=== PATIENT | female | born 1995 | race American Indian/Alaskan Native ===

== ENCOUNTER 2016-03-08 16:31 | Emergency (ER) | payer OTHER, MEDICAID ==
[2016-03-08 16:55] VITALS: BP 150/103
--- NOTE | 2016-03-08 18:18 | Emergency Department Report ---
Chief Complaint: Abdominal Pain Stated Complaint: POSS /CRAMPS Time Seen by Provider: 03/08/16 18:04 - HPI History of Present Illness: 20-year-old female presents today with lower abdominal cramping 2 months but has worsened. Positive test at a clinic which states that she is approximately 12 weeks according to her last menstrual period. Denies burning upon urination, blood in urine, vaginal discharge, vaginal bleeding, shortness of breath, chest pain. - ROS Review of Systems: Per HPI - Exam Vital Signs: Vital Signs 03/08/16 16:53 Temperature 98.1 F Pulse Rate 108 H Respiratory 18 Rate Blood Pressure 150/103 O2 Sat by Pulse 100 Oximetry Physical Exam: General: 20-year-old female in no acute distress. Well-developed, well- nourished. CV: Tachycardic. Regular rhythm. Lungs: Clear to auscultation bilaterally. Abdomen: Tenderness to palpation of lower abdomen. No guarding or rebound tenderness. MSE screening note: Focused history and physical exam performed. Due to findings the following was ordered: ED Disposition for MSE Condition: Stable Instructions: Abdominal Pain (ED)
[2016-03-08 18:36] LABS: Basophils % (Auto) 0.7 % (0.0-1.8); Eosinophils % (Auto) 1.1 % (0.0-4.3); Hematocrit 33.3 % (30.3-42.9); Hemoglobin 10.4 gm/dl (10.1-14.3); Mean Corpuscular HGB Conc 31 % (30-34); Mean Corpuscular Volume 74 fl (79-97); Platelet Count 428 K/mm3 (140-440)
[2016-03-08 18:37] LABS: Mean Corpuscular Hemoglobin 23 pg (28-32)
[2016-03-08 19:01] LABS: Anion Gap 16 mmol/L; Blood Urea Nitrogen 9 mg/dL (7-17); Calcium 9.3 mg/dL (8.4-10.2); Carbon Dioxide 23 mmol/L (22-30); Chloride 97.8 mmol/L (98-107); Glucose 98 mg/dL (65-100); Lipase 30 units/L (13-60); Potassium 3.8 mmol/L (3.6-5.0); Sodium 133 mmol/L (137-145)
--- NOTE | 2016-03-08 21:26 | Ultrasound Report ---
FINAL REPORT PROCEDURE: US OB < = 14 WEEKS FETUS TECHNIQUE: Real-time transabdominal and transvaginal sonography of the uterus, placenta, amniotic fluid, adnexa, and fetus was performed with image documentation. Measurements were obtained to determine age/size. M-mode Doppler was used to document heartbeat. CPT 53319 and 92365 HISTORY: Abdominal cramping COMPARISON: No prior studies are available for comparison. FINDINGS: ADDITIONAL GESTATION: None. Single live intrauterine is seen with crown-rump length of 2 cm corresponding to 8 weeks 5 days gestational age. Estimated date of delivery based on this measurement is October 13, 2016. heart rate is 170 beats per minute. Yolk sac is seen. Cervix appears closed. Right ovary measures 3.1 x 1.9 x 2.1 cm and contains a 1.6 cm complex lesion that is probably a collapsed cyst. Left ovary measures 2.9 x 1.8 x 2.1 cm. No free pelvic fluid is seen. IMPRESSION: 1. Single live intrauterine gestation at approximately 8 weeks 5 days. 2. EDC by US October 13, 2016 3. Probably partially collapsed cyst is seen in the right ovary measuring 1.6 cm.
--- NOTE | 2016-03-08 21:28 | Ultrasound Report ---
FINAL REPORT PROCEDURE: US OB TRANSVAGINAL TECHNIQUE: Real-time transabdominal and transvaginal sonography of the uterus, placenta, amniotic fluid, adnexa, and fetus was performed with image documentation. Measurements were obtained to determine age/size. M-mode Doppler was used to document heartbeat. CPT 22575 and 87206 HISTORY: Abdominal cramping COMPARISON: No prior studies are available for comparison. FINDINGS: ADDITIONAL GESTATION: None. Single live intrauterine is seen with crown-rump length of 2 cm corresponding to 8 weeks 5 days gestational age. Estimated date of delivery based on this measurement is October 13, 2016. heart rate is 170 beats per minute. Yolk sac is seen. Cervix appears closed. Right ovary measures 3.1 x 1.9 x 2.1 cm and contains a 1.6 cm complex lesion that is probably a collapsed cyst. Left ovary measures 2.9 x 1.8 x 2.1 cm. No free pelvic fluid is seen. IMPRESSION: 1. Single live intrauterine gestation at approximately 8 weeks 5 days. 2. EDC by US October 13, 2016 3. Probably partially collapsed cyst is seen in the right ovary measuring 1.6 cm.
[2016-03-08 22:04] LABS: Bacteria,Urine 2+ /HPF (Negative); Bilirubin,Urine NEG (Negative); Blood,Urine NEG (Negative); Ketones,Urine NEG (Negative); Leukocyte Esterase,Urine TR (Negative); Mucus,Urine 1+ /HPF; Nitrite,Urine NEG (Negative); Protein,Urine <15 mg/dL mg/dL (Negative); Urobilinogen,Urine < 2.0 mg/dL (<2.0)
--- NOTE | 2016-03-13 15:40 | ED Elopement Review ---
ED Pt Elopement review - Results review Lab results: Laboratory Tests 03/08/16 03/08/16 03/08/16 18:22 18:22 18:22 WBC 12.0 H RBC 4.50 Hgb 10.4 Hct 33.3 MCV 74 L MCH 23 L MCHC 31 RDW 19.0 H Plt Count 428 Lymph % (Auto) 28.2 [place] % (Auto) 9.4 H Eos % (Auto) 1.1 Baso % (Auto) 0.7 Lymph # 3.4 [place]osey # 1.1 H Eos # 0.1 Baso # 0.1 Seg Neutrophils % 60.6 Seg Neutrophils # 7.3 Sodium 133 L Potassium 3.8 Chloride 97.8 L Carbon Dioxide 23 Anion Gap 16 BUN 9 Creatinine 0.5 L Estimated GFR > 60 BUN/Creatinine Ratio 18.00 Glucose 98 Calcium 9.3 Amylase 114 Lipase 30 HCG, Quant Urine Color Urine Turbidity Urine pH Ur Specific [place] Urine Protein Urine Glucose (UA) Urine Ketones Urine Blood Urine Nitrite Urine Bilirubin Urine Urobilinogen Ur Leukocyte Esterase Urine WBC (Auto) Urine RBC (Auto) U Epithel Cells (Auto) Urine Bacteria (Auto) Calcium Oxalate Crystal Urine Mucus 03/08/16 03/08/16 18:22 21:15 WBC RBC Hgb Hct MCV MCH MCHC RDW Plt Count Lymph % (Auto) [place]y % (Auto) Eos % (Auto) Baso % (Auto) Lymph # [place] # Eos # Baso # Seg Neutrophils % Seg Neutrophils # Sodium Potassium Chloride Carbon Dioxide Anion Gap BUN Creatinine Estimated GFR BUN/Creatinine Ratio Glucose Calcium Amylase Lipase HCG, Quant 94571 H Urine Color Yellow Urine Turbidity Slightly-cloudy Urine pH 6.0 Ur Specific [place] 1.030 Urine Protein <15 mg/dl Urine Glucose (UA) Neg Urine Ketones Neg Urine Blood Neg Urine Nitrite Neg Urine Bilirubin Neg Urine Urobilinogen < 2.0 Ur Leukocyte Esterase Tr Urine WBC (Auto) 1.0 Urine RBC (Auto) 4.0 U Epithel Cells (Auto) 5.0 Urine Bacteria (Auto) 2+ Calcium Oxalate Crystal 2+ Urine Mucus 1+ - Call Back decision Pt Call Back Decision: Pt to F/U with PMD (needs OB JUNAID)
== END 2016-03-08 18:25 | disposition left against medical advice (07) ==
LOC: ED 16:31
DX: O26.891 Other specified pregnancy related conditions, first trimester (principal); R10.30 Lower abdominal pain, unspecified; Z3A.12 12 weeks gestation of pregnancy; Z53.21 Procedure and treatment not carried out due to patient leaving prior to being seen by health care provider
CPT/HCPCS: 36415; 76801; 76817; 80048; 81001; 82150; 83690; 84702; 85025

== ENCOUNTER 2016-04-01 22:06 | Emergency (ER) | payer OTHER, MEDICAID ==
[2016-04-01 23:07] VITALS: BP 142/101
== END 2016-04-01 23:15 | disposition left against medical advice (07) ==
LOC: ED 22:06
DX: O21.9 Vomiting of pregnancy, unspecified (principal); R11.0 Nausea; K92.0 Hematemesis; R10.10 Upper abdominal pain, unspecified; Z3A.13 13 weeks gestation of pregnancy; Z53.21 Procedure and treatment not carried out due to patient leaving prior to being seen by health care provider

== ENCOUNTER 2016-04-02 12:00 | Emergency (ER) | payer OTHER, MEDICAID ==
[2016-04-02 12:58] VITALS: BP 144/101
[2016-04-02 13:28] LABS: Basophils % (Auto) 0.6 % (0.0-1.8); Eosinophils % (Auto) 0.1 % (0.0-4.3); Hematocrit 36.6 % (30.3-42.9); Hemoglobin 11.7 gm/dl (10.1-14.3); Mean Corpuscular HGB Conc 32 % (30-34); Mean Corpuscular Volume 73 fl (79-97); Platelet Count 414 K/mm3 (140-440); Red Blood Count 5.02 M/mm3 (3.65-5.03); Red Cell Distribution Width 17.8 % (13.2-15.2); White Blood Count 10.2 K/mm3 (4.5-11.0)
[2016-04-02 13:29] LABS: Mean Corpuscular Hemoglobin 23 pg (28-32)
[2016-04-02 14:01] LABS: Anion Gap 21 mmol/L; Blood Urea Nitrogen 9 mg/dL (7-17); Calcium 10.1 mg/dL (8.4-10.2); Carbon Dioxide 24 mmol/L (22-30); Chloride 98.4 mmol/L (98-107); Glucose 115 mg/dL (65-100); Potassium 3.9 mmol/L (3.6-5.0); Sodium 139 mmol/L (137-145)
--- NOTE | 2016-04-03 09:37 | ED Elopement Review ---
ED Pt Elopement review - Results review Lab results: Laboratory Tests 04/02/16 04/02/16 13:14 13:14 WBC 10.2 RBC 5.02 Hgb 11.7 Hct 36.6 MCV 73 L MCH 23 L MCHC 32 RDW 17.8 H Plt Count 414 Lymph % (Auto) 16.5 [place] % (Auto) 8.1 H Eos % (Auto) 0.1 Baso % (Auto) 0.6 Lymph # 1.7 [place] # 0.8 Eos # 0.0 Baso # 0.1 Seg Neutrophils % 74.7 H Seg Neutrophils # 7.6 Sodium 139 Potassium 3.9 Chloride 98.4 Carbon Dioxide 24 Anion Gap 21 BUN 9 Creatinine 0.5 L Estimated GFR > 60 BUN/Creatinine Ratio 18.00 Glucose 115 H Calcium 10.1 - Call Back decision Pt Call Back Decision: Pt to F/U with PMD (follow-up with your [employer] TECHNICIAN for reevaluation of your blood pressure.)
== END 2016-04-02 23:30 | disposition left against medical advice (07) ==
LOC: ED 12:00
DX: O21.9 Vomiting of pregnancy, unspecified (principal); O26.891 Other specified pregnancy related conditions, first trimester; R19.7 Diarrhea, unspecified; Z3A.11 11 weeks gestation of pregnancy; Z53.21 Procedure and treatment not carried out due to patient leaving prior to being seen by health care provider
CPT/HCPCS: 36415; 80048; 85025

== ENCOUNTER 2016-04-03 09:49 | Emergency (ER) | payer OTHER, MEDICAID ==
[2016-04-03] MEDS ORDERED: ZOFRAN IV ONE (11:32)
[2016-04-03] MEDS ORDERED: NACL 0.9% 1000 ML 1,000 ML IV ONE (11:32)
--- NOTE | 2016-04-03 12:00 | Emergency Department Report ---
ED N/V/D HPI - General Chief complaint: Nausea/Vomiting/Diarrhea Stated complaint: ABD PAIN Time Seen by Provider: 04/03/16 11:27 Source: patient Mode of arrival: Ambulatory Limitations: No Limitations - History of Present Illness Initial comments: 20-year-old female presents to the emergency department complaining of nausea and vomiting. Patient states she is approximately 12 weeks , . She states for the past 2 weeks she has been vomiting and unable to keep food or liquids down. She reports some mild upper abdominal soreness secondary to vomiting. She denies diarrhea or vaginal bleeding. Patient has not taken any medication for the nausea this . She has seen her NURSE CONSULTANT this procedure. There are no other complaints. MD complaint: nausea, vomiting -: Gradual, week(s) (2) Description of Vomiting: food contents, watery Associated Abdominal Pain: Yes Location: epigastric Radiation: none Severity: mild Quality: aching Consistency: constant Improves with: none Worsens with: none Associated Symptoms: denies other symptoms - Related Data Previous Rx's Medication Instructions Recorded Last Taken Type Butalb/Acetamin/Caff 50-325-40 1 each PO Q4H PRN #10 tablet 11/09/13 Unknown Rx [Fioricet] Naproxen [Naprosyn TAB] 500 mg PO BID PRN #10 tablet 11/09/13 Unknown Rx Dicyclomine [Bentyl] 20 mg PO QID PRN #30 tablet 04/03/16 Unknown Rx Ondansetron [Zofran Odt] 4 mg PO Q8HR PRN #20 tab.rapdis 04/03/16 Unknown Rx Allergies Allergy/AdvReac Type Severity Reaction Status Date / Time No Known Allergies Allergy Verified 04/03/16 10:13 ED Review of Systems ROS: Stated complaint: ABD PAIN Other details as noted in HPI Comment: All other systems reviewed and negative Gastrointestinal: abdominal pain, nausea, vomiting ED Past Medical Hx - Past Medical History Previous Medical History?: Yes Hx Hypertension: Yes Hx Congestive Heart Failure: No Hx Diabetes: No Hx Deep Vein Thrombosis: No Hx Renal Disease: No Hx Sickle Cell Disease: No Hx Seizures: No Hx Asthma: No Hx COPD: No Hx HIV: No Additional medical history: HIGH CHOLESTEROL - Surgical History Past Surgical History?: No - Family History Family history: no significant - Social History Smoking Status: Never Smoker Substance Use Type: None - Medications Home Medications: Home Medications Medication Instructions Recorded Confirmed Last Taken Type Butalb/Acetamin/Caff 50-325-40 1 each PO Q4H PRN #10 tablet 11/09/13 Unknown Rx [Fioricet] Naproxen [Naprosyn TAB] 500 mg PO BID PRN #10 tablet 11/09/13 Unknown Rx Dicyclomine [Bentyl] 20 mg PO QID PRN #30 tablet 04/03/16 Unknown Rx Ondansetron [Zofran Odt] 4 mg PO Q8HR PRN #20 tab.rapdis 04/03/16 Unknown Rx ED Physical Exam - General Limitations: No Limitations General appearance: alert, in no apparent distress - Head Head exam: Present: atraumatic, normocephalic - Eye Eye exam: Present: normal appearance, PERRL, EOMI - ENT ENT exam: Present: normal exam, normal orophraynx, mucous membranes moist - Neck Neck exam: Present: normal inspection, full ROM. Absent: tenderness - Respiratory Respiratory exam: Present: normal lung sounds bilaterally. Absent: respiratory distress - Cardiovascular Cardiovascular Exam: Present: regular rate, normal rhythm, normal heart sounds - GI/Abdominal GI/Abdominal exam: Present: soft, normal bowel sounds. Absent: distended, tenderness - Extremities Exam Extremities exam: Present: normal inspection, full ROM. Absent: tenderness - Back Exam Back exam: Present: normal inspection, full ROM. Absent: tenderness - Neurological Exam Neurological exam: Present: alert, oriented X3. Absent: motor sensory deficit - Skin Skin exam: Present: warm, dry, intact ED Course Vital Signs 04/03/16 04/03/16 04/03/16 10:07 12:00 12:01 Temperature 98.5 F Pulse Rate 94 H Respiratory 16 22 Rate Blood Pressure 141/99 143/85 O2 Sat by Pulse 99 Oximetry 04/03/16 04/03/16 04/03/16 12:11 12:21 12:31 Temperature Pulse Rate Respiratory Rate Blood Pressure 109/54 143/85 143/85 O2 Sat by Pulse 100 100 100 Oximetry 04/03/16 04/03/16 04/03/16 12:41 12:51 13:00 Temperature Pulse Rate Respiratory Rate Blood Pressure 143/85 143/85 150/91 O2 Sat by Pulse 100 100 100 Oximetry 04/03/16 04/03/1604/03/17 13:11 13:21 13:31 Temperature Pulse Rate Respiratory Rate Blood Pressure 150/91 150/91 150/91 O2 Sat by Pulse 100 100 100 Oximetry 04/03/16 04/03/16 04/03/16 13:41 13:51 14:00 Temperature Pulse Rate Respiratory Rate Blood Pressure 150/91 150/91 152/93 O2 Sat by Pulse 100 99 100 Oximetry 04/03/16 14:10 Temperature Pulse Rate Respiratory Rate Blood Pressure 152/93 O2 Sat by Pulse 99 Oximetry ED Medical Decision Making - Lab Data Result diagrams: 04/03/16 11:43 04/03/16 11:43 - Medical Decision Making Laboratory results reviewed and discussed with the patient. Patient has been able to tolerate oral liquids in the emergency department. Patient will be discharged on this time to follow up with her NURSE CONSULTANT. - Differential Diagnosis hyperemesis gravidarum, dehydration, electrolyte abnormality Critical care attestation.: If time is entered above; I have spent that time in minutes in the direct care of this critically ill patient, excluding procedure time. ED Disposition Clinical Impression: Nausea and vomiting during Disposition: DISCHARGED TO HOME OR SELFCARE Is pt being admited?: No Condition: Stable Instructions: Hyperemesis Gravidarum (ED) Prescriptions: Dicyclomine [Bentyl] 20 mg PO QID PRN #30 tablet PRN Reason: Pain Ondansetron [Zofran Odt] 4 mg PO Q8HR PRN #20 tab.rapdis PRN Reason: Nausea Referrals: PRIMARY CARE, [Primary Care Provider] - 3-5 Days Time of Disposition: 15:30
[2016-04-03 12:03] LABS: Basophils % (Auto) 0.8 % (0.0-1.8); Eosinophils % (Auto) 0.1 % (0.0-4.3); Hematocrit 38.4 % (30.3-42.9); Mean Corpuscular HGB Conc 31 % (30-34); Mean Corpuscular Hemoglobin 23 pg (28-32); Mean Corpuscular Volume 74 fl (79-97); Platelet Count 454 K/mm3 (140-440); Red Blood Count 5.22 M/mm3 (3.65-5.03); Red Cell Distribution Width 18.2 % (13.2-15.2); White Blood Count 9.1 K/mm3 (4.5-11.0)
[2016-04-03 12:11] LABS: Blood Urea Nitrogen 12 mg/dL (7-17); Calcium 10.2 mg/dL (8.4-10.2); Carbon Dioxide 25 mmol/L (22-30); Glucose 114 mg/dL (65-100)
[2016-04-03 12:12] LABS: Anion Gap 22 mmol/L; Chloride 98.7 mmol/L (98-107); Potassium 3.8 mmol/L (3.6-5.0); Sodium 142 mmol/L (137-145)
[2016-04-03] MEDS ORDERED: BENTYL IM ONE (13:09)
[2016-04-03 14:45] LABS: Bacteria,Urine 1+ /HPF (Negative); Bilirubin,Urine NEG (Negative); Blood,Urine NEG (Negative); Ketones,Urine TR mg/dL (Negative); Leukocyte Esterase,Urine SM (Negative); Mucus,Urine 3+ /HPF; Nitrite,Urine NEG (Negative)
[2016-04-03 15:23] VITALS: BP 152/93
== END 2016-04-03 15:40 | disposition home or self-care (01) ==
LOC: ED 09:49
DX: O21.0 Mild hyperemesis gravidarum (principal); I10 Essential (primary) hypertension; Z3A.12 12 weeks gestation of pregnancy
CPT/HCPCS: 36415; 80048; 81001; 85025; 96361; 96372; 96374; 99284; J0500; J2405; J7030

== ENCOUNTER 2016-04-07 12:29 | Emergency (ER) | payer OTHER, MEDICAID ==
[2016-04-07 14:10] LABS: Basophils % (Auto) 0.8 % (0.0-1.8); Eosinophils % (Auto) 0.4 % (0.0-4.3); Hemoglobin 12.5 gm/dl (10.1-14.3); Mean Corpuscular HGB Conc 32 % (30-34); Mean Corpuscular Volume 73 fl (79-97); Platelet Count 384 K/mm3 (140-440); Red Blood Count 5.34 M/mm3 (3.65-5.03); White Blood Count 8.6 K/mm3 (4.5-11.0)
[2016-04-07 14:12] LABS: Mean Corpuscular Hemoglobin 23 pg (28-32)
[2016-04-07 14:24] LABS: Blood Urea Nitrogen 7 mg/dL (7-17); Calcium 9.9 mg/dL (8.4-10.2); Carbon Dioxide 25 mmol/L (22-30); Glucose 96 mg/dL (65-100)
[2016-04-07 14:25] LABS: Anion Gap 21 mmol/L; Chloride 94.7 mmol/L (98-107); Potassium 3.5 mmol/L (3.6-5.0); Sodium 137 mmol/L (137-145)
[2016-04-07] MEDS ORDERED: NACL 0.9% 1000 ML 1,000 ML IV ONE (22:59)
[2016-04-07] MEDS ORDERED: DILAUDID IV ONE (22:59)
[2016-04-07] MEDS ORDERED: D5/0.45NS 1,000 ML IV SCH (23:00)
--- NOTE | 2016-04-07 23:01 | Emergency Department Report ---
ED Abdominal Pain HPI - General Chief Complaint: Abdominal Pain Stated Complaint: ABD PAIN /BLEEDING Time Seen by Provider: 04/07/16 22:46 Source: patient Mode of arrival: Wheelchair Limitations: No Limitations - History of Present Illness Initial Comments: This is a 20-year-old female at 13 weeks by dates and ultrasound who complains of distant diffuse abdominal pain. She states she's been doing this for the past 2 weeks. He is followed up with her OB as well as here in the ED last week for the same complaint. When she was seen last week she was given dicyclomine as well as Zofran for home. She reports still having very significant difficulty with by mouth intake. She reports significant nausea. She reports anytime she she gets very crampy. She reports minimal vaginal discharge. She has had occasional spotting but nothing of significance according to her. Does report some dysuria as well. She states she is feeling weak in general due to poor oral intake. MD Complaint: abdominal pain -: Gradual, week(s) (2) Location: diffuse Migration to: periumbilical Severity: moderate Severity scale (0 -10): 10 Quality: cramping Consistency: intermittent Improves With: nothing Worsens With: eating Associated Symptoms: nausea, vomiting, dysuria - Related Data Previous Rx's Medication Instructions Recorded Last Taken Type Butalb/Acetamin/Caff 50-325-40 1 each PO Q4H PRN #10 tablet 11/09/13 Unknown Rx [Fioricet] Naproxen [Naprosyn TAB] 500 mg PO BID PRN #10 tablet 11/09/13 Unknown Rx Dicyclomine [Bentyl] 20 mg PO QID PRN #30 tablet 04/03/16 Unknown Rx Ondansetron [Zofran Odt] 4 mg PO Q8HR PRN #20 tab.rapdis 04/03/16 Unknown Rx Doxylamine Succinate [Unisom] 25 mg PO BID #60 tablet 04/08/16 Unknown Rx HYDROcodone/APAP 5-325 [[place] 1 each PO Q6HR PRN #15 tablet 04/08/16 Unknown Rx 5-325 mg TAB] Pyridoxine [Vitamin B-6] 50 mg PO DAILY #30 tablet 04/08/16 Unknown Rx Allergies Allergy/AdvReac Type Severity Reaction Status Date / Time No Known Allergies Allergy Verified 04/03/16 10:13 ED Review of Systems ROS: Stated complaint: ABD PAIN /BLEEDING Other details as noted in HPI Constitutional: weakness. denies: chills, fever Eyes: denies: eye pain, eye discharge, vision change ENT: denies: ear pain, throat pain Respiratory: denies: cough, shortness of breath, wheezing Cardiovascular: denies: chest pain, palpitations Endocrine: no symptoms reported Gastrointestinal: abdominal pain, nausea, vomiting. denies: diarrhea Genitourinary: denies: urgency, dysuria, discharge Musculoskeletal: denies: back pain, joint swelling, arthralgia Skin: denies: rash, lesions Neurological: denies: headache, weakness, paresthesias Psychiatric: denies: anxiety, depression Hematological/Lymphatic: denies: easy bleeding, easy bruising ED Past Medical Hx - Past Medical History Previous Medical History?: Yes Hx Hypertension: Yes Hx Congestive Heart Failure: No Hx Diabetes: No Hx Deep Vein Thrombosis: No Hx Renal Disease: No Hx Sickle Cell Disease: No Hx Seizures: No Hx Asthma: No Hx COPD: No Hx HIV: No Additional medical history: HIGH CHOLESTEROL. irregular heart beat - Surgical History Past Surgical History?: No - Social History Smoking Status: Never Smoker Substance Use Type: None - Medications Home Medications: Home Medications Medication Instructions Recorded Confirmed Last Taken Type Butalb/Acetamin/Caff 50-325-40 1 each PO Q4H PRN #10 tablet 11/09/13 Unknown Rx [Fioricet] Naproxen [Naprosyn TAB] 500 mg PO BID PRN #10 tablet 11/09/13 Unknown Rx Dicyclomine [Bentyl] 20 mg PO QID PRN #30 tablet 04/03/16 Unknown Rx Ondansetron [Zofran Odt] 4 mg PO Q8HR PRN #20 tab.rapdis 04/03/16 Unknown Rx Doxylamine Succinate [Unisom] 25 mg PO BID #60 tablet 04/08/16 Unknown Rx HYDROcodone/APAP 5-325 [[place] 1 each PO Q6HR PRN #15 tablet 04/08/16 Unknown Rx 5-325 mg TAB] Pyridoxine [Vitamin B-6] 50 mg PO DAILY #30 tablet 04/08/16 Unknown Rx ED Physical Exam - General Limitations: No Limitations General appearance: alert, in distress (mild due to pains), obese - Head Head exam: Present: atraumatic, normocephalic - Eye Eye exam: Present: normal appearance, PERRL, EOMI - ENT ENT exam: Present: normal exam, normal orophraynx, mucous membranes moist - Neck Neck exam: Present: normal inspection. Absent: tenderness, lymphadenopathy - Respiratory Respiratory exam: Present: normal lung sounds bilaterally. Absent: respiratory distress - Cardiovascular Cardiovascular Exam: Present: regular rate, normal rhythm. Absent: systolic murmur, diastolic murmur, rubs, gallop - GI/Abdominal GI/Abdominal exam: Present: soft, tenderness (diffusely. ), normal bowel sounds. Absent: guarding, rebound, organomegaly, mass - Extremities Exam Extremities exam: Present: normal inspection - Back Exam Back exam: Present: normal inspection. Absent: CVA tenderness (R), CVA tenderness (L), paraspinal tenderness, vertebral tenderness - Neurological Exam Neurological exam: Present: alert, oriented X3, normal gait. Absent: abnormal gait, motor sensory deficit - Psychiatric Psychiatric exam: Present: normal affect, normal mood - Skin Skin exam: Present: warm, dry, intact, normal color. Absent: rash ED Course Vital Signs 04/07/16 04/07/16 04/07/16 13:41 21:51 22:55 Temperature 98.2 F 98.7 F 98.2 F Pulse Rate 91 H 96 H 71 Respiratory 18 16 14 Rate Blood Pressure 144/121 153/109 Blood Pressure 134/73 [Left] O2 Sat by Pulse 100 100 100 Oximetry 04/07/16 04/07/16 04/08/16 22:56 23:00 00:00 Temperature Pulse Rate Respiratory Rate Blood Pressure 136/109 141/68 Blood Pressure [Left] O2 Sat by Pulse 99 100 100 Oximetry 04/08/16 01:00 Temperature Pulse Rate Respiratory Rate Blood Pressure 129/69 Blood Pressure [Left] O2 Sat by Pulse 100 Oximetry - Reevaluation(s) Reevaluation #1: 04/07/16 23:03 Clinically appears euvolemic here heart rate is appropriate blood pressures appropriate. I do suspect there is an element of dehydration. This may be contributing to her abdominal cramping as well. She does describe a history that sounds consistent with hyperemesis gravidarum clear. She has been trying Zofran with minimal success. I am inclined to try her on doxylamine as well as pyridoxine. Her abdominal examination for me is nonspecific. She does have moderate amount of tenderness somewhat diffusely. It does not seem surgical. Bedside ultrasound demonstrates heart tones in the 160s and reactive. Good movement is noted. Anterior placenta is noted no other specific concerning features are noted with this. No pelvic free fluid is appreciated. Normal kidneys are noted as well. Reevaluation #2: 04/08/16 02:23 Patient given 2 L of fluids here. She did not have any emesis while here in the ED. Her abdominal examination did continue to have some mild diffuse tenderness. It is not a surgical abdomen. Baby on ultrasound again appeared excellent. I have a low suspicion for bad notes. I think the patient has poor coping skills in regards to with in general. He did try to give some reassurance as well as indication that this period of difficulty will last likely for another 3 or 4 or 5 weeks. Again we'll trial and doxylamine and pyridoxine. ED Medical Decision Making - Lab Data Result diagrams: 04/07/16 13:53 04/07/16 13:53 Critical care attestation.: If time is entered above; I have spent that time in minutes in the direct care of this critically ill patient, excluding procedure time. ED Disposition Clinical Impression: Hyperemesis gravidarum Abdominal pain Qualifiers: Abdominal location: generalized Qualified Code(s): R10.84 - Generalized abdominal pain Disposition: DISCHARGED TO HOME OR SELFCARE Is pt being admited?: No Does the pt Need Aspirin: No Condition: Stable Instructions: Hyperemesis Gravidarum (ED) Prescriptions: Doxylamine Succinate [Unisom] 25 mg PO BID #60 tablet HYDROcodone/APAP 5-325 [[place] 5-325 mg TAB] 1 each PO Q6HR PRN #15 tablet PRN Reason: Pain Pyridoxine [Vitamin B-6] 50 mg PO DAILY #30 tablet Referrals: PRIMARY CARE, [Primary Care Provider] - 3-5 Days Time of Disposition: 01:05
[2016-04-07] MEDS ORDERED: ZOFRAN IV ONE (23:08)
[2016-04-08 01:44] VITALS: BP 129/69
== END 2016-04-08 01:34 | disposition home or self-care (01) ==
LOC: ED 12:29
DX: O21.0 Mild hyperemesis gravidarum (principal); I10 Essential (primary) hypertension; E78.00 Pure hypercholesterolemia, unspecified; O02.81 Inappropriate change in quantitative human chorionic gonadotropin (hCG) in early pregnancy; Z3A.00 Weeks of gestation of pregnancy not specified
CPT/HCPCS: 36415; 80048; 84702; 85025; 86850; 86900; 86901; 96361; 96374; 96375; 99283; J1170; J2405; J7030

== ENCOUNTER 2016-07-10 18:37 | Outpatient (CLI) | payer OTHER, MEDICAID ==
[2016-07-10 19:39] LABS: Bacteria,Urine 2+ /HPF (Negative); Bilirubin,Urine NEG (Negative); Blood,Urine NEG (Negative); Ketones,Urine NEG (Negative); Leukocyte Esterase,Urine LG (Negative); Mucus,Urine 2+ /HPF; Nitrite,Urine NEG (Negative); Protein,Urine <15 mg/dL mg/dL (Negative)
[2016-07-10] MEDS ORDERED: LACTATED RINGERS 500 ML IV ONE (20:00)
[2016-07-10 21:31] VITALS: BP 135/74
[2016-07-10] MEDS ORDERED: ANCEF/NS 1 GM/50 ML 1 GM/50 ML BAG IV ONE (21:35)
[2016-07-10] MEDS ORDERED: LACTATED RINGERS 1,000 ML IV SCH (22:00)
[2016-07-10 22:57] LABS: Hemoglobin 9.5 gm/dl (10.1-14.3); Mean Corpuscular HGB Conc 32 % (30-34); Mean Corpuscular Hemoglobin 23 pg (28-32); Mean Corpuscular Volume 74 fl (79-97); Platelet Count 393 K/mm3 (140-440); Red Blood Count 4.06 M/mm3 (3.65-5.03); Red Cell Distribution Width 17.3 % (13.2-15.2); White Blood Count 10.3 K/mm3 (4.5-11.0)
--- NOTE | 2016-07-11 07:37 | Ultrasound Report ---
OB ULTRASOUND HISTORY: labor, spontaneous rupture of membranes TECHNIQUE: Transabdominal ultrasound with Doppler interrogation. Gestation: Single Position: Cephalic Amniotic Fluid: Normal CAROLYN = 7.3 cm Placenta: Anterior Placental Grade: 0 Heart Rate: 154 BPM Cervical length: 3.6 cm (Normal > 3 cm) x It is too early for a anatomical survey BPD: 6.3 cm = 25 w 3 d HC: 23.8 cm = 25 w 6 d AC: 22.0 cm = 26 w 2 d FL: 4.8 cm = 26 w 1 d HC/AC Ratio: 1.08 Estimated Weight: 923 grams LMP: Uncertain Clinical age = w d EDC: US Gest. Age = 25 w 6 d EDC: 10/17/16
== END 2016-07-10 22:50 | disposition home or self-care (01) ==
LOC: TRG 18:37
PROVIDERS: ATTEND Obstetrics & Gynecology
DX: O42.92 Full-term premature rupture of membranes, unspecified as to length of time between rupture and onset of labor (principal); O47.02 False labor before 37 completed weeks of gestation, second trimester; Z3A.25 25 weeks gestation of pregnancy
CPT/HCPCS: 36415; 59025; 76816; 81001; 85027; 87086; 96360; 96365; J0690; J7120; 87076; 87186

== ENCOUNTER 2016-07-27 14:09 | Outpatient (CLI) | payer OTHER, MEDICAID ==
[2016-07-27] MEDS ORDERED: LACTATED RINGERS 500 ML IV ONE (14:27)
[2016-07-27 14:57] LABS: Bacteria,Urine 3+ /HPF (Negative); Bilirubin,Urine NEG (Negative); Blood,Urine NEG (Negative); Ketones,Urine NEG (Negative); Leukocyte Esterase,Urine MOD (Negative); Mucus,Urine 3+ /HPF; Nitrite,Urine POS (Negative)
[2016-07-29 01:46] VITALS: BP 120/62
== END 2016-07-27 16:35 | disposition home or self-care (01) ==
LOC: TRG 14:09
PROVIDERS: ATTEND Obstetrics & Gynecology
DX: O47.02 False labor before 37 completed weeks of gestation, second trimester (principal); Z3A.28 28 weeks gestation of pregnancy
CPT/HCPCS: 59025; 81001

== ENCOUNTER 2016-07-27 22:15 | Inpatient (IN) | payer OTHER, MEDICAID ==
[2016-07-27] MEDS ORDERED: LACTATED RINGERS 1,000 ML IV ONE (23:09)
[2016-07-27] MEDS ORDERED: ZOFRAN IV ONE (23:10)
[2016-07-28 02:12] LABS: Bilirubin,Urine SM (Negative); Blood,Urine NEG (Negative); Ketones,Urine 80 mg/dL (Negative); Leukocyte Esterase,Urine TR (Negative); Mucus,Urine 3+ /HPF; Nitrite,Urine NEG (Negative)
[2016-07-28] MEDS ORDERED: TYLENOL PO ONE (03:25)
[2016-07-28] MEDS ORDERED: TYLENOL PO PRN (03:59)
[2016-07-28] MEDS ORDERED: COLACE PO PRN (03:59)
[2016-07-28] MEDS ORDERED: LACTATED RINGERS 1,000 ML IV SCH (04:00)
[2016-07-28] MEDS ORDERED: ZOFRAN IV PRN (04:04)
--- NOTE | 2016-07-28 04:19 | History and Physical Report ---
History of Present Illness Date of examination: 07/28/16 Chief complaint: Nausea & vomiting, unable to tolerate PO antibiotics for UTI, cramping & dehydration History of present illness: EDC Calculations by LMP: 10/13/2016 Past History : 5 Term Births: 0 Premature Births: 3 Living Children: 2 Para: 2 Mult. Births: 0 Prev : 0 Aborta: 0 Elect. Ab: 0 Spont. Ab: 1 Ectopics: 0 # 1 Delivery date: 02/25/2012 Weeks Gestation: 36+4 Delivery type: Vaginal Anesthesia type: epidural Delivery location: [facility] Sex: male weight: 6.19 Comments: pre-eclampsia/eclampsia, bradycardia # 2 Delivery date: 01/2013 labor: yes Delivery type: Anesthesia type: none Delivery location: [facility] Sex: Female weight: 5-0 Comments: PreE # 3 Delivery date: 2013 Weeks Gestation: 28 Delivery type: Delivery location: [place] Comments: IUFD severe PreE # 4 Delivery date: 2014 Weeks Gestation: 12 Delivery type: SAB Comments: high BP; heavy bleeding SAB Risk Factors: Smoked Tobacco Use: Never smoker Smokeless Tobacco Use: Never Passive smoke exposure: no Drug use: no Caffeine use: 0 drinks per day Alcohol use: no 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 Infection History Hx of STD: none Varicella/Chicken Pox Status: Previous Disease Genetic History Congenital Heart Defect: Mom: no Dad: no Suni Disease: Mom: no Dad: no Thalassemia Mom: no Dad: no Neural Tube Defect Mom: no Dad: no Down's Syndrome Mom: no Dad: no Jevon-Sachs Mom: no Dad: no Sickle Cell Disease/Trait Mom: no Dad: no Hemophilia Mom: no Dad: no Muscular Dystrophy Mom: no Dad: no Cystic Fibrosis Mom: no Dad: no [place] Chorea Mom: no Dad: no Mental Retardation Mom: no Dad: no Fragile X Mom: no Dad: no Other Genetic/Chromosomal Disorder Mom: no Dad: no Child w/other defect Mom: no Dad: no Enviromental Exposures Xray Exposure: no Medication, drug, or alcohol use since LMP: no Chemical/Other Exposure: no Exposure to Cat Liter: no Hx of Parvovirus (Fifth Disease): no Occupational Exposure to Children: none Current Allergies: No known allergies Past History Social history: lives with family - Obstetrical History Expected Date of Delivery: 10/13/16 Actual Gestation: 29 Week(s) 0 Day(s) : 3 Para: 2 Hx # Term Pregnancies: 0 Number of Pregnancies: 3 Spontaneous Abortions: 1 Induced : 0 Number of Living Children: 2 Medications and Allergies Allergies Allergy/AdvReac Type Severity Reaction Status Date / Time No Known Allergies Allergy Verified 04/03/16 10:13 Home Medications Medication Instructions Recorded Confirmed Last Taken Type Butalb/Acetamin/Caff 50-325-40 1 each PO Q4H PRN #10 tablet 11/09/13 Unknown Rx [Fioricet] Naproxen [Naprosyn TAB] 500 mg PO BID PRN #10 tablet 11/09/13 Unknown Rx Dicyclomine [Bentyl] 20 mg PO QID PRN #30 tablet 04/03/16 Unknown Rx Ondansetron [Zofran Odt] 4 mg PO Q8HR PRN #20 tab.rapdis 04/03/16 Unknown Rx Doxylamine Succinate [Unisom] 25 mg PO BID #60 tablet 04/08/16 Unknown Rx HYDROcodone/APAP 5-325 [[place] 1 each PO Q6HR PRN #15 tablet 04/08/16 Unknown Rx 5-325 mg TAB] Pyridoxine [Vitamin B-6] 50 mg PO DAILY #30 tablet 04/08/16 Unknown Rx Nitrofurantoin [place]/M-Cryst 100 mg PO Q12HR #20 capsule 07/10/16 Unknown Rx [Macrobid CAP] Active Meds: Active Medications Acetaminophen (Tylenol) 650 mg PO Q4H PRN PRN Reason: Pain MILD(1-3)/Fever >100.5/GRANT Docusate Sodium (Colace) 100 mg PO Q12H PRN PRN Reason: Constipation Dextrose/Lactated Ringer's (D5lr) 1,000 mls @ 150 mls/hr IV DIRECT JOYCE Lactated Ringer's (Lactated Ringers) 1,000 mls @ 125 mls/hr IV DIRECT JOYCE Ceftriaxone Sodium (Rocephin/Ns 2 Gm/100 Ml) 2 gm in 100 mls @ 200 mls/hr IV Q24HR JOYCE PRN Reason: Protocol Metoclopramide HCl (Reglan) 10 mg IV Q6H JOYCE Multivitamins/Iron/Calcium ( Vitamin) 1 each PO QDAY JOYCE Multivitamins/Iron/Calcium ( Vitamin) 1 each PO QDAY JOYCE Ondansetron HCl (Zofran) 4 mg IV Q6H PRN PRN Reason: Nausea And Vomiting Ondansetron HCl (Zofran) 4 mg IV Q6H PRN PRN Reason: N/V unrelieved by Reglan Promethazine HCl (Phenergan) 25 mg GA Q6H JOYCE Review of Systems All systems: negative Constitutional: weight loss, fatigue, poor appetite Breasts: normal Genitourinary: contractions - Vital Signs Vital signs: Vital Signs Temp Pulse Resp BP 98.4 F 97 H 20 112/74 07/27/16 23:35 07/27/16 23:35 07/27/16 23:35 07/27/16 23:35 Temp Pulse Resp BP Pulse Ox 98.4 F 102 H 20 128/78 99 07/27/16 23:35 07/28/16 04:10 07/28/16 03:43 07/28/16 01:20 07/28/16 04:10 - Physical Exam Breasts: Positive: normal Cardiovascular: Regular rate Lungs: Positive: Clear to auscultation, Normal air movement Abdomen: Positive: normal appearance, soft - Obstetrical FHR: auscultation normal Uterine Contraction Monitor Mode: External Uterine Contraction Pattern: Irregular Uterine Tone Measurement Phase: Resting Results Abnormal lab results 07/28/16 Range/Units 01:57 Ur Specific [place] 1.032 H (1.003-1.030) Urine WBC (Auto) 20.0 H (0.0-6.0) /HPF All other labs normal. Assessment and Plan 20y/o L2 presented with c/o worsening nausea and vomiting that is now prohibiting her from keeping down any food or liquids, including PO antibiotics for UTI dx 07/10/16 @ [facility]. UA showed ketones 80, toco with irritability. Patient was hydrated and given IV zofran in triage but failed a po challenge. Plan for observation with continued antiemetic and fluids, will also give IV rocephin as urine culture from 07/10/16 was susceptible and it is doubtful patient took and kept down previous abx, UA continues to show signs of UTI. repeat culture ordered. Dr. Mooney updated and aware. - Patient Problems (1) UTI (urinary tract infection) in in third trimester Current Visit: Yes Status: Acute Plan to address problem: repeat culture IV Rocephin (2) Nausea and vomiting of , antepartum Current Visit: Yes Status: Acute Plan to address problem: antiemetic and IVF serial urine ketone checks (3) 29 weeks gestation of Current Visit: Yes Status: Acute
[2016-07-28] MEDS: PHENERGAN PR SCH ×3 (04:58→19:59)
[2016-07-28] MEDS ORDERED: D5LR 1,000 ML IV SCH (05:00)
[2016-07-28] MEDS ORDERED: ROCEPHIN/NS 2 GM/100 ML 2 GM/100 ML BAG IV SCH ×2 (06:00→10:00)
[2016-07-28] MEDS ORDERED: LACTATED RINGERS 1,000 ML ONE (06:37)
--- NOTE | 2016-07-28 06:52 | Admit Criteria Form ---
Admission Criteria Documentation: URINARY COMPLICATIONS Clinical Indications for Inpatient Care (Place 'X' for any and all applicable criteria): Ongoing inpatient care may be indicated for urinary complications with ANY ONE of the following: [X]I. Urinary tract infection requiring inpatient care as indicated by ANY ONE of the following(8)(19)(20): [ ]a) Severe symptoms (eg, high fever, severe pain) [X]b) Vomiting or dehydration requiring ongoing inpatient care [ ]c) IV antibiotic needs that cannot be managed at lower level of care [ ]d) Hemodynamic instability [ ]e) Obstruction of collecting system by stone or tumor [ ]II. Urinary retention requiring drainage or surgery (3)(4)(5)(17)(18) [ ]III. Renal failure (Use Renal Failure Criteria for further information.) [ ]IV. Oliguria(30) [ ]V. Post obstructive diuresis requiring close monitoring of urine output and intravenous compensation for excessive fluid losses(33) Extended stay beyond goal length of stay for primary condition may be needed until ALL of the following are present(3)(4)(5)(8): [ ]a) Renal function (creatinine) at baseline, or daily decreases in creatinine consistent with renal function return [ ]b) Voiding adequately or with urinary catheter or percutaneous suprapubic tube and management regimen in place that is performable at lower level of care. [ ]c) Urine output adequate [ ]d) Fever absent or resolving [ ]e) Infection absent or treatable at next level of care The original [employer] content created by [employer] has been revised. The portions of the content which have been revised are identified through the use of italic text or in bold, and [facility] has neither reviewed nor approved the modified material. All other unmodified content is copyright [employer] Please see references footnoted in the original [employer] edition 2016 Admission Criteria Met: Yes
[2016-07-28 07:27] LABS: Eosinophils % (Auto) 0.2 % (0.0-4.3); Hematocrit 29.3 % (30.3-42.9); Hemoglobin 9.4 gm/dl (10.1-14.3); Mean Corpuscular HGB Conc 32 % (30-34); Mean Corpuscular Volume 71 fl (79-97); Platelet Count 395 K/mm3 (140-440); Red Blood Count 4.12 M/mm3 (3.65-5.03); Red Cell Distribution Width 17.6 % (13.2-15.2); White Blood Count 8.4 K/mm3 (4.5-11.0)
[2016-07-28 07:37] LABS: Mean Corpuscular Hemoglobin 23 pg (28-32)
[2016-07-28 07:40] LABS: Anion Gap 21 mmol/L; Blood Urea Nitrogen 6 mg/dL (7-17); Calcium 9.1 mg/dL (8.4-10.2); Carbon Dioxide 19 mmol/L (22-30); Chloride 100.9 mmol/L (98-107); Glucose 98 mg/dL (65-100); Potassium 3.2 mmol/L (3.6-5.0); Sodium 138 mmol/L (137-145)
[2016-07-28] MEDS: ZOFRAN IV PRN ×2 (08:09→18:14)
--- NOTE | 2016-07-28 08:45 | Progress Note ---
Assessment and Plan - Patient Problems (1) Nausea and vomiting of , antepartum Current Visit: Yes Status: Acute Plan to address problem: pt resting quietly Vomited for the 3rd time this AM Will continue antiemetic Will give Pepcid IV and hang Banana bag. P: continue POC Consult with Subjective - Subjective Date of service: 07/28/16 (vomited again) Principal diagnosis: N&V 3rd trimester IUP @ 29 weeks Patient reports: movement normal Objective - Vital Signs Vital Signs: Vital Signs - 12hr 07/27/16 07/27/16 07/28/16 23:35 23:43 01:15 Temperature 98.4 F Pulse Rate 97 H 97 H 101 H Respiratory 20 Rate Blood Pressure 112/74 Blood Pressure 112/74 [Right] O2 Sat by Pulse 99 Oximetry 07/28/16 07/28/16 07/28/16 01:20 01:21 01:26 Temperature Pulse Rate 108 H 105 H 98 H Respiratory Rate Blood Pressure 128/78 Blood Pressure [Right] O2 Sat by Pulse 98 96 98 Oximetry 07/28/16 07/28/16 07/28/16 01:31 01:36 01:37 Temperature Pulse Rate 100 H 108 H 94 H Respiratory Rate Blood Pressure Blood Pressure [Right] O2 Sat by Pulse 97 97 99 Oximetry 07/28/16 07/28/16 07/28/16 01:41 01:46 01:51 Temperature Pulse Rate 100 H 97 H 104 H Respiratory Rate Blood Pressure Blood Pressure [Right] O2 Sat by Pulse 99 98 98 Oximetry 07/28/16 07/28/16 07/28/16 01:53 01:58 01:59 Temperature Pulse Rate 125 H 102 H 100 H Respiratory Rate Blood Pressure Blood Pressure [Right] O2 Sat by Pulse 96 99 96 Oximetry 07/28/16 07/28/16 07/28/16 02:00 02:05 02:11 Temperature Pulse Rate 108 H 93 H 96 H Respiratory Rate Blood Pressure Blood Pressure [Right] O2 Sat by Pulse 99 96 96 Oximetry 07/28/16 07/28/16 07/28/16 02:16 02:21 02:26 Temperature Pulse Rate 96 H 96 H 97 H Respiratory Rate Blood Pressure Blood Pressure [Right] O2 Sat by Pulse 96 95 95 Oximetry 07/28/16 07/28/16 07/28/16 02:31 02:36 02:41 Temperature Pulse Rate 88 85 91 H Respiratory Rate Blood Pressure Blood Pressure [Right] O2 Sat by Pulse 99 98 98 Oximetry 07/28/16 07/28/16 07/28/16 02:46 02:52 02:57 Temperature Pulse Rate 91 H 92 H 96 H Respiratory Rate Blood Pressure Blood Pressure [Right] O2 Sat by Pulse 98 98 96 Oximetry 07/28/16 07/28/16 07/28/16 03:02 03:07 03:12 Temperature Pulse Rate 91 H 97 H 92 H Respiratory Rate Blood Pressure Blood Pressure [Right] O2 Sat by Pulse 96 96 97 Oximetry 07/28/16 07/28/16 07/28/16 03:17 03:22 03:28 Temperature Pulse Rate 86 92 H 90 Respiratory Rate Blood Pressure Blood Pressure [Right] O2 Sat by Pulse 98 96 98 Oximetry 07/28/16 07/28/16 07/28/16 03:33 03:35 03:40 Temperature Pulse Rate 92 H 84 96 H Respiratory Rate Blood Pressure Blood Pressure [Right] O2 Sat by Pulse 97 98 99 Oximetry 07/28/16 07/28/16 07/28/16 03:43 03:45 03:47 Temperature Pulse Rate 89 88 Respiratory 20 Rate Blood Pressure Blood Pressure [Right] O2 Sat by Pulse 99 99 Oximetry 07/28/16 07/28/16 07/28/16 03:52 03:55 04:00 Temperature Pulse Rate 104 H 104 H 121 H Respiratory Rate Blood Pressure Blood Pressure [Right] O2 Sat by Pulse 99 98 98 Oximetry 07/28/16 07/28/16 07/28/16 04:05 04:10 04:15 Temperature Pulse Rate 96 H 102 H 101 H Respiratory Rate Blood Pressure Blood Pressure [Right] O2 Sat by Pulse 99 99 99 Oximetry 07/28/16 07/28/16 07/28/16 05:17 05:22 05:27 Temperature Pulse Rate 89 90 89 Respiratory Rate Blood Pressure Blood Pressure [Right] O2 Sat by Pulse 98 98 99 Oximetry 07/28/16 07/28/16 07/28/16 05:32 05:37 05:42 Temperature Pulse Rate 88 88 86 Respiratory Rate Blood Pressure 118/74 Blood Pressure [Right] O2 Sat by Pulse 98 98 99 Oximetry 07/28/16 07/28/16 07/28/16 05:47 05:52 05:53 Temperature 98.4 F Pulse Rate 97 H 96 H 85 Respiratory 12 Rate Blood Pressure Blood Pressure 118/74 [Right] O2 Sat by Pulse 98 99 Oximetry 07/28/16 07/28/16 07/28/16 05:57 06:02 06:07 Temperature Pulse Rate 86 87 121 H Respiratory Rate Blood Pressure Blood Pressure [Right] O2 Sat by Pulse 99 99 97 Oximetry 07/28/16 07/28/16 07/28/16 06:12 06:17 06:22 Temperature Pulse Rate 108 H 97 H 90 Respiratory Rate Blood Pressure Blood Pressure [Right] O2 Sat by Pulse 100 99 98 Oximetry 07/28/16 07/28/16 07/28/16 06:26 06:27 06:32 Temperature Pulse Rate 84 87 86 Respiratory Rate Blood Pressure 130/71 Blood Pressure [Right] O2 Sat by Pulse 100 99 Oximetry 07/28/16 07/28/16 07/28/16 06:37 06:42 06:47 Temperature Pulse Rate 81 89 104 H Respiratory Rate Blood Pressure Blood Pressure [Right] O2 Sat by Pulse 98 98 99 Oximetry 07/28/16 07/28/16 07/28/16 06:52 06:57 07:02 Temperature Pulse Rate 96 H 83 95 H Respiratory Rate Blood Pressure Blood Pressure [Right] O2 Sat by Pulse 96 100 97 Oximetry 07/28/16 07/28/16 07/28/16 07:07 07:12 07:17 Temperature Pulse Rate 91 H 86 89 Respiratory Rate Blood Pressure 97/52 Blood Pressure [Right] O2 Sat by Pulse 97 96 97 Oximetry 07/28/16 07/28/16 07/28/16 07:22 07:27 07:32 Temperature Pulse Rate 92 H 94 H 97 H Respiratory Rate Blood Pressure Blood Pressure [Right] O2 Sat by Pulse 96 96 96 Oximetry 07/28/16 07/28/16 07/28/16 07:37 07:39 07:40 Temperature Pulse Rate 95 H 94 H 94 H Respiratory Rate Blood Pressure 112/54 Blood Pressure [Right] O2 Sat by Pulse 96 90 Oximetry 07/28/16 07/28/16 07/28/16 07:42 07:47 07:52 Temperature 98.1 F Pulse Rate 95 H 87 94 H Respiratory 18 Rate Blood Pressure Blood Pressure 112/54 [Right] O2 Sat by Pulse 95 96 97 Oximetry 07/28/16 07/28/16 07/28/16 07:56 07:57 08:02 Temperature Pulse Rate 93 H 87 95 H Respiratory Rate Blood Pressure 117/56 Blood Pressure [Right] O2 Sat by Pulse 99 99 Oximetry 07/28/16 07/28/16 07/28/16 08:07 08:12 08:17 Temperature Pulse Rate 100 H 100 H 96 H Respiratory Rate Blood Pressure Blood Pressure [Right] O2 Sat by Pulse 98 99 98 Oximetry 07/28/16 07/28/16 07/28/16 08:22 08:27 08:32 Temperature Pulse Rate 100 H 102 H 100 H Respiratory Rate Blood Pressure Blood Pressure [Right] O2 Sat by Pulse 99 97 100 Oximetry - Exam Breasts: deferred Cardiovascular: Regular rate Lungs: Normal air movement Abdomen: Present: normal appearance, soft. Absent: distention, tenderness Vulva: both: normal Uterus: Present: normal FHR: auscultation normal, category 1 Uterine Contraction Pattern: Absent Uterine Tone Measurement Phase: Resting Extremities: normal Deep Tendon Reflex Grade: Normal +2 - Labs Labs: Abnormal Labs 07/28/16 07/28/16 07/28/16 01:57 06:51 06:51 Hgb 9.4 L Hct 29.3 L MCV 71 L MCH 23 L RDW 17.6 H [place] % (Auto) 10.2 H [place] # 0.9 H Carbon Dioxide 19 L BUN 6 L Creatinine 0.4 L Ur Specific [place] 1.032 H Urine WBC (Auto) 20.0 H Laboratory Results - last 24 hr 07/28/16 07/28/16 07/28/16 01:57 06:51 06:51 WBC 8.4 RBC 4.12 Hgb 9.4 L Hct 29.3 L MCV 71 L MCH 23 L MCHC 32 RDW 17.6 H Plt Count 395 Lymph % (Auto) 22.3 [place] % (Auto) 10.2 H Eos % (Auto) 0.2 Baso % (Auto) 1.0 Lymph # 1.9 [place] # 0.9 H Eos # 0.0 Baso # 0.1 Seg Neutrophils % 66.3 Seg Neutrophils # 5.6 Sodium 138 Carbon Dioxide 19 L Anion Gap 21 BUN 6 L Creatinine 0.4 L Estimated GFR > 60 BUN/Creatinine Ratio 15.00 Glucose 98 Calcium 9.1 Urine Color [place] Urine Turbidity Clear Urine pH 6.0 Ur Specific [place] 1.032 H Urine Protein 100 mg/dl Urine Glucose (UA) Neg Urine Ketones 80 Urine Blood Neg Urine Nitrite Neg Urine Bilirubin Sm Urine Ictotest Negative Urine Urobilinogen 4.0 Ur Leukocyte Esterase Tr Urine WBC (Auto) 20.0 H Urine RBC (Auto) 20.0 U Epithel Cells (Auto) 9.0 Urine Mucus 3+
[2016-07-28] MEDS ORDERED: 1: FOLVITE 1 MG, INFUVITE 10 ML, VITAMIN B-1 100 MG in NACL 0.9% 1000 ML 988.8 ML 2: NA IV SCH (09:00)
[2016-07-28] MEDS: PEPCID IV SCH ×2 (09:39→22:15)
[2016-07-28] MEDS ORDERED: PRENATAL VITAMIN PO SCH ×2 (10:00)
[2016-07-28] MEDS ORDERED: SUBLIMAZE IV ONE (11:00)
[2016-07-28 11:01] LABS: Urine Drugs of Abuse Note Disclamer
[2016-07-28] MEDS: REGLAN IV SCH ×3 (11:21→18:24)
[2016-07-29] MEDS: PHENERGAN PR SCH (01:36)
[2016-07-29] MEDS: REGLAN IV SCH (01:36)
[2016-07-29] MEDS: ZOFRAN IV PRN (01:36)
[2016-07-29 03:43] VITALS: BP 125/68
== END 2016-07-29 03:10 | disposition left against medical advice (07) | DRG 781 ==
LOC: TRG 22:15 → LD 07-28 04:29 → OBSVTOIN 07-28 07:49
PROVIDERS: ADMIT Obstetrics & Gynecology; ATTEND Obstetrics & Gynecology
DX: O21.9 Vomiting of pregnancy, unspecified (principal); O23.43 Unspecified infection of urinary tract in pregnancy, third trimester; Z3A.29 29 weeks gestation of pregnancy
CPT/HCPCS: 36415; 59025; 76705; 80048; 80307; 81001; 82010; 82150; 83690; 85025; 87086; 96360; 96361; 96374; J0696; J2405; J2765; J3010; J3411; J7030; J7120; J7121

== ENCOUNTER 2016-07-29 16:52 | Outpatient (CLI) | payer OTHER, MEDICAID ==
[2016-07-29] MEDS ORDERED: TYLENOL PO PRN (18:00)
[2016-07-29] MEDS ORDERED: COLACE PO PRN (18:00)
[2016-07-29] MEDS ORDERED: ZOFRAN IV PRN (18:00)
[2016-07-29 19:01] LABS: Blood Urea Nitrogen 4 mg/dL (7-17); Calcium 9.3 mg/dL (8.4-10.2); Carbon Dioxide 17 mmol/L (22-30); Chloride 104.7 mmol/L (98-107); Glucose 89 mg/dL (65-100); Sodium 140 mmol/L (137-145)
[2016-07-29] MEDS: MORPHINE IV PRN (19:20)
[2016-07-29 19:21] LABS: Anion Gap 22 mmol/L; Potassium 3.9 mmol/L (3.6-5.0)
--- NOTE | 2016-07-29 20:39 | History and Physical Report ---
History of Present Illness Date of examination: 07/29/16 Chief complaint: Persistent nausea and vomiting [id number] midepigastric/ RUQ pain. She has had a 15 # weight loss in the . Her prenatall course has also been remarkable for UTI with incomplete treatment. She had a UC performed yesterday, the preliminary report is negative. History of present illness: Past History : 5 Term Births: 0 Premature Births: 3 Living Children: 2 Para: 2 Mult. Births: 0 Prev : 0 Aborta: 0 Elect. Ab: 0 Spont. Ab: 1 Ectopics: 0 # 1 Delivery date: 02/25/2012 Weeks Gestation: 36+4 Delivery type: Vaginal Anesthesia type: epidural Delivery location: [facility] Sex: male weight: 6.19 Comments: pre-eclampsia/eclampsia, bradycardia # 2 Delivery date: 01/2013 labor: yes Delivery type: Anesthesia type: none Delivery location: [facility] Sex: Female weight: 5-0 Comments: PreE # 3 Delivery date: 2013 Weeks Gestation: 28 Delivery type: Delivery location: [place] Comments: IUFD severe PreE # 4 Delivery date: 2014 Weeks Gestation: 12 Delivery type: SAB Comments: high BP; heavy bleeding SAB Risk Factors: Smoked Tobacco Use: Never smoker Smokeless Tobacco Use: Never Passive smoke exposure: no Drug use: no Caffeine use: 0 drinks per day Alcohol use: no 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 % Dietary Counseling: pn yes Past Medical History: chronic htn Past Surgical History:Reviewed history from 10/17/2011 and no changes required: Negative Past Surgical History Past Medical History Abnormal PAP: negative JENNA Exposure: negative Infertility: negative Uterine Anomaly: negative Uterine Surgery (not C/S): negative Other Gynecologic Problems: negative Social Hx: 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 Infection History Hx of STD: none Varicella/Chicken Pox Status: Previous Disease Genetic History Congenital Heart Defect: Mom: no Dad: no Suni Disease: Mom: no Dad: no Thalassemia Mom: no Dad: no Neural Tube Defect Mom: no Dad: no Down's Syndrome Mom: no Dad: no Jevon-Sachs Mom: no Dad: no Sickle Cell Disease/Trait Mom: no Dad: no Hemophilia Mom: no Dad: no Muscular Dystrophy Mom: no Dad: no Cystic Fibrosis Mom: no Dad: no [place] Chorea Mom: no Dad: no Mental Retardation Mom: no Dad: no Fragile X Mom: no Dad: no Other Genetic/Chromosomal Disorder Mom: no Dad: no Child w/other defect Mom: no Dad: no Enviromental Exposures Xray Exposure: no Medication, drug, or alcohol use since LMP: no Chemical/Other Exposure: no Exposure to Cat Liter: no Hx of Parvovirus (Fifth Disease): no Occupational Exposure to Children: none Current Allergies: No known allergies Past History - Obstetrical History Expected Date of Delivery: 10/13/16 Actual Gestation: 29 Week(s) 1 Day(s) : 5 Number of Living Children: 2 Medications and Allergies Allergies Allergy/AdvReac Type Severity Reaction Status Date / Time No Known Allergies Allergy Verified 04/03/16 10:13 Home Medications Medication Instructions Recorded Confirmed Last Taken Type Butalb/Acetamin/Caff 50-325-40 1 each PO Q4H PRN #10 tablet 11/09/13 07/29/16 Unknown Rx [Fioricet] Naproxen [Naprosyn TAB] 500 mg PO BID PRN #10 tablet 11/09/13 07/29/16 Unknown Rx Dicyclomine [Bentyl] 20 mg PO QID PRN #30 tablet 04/03/16 07/29/16 07/27/16 17: 00 Rx Ondansetron [Zofran Odt] 4 mg PO Q8HR PRN #20 tab.rapdis 04/03/16 07/29/16 Unknown Rx Doxylamine Succinate [Unisom] 25 mg PO BID #60 tablet 04/08/16 07/29/16 Unknown Rx HYDROcodone/APAP 5-325 [[place] 1 each PO Q6HR PRN #15 tablet 04/08/16 07/29/16 Unknown Rx 5-325 mg TAB] Pyridoxine [Vitamin B-6] 50 mg PO DAILY #30 tablet 04/08/16 07/29/16 Unknown Rx Nitrofurantoin [place]/M-Cryst 100 mg PO Q12HR #20 capsule 07/10/16 07/29/16 Unknown Rx [Macrobid CAP] Active Meds: Active Medications Acetaminophen (Tylenol) 650 mg PO Q4H PRN PRN Reason: Pain MILD(1-3)/Fever >100.5/GRANT Docusate Sodium (Colace) 100 mg PO Q12H PRN PRN Reason: Constipation Dextrose/Lactated Ringer's (D5lr) 1,000 mls @ 500 mls/hr IV DIRECT JOYCE Stop: 07/30/16 19:59 Dextrose/Lactated Ringer's (D5lr) 1,000 mls @ 150 mls/hr IV DIRECT JOYCE Metoclopramide HCl (Reglan) 10 mg IV Q6H JOYCE Morphine Sulfate (Morphine) 4 mg IV Q4H PRN PRN Reason: Pain , Severe (7-10) Multivitamins/Iron/Calcium ( Vitamin) 1 each PO QDAY JOYCE Ondansetron HCl (Zofran) 4 mg IV Q6H PRN PRN Reason: N/V unrelieved by Reglan Promethazine HCl (Phenergan) 25 mg GA Q6HR JOYCE Zolpidem Tartrate (Ambien) 10 mg PO ONCE PRN PRN Reason: Sleep Review of Systems All systems: negative Gastrointestinal: abdominal pain, nausea, vomiting - Vital Signs Vital signs: Vital Signs Pulse BP Pulse Ox 87 142/89 99 07/29/16 17:40 07/29/16 17:40 07/29/16 17:40 Temp Pulse Resp BP Pulse Ox 98.4 F 93 H 18 120/62 99 07/29/16 17:43 07/29/16 20:28 07/29/16 17:43 07/29/16 20:22 07/29/16 20:28 - Physical Exam Breasts: Positive: deferred Cardiovascular: Regular rate Lungs: Positive: Clear to auscultation, Normal air movement Abdomen: Positive: normal appearance, soft Extremities: Positive: normal - Obstetrical FHR: category 1 (appropriate for GA) Results Result Diagrams: 07/29/16 17:30 Abnormal lab results 07/29/16 Range/Units 17:30 Carbon Dioxide 17 L (22-30) mmol/L BUN 4 L (7-17) mg/dL Creatinine 0.4 L (0.7-1.2) mg/dL All other labs normal. Assessment and Plan - Patient Problems (1) 29 weeks gestation of Current Visit: Yes Status: Acute (2) Midepigastric pain Current Visit: Yes Status: Acute Plan to address problem: RUQ US in am (3) Nausea and vomiting of , antepartum Current Visit: Yes Status: Acute Plan to address problem: Hyperemesis pathway (4) Hypertension Current Visit: Yes Status: Acute Qualifiers: Hypertension type: H
[2016-07-29] MEDS: D5LR 1,000 ML IV SCH (23:14)
[2016-07-30] MEDS ORDERED: PHENERGAN PR SCH
[2016-07-30] MEDS: REGLAN IV SCH ×3 (00:23→17:22)
[2016-07-30] MEDS: MORPHINE IV PRN ×5 (00:24→22:30)
[2016-07-30] MEDS: D5LR 1,000 ML IV SCH ×4 (00:27→21:16)
--- NOTE | 2016-07-30 08:39 | Progress Note ---
Assessment and Plan - Patient Problems (1) Nausea and vomiting of , antepartum Onset Date: Unknown Current Visit: Yes Status: Acute Plan to address problem: Pt A&O X 3 this AM States she has not vomited in several hours. "I want to eat. " Explained to pt that she has to be NPO for GB US, voiced understanding. VSS FHR Cat 1 No ctx recorded. Abd soft some mild rebound tenderness in RUQ. IUP@ 29w1d with persistent N&V of Will consult with Subjective - Subjective Date of service: 07/30/16 (pt states she has not vomited in a few hours) Patient reports: movement normal Objective - Vital Signs Vital Signs: Vital Signs - 12hr 07/29/16 07/29/16 07/29/16 20:28 20:33 20:38 Temperature Pulse Rate 93 H 91 H 96 H Pulse Rate [ From Monitor] Respiratory Rate Blood Pressure Blood Pressure [Left Arm] Blood Pressure [Right Arm] O2 Sat by Pulse 99 99 99 Oximetry 07/29/16 07/29/16 07/29/16 20:43 20:48 20:53 Temperature Pulse Rate 94 H 95 H 88 Pulse Rate [ From Monitor] Respiratory Rate Blood Pressure Blood Pressure [Left Arm] Blood Pressure [Right Arm] O2 Sat by Pulse 98 99 99 Oximetry 07/29/16 07/29/16 07/29/16 20:58 21:03 21:08 Temperature Pulse Rate 92 H 100 H 92 H Pulse Rate [ From Monitor] Respiratory Rate Blood Pressure Blood Pressure [Left Arm] Blood Pressure [Right Arm] O2 Sat by Pulse 99 98 98 Oximetry 07/29/16 07/29/16 07/29/16 21:09 21:20 21:25 Temperature Pulse Rate 107 H 100 H 114 H Pulse Rate [ From Monitor] Respiratory Rate Blood Pressure Blood Pressure [Left Arm] Blood Pressure [Right Arm] O2 Sat by Pulse 95 99 92 Oximetry 07/29/16 07/29/16 07/29/16 21:30 21:35 21:40 Temperature Pulse Rate 92 H 95 H 93 H Pulse Rate [ From Monitor] Respiratory Rate Blood Pressure Blood Pressure [Left Arm] Blood Pressure [Right Arm] O2 Sat by Pulse 99 99 99 Oximetry 07/29/16 07/29/16 07/29/16 21:45 21:50 21:55 Temperature Pulse Rate 95 H 97 H 95 H Pulse Rate [ From Monitor] Respiratory Rate Blood Pressure Blood Pressure [Left Arm] Blood Pressure [Right Arm] O2 Sat by Pulse 97 97 98 Oximetry 07/29/16 07/29/16 07/29/16 22:00 22:05 22:10 Temperature Pulse Rate 99 H 94 H 109 H Pulse Rate [ From Monitor] Respiratory Rate Blood Pressure Blood Pressure [Left Arm] Blood Pressure [Right Arm] O2 Sat by Pulse 98 99 98 Oximetry 07/29/16 07/29/16 07/29/16 22:15 22:20 22:25 Temperature Pulse Rate 112 H 116 H 118 H Pulse Rate [ From Monitor] Respiratory Rate Blood Pressure Blood Pressure [Left Arm] Blood Pressure [Right Arm] O2 Sat by Pulse 97 96 96 Oximetry 07/29/16 07/29/16 07/29/16 22:30 22:35 22:40 Temperature Pulse Rate 115 H 115 H 118 H Pulse Rate [ From Monitor] Respiratory Rate Blood Pressure Blood Pressure [Left Arm] Blood Pressure [Right Arm] O2 Sat by Pulse 96 96 96 Oximetry 07/29/16 07/29/16 07/29/16 23:26 23:31 23:36 Temperature Pulse Rate 105 H 98 H 99 H Pulse Rate [ From Monitor] Respiratory Rate Blood Pressure Blood Pressure [Left Arm] Blood Pressure [Right Arm] O2 Sat by Pulse 99 98 98 Oximetry 07/30/16 07/30/16 07/30/16 00:24 05:21 05:23 Temperature 98.5 F Pulse Rate 95 H Pulse Rate [ 95 H From Monitor] Respiratory 20 16 Rate Blood Pressure 104/53 Blood Pressure 104/53 [Left Arm] Blood Pressure 0/0 [Right Arm] O2 Sat by Pulse Oximetry 07/30/16 07/30/16 07/30/16 06:30 07:34 07:36 Temperature Pulse Rate 75 83 Pulse Rate [ From Monitor] Respiratory 20 Rate Blood Pressure 124/61 Blood Pressure [Left Arm] Blood Pressure [Right Arm] O2 Sat by Pulse 98 Oximetry 07/30/16 07:39 Temperature 97.9 F Pulse Rate Pulse Rate [ 80 From Monitor] Respiratory 18 Rate Blood Pressure Blood Pressure [Left Arm] Blood Pressure 124/61 [Right Arm] O2 Sat by Pulse 98 Oximetry - Exam Breasts: deferred Cardiovascular: Regular rate Lungs: Normal air movement Abdomen: Present: normal appearance, soft. Absent: distention, tenderness Uterus: Present: normal FHR: auscultation normal Uterine Contraction Monitor Mode: External Uterine Contraction Pattern: Absent Uterine Tone Measurement Phase: Resting Extremities: normal Deep Tendon Reflex Grade: Normal +2 - Labs Labs: Abnormal Labs 07/29/16 17:30 Carbon Dioxide 17 L BUN 4 L Creatinine 0.4 L Laboratory Results - last 24 hr 07/29/16 17:30 Sodium 140 Potassium 3.9 D Chloride 104.7 Carbon Dioxide 17 L Anion Gap 22 BUN 4 L Creatinine 0.4 L Estimated GFR > 60 BUN/Creatinine Ratio 10.00 Glucose 89 Calcium 9.3
--- NOTE | 2016-07-30 09:09 | Event Note ---
Date: 07/30/16 (GB US done) GB US complete. Sludge and shadowing noted in gallbladder per US tech. Final report to come after Radiologist reads pictures. made aware. Will try to advance diet with bland GI diet.
--- NOTE | 2016-07-30 09:23 | Event Note ---
Date: 07/30/16 Discussed preliminary findings of US with Pt and her SO. She is aware that the N &V and pain will persist for the remainder of . Exp what GB disease is and that the sx can be lessened with appropriate diet and hydration. AM care, encouraged hydration for now and will start adv diet with noon meal. All questions addressed.
--- NOTE | 2016-07-30 09:29 | Ultrasound Report ---
RIGHT UPPER QUADRANT ULTRASOUND: HISTORY: Right upper quadrant abdominal pain, nausea and vomiting. Technique: Transabdominal ultrasound imaging with Doppler interrogation. FINDINGS: The gallbladder is filled with non-shadowing debris consistent with sludge. There also appear to be a few small shadowing gallstones. No abnormal gallbladder dilatation, wall thickening or surrounding fluid. The CBD measures 5 mm. Images of the liver parenchyma, pancreas, right kidney and aorta are within normal limits. No perihepatic ascites. IMPRESSION: Moderate sludge and a few small gallstones within the gallbladder. No secondary findings of acute cholecystitis.
[2016-07-30] MEDS ORDERED: PRENATAL VITAMIN PO SCH (10:00)
[2016-07-30] MEDS: PEPCID IV SCH ×2 (10:15→19:18)
[2016-07-30] MEDS: PRENATAL VITAMIN PO SCH (10:25)
[2016-07-30] MEDS: AMBIEN PO PRN (22:29)
[2016-07-31] MEDS: REGLAN IV SCH ×3 (00:03→06:57)
[2016-07-31] MEDS: AMBIEN PO PRN (00:04)
[2016-07-31] MEDS: D5LR 1,000 ML IV SCH (06:55)
--- NOTE | 2016-07-31 08:06 | Progress Note ---
Assessment and Plan - Patient Problems (1) Gallstones Current Visit: Yes Status: Acute Plan to address problem: -pt advised of need to follow strict low fat diet. All questions were addressed and answered. -tolerating GI bland diet, will d/c home today. Pt has f/u with myobgyn as well as with MFM on Tuesday 08/01 and 08/02. (2) 29 weeks gestation of Current Visit: Yes Status: Acute (3) Midepigastric pain Current Visit: Yes Status: Acute Plan to address problem: -gallstones on sonogram -will tx conservatively at this time with diet modifications Subjective - Subjective Date of service: 07/31/16 Principal diagnosis: 29 3/7 wks with gallstones, nausea and vomiting Interval history: Pt states she only had two episodes of emesis yesterday after drinking the power aid, and the boosts. She states the pain she had has improved. She state that she is feeling better this am. Patient reports: movement normal, no vaginal bleeding, no contractions Objective - Vital Signs Vital Signs: Vital Signs - 12hr 07/30/16 07/31/16 07/31/16 22:30 00:10 00:11 Temperature 98.6 F Pulse Rate 109 H Pulse Rate [ 111 H From Monitor] Respiratory 20 20 Rate Blood Pressure 131/79 Blood Pressure 131/79 [Right Arm] O2 Sat by Pulse 99 99 Oximetry - Exam Lungs: Normal air movement Abdomen: Present: normal appearance, soft, tenderness, other (+epigastric tenderness, no rebound, +voluntary guarding, no RUQ tenderness on exam). Absent : distention FHR: category 1 Extremities: normal - Labs Labs: Abnormal Labs 07/29/16 17:30 Carbon Dioxide 17 L BUN 4 L Creatinine 0.4 L
[2016-07-31 08:16] VITALS: BP 122/59
--- NOTE | 2016-07-31 10:13 | Discharge Summary ---
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 RX provided. Long discussion @ meals and foods to eat and avoid. Hydration encouraged. Keep appt with AMF and with MYOBGYN. Condition at discharge: Good Disposition: DC-01 TO HOME OR SELFCARE - Discharge Diagnoses (1) Nausea and vomiting of , antepartum Status: Acute Comment: GB disease Take meds as prescribed Keep appt as scheduled Plan - Discharge Medications Prescriptions: Famotidine [Pepcid] 20 mg PO BID #30 tablet Ondansetron [Zofran ODT TAB] 8 mg PO Q12HR PRN #30 tab.rapdis PRN Reason: Nausea - Provider Discharge Summary Diet: other (bland diet) Additional instructions: [] Smoking cessation referral if applicable(refer to patient education folder for contact #) [] Refer to [facility] Booklet Call your doctor immediately for: * Fever > 100.5 * Heavy vaginal bleeding ( >1 pad per hour) * Severe persistent headache * Shortness of breath * Reddened, hot, painful area to leg or breast * Drainage or odor from incision. * Keep incision clean and dry at all times and follow doctor's instructions regarding bathing/showering - Follow up plan Follow up: ELLIOTT WELCH MD [Primary Care Provider] - 08/02/16 (Call with concerns. Keep appointment with AMFM for Monday and OB appointment on Monday. BLAND diet and hydration. Take medication as prescribed. Call with concerns.) Forms: [facility] Discharge Summary
[2016-07-31] MEDS: PRENATAL VITAMIN PO SCH (10:26)
[2016-07-31] MEDS: PEPCID IV SCH (10:27)
[2016-07-31] MEDS: MORPHINE IV PRN (10:30)
== END 2016-07-31 13:25 | disposition home or self-care (01) ==
LOC: TRG 16:52 → LD 16:52 → TRG 16:53 → LD 16:59 → TRG 07-31 13:25
PROVIDERS: ATTEND Obstetrics & Gynecology
DX: O99.613 Diseases of the digestive system complicating pregnancy, third trimester (principal); O21.2 Late vomiting of pregnancy; O26.893 Other specified pregnancy related conditions, third trimester; R10.11 Right upper quadrant pain; Z3A.29 29 weeks gestation of pregnancy
CPT/HCPCS: 36415; 80048; J2270; J2405; J2765; J7121

== ENCOUNTER 2016-08-01 17:47 | Inpatient (IN) | payer OTHER, MEDICAID ==
[2016-08-01] MEDS ORDERED: LACTATED RINGERS 500 ML IV ONE (17:51)
[2016-08-01] MEDS ORDERED: MILK OF MAGNESIA PO PRN (18:40)
[2016-08-01] MEDS ORDERED: MYLICON PO PRN (18:40)
[2016-08-01] MEDS ORDERED: TYLENOL PO PRN (18:40)
[2016-08-01] MEDS ORDERED: COLACE PO PRN (18:40)
--- NOTE | 2016-08-01 18:52 | History and Physical Report ---
History of Present Illness Date of examination: 08/01/16 Date of admission: 08/01/2016 Chief complaint: 20 yo (premature)L2 now at 29wk and 4 days with EDC of 10/13/2016. She has hx of chronic HTN but has been on no meds this . she has been here multiple times for epigastric/RUQ pain and N&V. Today she was seen by Dr Vinicio REDD was sent over for having high BP in office: to get steroids, 24 hr urine, Labetolol [address] Hardy will see in AM. Patient says her BP is high because she is miserable with her "gallbladder problem". She has had persistent N&V, responsive to little and has GB "sludge" and a few small stones with no evidence acute cholecystitis on u/s--will repeat that. She wants GB removed but I explained that would not be done in unless an emergency. Then she asked for "morphine like last time". After [facility] consult tomorrow, we should consider either surgery or GI consult for this unusual presentation. Will hold off Labetolol for now, until pt is more relaxed. History of present illness: Persistent nausea and vomiting in , midepigastric/ RUQ pain. She has had a 15# weight loss in the . Remainder of H&P from [facility] and confirmed today. OB Intake Father of baby: Evaristo Btaes FOTamela contact #: [phone] Vital Signs Height: 63 in. Weight (lb): 233 BMI: 41.4 BP: 130/ 80 mm Hg Ur. Protein: Negative Ur. Glucose: Negative Chief Complaint/Current Status: pt presents for missed period; c/o cramping..tward [facility][email or web address][facility]...tward Menstrual History Regularity: regular Menses every: 28 days Duration: 5 LMP: 01/07/2016 LMP reliability: month known LMP character: normal test type: urine test Date: 03/15/2016 BC at conception: none Planned ? yes EDC Calculations LMP: 10/13/2016 EDC Confirmation: 10/13/2016 Gestational Age: 9 5/7 weeks Past History : 5 Term Births: 0 Premature Births: 3 Living Children: 2 Para: 2 Mult. Births: 0 Prev : 0 Aborta: 0 Elect. Ab: 0 Spont. Ab: 1 Ectopics: 0 # 1 Delivery date: 02/25/2012 Weeks Gestation: 36+4 Delivery type: Vaginal Anesthesia type: epidural Delivery location: [facility] Infant Sex: male weight: 6.19 Comments: pre-eclampsia/eclampsia, bradycardia # 2 Delivery date: 01/2013 labor: yes Delivery type: Anesthesia type: none Delivery location: [facility] Sex: Female weight: 5-0 Comments: PreE # 3 Delivery date: 2013 Weeks Gestation: 28 Delivery type: Delivery location: [place] Comments: IUFD severe PreE # 4 Delivery date: 2014 Weeks Gestation: 12 Delivery type: SAB Comments: high BP; heavy bleeding SAB Risk Factors: Smoked Tobacco Use: Never smoker Smokeless Tobacco Use: Never Passive smoke exposure: no Drug use: no Caffeine use: 0 drinks per day Alcohol use: no 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 Infection History Hx of STD: none Varicella/Chicken Pox Status: Previous Disease Genetic History Congenital Heart Defect: Mom: no Dad: no Suni Disease: Mom: no Dad: no Thalassemia Mom: no Dad: no Neural Tube Defect Mom: no Dad: no Down's Syndrome Mom: no Dad: no Jevon-Sachs Mom: no Dad: no Sickle Cell Disease/Trait Mom: no Dad: no Hemophilia Mom: no Dad: no Muscular Dystrophy Mom: no Dad: no Cystic Fibrosis Mom: no Dad: no Boyle Chorea Mom: no Dad: no Mental Retardation Mom: no Dad: no Fragile X Mom: no Dad: no Other Genetic/Chromosomal Disorder Mom: no Dad: no Child w/other defect Mom: no Dad: no Enviromental Exposures Xray Exposure: no Medication, drug, or alcohol use since LMP: no Chemical/Other Exposure: no Exposure to Cat Liter: no Hx of Parvovirus (Fifth Disease): no Occupational Exposure to Children: none Current Allergies: No known allergies Laboratory Results Date/Time Collected: 03/15/2016 Routine Urinalysis Leukocytes: negative Nitrite: negative Urobilinogen: negative Protein: Negative Blood: negative Ketone: negative Bilirubin: negative Glucose: Negative Urine HCG: positive Review of Systems General Denies fever, chills, sweats, anorexia, fatigue, weakness, malaise, weight loss and sleep disorder. Denies nausea, vomiting, headache, swelling of legs, abdominal pain, vaginal discharge, vaginal bleeding and contractions. Denies vaginal discharge, incontinence, dysuria, hematuria, urinary frequency, amenorrhea, menorrhagia, abnormal vaginal bleeding, pelvic pain, genital sores, decreased libido, painful periods, painful sex, urinary urgency, hot flashes, vaginal dryness, vaginal itching and vaginal odor. CV Denies chest pains, palpitations, syncope, dyspnea on exertion, orthopnea, PND and peripheral edema. Resp Denies cough, dyspnea at rest, excessive sputum, hemoptysis, wheezing and pleurisy. GI Denies nausea, vomiting, diarrhea, constipation, change in bowel habits, abdominal pain, melena, hematochezia, jaundice, gas/bloating, indigestion/ heartburn, dysphagia and odynophagia. Endo Denies cold intolerance, heat intolerance, polydipsia, polyphagia, polyuria and unusual weight change. Breast Denies left breast lump, right breast lump, nipple discharge, bloody discharge from nipple, breast pain, abnormal mammogram and breast enlargement. MS Denies back pain, joint pain, joint swelling, muscle cramps, muscle weakness, stiffness, arthritis, sciatica, restless legs, leg pain at night and leg pain with exertion. Derm Denies rash, itching, dryness and suspicious lesions. Neuro Denies paralysis, paresthesias, headache, seizures, tremors, vertigo, transient blindness, frequent falls, frequent headaches and difficulty walking. Psych Denies depression, anxiety, irritability and mood swings. Eyes Denies blurring, diplopia, irritation, discharge, vision loss, eye pain and photophobia. ENT Denies earache, ear discharge, tinnitus, decreased hearing, nasal congestion, nosebleeds, sore throat and hoarseness. Allergy Denies urticaria, allergic rash, hay fever and recurrent infections. Heme Denies abnormal bruising, bleeding and enlarged lymph nodes. 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 Vulva/Vagina: No lesions, normal BUS, normal rugae Cervix: No lesions; no cervical motion tenderness Uterus: normal size and position, midline, mobile Adnexae: no masses or tenderness Rectovaginal: no masses or tenderness Flowsheet View for Follow-up Visit Estimated weeks of gestation: 9 5/7 Weight: 233 Blood pressure: 130 / 80 Urine protein: Negative Urine glucose: Negative Urine nitrite: negative Past History - Obstetrical History : 5 Medications and Allergies Allergies Allergy/AdvReac Type Severity Reaction Status Date / Time No Known Allergies Allergy Verified 04/03/16 10:13 Home Medications Medication Instructions Recorded Confirmed Last Taken Type Butalb/Acetamin/Caff 50-325-40 1 each PO Q4H PRN #10 tablet 11/09/13 07/29/16 Unknown Rx [Fioricet] Naproxen [Naprosyn TAB] 500 mg PO BID PRN #10 tablet 11/09/13 07/29/16 Unknown Rx Dicyclomine [Bentyl] 20 mg PO QID PRN #30 tablet 04/03/16 07/29/16 07/27/16 17: 00 Rx Ondansetron [Zofran Odt] 4 mg PO Q8HR PRN #20 tab.rapdis 04/03/16 07/29/16 Unknown Rx Doxylamine Succinate [Unisom] 25 mg PO BID #60 tablet 04/08/16 07/29/16 Unknown Rx HYDROcodone/APAP 5-325 [[place] 1 each PO Q6HR PRN #15 tablet 04/08/16 07/29/16 Unknown Rx 5-325 mg TAB] Pyridoxine [Vitamin B-6] 50 mg PO DAILY #30 tablet 04/08/16 07/29/16 Unknown Rx Nitrofurantoin [place]/M-Cryst 100 mg PO Q12HR #20 capsule 07/10/16 07/29/16 Unknown Rx [Macrobid CAP] Famotidine [Pepcid] 20 mg PO BID #30 tablet 07/31/16 Unknown Rx Ondansetron [Zofran ODT TAB] 8 mg PO Q12HR PRN #30 tab.rapdis 07/31/16 Unknown Rx Active Meds: Active Medications Acetaminophen (Tylenol) 650 mg PO Q4H PRN PRN Reason: Pain MILD(1-3)/Fever >100.5/GRANT Al Hydrox/Mg Hydrox/Simethicone (Alum-Mag Hydrox-Simeth [phone]/5ml) 30 ml PO Q6H PRN PRN Reason: Indigestion Betamethasone Acet/Betameth SodPhos ([place] Soluspan) 12 mg IM Q24HR JOYCE Stop: 08/03/16 10:01 Docusate Sodium (Colace) 100 mg PO Q12H PRN PRN Reason: Constipation Lactated Ringer's (Lactated Ringers) 1,000 mls @ 125 mls/hr IV DIRECT JOYCE Magnesium Hydroxide (Milk Of Magnesia) 30 ml PO QHS PRN PRN Reason: Laxative Effect Multivitamins/Iron/Calcium ( Vitamin) 1 each PO QDAY JOYCE Simethicone (Mylicon) 80 mg PO Q6H PRN PRN Reason: Gas pain - Vital Signs Vital signs: Vital Signs Pulse Pulse Ox 74 99 08/01/16 18:04 08/01/16 18:04 Temp Pulse Resp BP Pulse Ox 98.2 F 60 20 123/78 99 08/01/16 18:40 08/01/16 18:44 08/01/16 18:40 08/01/16 18:40 08/01/16 18:44 - Physical Exam Lungs: Positive: Normal air movement Abdomen: Positive: normal appearance, soft, tenderness (upper tenderness is diffuse and mild, no rebound and not a surgical abdomen) Results All other labs normal. Assessment and Plan - Patient Problems (1) Midepigastric pain Current Visit: No Status: Acute (2) Hypertension Current Visit: No Status: Acute Qualifiers: Hypertension type: H (3) 29 weeks gestation of Current Visit: No Status: Acute (4) Gallstones Current Visit: No Status: Acute (5) Nausea and vomiting of , antepartum Onset Date: Unknown Current Visit: No Status: Acute
[2016-08-01] MEDS ORDERED: LACTATED RINGERS 1,000 ML IV SCH (19:00)
[2016-08-01 19:12] LABS: Hematocrit 28.7 % (30.3-42.9); Hemoglobin 9.1 gm/dl (10.1-14.3); Mean Corpuscular HGB Conc 32 % (30-34); Mean Corpuscular Volume 73 fl (79-97); Platelet Count 370 K/mm3 (140-440); Red Blood Count 3.96 M/mm3 (3.65-5.03); White Blood Count 8.3 K/mm3 (4.5-11.0)
[2016-08-01 19:17] LABS: Mean Corpuscular Hemoglobin 23 pg (28-32)
[2016-08-01 19:30] LABS: Bacteria,Urine 2+ /HPF (Negative); Bilirubin,Urine SM (Negative); Blood,Urine NEG (Negative); Ketones,Urine 80 mg/dL (Negative); Leukocyte Esterase,Urine MOD (Negative); Mucus,Urine 3+ /HPF; Nitrite,Urine NEG (Negative)
[2016-08-01 19:31] LABS: Alanine Aminotransferase 18 units/L (7-56); Albumin/Globulin Ratio 0.9 %; Alkaline Phosphatase 67 units/L (35-129); Anion Gap 20 mmol/L; Blood Urea Nitrogen 5 mg/dL (7-17); Calcium 8.9 mg/dL (8.4-10.2); Carbon Dioxide 20 mmol/L (22-30); Chloride 105.8 mmol/L (98-107); Glucose 80 mg/dL (65-100); Lactate Dehydrogenase 241 units/L (91-180); Potassium 3.2 mmol/L (3.6-5.0); Sodium 143 mmol/L (137-145); Total Protein 6.4 g/dL (6.3-8.2)
[2016-08-01 19:33] LABS: Alanine Aminotransferase 17 units/L (7-56); Lactate Dehydrogenase 185 units/L (91-180)
[2016-08-01 19:55] LABS: Blastocytes % (Manual) 0 %
[2016-08-01 19:56] LABS: Basophils % (Manual) 0 % (0.0-1.8)
[2016-08-01 19:58] LABS: Anisocytosis 1+; Diff Status Complete; Elliptocytes 1+; Platelet Estimate Consistent w Auto; Polychromasia 1+; Tear Drop Cells 1+
[2016-08-01] MEDS: AMBIEN PO PRN (22:51)
[2016-08-01] MEDS ORDERED: ZOFRAN IV PRN (23:10)
[2016-08-01] MEDS: KCL 10 MEQ in NACL 0.9% 1000 ML 1,000 ML IV SCH (23:24)
[2016-08-01] MEDS: ZOFRAN IV PRN (23:36)
[2016-08-02] MEDS ORDERED: NORCO 5/325 PO PRN
--- NOTE | 2016-08-02 07:36 | Admit Criteria Form ---
Admission Criteria Documentation: OBSTETRIC AND GYNECOLOGIC DISEASE GRG Clinical Indications for Admission to Inpatient Care (Place 'X' for any and all applicable criteria): Hospital admission is needed for appropriate care of the patient because of 1 or more of the following (1)(2)(3): [ ]I. Hemodynamic instability, as indicated by 1 or more of the following (1)( 2)(3)(4)(5): [ ]a) Vital signs or other findings not as expected for chronic patient condition or baseline [ ]b) Instability indicated by 1 or more of the following: [ ]i) Hypotension [ ]ii) Symptomatic tachycardia unresponsive to treatment (eg, analgesia, fluids, sedation as indicated) [ ]iii) Inadequate perfusion indicated by 1 or more of the following: [ ]A. Lactic acidosis (greater than 2 mmol/ L) [ ]B. New abnormal capillary refill ( greater than 3 seconds) [ ]C. Reduced urine output [ ]D. New altered mental status [ ]iv) Orthostatic vital sign changes unresponsive to treatment (eg, fluids) [ ]v) Multiple IV fluid boluses required to maintain adequate blood pressure or perfusion [ ]vi) IV inotropic or vasopressor medication required to maintain adequate blood pressure or perfusion [ ]II. Obstetric infection requiring hospitalization indicated by 1 or more of the following(13)(14): [ ]a) Chorioamnionitis [ ]b) Endometritis (except mild endometritis) [ ]c) Pelvic abscess [ ]d) Peritonitis [ ]e) Septic pelvic thrombophlebitis [ ]III. Amniotic fluid or pulmonary embolism(4)(5)(6) [ ]IV. Suspected peritonitis or ectopic requiring monitoring beyond scope of 24 hours or observation care(7)(8) [ ]V. compromise requiring hospitalization indicated by ALL of the following(9)(10): [ ]a) compromise indicated by 1 or more of the following(11): [ ]i) Abnormal heart rate monitoring [ ]ii) Abnormal contraction stress test [ ]iii) Abnormal biophysical profile [ ]iv) Abnormal Doppler flow in vessels (ie, Doppler velocimetry) (12) [ ]b) Persistence of compromise indicators during evaluation and observation monitoring [ ]. Ovarian hyperstimulation syndrome requiring hospitalization[A] indicated by ALL of the following(15): [ ]a) Recent ovarian stimulation with gonadotropins, or evidence on ultrasound of spontaneous emergence of large number of ovarian follicles [ ]b) Evidence of severe ovarian hyperstimulation syndrome indicated by 1 or more of the following: [ ]i) Abdominal pain unresponsive to oral therapy [ ]ii) Acute respiratory distress syndrome [ ]iii) Electrolyte imbalance ( eg, hyponatremia, hyperkalemia) [ ]iv) Elevated liver enzymes [ ]v) Evidence of thromboembolism [ ]vi) Hemoconcentration (hematocrit greater than 45 % (0.45)) [ ]vii) Inability to maintain oral intake adequate to prevent hemoconcentration [ ]viii) Marked hypotension from baseline (eg, SBP 20 mmHg below patients usual pressure) [ ]ix) Oliguria or anuria [ ]x) Ovarian torsion [ ]xi) Pleural or pericardial effusion on x-ray or echocardiogram [ ]xii) Rapid increase in serum creatinine to greater than 1.2 mg/dL (106 micromoles/L) or creatinine clearance less than 50 mL/min/1.73m2 (0.84 mL/ sec/1.73m2) [ ]xiii) Ruptured ovarian cyst with hemorrhage [ ]xiv) Severe abdominal pain or peritoneal signs [ ]xv) Tense ascites that cannot be managed with paracentesis in outpatient setting [ ]VII.Pelvic infection requiring hospitalization indicated by 1 or more of the following (16): [ ]a) Outpatient treatment has failed or is not appropriate (eg, inpatient monitoring required) [ ]b) Pelvic abscess [ ]c) Surgical emergency cannot be excluded (eg, rigid abdomen) [ ]d) Vomiting precluding outpatient and observation care management VIII. loss complications requiring inpatient medical treatment indicated by 1 or more of the following (4)(7)(9): [ ]a) Fever [ ]b) Peritonitis [ ]c) Sepsis [ ]d) Severe abdominal pain [ ]IX. or patient requiring monitoring for severe heart failure, pulmonary disease, or other comorbid condition (eg, peripartum cardiomyopathy) (4)(17) [ ]X. patient with rupture of membranes requiring hospitalization indicated by ANY ONE of the following: [ ]a) Chorioamnionitis, cloudy amniotic fluid, or other evidence of infection [ ]b) compromise or other need for monitoring (11) [ ]c) Gestation longer than 23 weeks and ANY ONE of the following: [ ]i) Abnormal (noncephalic) presentation [ ]ii) Inadequate home environment (eg, home too far from hospital, unable to rapidly return to hospital) [ ]d) Temperature greater than 100.4 degrees F (38 degrees C)( oral) [ ]e) Threatened labor requiring monitoring beyond scope (eg, over 24 hours) of observation Care [ ] XI. complications, including severe lacerations, infections, or retained placenta (19) [ ] XII.Uterine bleeding with high-risk features indicated by ANY ONE of the following (4): [ ]a) Active major hemorrhage (eg, hemorrhage) [ ]b) Coagulopathy with active bleeding [ ]c) Gestational trophoblastic disease (eg, molar ) (20 ) [ ]d) (longer than 23 weeks) and ANY ONE of the following: [ ]i) Pain [ ]ii) Placental abruption, known or suspected [ ]iii) Placenta accrete, known or suspected(21) [ ]iv) Placenta previa, known or suspected [ ]v) Vasa previa [ ]e) Severe anemia [X]XIII. Obstetric or Gynecologic Disease, condition or symptom for which ANY ONE of the following: [X]a) Emergency and observation care have failed or are not considered appropriate ( Also use General Criteria: Observation Care Criteria as appropriate) [ ]b) Presence of a General Admission Criteria or Pediatric General Admission Criteria The original [facility] embraase content created by [facility] has been revised. The portions of the content which have been revised are identified through the use of italic text or in bold, and [facility] has neither reviewed nor approved the modified material.All other unmodified content is copyright [facility]. Please see references footnoted in the original [facility] edition 2016 Admission Criteria Met: Yes
--- NOTE | 2016-08-02 07:48 | Consultation ---
History of Present Illness - Reason for Consult Consult date: 08/02/16 HTN Requesting physician: EAMON BARTELTT Medications and Allergies Allergies Allergy/AdvReac Type Severity Reaction Status Date / Time No Known Allergies Allergy Verified 04/03/16 10:13 Home Medications Medication Instructions Recorded Confirmed Last Taken Type Butalb/Acetamin/Caff 50-325-40 1 each PO Q4H PRN #10 tablet 11/09/13 07/29/16 Unknown Rx [Fioricet] Naproxen [Naprosyn TAB] 500 mg PO BID PRN #10 tablet 11/09/13 07/29/16 Unknown Rx Dicyclomine [Bentyl] 20 mg PO QID PRN #30 tablet 04/03/16 07/29/16 07/27/16 17: 00 Rx Ondansetron [Zofran Odt] 4 mg PO Q8HR PRN #20 tab.rapdis 04/03/16 07/29/16 Unknown Rx Doxylamine Succinate [Unisom] 25 mg PO BID #60 tablet 04/08/16 07/29/16 Unknown Rx HYDROcodone/APAP 5-325 [[place] 1 each PO Q6HR PRN #15 tablet 04/08/16 07/29/16 Unknown Rx 5-325 mg TAB] Pyridoxine [Vitamin B-6] 50 mg PO DAILY #30 tablet 04/08/16 07/29/16 Unknown Rx Nitrofurantoin [place]/M-Cryst 100 mg PO Q12HR #20 capsule 07/10/16 07/29/16 Unknown Rx [Macrobid CAP] Famotidine [Pepcid] 20 mg PO BID #30 tablet 07/31/16 Unknown Rx Ondansetron [Zofran ODT TAB] 8 mg PO Q12HR PRN #30 tab.rapdis 07/31/16 Unknown Rx Active Meds: Active Medications Acetaminophen (Tylenol) 650 mg PO Q4H PRN PRN Reason: Pain MILD(1-3)/Fever >100.5/GRANT Last Admin: 08/01/16 19:05 Dose: 650 mg Acetaminophen/Hydrocodone Bitart ([place] 5/325) 2 each PO QHS PRN PRN Reason: Pain, Moderate (4-6) Last Admin: 08/02/16 00:18 Dose: 2 each Al Hydrox/Mg Hydrox/Simethicone (Alum-Mag Hydrox-Simeth [phone]/5ml) 30 ml PO Q6H PRN PRN Reason: Indigestion Betamethasone Acet/Betameth SodPhos (Celestone Soluspan) 12 mg IM Q24HR JOYCE Stop: 08/03/16 10:01 Docusate Sodium (Colace) 100 mg PO Q12H PRN PRN Reason: Constipation Lactated Ringer's (Lactated Ringers) 1,000 mls @ 125 mls/hr IV DIRECT JOYCE Potassium Chloride 10 meq/ (Sodium Chloride) 1,005 mls @ 83 mls/hr IV DIRECT JOYCE Last Admin: 08/01/16 23:24 Dose: 83 mls/hr Dextrose/Lactated Ringer's (D5lr) 1,000 mls @ 500 mls/hr IV DIRECT JOYCE Stop: 08/03/16 09:59 Dextrose/Lactated Ringer's (D5lr) 1,000 mls @ 150 mls/hr IV DIRECT JOYCE Magnesium Hydroxide (Milk Of Magnesia) 30 ml PO QHS PRN PRN Reason: Laxative Effect Metoclopramide HCl (Reglan) 10 mg IV Q6H [facility] Stop: 08/03/16 07:59 Multivitamins/Iron/Calcium ( Vitamin) 1 each PO QDAY JOYCE Multivitamins/Iron/Calcium ( Vitamin) 1 each PO QDAY JOYCE Ondansetron HCl (Zofran) 8 mg IV Q8H PRN PRN Reason: Nausea And Vomiting Last Admin: 08/01/16 23:36 Dose: 8 mg Promethazine HCl (Phenergan) 25 mg AL Q6H JOYCE Simethicone (Mylicon) 80 mg PO Q6H PRN PRN Reason: Gas pain Zolpidem Tartrate (Ambien) 10 mg PO QHS PRN PRN Reason: Insomnia Last Admin: 08/01/16 22:51 Dose: 10 mg Exam - Constitutional Vitals: Temp Pulse Resp BP Pulse Ox 98.5 F 85 18 134/79 93 08/02/16 04:03 08/02/16 05:47 08/02/16 04:03 08/02/16 05:47 08/02/16 05:46 Results - Labs CBC & Chem 7: 08/01/16 18:50 08/01/16 18:50 Labs: Abnormal lab results 08/01/16 08/01/16 08/01/16 Range/Units 18:50 18:50 18:50 Hgb 9.1 L (10.1-14.3) gm/dl Hct 28.7 L (30.3-42.9) % MCV 73 L (79-97) fl MCH 23 L (28-32) pg RDW 18.0 H (13.2-15.2) % Monocytes % (Manual) 21.0 H (0.0-7.3) % Nucleated RBC % 1.0 H (0.0-0.9) % Monocytes # (Manual) 1.7 H (0.0-0.8) K/mm3 Potassium (3.6-5.0) mmol/L Carbon Dioxide (22-30) mmol/L BUN (7-17) mg/dL Creatinine 0.5 L (0.7-1.2) mg/dL Lactate Dehydrogenase 185 H (91-180) units/L Albumin (3.9-5) g/dL Ur Specific [place] 1.034 H (1.003-1.030) Urine WBC (Auto) 8.0 H (0.0-6.0) /HPF U Epithel Cells (Auto) 42.0 H (0-13.0) /HPF 08/01/16 Range/Units 18:50 Hgb (10.1-14.3) gm/dl Hct (30.3-42.9) % MCV (79-97) fl MCH (28-32) pg RDW (13.2-15.2) % Monocytes % (Manual) (0.0-7.3) % Nucleated RBC % (0.0-0.9) % Monocytes # (Manual) (0.0-0.8) K/mm3 Potassium 3.2 L (3.6-5.0) mmol/L Carbon Dioxide 20 L (22-30) mmol/L BUN 5 L (7-17) mg/dL Creatinine 0.5 L (0.7-1.2) mg/dL Lactate Dehydrogenase 241 H (91-180) units/L Albumin 3.0 L (3.9-5) g/dL Ur Specific [place] (1.003-1.030) Urine WBC (Auto) (0.0-6.0) /HPF U Epithel Cells (Auto) (0-13.0) /HPF Assessment and Plan Pt. seen; full consult to follow in paper chart. Hold off on labetalol for now; complete 24hr urine; GI consult requested. No other recommendations at this time. Discussed with Dr. [place].
[2016-08-02] MEDS ORDERED: REGLAN IV SCH (08:00)
--- NOTE | 2016-08-02 08:07 | Progress Note ---
<ERIKA DONG - Last Filed: 08/02/16 08:03> Assessment and Plan Pt continues to c/o pain and has been vomiting. VSS Uterus soft No evidence contractions Pt reports good FM. IUP 29+ weeks GB disease, Htn Ongoing 24hr urine to be completed @ 1800. GB US this AM, Labs ordered, Consult with GI placed. to see pt today. Subjective - Subjective Date of service: 08/02/16 (pt continues to have pain and vomiting) Principal diagnosis: IUP 29w5d RUQ pain, Wgt Loss, Elevated BP Patient reports: movement normal Objective - Vital Signs Vital Signs: Vital Signs - 12hr 08/01/16 08/01/16 08/01/16 20:16 20:31 20:46 Temperature 98.0 F Pulse Rate 75 69 77 Pulse Rate [ 77 From Monitor] Respiratory 20 Rate Blood Pressure 137/65 141/72 139/80 Blood Pressure 139/86 [Right Arm] O2 Sat by Pulse Oximetry 08/01/16 08/01/16 08/01/16 21:01 23:02 23:07 Temperature Pulse Rate 65 75 78 Pulse Rate [ From Monitor] Respiratory Rate Blood Pressure 140/80 Blood Pressure [Right Arm] O2 Sat by Pulse 99 99 Oximetry 08/01/16 08/01/16 08/01/16 23:12 23:17 23:22 Temperature Pulse Rate 73 72 65 Pulse Rate [ From Monitor] Respiratory Rate Blood Pressure Blood Pressure [Right Arm] O2 Sat by Pulse 100 99 99 Oximetry 08/01/16 08/01/16 08/01/16 23:27 23:32 23:37 Temperature Pulse Rate 69 69 78 Pulse Rate [ From Monitor] Respiratory Rate Blood Pressure Blood Pressure [Right Arm] O2 Sat by Pulse 100 100 99 Oximetry 08/01/16 08/01/16 08/01/16 23:42 23:47 23:52 Temperature Pulse Rate 74 78 77 Pulse Rate [ From Monitor] Respiratory Rate Blood Pressure Blood Pressure [Right Arm] O2 Sat by Pulse 100 99 99 Oximetry 08/02/16 08/02/16 08/02/16 00:00 00:05 00:10 Temperature Pulse Rate 76 60 66 Pulse Rate [ From Monitor] Respiratory Rate Blood Pressure Blood Pressure [Right Arm] O2 Sat by Pulse 98 100 99 Oximetry 08/02/16 08/02/16 08/02/16 00:15 00:18 00:20 Temperature Pulse Rate 63 78 Pulse Rate [ From Monitor] Respiratory 20 Rate Blood Pressure Blood Pressure [Right Arm] O2 Sat by Pulse 99 99 Oximetry 08/02/16 08/02/16 08/02/16 00:25 00:27 00:30 Temperature Pulse Rate 65 76 64 Pulse Rate [ From Monitor] Respiratory Rate Blood Pressure Blood Pressure [Right Arm] O2 Sat by Pulse 100 94 100 Oximetry 08/02/16 08/02/16 08/02/16 00:35 00:40 00:41 Temperature 98.6 F Pulse Rate 73 77 70 Pulse Rate [ 70 From Monitor] Respiratory 18 Rate Blood Pressure 135/74 Blood Pressure 135/74 [Right Arm] O2 Sat by Pulse 100 100 Oximetry 08/02/16 08/02/16 08/02/16 00:45 00:46 00:50 Temperature Pulse Rate 71 75 69 Pulse Rate [ From Monitor] Respiratory Rate Blood Pressure 140/80 Blood Pressure [Right Arm] O2 Sat by Pulse 98 100 Oximetry 08/02/16 08/02/16 08/02/16 00:55 01:00 01:05 Temperature Pulse Rate 69 74 69 Pulse Rate [ From Monitor] Respiratory Rate Blood Pressure Blood Pressure [Right Arm] O2 Sat by Pulse 100 99 100 Oximetry 08/02/16 08/02/16 08/02/16 01:10 01:15 01:20 Temperature Pulse Rate 75 73 77 Pulse Rate [ From Monitor] Respiratory Rate Blood Pressure Blood Pressure [Right Arm] O2 Sat by Pulse 99 99 100 Oximetry 08/02/16 08/02/16 08/02/16 01:25 01:30 01:35 Temperature Pulse Rate 73 70 86 Pulse Rate [ From Monitor] Respiratory Rate Blood Pressure Blood Pressure [Right Arm] O2 Sat by Pulse 100 100 98 Oximetry 08/02/16 08/02/16 08/02/16 01:37 01:40 01:45 Temperature Pulse Rate 90 95 H 89 Pulse Rate [ From Monitor] Respiratory Rate Blood Pressure Blood Pressure [Right Arm] O2 Sat by Pulse 91 97 98 Oximetry 08/02/16 08/02/16 08/02/16 01:50 01:55 02:00 Temperature Pulse Rate 87 93 H 89 Pulse Rate [ From Monitor] Respiratory Rate Blood Pressure Blood Pressure [Right Arm] O2 Sat by Pulse 96 98 97 Oximetry 08/02/16 08/02/16 08/02/16 02:05 02:10 02:14 Temperature Pulse Rate 82 81 86 Pulse Rate [ From Monitor] Respiratory Rate Blood Pressure 121/63 Blood Pressure [Right Arm] O2 Sat by Pulse 98 98 Oximetry 08/02/16 08/02/16 08/02/16 02:15 02:16 02:20 Temperature Pulse Rate 79 80 80 Pulse Rate [ From Monitor] Respiratory Rate Blood Pressure 123/64 Blood Pressure [Right Arm] O2 Sat by Pulse 98 97 Oximetry 08/02/16 08/02/16 08/02/16 02:25 02:30 02:31 Temperature Pulse Rate 80 79 80 Pulse Rate [ From Monitor] Respiratory Rate Blood Pressure 119/63 Blood Pressure [Right Arm] O2 Sat by Pulse 97 97 Oximetry 08/02/16 08/02/16 08/02/16 02:35 02:40 02:45 Temperature Pulse Rate 86 76 76 Pulse Rate [ From Monitor] Respiratory Rate Blood Pressure Blood Pressure [Right Arm] O2 Sat by Pulse 97 97 97 Oximetry 08/02/16 08/02/16 08/02/16 02:46 02:50 02:55 Temperature Pulse Rate 73 75 74 Pulse Rate [ From Monitor] Respiratory Rate Blood Pressure 121/64 Blood Pressure [Right Arm] O2 Sat by Pulse 97 97 Oximetry 08/02/16 08/02/16 08/02/16 03:00 03:01 03:05 Temperature Pulse Rate 73 75 76 Pulse Rate [ From Monitor] Respiratory Rate Blood Pressure 123/67 Blood Pressure [Right Arm] O2 Sat by Pulse 97 97 Oximetry 08/02/16 08/02/16 08/02/16 03:10 03:15 03:16 Temperature Pulse Rate 72 72 75 Pulse Rate [ From Monitor] Respiratory Rate Blood Pressure 124/66 Blood Pressure [Right Arm] O2 Sat by Pulse 98 98 Oximetry 08/02/16 08/02/16 08/02/16 03:20 03:25 03:30 Temperature Pulse Rate 77 70 77 Pulse Rate [ From Monitor] Respiratory Rate Blood Pressure Blood Pressure [Right Arm] O2 Sat by Pulse 98 99 98 Oximetry 08/02/16 08/02/16 08/02/16 03:31 03:35 03:40 Temperature Pulse Rate 76 74 63 Pulse Rate [ From Monitor] Respiratory Rate Blood Pressure 123/67 Blood Pressure [Right Arm] O2 Sat by Pulse 98 99 Oximetry 08/02/16 08/02/16 08/02/16 03:42 03:45 04:03 Temperature 98.5 F Pulse Rate 99 H 92 H 72 Pulse Rate [ 72 From Monitor] Respiratory 18 Rate Blood Pressure 121/59 Blood Pressure 121/59 [Right Arm] O2 Sat by Pulse 86 97 Oximetry 08/02/16 08/02/16 08/02/16 04:04 04:09 04:14 Temperature Pulse Rate 74 75 76 Pulse Rate [ From Monitor] Respiratory Rate Blood Pressure Blood Pressure [Right Arm] O2 Sat by Pulse 98 99 98 Oximetry 08/02/16 08/02/16 08/02/16 04:16 04:19 04:24 Temperature Pulse Rate 81 78 73 Pulse Rate [ From Monitor] Respiratory Rate Blood Pressure 109/56 Blood Pressure [Right Arm] O2 Sat by Pulse 99 97 Oximetry 08/02/16 08/02/16 08/02/16 04:29 04:31 04:34 Temperature Pulse Rate 83 73 69 Pulse Rate [ From Monitor] Respiratory Rate Blood Pressure 115/55 Blood Pressure [Right Arm] O2 Sat by Pulse 98 98 Oximetry 08/02/16 08/02/16 08/02/16 04:39 04:44 04:46 Temperature Pulse Rate 67 72 71 Pulse Rate [ From Monitor] Respiratory Rate Blood Pressure 113/59 Blood Pressure [Right Arm] O2 Sat by Pulse 98 98 Oximetry 08/02/16 08/02/16 08/02/16 04:49 04:54 04:59 Temperature Pulse Rate 70 82 71 Pulse Rate [ From Monitor] Respiratory Rate Blood Pressure Blood Pressure [Right Arm] O2 Sat by Pulse 98 99 98 Oximetry 08/02/16 08/02/16 08/02/16 05:01 05:04 05:09 Temperature Pulse Rate 69 67 73 Pulse Rate [ From Monitor] Respiratory Rate Blood Pressure 114/58 Blood Pressure [Right Arm] O2 Sat by Pulse 98 99 Oximetry 08/02/16 08/02/16 08/02/16 05:14 05:16 05:19 Temperature Pulse Rate 74 77 71 Pulse Rate [ From Monitor] Respiratory Rate Blood Pressure 120/55 Blood Pressure [Right Arm] O2 Sat by Pulse 98 93 Oximetry 08/02/16 08/02/16 08/02/16 05:24 05:25 05:29 Temperature Pulse Rate 91 H 81 74 Pulse Rate [ From Monitor] Respiratory Rate Blood Pressure Blood Pressure [Right Arm] O2 Sat by Pulse 88 93 99 Oximetry 08/02/16 08/02/16 08/02/16 05:31 05:34 05:39 Temperature Pulse Rate 85 85 101 H Pulse Rate [ From Monitor] Respiratory Rate Blood Pressure 121/59 Blood Pressure [Right Arm] O2 Sat by Pulse 98 97 Oximetry 08/02/16 08/02/16 08/02/16 05:44 05:46 05:47 Temperature Pulse Rate 78 77 85 Pulse Rate [ From Monitor] Respiratory Rate Blood Pressure 134/79 Blood Pressure [Right Arm] O2 Sat by Pulse 98 93 Oximetry 08/02/16 08/02/16 08/02/16 07:47 07:48 07:50 Temperature 98.4 F Pulse Rate 88 82 Pulse Rate [ 85 From Monitor] Respiratory 18 Rate Blood Pressure 139/82 Blood Pressure 139/82 [Right Arm] O2 Sat by Pulse 98 Oximetry 08/02/16 08/02/16 07:53 07:58 Temperature Pulse Rate 95 H 99 H Pulse Rate [ From Monitor] Respiratory Rate Blood Pressure Blood Pressure [Right Arm] O2 Sat by Pulse 97 98 Oximetry - Exam Breasts: deferred, normal Cardiovascular: Regular rate Lungs: Normal air movement Abdomen: Present: normal appearance, soft. Absent: distention, tenderness Uterus: Present: normal FHR: auscultation normal Uterine Contraction Pattern: Absent Extremities: edema Deep Tendon Reflex Grade: Normal +2 - Labs Labs: Abnormal Labs 08/01/16 08/01/16 08/01/16 18:50 18:50 18:50 Hgb 9.1 L Hct 28.7 L MCV 73 L MCH 23 L RDW 18.0 H Monocytes % (Manual) 21.0 H Nucleated RBC % 1.0 H Monocytes # (Manual) 1.7 H Potassium Carbon Dioxide BUN Creatinine 0.5 L Lactate Dehydrogenase 185 H Albumin Ur Specific [place] 1.034 H Urine WBC (Auto) 8.0 H U Epithel Cells (Auto) 42.0 H 08/01/16 18:50 Hgb Hct MCV MCH RDW Monocytes % (Manual) Nucleated RBC % Monocytes # (Manual) Potassium 3.2 L Carbon Dioxide 20 L BUN 5 L Creatinine 0.5 L Lactate Dehydrogenase 241 H Albumin 3.0 L Ur Specific [place] Urine WBC (Auto) U Epithel Cells (Auto) Laboratory Results - last 24 hr 08/01/16 08/01/16 08/01/16 18:50 18:50 18:50 WBC RBC Hgb Hct MCV MCH MCHC RDW Plt Count Add Manual Diff Total Counted Seg Neuts % (Manual) Band Neutrophils % Lymphocytes % (Manual) Reactive Lymphs % (Man) Monocytes % (Manual) Eosinophils % (Manual) Basophils % (Manual) Metamyelocytes % Myelocytes % Promyelocytes % Blast Cells % Nucleated RBC % Seg Neutrophils # Man Band Neutrophils # Lymphocytes # (Manual) Abs React Lymphs (Man) Monocytes # (Manual) Eosinophils # (Manual) Basophils # (Manual) Metamyelocytes # Myelocytes # Promyelocytes # Blast Cells # WBC Morphology Hypersegmented Neuts Hyposegmented Neuts Hypogranular Neuts Smudge Cells Toxic Granulation Toxic Vacuolation Dohle Bodies Pelger-Huet Anomaly [place] Rods Platelet Estimate Clumped Platelets Plt Clumps, EDTA Large Platelets Giant Platelets Platelet Satelliting Plt Morphology Comment RBC Morphology Dimorphic RBCs Polychromasia Hypochromasia Poikilocytosis Anisocytosis Microcytosis Macrocytosis Spherocytes Pappenheimer Bodies Sickle Cells Target Cells Tear Drop Cells Ovalocytes Helmet Cells [place] Bodies [place] Rings [place] Cells Bite Cells Crenated Cell Elliptocytes Acanthocytes (Spur) Rouleaux Hemoglobin C Crystals Schistocytes Malaria parasites Naun Bodies Hem Pathologist Commnt Sodium Potassium Chloride Carbon Dioxide Anion Gap BUN Creatinine 0.5 L Estimated GFR > 60 BUN/Creatinine Ratio Glucose Uric Acid 6.6 Calcium Total Bilirubin AST 18 ALT 17 Alkaline Phosphatase Lactate Dehydrogenase 185 H Total Protein Albumin Albumin/Globulin Ratio Urine Color Laura Urine Turbidity Slightly-cloudy Urine pH 5.0 Ur Specific [place] 1.034 H Urine Protein 100 mg/dl Urine Glucose (UA) Neg Urine Ketones 80 Urine Blood Neg Urine Nitrite Neg Urine Bilirubin Sm Urine Ictotest Negative Urine Urobilinogen 4.0 Ur Leukocyte Esterase Mod Urine WBC (Auto) 8.0 H Urine RBC (Auto) 4.0 U Epithel Cells (Auto) 42.0 H Urine Bacteria (Auto) 2+ Urine Mucus 3+ 08/01/16 08/01/16 18:50 18:50 WBC 8.3 RBC 3.96 Hgb 9.1 L Hct 28.7 L MCV 73 L MCH 23 L MCHC 32 RDW 18.0 H Plt Count 370 Add Manual Diff Complete Total Counted 100 Seg Neuts % (Manual) 54.0 Band Neutrophils % 1.0 Lymphocytes % (Manual) 23.0 Reactive Lymphs % (Man) 0 Monocytes % (Manual) 21.0 H Eosinophils % (Manual) 1.0 Basophils % (Manual) 0 Metamyelocytes % 0 Myelocytes % 0 Promyelocytes % 0 Blast Cells % 0 Nucleated RBC % 1.0 H Seg Neutrophils # Man 4.5 Band Neutrophils # 0.1 Lymphocytes # (Manual) 1.9 Abs React Lymphs (Man) 0.0 Monocytes # (Manual) 1.7 H Eosinophils # (Manual) 0.1 Basophils # (Manual) 0.0 Metamyelocytes # 0.0 Myelocytes # 0.0 Promyelocytes # 0.0 Blast Cells # 0.0 WBC Morphology Not Reportable Hypersegmented Neuts Not Reportable Hyposegmented Neuts Not Reportable Hypogranular Neuts Not Reportable Smudge Cells Not Reportable Toxic Granulation Not Reportable Toxic Vacuolation Not Reportable Dohle Bodies Not Reportable Pelger-Huet Anomaly Not Reportable [place] Rods Not Reportable Platelet Estimate Consistent w auto Clumped Platelets Not Reportable Plt Clumps, EDTA Not Reportable Large Platelets Not Reportable Giant Platelets Not Reportable Platelet Satelliting Not Reportable Plt Morphology Comment Not Reportable RBC Morphology Not Reportable Dimorphic RBCs Not Reportable Polychromasia 1+ Hypochromasia Not Reportable Poikilocytosis Not Reportable Anisocytosis 1+ Microcytosis Not Reportable Macrocytosis Not Reportable Spherocytes Not Reportable Pappenheimer Bodies Not Reportable Sickle Cells Not Reportable Target Cells Not Reportable Tear Drop Cells 1+ Ovalocytes Not Reportable Helmet Cells Not Reportable [place] Bodies Not Reportable [place] Rings Not Reportable [place] Cells Not Reportable Bite Cells Not Reportable Crenated Cell Not Reportable Elliptocytes 1+ Acanthocytes (Spur) Not Reportable Rouleaux Not Reportable Hemoglobin C Crystals Not Reportable Schistocytes Not Reportable Malaria parasites Not Reportable Naun Bodies Not Reportable Hem Pathologist Commnt No Sodium 143 Potassium 3.2 L Chloride 105.8 Carbon Dioxide 20 L Anion Gap 20 BUN 5 L Creatinine 0.5 L Estimated GFR > 60 BUN/Creatinine Ratio 10.00 Glucose 80 Uric Acid Calcium 8.9 Total Bilirubin 1.20 AST 23 ALT 18 Alkaline Phosphatase 67 Lactate Dehydrogenase 241 H Total Protein 6.4 Albumin 3.0 L Albumin/Globulin Ratio 0.9 Urine Color Urine Turbidity Urine pH Ur Specific [place] Urine Protein Urine Glucose (UA) Urine Ketones Urine Blood Urine Nitrite Urine Bilirubin Urine Ictotest Urine Urobilinogen Ur Leukocyte Esterase Urine WBC (Auto) Urine RBC (Auto) U Epithel Cells (Auto) Urine Bacteria (Auto) Urine Mucus <DYLAN HARDY D - Last Filed: 08/02/16 14:55> Assessment and Plan - Patient Problems (1) 29 weeks gestation of Current Visit: No Status: Acute Plan to address problem: FHT's appropriate for GA, no UC's, no leaking, no bleeding (2) Gallstones Current Visit: No Status: Acute Plan to address problem: Surgery consulted (3) Hypertension Current Visit: No Status: Chronic Qualifiers: Hypertension type: essential hypertension Qualified Code(s): I10 - Essential (primary) hypertension (4) Midepigastric pain Current Visit: No Status: Acute Plan to address problem: Appreciate consultation Subjective - Subjective Interval history: Still complains of persistent N/V and upper abdominal pain Objective - Vital Signs Vital Signs: Vital Signs - 12hr 08/02/16 08/02/16 08/02/16 02:55 03:00 03:01 Temperature Pulse Rate 74 73 75 Pulse Rate [ From Monitor] Respiratory Rate Blood Pressure 123/67 Blood Pressure [Right Arm] O2 Sat by Pulse 97 97 Oximetry 08/02/16 08/02/16 08/02/16 03:05 03:10 03:15 Temperature Pulse Rate 76 72 72 Pulse Rate [ From Monitor] Respiratory Rate Blood Pressure Blood Pressure [Right Arm] O2 Sat by Pulse 97 98 98 Oximetry 08/02/16 08/02/16 08/02/16 03:16 03:20 03:25 Temperature Pulse Rate 75 77 70 Pulse Rate [ From Monitor] Respiratory Rate Blood Pressure 124/66 Blood Pressure [Right Arm] O2 Sat by Pulse 98 99 Oximetry 08/02/16 08/02/16 08/02/16 03:30 03:31 03:35 Temperature Pulse Rate 77 76 74 Pulse Rate [ From Monitor] Respiratory Rate Blood Pressure 123/67 Blood Pressure [Right Arm] O2 Sat by Pulse 98 98 Oximetry 08/02/16 08/02/16 08/02/16 03:40 03:42 03:45 Temperature Pulse Rate 63 99 H 92 H Pulse Rate [ From Monitor] Respiratory Rate Blood Pressure Blood Pressure [Right Arm] O2 Sat by Pulse 99 86 97 Oximetry 08/02/16 08/02/16 08/02/16 04:03 04:04 04:09 Temperature 98.5 F Pulse Rate 72 74 75 Pulse Rate [ 72 From Monitor] Respiratory 18 Rate Blood Pressure 121/59 Blood Pressure 121/59 [Right Arm] O2 Sat by Pulse 98 99 Oximetry 08/02/16 08/02/16 08/02/16 04:14 04:16 04:19 Temperature Pulse Rate 76 81 78 Pulse Rate [ From Monitor] Respiratory Rate Blood Pressure 109/56 Blood Pressure [Right Arm] O2 Sat by Pulse 98 99 Oximetry 08/02/16 08/02/16 08/02/16 04:24 04:29 04:31 Temperature Pulse Rate 73 83 73 Pulse Rate [ From Monitor] Respiratory Rate Blood Pressure 115/55 Blood Pressure [Right Arm] O2 Sat by Pulse 97 98 Oximetry 08/02/16 08/02/16 08/02/16 04:34 04:39 04:44 Temperature Pulse Rate 69 67 72 Pulse Rate [ From Monitor] Respiratory Rate Blood Pressure Blood Pressure [Right Arm] O2 Sat by Pulse 98 98 98 Oximetry 08/02/16 08/02/16 08/02/16 04:46 04:49 04:54 Temperature Pulse Rate 71 70 82 Pulse Rate [ From Monitor] Respiratory Rate Blood Pressure 113/59 Blood Pressure [Right Arm] O2 Sat by Pulse 98 99 Oximetry 08/02/16 08/02/16 08/02/16 04:59 05:01 05:04 Temperature Pulse Rate 71 69 67 Pulse Rate [ From Monitor] Respiratory Rate Blood Pressure 114/58 Blood Pressure [Right Arm] O2 Sat by Pulse 98 98 Oximetry 08/02/16 08/02/16 08/02/16 05:09 05:14 05:16 Temperature Pulse Rate 73 74 77 Pulse Rate [ From Monitor] Respiratory Rate Blood Pressure 120/55 Blood Pressure [Right Arm] O2 Sat by Pulse 99 98 Oximetry 08/02/16 08/02/16 08/02/16 05:19 05:24 05:25 Temperature Pulse Rate 71 91 H 81 Pulse Rate [ From Monitor] Respiratory Rate Blood Pressure Blood Pressure [Right Arm] O2 Sat by Pulse 93 88 93 Oximetry 08/02/16 08/02/16 08/02/16 05:29 05:31 05:34 Temperature Pulse Rate 74 85 85 Pulse Rate [ From Monitor] Respiratory Rate Blood Pressure 121/59 Blood Pressure [Right Arm] O2 Sat by Pulse 99 98 Oximetry 08/02/16 08/02/16 08/02/16 05:39 05:44 05:46 Temperature Pulse Rate 101 H 78 77 Pulse Rate [ From Monitor] Respiratory Rate Blood Pressure Blood Pressure [Right Arm] O2 Sat by Pulse 97 98 93 Oximetry 08/02/16 08/02/16 08/02/16 05:47 07:47 07:48 Temperature Pulse Rate 85 88 82 Pulse Rate [ From Monitor] Respiratory Rate Blood Pressure 134/79 139/82 Blood Pressure [Right Arm] O2 Sat by Pulse 98 Oximetry 08/02/16 08/02/16 08/02/16 07:50 07:53 07:58 Temperature 98.4 F Pulse Rate 95 H 99 H Pulse Rate [ 85 From Monitor] Respiratory 18 Rate Blood Pressure Blood Pressure 139/82 [Right Arm] O2 Sat by Pulse 97 98 Oximetry 08/02/16 08/02/16 08/02/16 08:03 12:07 12:08 Temperature Pulse Rate 120 H 85 90 Pulse Rate [ From Monitor] Respiratory Rate Blood Pressure 131/67 Blood Pressure [Right Arm] O2 Sat by Pulse 99 99 Oximetry 08/02/16 12:09 Temperature 98.0 F Pulse Rate Pulse Rate [ 88 From Monitor] Respiratory 18 Rate Blood Pressure Blood Pressure 131/67 [Right Arm] O2 Sat by Pulse Oximetry - Labs Labs: Abnormal Labs 08/01/16 08/01/16 08/01/16 18:50 18:50 18:50 Hgb 9.1 L Hct 28.7 L MCV 73 L MCH 23 L RDW 18.0 H Monocytes % (Manual) 21.0 H Nucleated RBC % 1.0 H Monocytes # (Manual) 1.7 H Potassium Carbon Dioxide BUN Creatinine 0.5 L Lactate Dehydrogenase 185 H Albumin Amylase Lipase Ur Specific [place] 1.034 H Urine WBC (Auto) 8.0 H U Epithel Cells (Auto) 42.0 H 08/01/16 08/02/16 18:50 07:41 Hgb Hct MCV MCH RDW Monocytes % (Manual) Nucleated RBC % Monocytes # (Manual) Potassium 3.2 L Carbon Dioxide 20 L BUN 5 L Creatinine 0.5 L Lactate Dehydrogenase 241 H Albumin 3.0 L Amylase 195 H Lipase 77 H Ur Specific [place] Urine WBC (Auto) U Epithel Cells (Auto) Laboratory Results - last 24 hr 08/01/16 08/01/16 08/01/16 18:50 18:50 18:50 WBC RBC Hgb Hct MCV MCH MCHC RDW Plt Count Add Manual Diff Total Counted Seg Neuts % (Manual) Band Neutrophils % Lymphocytes % (Manual) Reactive Lymphs % (Man) Monocytes % (Manual) Eosinophils % (Manual) Basophils % (Manual) Metamyelocytes % Myelocytes % Promyelocytes % Blast Cells % Nucleated RBC % Seg Neutrophils # Man Band Neutrophils # Lymphocytes # (Manual) Abs React Lymphs (Man) Monocytes # (Manual) Eosinophils # (Manual) Basophils # (Manual) Metamyelocytes # Myelocytes # Promyelocytes # Blast Cells # WBC Morphology Hypersegmented Neuts Hyposegmented Neuts Hypogranular Neuts Smudge Cells Toxic Granulation Toxic Vacuolation Dohle Bodies Pelger-Huet Anomaly [place] Rods Platelet Estimate Clumped Platelets Plt Clumps, EDTA Large Platelets Giant Platelets Platelet Satelliting Plt Morphology Comment RBC Morphology Dimorphic RBCs Polychromasia Hypochromasia Poikilocytosis Anisocytosis Microcytosis Macrocytosis Spherocytes Pappenheimer Bodies Sickle Cells Target Cells Tear Drop Cells Ovalocytes Helmet Cells [place] Bodies [place] Rings [place] Cells Bite Cells Crenated Cell Elliptocytes Acanthocytes (Spur) Rouleaux Hemoglobin C Crystals Schistocytes Malaria parasites Naun Bodies Hem Pathologist Commnt Sodium Potassium Chloride Carbon Dioxide Anion Gap BUN Creatinine 0.5 L Estimated GFR > 60 BUN/Creatinine Ratio Glucose Uric Acid 6.6 Calcium Total Bilirubin AST 18 ALT 17 Alkaline Phosphatase Lactate Dehydrogenase 185 H Total Protein Albumin Albumin/Globulin Ratio Amylase Lipase TSH Urine Color Laura Urine Turbidity Slightly-cloudy Urine pH 5.0 Ur Specific [place] 1.034 H Urine Protein 100 mg/dl Urine Glucose (UA) Neg Urine Ketones 80 Urine Blood Neg Urine Nitrite Neg Urine Bilirubin Sm Urine Ictotest Negative Urine Urobilinogen 4.0 Ur Leukocyte Esterase Mod Urine WBC (Auto) 8.0 H Urine RBC (Auto) 4.0 U Epithel Cells (Auto) 42.0 H Urine Bacteria (Auto) 2+ Urine Mucus 3+ 08/01/16 08/01/16 08/02/16 18:50 18:50 07:41 WBC 8.3 RBC 3.96 Hgb 9.1 L Hct 28.7 L MCV 73 L MCH 23 L MCHC 32 RDW 18.0 H Plt Count 370 Add Manual Diff Complete Total Counted 100 Seg Neuts % (Manual) 54.0 Band Neutrophils % 1.0 Lymphocytes % (Manual) 23.0 Reactive Lymphs % (Man) 0 Monocytes % (Manual) 21.0 H Eosinophils % (Manual) 1.0 Basophils % (Manual) 0 Metamyelocytes % 0 Myelocytes % 0 Promyelocytes % 0 Blast Cells % 0 Nucleated RBC % 1.0 H Seg Neutrophils # Man 4.5 Band Neutrophils # 0.1 Lymphocytes # (Manual) 1.9 Abs React Lymphs (Man) 0.0 Monocytes # (Manual) 1.7 H Eosinophils # (Manual) 0.1 Basophils # (Manual) 0.0 Metamyelocytes # 0.0 Myelocytes # 0.0 Promyelocytes # 0.0 Blast Cells # 0.0 WBC Morphology Not Reportable Hypersegmented Neuts Not Reportable Hyposegmented Neuts Not Reportable Hypogranular Neuts Not Reportable Smudge Cells Not Reportable Toxic Granulation Not Reportable Toxic Vacuolation Not Reportable Dohle Bodies Not Reportable Pelger-Huet Anomaly Not Reportable [place] Rods Not Reportable Platelet Estimate Consistent w auto Clumped Platelets Not Reportable Plt Clumps, EDTA Not Reportable Large Platelets Not Reportable Giant Platelets Not Reportable Platelet Satelliting Not Reportable Plt Morphology Comment Not Reportable RBC Morphology Not Reportable Dimorphic RBCs Not Reportable Polychromasia 1+ Hypochromasia Not Reportable Poikilocytosis Not Reportable Anisocytosis 1+ Microcytosis Not Reportable Macrocytosis Not Reportable Spherocytes Not Reportable Pappenheimer Bodies Not Reportable Sickle Cells Not Reportable Target Cells Not Reportable Tear Drop Cells 1+ Ovalocytes Not Reportable Helmet Cells Not Reportable [place] Bodies Not Reportable [place] Rings Not Reportable [place] Cells Not Reportable Bite Cells Not Reportable Crenated Cell Not Reportable Elliptocytes 1+ Acanthocytes (Spur) Not Reportable Rouleaux Not Reportable Hemoglobin C Crystals Not Reportable Schistocytes Not Reportable Malaria parasites Not Reportable Naun Bodies Not Reportable Hem Pathologist Commnt No Sodium 143 Potassium 3.2 L Chloride 105.8 Carbon Dioxide 20 L Anion Gap 20 BUN 5 L Creatinine 0.5 L Estimated GFR > 60 BUN/Creatinine Ratio 10.00 Glucose 80 Uric Acid Calcium 8.9 Total Bilirubin 1.20 AST 23 ALT 18 Alkaline Phosphatase 67 Lactate Dehydrogenase 241 H Total Protein 6.4 Albumin 3.0 L Albumin/Globulin Ratio 0.9 Amylase 195 H Lipase 77 H TSH Urine Color Urine Turbidity Urine pH Ur Specific [place] Urine Protein Urine Glucose (UA) Urine Ketones Urine Blood Urine Nitrite Urine Bilirubin Urine Ictotest Urine Urobilinogen Ur Leukocyte Esterase Urine WBC (Auto) Urine RBC (Auto) U Epithel Cells (Auto) Urine Bacteria (Auto) Urine Mucus 08/02/16 07:41 WBC RBC Hgb Hct MCV MCH MCHC RDW Plt Count Add Manual Diff Total Counted Seg Neuts % (Manual) Band Neutrophils % Lymphocytes % (Manual) Reactive Lymphs % (Man) Monocytes % (Manual) Eosinophils % (Manual) Basophils % (Manual) Metamyelocytes % Myelocytes % Promyelocytes % Blast Cells % Nucleated RBC % Seg Neutrophils # Man Band Neutrophils # Lymphocytes # (Manual) Abs React Lymphs (Man) Monocytes # (Manual) Eosinophils # (Manual) Basophils # (Manual) Metamyelocytes # Myelocytes # Promyelocytes # Blast Cells # WBC Morphology Hypersegmented Neuts Hyposegmented Neuts Hypogranular Neuts Smudge Cells Toxic Granulation Toxic Vacuolation Dohle Bodies Pelger-Huet Anomaly [place] Rods Platelet Estimate Clumped Platelets Plt Clumps, EDTA Large Platelets Giant Platelets Platelet Satelliting Plt Morphology Comment RBC Morphology Dimorphic RBCs Polychromasia Hypochromasia Poikilocytosis Anisocytosis Microcytosis Macrocytosis Spherocytes Pappenheimer Bodies Sickle Cells Target Cells Tear Drop Cells Ovalocytes Helmet Cells [place] Bodies [place] Rings [place] Cells Bite Cells Crenated Cell Elliptocytes Acanthocytes (Spur) Rouleaux Hemoglobin C Crystals Schistocytes Malaria parasites Naun Bodies Hem Pathologist Commnt Sodium Potassium Chloride Carbon Dioxide Anion Gap BUN Creatinine Estimated GFR BUN/Creatinine Ratio Glucose Uric Acid Calcium Total Bilirubin AST ALT Alkaline Phosphatase Lactate Dehydrogenase Total Protein Albumin Albumin/Globulin Ratio Amylase Lipase TSH 1.450 Urine Color Urine Turbidity Urine pH Ur Specific [place] Urine Protein Urine Glucose (UA) Urine Ketones Urine Blood Urine Nitrite Urine Bilirubin Urine Ictotest Urine Urobilinogen Ur Leukocyte Esterase Urine WBC (Auto) Urine RBC (Auto) U Epithel Cells (Auto) Urine Bacteria (Auto) Urine Mucus
[2016-08-02 08:20] LABS: Amylase 195 units/L (27-131); Lipase 77 units/L (13-60)
--- NOTE | 2016-08-02 09:50 | Gastroenterology Consultation ---
<ASHWINI MOSS - Last Filed: 08/02/16 09:55> History of Present Illness - Reason for Consult Consult date: 08/02/16 GB pain Requesting physician: ERIKA DONG - History of Present Illness Patient is a 20 y/o female admitted for abd pain and N/V. She is at 29 wks gestation. . Patient reports abd pain is located in her LUQ, epigastric area , and RUQ. She states abd pain with associated N/V has been present her entire but has progressively worsened over the last month. Pain is aggravated with eating or drinking. She is unable to tolerate po intake with a 15lb wt loss during this . Abd u/s on 07/30/16 revealed moderate amount of sludge and a few small gallstones but no acute cholecystitis. Patient denies fever, hematemesis, or lower GI symptoms to include constipation, diarrhea, or hematochezia. No ETOH use. No hx of liver dx. Past History Past Medical History: hypertension Past Surgical History: No surgical history Social history: single. denies: smoking, alcohol abuse Medications and Allergies Allergies Allergy/AdvReac Type Severity Reaction Status Date / Time No Known Allergies Allergy Verified 04/03/16 10:13 Home Medications Medication Instructions Recorded Confirmed Last Taken Type Butalb/Acetamin/Caff 50-325-40 1 each PO Q4H PRN #10 tablet 11/09/13 07/29/16 Unknown Rx [Fioricet] Naproxen [Naprosyn TAB] 500 mg PO BID PRN #10 tablet 11/09/13 07/29/16 Unknown Rx Dicyclomine [Bentyl] 20 mg PO QID PRN #30 tablet 04/03/16 07/29/16 07/27/16 17: 00 Rx Ondansetron [Zofran Odt] 4 mg PO Q8HR PRN #20 tab.rapdis 04/03/16 07/29/16 Unknown Rx Doxylamine Succinate [Unisom] 25 mg PO BID #60 tablet 04/08/16 07/29/16 Unknown Rx HYDROcodone/APAP 5-325 [[place] 1 each PO Q6HR PRN #15 tablet 04/08/16 07/29/16 Unknown Rx 5-325 mg TAB] Pyridoxine [Vitamin B-6] 50 mg PO DAILY #30 tablet 04/08/16 07/29/16 Unknown Rx Nitrofurantoin [place]/M-Cryst 100 mg PO Q12HR #20 capsule 07/10/16 07/29/16 Unknown Rx [Macrobid CAP] Famotidine [Pepcid] 20 mg PO BID #30 tablet 07/31/16 Unknown Rx Ondansetron [Zofran ODT TAB] 8 mg PO Q12HR PRN #30 tab.rapdis 07/31/16 Unknown Rx Active Meds: Active Medications Acetaminophen (Tylenol) 650 mg PO Q4H PRN PRN Reason: Pain MILD(1-3)/Fever >100.5/GRANT Last Admin: 08/01/16 19:05 Dose: 650 mg Acetaminophen/Hydrocodone Bitart ([place] 5/325) 2 each PO QHS PRN PRN Reason: Pain, Moderate (4-6) Last Admin: 08/02/16 00:18 Dose: 2 each Al Hydrox/Mg Hydrox/Simethicone (Alum-Mag Hydrox-Simeth 251-180-19xj/5ml) 30 ml PO Q6H PRN PRN Reason: Indigestion Betamethasone Acet/Betameth SodPhos (Celestone Soluspan) 12 mg IM Q24HR JOYCE Stop: 08/03/16 10:01 Docusate Sodium (Colace) 100 mg PO Q12H PRN PRN Reason: Constipation Lactated Ringer's (Lactated Ringers) 1,000 mls @ 125 mls/hr IV DIRECT JOYCE Potassium Chloride 10 meq/ (Sodium Chloride) 1,005 mls @ 83 mls/hr IV DIRECT JOYCE Last Admin: 08/01/16 23:24 Dose: 83 mls/hr Dextrose/Lactated Ringer's (D5lr) 1,000 mls @ 500 mls/hr IV DIRECT JOYCE Stop: 08/03/16 09:59 Dextrose/Lactated Ringer's (D5lr) 1,000 mls @ 150 mls/hr IV DIRECT JOYCE Magnesium Hydroxide (Milk Of Magnesia) 30 ml PO QHS PRN PRN Reason: Laxative Effect Metoclopramide HCl (Reglan) 10 mg IV Q6H JOYCE Stop: 08/03/16 07:59 Multivitamins/Iron/Calcium ( Vitamin) 1 each PO QDAY JOYCE Multivitamins/Iron/Calcium ( Vitamin) 1 each PO QDAY [facility] Ondansetron HCl (Zofran) 8 mg IV Q8H PRN PRN Reason: Nausea And Vomiting Last Admin: 08/01/16 23:36 Dose: 8 mg Promethazine HCl (Phenergan) 25 mg [place] Q6H JOYCE Simethicone (Mylicon) 80 mg PO Q6H PRN PRN Reason: Gas pain Zolpidem Tartrate (Ambien) 10 mg PO QHS PRN PRN Reason: Insomnia Last Admin: 08/01/16 22:51 Dose: 10 mg Review of Systems - Review of Systems All systems: negative Constitutional: weight loss Gastrointestinal: abdominal pain, nausea, vomiting Exam - Constitutional Vital Signs: Temp Pulse Resp BP Pulse Ox 98.4 F 120 H 18 139/82 99 08/02/16 07:50 08/02/16 08:03 08/02/16 07:50 08/02/16 07:50 08/02/16 08:03 General appearance: mild distress - EENT Eyes: PERRL, EOM intact ENT: hearing intact - Neck Neck: supple, normal ROM - Respiratory Respiratory: bilateral: CTA - Cardiovascular Rhythm: regular Heart Sounds: Present: S1 & S2 Extremities: No edema - Gastrointestinal General gastrointestinal: Present: soft, tender (RUQ, epigastric, LUQ), non- distended, normal bowel sounds, other (appropriate for 29wk gestation) - Integumentary Integumentary: Present: warm, dry - Neurologic Neurological: alert and oriented x3 - Psychiatric Psychiatric: appropriate mood/affect, cooperative - Labs CBC & Chem 7: 08/01/16 18:50 08/01/16 18:50 Lab Results: Laboratory Results - last 24 hr 08/01/16 08/01/16 08/01/16 18:50 18:50 18:50 WBC RBC Hgb Hct MCV MCH MCHC RDW Plt Count Add Manual Diff Total Counted Seg Neuts % (Manual) Band Neutrophils % Lymphocytes % (Manual) Reactive Lymphs % (Man) Monocytes % (Manual) Eosinophils % (Manual) Basophils % (Manual) Metamyelocytes % Myelocytes % Promyelocytes % Blast Cells % Nucleated RBC % Seg Neutrophils # Man Band Neutrophils # Lymphocytes # (Manual) Abs React Lymphs (Man) Monocytes # (Manual) Eosinophils # (Manual) Basophils # (Manual) Metamyelocytes # Myelocytes # Promyelocytes # Blast Cells # WBC Morphology Hypersegmented Neuts Hyposegmented Neuts Hypogranular Neuts Smudge Cells Toxic Granulation Toxic Vacuolation Dohle Bodies Pelger-Huet Anomaly [place] Rods Platelet Estimate Clumped Platelets Plt Clumps, EDTA Large Platelets Giant Platelets Platelet Satelliting Plt Morphology Comment RBC Morphology Dimorphic RBCs Polychromasia Hypochromasia Poikilocytosis Anisocytosis Microcytosis Macrocytosis Spherocytes Pappenheimer Bodies Sickle Cells Target Cells Tear Drop Cells Ovalocytes Helmet Cells [place] Bodies [place] Rings [place] Cells Bite Cells Crenated Cell Elliptocytes Acanthocytes (Spur) Rouleaux Hemoglobin C Crystals Schistocytes Malaria parasites Naun Bodies Hem Pathologist Commnt Sodium Potassium Chloride Carbon Dioxide Anion Gap BUN Creatinine 0.5 L Estimated GFR > 60 BUN/Creatinine Ratio Glucose Uric Acid 6.6 Calcium Total Bilirubin AST 18 ALT 17 Alkaline Phosphatase Lactate Dehydrogenase 185 H Total Protein Albumin Albumin/Globulin Ratio Amylase Lipase TSH Urine Color Laura Urine Turbidity Slightly-cloudy Urine pH 5.0 Ur Specific [place] 1.034 H Urine Protein 100 mg/dl Urine Glucose (UA) Neg Urine Ketones 80 Urine Blood Neg Urine Nitrite Neg Urine Bilirubin Sm Urine Ictotest Negative Urine Urobilinogen 4.0 Ur Leukocyte Esterase Mod Urine WBC (Auto) 8.0 H Urine RBC (Auto) 4.0 U Epithel Cells (Auto) 42.0 H Urine Bacteria (Auto) 2+ Urine Mucus 3+ 08/01/16 08/01/16 08/02/16 18:50 18:50 07:41 WBC 8.3 RBC 3.96 Hgb 9.1 L Hct 28.7 L MCV 73 L MCH 23 L MCHC 32 RDW 18.0 H Plt Count 370 Add Manual Diff Complete Total Counted 100 Seg Neuts % (Manual) 54.0 Band Neutrophils % 1.0 Lymphocytes % (Manual) 23.0 Reactive Lymphs % (Man) 0 Monocytes % (Manual) 21.0 H Eosinophils % (Manual) 1.0 Basophils % (Manual) 0 Metamyelocytes % 0 Myelocytes % 0 Promyelocytes % 0 Blast Cells % 0 Nucleated RBC % 1.0 H Seg Neutrophils # Man 4.5 Band Neutrophils # 0.1 Lymphocytes # (Manual) 1.9 Abs React Lymphs (Man) 0.0 Monocytes # (Manual) 1.7 H Eosinophils # (Manual) 0.1 Basophils # (Manual) 0.0 Metamyelocytes # 0.0 Myelocytes # 0.0 Promyelocytes # 0.0 Blast Cells # 0.0 WBC Morphology Not Reportable Hypersegmented Neuts Not Reportable Hyposegmented Neuts Not Reportable Hypogranular Neuts Not Reportable Smudge Cells Not Reportable Toxic Granulation Not Reportable Toxic Vacuolation Not Reportable Dohle Bodies Not Reportable Pelger-Huet Anomaly Not Reportable [place] Rods Not Reportable Platelet Estimate Consistent w auto Clumped Platelets Not Reportable Plt Clumps, EDTA Not Reportable Large Platelets Not Reportable Giant Platelets Not Reportable Platelet Satelliting Not Reportable Plt Morphology Comment Not Reportable RBC Morphology Not Reportable Dimorphic RBCs Not Reportable Polychromasia 1+ Hypochromasia Not Reportable Poikilocytosis Not Reportable Anisocytosis 1+ Microcytosis Not Reportable Macrocytosis Not Reportable Spherocytes Not Reportable Pappenheimer Bodies Not Reportable Sickle Cells Not Reportable Target Cells Not Reportable Tear Drop Cells 1+ Ovalocytes Not Reportable Helmet Cells Not Reportable [place] Bodies Not Reportable [place] Rings Not Reportable [place] Cells Not Reportable Bite Cells Not Reportable Crenated Cell Not Reportable Elliptocytes 1+ Acanthocytes (Spur) Not Reportable Rouleaux Not Reportable Hemoglobin C Crystals Not Reportable Schistocytes Not Reportable Malaria parasites Not Reportable Naun Bodies Not Reportable Hem Pathologist Commnt No Sodium 143 Potassium 3.2 L Chloride 105.8 Carbon Dioxide 20 L Anion Gap 20 BUN 5 L Creatinine 0.5 L Estimated GFR > 60 BUN/Creatinine Ratio 10.00 Glucose 80 Uric Acid Calcium 8.9 Total Bilirubin 1.20 AST 23 ALT 18 Alkaline Phosphatase 67 Lactate Dehydrogenase 241 H Total Protein 6.4 Albumin 3.0 L Albumin/Globulin Ratio 0.9 Amylase 195 H Lipase 77 H TSH Urine Color Urine Turbidity Urine pH Ur Specific [place] Urine Protein Urine Glucose (UA) Urine Ketones Urine Blood Urine Nitrite Urine Bilirubin Urine Ictotest Urine Urobilinogen Ur Leukocyte Esterase Urine WBC (Auto) Urine RBC (Auto) U Epithel Cells (Auto) Urine Bacteria (Auto) Urine Mucus 08/02/16 07:41 WBC RBC Hgb Hct MCV MCH MCHC RDW Plt Count Add Manual Diff Total Counted Seg Neuts % (Manual) Band Neutrophils % Lymphocytes % (Manual) Reactive Lymphs % (Man) Monocytes % (Manual) Eosinophils % (Manual) Basophils % (Manual) Metamyelocytes % Myelocytes % Promyelocytes % Blast Cells % Nucleated RBC % Seg Neutrophils # Man Band Neutrophils # Lymphocytes # (Manual) Abs React Lymphs (Man) Monocytes # (Manual) Eosinophils # (Manual) Basophils # (Manual) Metamyelocytes # Myelocytes # Promyelocytes # Blast Cells # WBC Morphology Hypersegmented Neuts Hyposegmented Neuts Hypogranular Neuts Smudge Cells Toxic Granulation Toxic Vacuolation Dohle Bodies Pelger-Huet Anomaly [place] Rods Platelet Estimate Clumped Platelets Plt Clumps, EDTA Large Platelets Giant Platelets Platelet Satelliting Plt Morphology Comment RBC Morphology Dimorphic RBCs Polychromasia Hypochromasia Poikilocytosis Anisocytosis Microcytosis Macrocytosis Spherocytes Pappenheimer Bodies Sickle Cells Target Cells Tear Drop Cells Ovalocytes Helmet Cells [place] Bodies [place] Rings [place] Cells Bite Cells Crenated Cell Elliptocytes Acanthocytes (Spur) Rouleaux Hemoglobin C Crystals Schistocytes Malaria parasites Naun Bodies Hem Pathologist Commnt Sodium Potassium Chloride Carbon Dioxide Anion Gap BUN Creatinine Estimated GFR BUN/Creatinine Ratio Glucose Uric Acid Calcium Total Bilirubin AST ALT Alkaline Phosphatase Lactate Dehydrogenase Total Protein Albumin Albumin/Globulin Ratio Amylase Lipase TSH 1.450 Urine Color Urine Turbidity Urine pH Ur Specific [place] Urine Protein Urine Glucose (UA) Urine Ketones Urine Blood Urine Nitrite Urine Bilirubin Urine Ictotest Urine Urobilinogen Ur Leukocyte Esterase Urine WBC (Auto) Urine RBC (Auto) U Epithel Cells (Auto) Urine Bacteria (Auto) Urine Mucus Assessment and Plan 1. abd pain 2. N/V -afebrile -WBC-WNL -Lipase elevated -amylase elevated -LFTs-WNL -etiology of abd pain unknown, possibly biliary-abd u/s on 07/30 revealed moderate amount of sludge and a few stones but no acute cholecystitis -abd u/s for today-pending -patient may need further imaging depending on u/s results- MRCP vs HIDA vs EGD but would need OB approval -will recheck CMP and Lipase in am -continue supportive care with IVF, pain management, and antimedics -will follow <NANCY CUEVAS - Last Filed: 08/02/16 12:35> Medications and Allergies Active Meds: Active Medications Acetaminophen (Tylenol) 650 mg PO Q4H PRN PRN Reason: Pain MILD(1-3)/Fever >100.5/GRANT Last Admin: 08/01/16 19:05 Dose: 650 mg Acetaminophen/Hydrocodone Bitart ([place] 5/325) 2 each PO QHS PRN PRN Reason: Pain, Moderate (4-6) Last Admin: 08/02/16 00:18 Dose: 2 each Al Hydrox/Mg Hydrox/Simethicone (Alum-Mag Hydrox-Simeth [id number]/5ml) 30 ml PO Q6H PRN PRN Reason: Indigestion Betamethasone Acet/Betameth SodPhos ([place] Soluspan) 12 mg IM Q24HR JOYCE Stop: 08/03/16 10:01 Last Admin: 08/02/16 11:10 Dose: 12 mg Docusate Sodium (Colace) 100 mg PO Q12H PRN PRN Reason: Constipation Lactated Ringer's (Lactated Ringers) 1,000 mls @ 125 mls/hr IV DIRECT JOYCE Potassium Chloride 10 meq/ (Sodium Chloride) 1,005 mls @ 83 mls/hr IV DIRECT JOYCE Last Admin: 08/01/16 23:24 Dose: 83 mls/hr Dextrose/Lactated Ringer's (D5lr) 1,000 mls @ 500 mls/hr IV DIRECT JOYCE Stop: 08/03/16 09:59 Dextrose/Lactated Ringer's (D5lr) 1,000 mls @ 150 mls/hr IV DIRECT JOYCE Magnesium Hydroxide (Milk Of Magnesia) 30 ml PO QHS PRN PRN Reason: Laxative Effect Metoclopramide HCl (Reglan) 10 mg IV Q6H JOYCE Stop: 08/03/16 07:59 Multivitamins/Iron/Calcium ( Vitamin) 1 each PO QDAY JOYCE Last Admin: 08/02/16 11:18 Dose: Not Given Multivitamins/Iron/Calcium ( Vitamin) 1 each PO QDAY JOYCE Last Admin: 08/02/16 11:16 Dose: Not Given Ondansetron HCl (Zofran) 8 mg IV Q8H PRN PRN Reason: Nausea And Vomiting Last Admin: 06/27/17 12:01 Dose: 8 mg Promethazine HCl (Phenergan) 25 mg [place] Q6H JOYCE Simethicone (Mylicon) 80 mg PO Q6H PRN PRN Reason: Gas pain Zolpidem Tartrate (Ambien) 10 mg PO QHS PRN PRN Reason: Insomnia Last Admin: 08/01/16 22:51 Dose: 10 mg Exam - Constitutional Vital Signs: Temp Pulse Resp BP Pulse Ox 98.0 F 88 18 131/67 99 08/02/16 12:09 08/02/16 12:09 08/02/16 12:09 08/02/16 12:09 08/02/16 12:08 - Labs CBC & Chem 7: 08/01/16 18:50 08/01/16 18:50 Lab Results: Laboratory Results - last 24 hr 08/01/16 08/01/16 08/01/16 18:50 18:50 18:50 WBC RBC Hgb Hct MCV MCH MCHC RDW Plt Count Add Manual Diff Total Counted Seg Neuts % (Manual) Band Neutrophils % Lymphocytes % (Manual) Reactive Lymphs % (Man) Monocytes % (Manual) Eosinophils % (Manual) Basophils % (Manual) Metamyelocytes % Myelocytes % Promyelocytes % Blast Cells % Nucleated RBC % Seg Neutrophils # Man Band Neutrophils # Lymphocytes # (Manual) Abs React Lymphs (Man) Monocytes # (Manual) Eosinophils # (Manual) Basophils # (Manual) Metamyelocytes # Myelocytes # Promyelocytes # Blast Cells # WBC Morphology Hypersegmented Neuts Hyposegmented Neuts Hypogranular Neuts Smudge Cells Toxic Granulation Toxic Vacuolation Dohle Bodies Pelger-Huet Anomaly [place] Rods Platelet Estimate Clumped Platelets Plt Clumps, EDTA Large Platelets Giant Platelets Platelet Satelliting Plt Morphology Comment RBC Morphology Dimorphic RBCs Polychromasia Hypochromasia Poikilocytosis Anisocytosis Microcytosis Macrocytosis Spherocytes Pappenheimer Bodies Sickle Cells Target Cells Tear Drop Cells Ovalocytes Helmet Cells [place] Bodies [place] Rings [place] Cells Bite Cells Crenated Cell Elliptocytes Acanthocytes (Spur) Rouleaux Hemoglobin C Crystals Schistocytes Malaria parasites Naun Bodies Hem Pathologist Commnt Sodium Potassium Chloride Carbon Dioxide Anion Gap BUN Creatinine 0.5 L Estimated GFR > 60 BUN/Creatinine Ratio Glucose Uric Acid 6.6 Calcium Total Bilirubin AST 18 ALT 17 Alkaline Phosphatase Lactate Dehydrogenase 185 H Total Protein Albumin Albumin/Globulin Ratio Amylase Lipase TSH Urine Color Laura Urine Turbidity Slightly-cloudy Urine pH 5.0 Ur Specific [place] 1.034 H Urine Protein 100 mg/dl Urine Glucose (UA) Neg Urine Ketones 80 Urine Blood Neg Urine Nitrite Neg Urine Bilirubin Sm Urine Ictotest Negative Urine Urobilinogen 4.0 Ur Leukocyte Esterase Mod Urine WBC (Auto) 8.0 H Urine RBC (Auto) 4.0 U Epithel Cells (Auto) 42.0 H Urine Bacteria (Auto) 2+ Urine Mucus 3+ 08/01/16 08/01/16 08/02/16 18:50 18:50 07:41 WBC 8.3 RBC 3.96 Hgb 9.1 L Hct 28.7 L MCV 73 L MCH 23 L MCHC 32 RDW 18.0 H Plt Count 370 Add Manual Diff Complete Total Counted 100 Seg Neuts % (Manual) 54.0 Band Neutrophils % 1.0 Lymphocytes % (Manual) 23.0 Reactive Lymphs % (Man) 0 Monocytes % (Manual) 21.0 H Eosinophils % (Manual) 1.0 Basophils % (Manual) 0 Metamyelocytes % 0 Myelocytes % 0 Promyelocytes % 0 Blast Cells % 0 Nucleated RBC % 1.0 H Seg Neutrophils # Man 4.5 Band Neutrophils # 0.1 Lymphocytes # (Manual) 1.9 Abs React Lymphs (Man) 0.0 Monocytes # (Manual) 1.7 H Eosinophils # (Manual) 0.1 Basophils # (Manual) 0.0 Metamyelocytes # 0.0 Myelocytes # 0.0 Promyelocytes # 0.0 Blast Cells # 0.0 WBC Morphology Not Reportable Hypersegmented Neuts Not Reportable Hyposegmented Neuts Not Reportable Hypogranular Neuts Not Reportable Smudge Cells Not Reportable Toxic Granulation Not Reportable Toxic Vacuolation Not Reportable Dohle Bodies Not Reportable Pelger-Huet Anomaly Not Reportable [place] Rods Not Reportable Platelet Estimate Consistent w auto Clumped Platelets Not Reportable Plt Clumps, EDTA Not Reportable Large Platelets Not Reportable Giant Platelets Not Reportable Platelet Satelliting Not Reportable Plt Morphology Comment Not Reportable RBC Morphology Not Reportable Dimorphic RBCs Not Reportable Polychromasia 1+ Hypochromasia Not Reportable Poikilocytosis Not Reportable Anisocytosis 1+ Microcytosis Not Reportable Macrocytosis Not Reportable Spherocytes Not Reportable Pappenheimer Bodies Not Reportable Sickle Cells Not Reportable Target Cells Not Reportable Tear Drop Cells 1+ Ovalocytes Not Reportable Helmet Cells Not Reportable [place] Bodies Not Reportable [place] Rings Not Reportable [place] Cells Not Reportable Bite Cells Not Reportable Crenated Cell Not Reportable Elliptocytes 1+ Acanthocytes (Spur) Not Reportable Rouleaux Not Reportable Hemoglobin C Crystals Not Reportable Schistocytes Not Reportable Malaria parasites Not Reportable Naun Bodies Not Reportable Hem Pathologist Commnt No Sodium 143 Potassium 3.2 L Chloride 105.8 Carbon Dioxide 20 L Anion Gap 20 BUN 5 L Creatinine 0.5 L Estimated GFR > 60 BUN/Creatinine Ratio 10.00 Glucose 80 Uric Acid Calcium 8.9 Total Bilirubin 1.20 AST 23 ALT 18 Alkaline Phosphatase 67 Lactate Dehydrogenase 241 H Total Protein 6.4 Albumin 3.0 L Albumin/Globulin Ratio 0.9 Amylase 195 H Lipase 77 H TSH Urine Color Urine Turbidity Urine pH Ur Specific [place] Urine Protein Urine Glucose (UA) Urine Ketones Urine Blood Urine Nitrite Urine Bilirubin Urine Ictotest Urine Urobilinogen Ur Leukocyte Esterase Urine WBC (Auto) Urine RBC (Auto) U Epithel Cells (Auto) Urine Bacteria (Auto) Urine Mucus 08/02/16 07:41 WBC RBC Hgb Hct MCV MCH MCHC RDW Plt Count Add Manual Diff Total Counted Seg Neuts % (Manual) Band Neutrophils % Lymphocytes % (Manual) Reactive Lymphs % (Man) Monocytes % (Manual) Eosinophils % (Manual) Basophils % (Manual) Metamyelocytes % Myelocytes % Promyelocytes % Blast Cells % Nucleated RBC % Seg Neutrophils # Man Band Neutrophils # Lymphocytes # (Manual) Abs React Lymphs (Man) Monocytes # (Manual) Eosinophils # (Manual) Basophils # (Manual) Metamyelocytes # Myelocytes # Promyelocytes # Blast Cells # WBC Morphology Hypersegmented Neuts Hyposegmented Neuts Hypogranular Neuts Smudge Cells Toxic Granulation Toxic Vacuolation Dohle Bodies Pelger-Huet Anomaly [place] Rods Platelet Estimate Clumped Platelets Plt Clumps, EDTA Large Platelets Giant Platelets Platelet Satelliting Plt Morphology Comment RBC Morphology Dimorphic RBCs Polychromasia Hypochromasia Poikilocytosis Anisocytosis Microcytosis Macrocytosis Spherocytes Pappenheimer Bodies Sickle Cells Target Cells Tear Drop Cells Ovalocytes Helmet Cells [place] Bodies Patriot Rings [place] Cells Bite Cells Crenated Cell Elliptocytes Acanthocytes (Spur) Rouleaux Hemoglobin C Crystals Schistocytes Malaria parasites Naun Bodies Hem Pathologist Commnt Sodium Potassium Chloride Carbon Dioxide Anion Gap BUN Creatinine Estimated GFR BUN/Creatinine Ratio Glucose Uric Acid Calcium Total Bilirubin AST ALT Alkaline Phosphatase Lactate Dehydrogenase Total Protein Albumin Albumin/Globulin Ratio Amylase Lipase TSH 1.450 Urine Color Urine Turbidity Urine pH Ur Specific [place] Urine Protein Urine Glucose (UA) Urine Ketones Urine Blood Urine Nitrite Urine Bilirubin Urine Ictotest Urine Urobilinogen Ur Leukocyte Esterase Urine WBC (Auto) Urine RBC (Auto) U Epithel Cells (Auto) Urine Bacteria (Auto) Urine Mucus Assessment and Plan Patient seen and examined. Agree with note by Ashwini Moss. patient has had recurrent admission for n/v/abd pain with inability tolerate po intake. Mild elevation in pancreatic enzymes, but not to degree of acute pancreatitis ( unless down trending labs). Will repeat labs in the morning. cont IVF's, and symptomatic control. Recommend surgery consult as symptoms may be related to GB , and to assess if lap CCY is indicated.
--- NOTE | 2016-08-02 10:45 | Ultrasound Report ---
RIGHT UPPER QUADRANT ULTRASOUND: HISTORY: Right upper quadrant abdominal pain. Technique: Transabdominal ultrasound imaging with Doppler interrogation. FINDINGS: The gallbladder is essentially filled non-shadowing debris consistent with sludge. No shadowing gallstones, abnormal distention or wall thickening is identified. The CBD measures 6 mm. Images of the liver parenchyma, pancreas, right kidney and aorta are within normal limits. No perihepatic ascites. IMPRESSION: Moderate to large sludge in the gallbladder but no evidence for acute cholecystitis. Slightly dilated common bile duct measuring 6 mm. No obstructing lesion in the common bile duct is demonstrated on ultrasound.
[2016-08-02] MEDS: CELESTONE SOLUSPAN IM SCH (11:10)
[2016-08-02] MEDS: PRENATAL VITAMIN PO SCH ×2 (11:16→11:18)
[2016-08-02] MEDS ORDERED: D5LR 1,000 ML IV SCH (12:00)
[2016-08-02] MEDS: ZOFRAN IV PRN (12:01)
[2016-08-02] MEDS: REGLAN IV SCH ×2 (14:15→20:47)
[2016-08-02] MEDS: PHENERGAN PR SCH ×2 (14:15→20:47)
[2016-08-02] MEDS ORDERED: NACL 0.9% 1000 ML 1,000 ML IV ONE ×2 (14:41→16:00)
[2016-08-02] MEDS ORDERED: MORPHINE IV PRN (14:45)
[2016-08-02] MEDS ORDERED: PEPCID IV SCH (15:00)
[2016-08-02] MEDS ORDERED: NACL 0.9% 1000 ML 1,000 ML IV SCH (15:00)
[2016-08-02] MEDS ORDERED: NACL 0.9% 1000 ML 1,000 ML ONE (16:47)
[2016-08-02] MEDS ORDERED: PEPCID IV ONE (16:47)
[2016-08-02] MEDS ORDERED: MORPHINE ONE (16:47)
[2016-08-02] MEDS: PEPCID IV SCH ×2 (16:58→22:54)
[2016-08-02] MEDS: MORPHINE IV PRN ×2 (17:02→21:03)
[2016-08-02] MEDS: D5LR 1,000 ML IV SCH ×2 (18:01→20:40)
[2016-08-02] MEDS: AMBIEN PO PRN (22:55)
[2016-08-03] MEDS: MORPHINE IV PRN ×5 (05:06→23:46)
[2016-08-03] MEDS: PHENERGAN PR SCH ×4 (05:06→18:57)
[2016-08-03] MEDS: REGLAN IV SCH ×2 (05:15→18:54)
--- NOTE | 2016-08-03 07:46 | Progress Note ---
Assessment and Plan Assessment 1. 29+6 weeks 2. Chronic HTN, superimposed pre-eclampsia based on 24 hour urine 338mg 3. Elevated amylase, lipase (per GI not c/w acute pancreatitis unless resolving 4. Abdominal pain, abnormal GB u/s 5. Hypokalemia Recommendations 1. Observe BP 2. Per GI, surgery consultation advised 3. Repeat labs today pending 4. Trial of PO liquids? Patient feels dehydrated because lips are dry 5. K+ replacement 6. GI following Subjective - Subjective Date of service: 08/03/16 Principal diagnosis: IUP 29w5d RUQ pain, Wgt Loss, Elevated BP Patient reports: other (C/o "I'm dehydrated." Continues to c/o upper abd pain, nausea) Objective - Vital Signs Vital Signs: Vital Signs - 12hr 08/02/16 08/02/16 08/03/16 20:19 21:07 05:00 Temperature 98.4 F 98.0 F Pulse Rate 109 H Pulse Rate [ 109 H 86 From Monitor] Respiratory 20 20 Rate Blood Pressure 139/68 Blood Pressure 139/68 139/63 [Right Arm] - Exam Cardiovascular: Regular rate Lungs: Clear to auscultation Abdomen: Present: normal appearance, soft, tenderness (upper quadrants mildly tender) Extremities: normal - Labs Labs: Abnormal Labs 08/01/16 08/01/16 08/01/16 18:50 18:50 18:50 Hgb 9.1 L Hct 28.7 L MCV 73 L MCH 23 L RDW 18.0 H Monocytes % (Manual) 21.0 H Nucleated RBC % 1.0 H Monocytes # (Manual) 1.7 H Potassium Carbon Dioxide BUN Creatinine 0.5 L Lactate Dehydrogenase 185 H Albumin Amylase Lipase Ur Specific [place] 1.034 H Urine WBC (Auto) 8.0 H U Epithel Cells (Auto) 42.0 H Ur Total Protein 24 Hr Urine Total Protein 08/01/16 08/02/16 08/02/16 18:50 07:41 18:09 Hgb Hct MCV MCH RDW Monocytes % (Manual) Nucleated RBC % Monocytes # (Manual) Potassium 3.2 L Carbon Dioxide 20 L BUN 5 L Creatinine 0.5 L Lactate Dehydrogenase 241 H Albumin 3.0 L Amylase 195 H Lipase 77 H Ur Specific [place] Urine WBC (Auto) U Epithel Cells (Auto) Ur Total Protein 24 Hr 338.00 H Urine Total Protein 52 H Laboratory Results - last 24 hr 08/02/16 08/02/16 08/02/16 07:41 07:41 18:09 Amylase 195 H Lipase 77 H TSH 1.450 Urine Total Volume 650 Ur Total Protein 24 Hr 338.00 H Urine Total Protein 52 H
--- NOTE | 2016-08-03 07:57 | Progress Note ---
Assessment and Plan Will consult Dr. Shane, continue current management at this time. Assessment 1. 29+6 weeks 2. Chronic HTN, superimposed pre-eclampsia based on 24 hour urine 338mg 3. Elevated amylase, lipase (per GI not c/w acute pancreatitis unless resolving 4. Abdominal pain, abnormal GB u/s 5. Hypokalemia Recommendations per [facility]: 1. Observe BP 2. Per GI, surgery consultation advised 3. Repeat labs today pending 4. Trial of PO liquids? Patient feels dehydrated because lips are dry 5. K+ replacement 6. GI following - Patient Problems (1) 29 weeks gestation of Current Visit: No Status: Acute (2) Pre-eclampsia complicating hypertension Current Visit: Yes Status: Acute (3) Hypokalemia Current Visit: Yes Status: Acute Subjective - Subjective Date of service: 08/03/16 ([facility] Nurse note) Principal diagnosis: IUP 29w5d RUQ pain, Wgt Loss, Elevated BP Patient reports: movement normal, other ("I'm dehydrated." Continues to c /o upper abd pain, nausea), no loss of fluid, no vaginal bleeding, no contractions Objective - Vital Signs Vital Signs: Vital Signs - 12hr 08/02/16 08/02/16 08/03/16 20:19 21:07 05:00 Temperature 98.4 F 98.0 F Pulse Rate 109 H Pulse Rate [ 109 H 86 From Monitor] Respiratory 20 20 Rate Blood Pressure 139/68 Blood Pressure 139/68 139/63 [Right Arm] - Exam Breasts: normal Cardiovascular: Regular rate Lungs: Clear to auscultation, Normal air movement Abdomen: Present: normal appearance, soft Uterus: Present: normal FHR: auscultation normal Uterine Contraction Monitor Mode: Palpation Uterine Tone Measurement Phase: Resting Extremities: normal Deep Tendon Reflex Grade: Normal +2 - Labs Labs: Abnormal Labs 08/01/16 08/01/16 08/01/16 18:50 18:50 18:50 Hgb 9.1 L Hct 28.7 L MCV 73 L MCH 23 L RDW 18.0 H Monocytes % (Manual) 21.0 H Nucleated RBC % 1.0 H Monocytes # (Manual) 1.7 H Potassium Carbon Dioxide BUN Creatinine 0.5 L Lactate Dehydrogenase 185 H Albumin Amylase Lipase Ur Specific [place] 1.034 H Urine WBC (Auto) 8.0 H U Epithel Cells (Auto) 42.0 H Ur Total Protein 24 Hr Urine Total Protein 08/01/16 08/02/16 08/02/16 18:50 07:41 18:09 Hgb Hct MCV MCH RDW Monocytes % (Manual) Nucleated RBC % Monocytes # (Manual) Potassium 3.2 L Carbon Dioxide 20 L BUN 5 L Creatinine 0.5 L Lactate Dehydrogenase 241 H Albumin 3.0 L Amylase 195 H Lipase 77 H Ur Specific [place] Urine WBC (Auto) U Epithel Cells (Auto) Ur Total Protein 24 Hr 338.00 H Urine Total Protein 52 H Laboratory Results - last 24 hr 08/02/16 08/02/16 08/02/16 07:41 07:41 18:09 Amylase 195 H Lipase 77 H TSH 1.450 Urine Total Volume 650 Ur Total Protein 24 Hr 338.00 H Urine Total Protein 52 H
[2016-08-03 08:09] LABS: Alanine Aminotransferase 24 units/L (7-56); Albumin 2.8 g/dL (3.9-5); Alkaline Phosphatase 69 units/L (35-129); Anion Gap 20 mmol/L; Blood Urea Nitrogen 3 mg/dL (7-17); Calcium 8.8 mg/dL (8.4-10.2); Carbon Dioxide 16 mmol/L (22-30); Chloride 109.4 mmol/L (98-107); Glucose 105 mg/dL (65-100); Lipase 76 units/L (13-60); Potassium 3.2 mmol/L (3.6-5.0); Sodium 142 mmol/L (137-145)
[2016-08-03 09:40] LABS: Albumin/Globulin Ratio 0.8 %; Total Protein 6.2 g/dL (6.3-8.2)
[2016-08-03] MEDS: CELESTONE SOLUSPAN IM SCH (10:15)
[2016-08-03] MEDS: KCL 10 MEQ in NACL 0.9% 1000 ML 1,000 ML IV SCH ×2 (10:20→22:47)
--- NOTE | 2016-08-03 11:29 | Gastroenterology Progress Note ---
Assessment and Plan 1. abd pain 2. N/V -afebrile -WBC-WNL -LFTs-WNL -Lipase unchanged -etiology of abd pain unknown, possibly biliary -abd u/s yesterday revealed- moderate to large sludge in the gallbladder and slightly dilated common bile duct but no evidence for acute cholecystitis -will order MRCP for today -surgery consult has been placed for evaluation for possible CCY -continue to trend labs -continue supportive care with IVF, pain management, and antimedics -will follow Subjective Date of service: 08/03/16 Principal diagnosis: abd pain, N/V Interval history: Patient resting in bed with eyes closed, easily aroused. No acute distress. State she has not tried to eat or drink anything today, but took medication with a sip of water and tolerated it well. Denies abd pain at this time due to pain medication just being administered, but states without pain medication abd pain is unchanged from yesterday. Objective - Constitutional Vitals: Temp Pulse Resp BP Pulse Ox 97.8 F 82 20 131/62 99 08/03/16 08:14 08/03/16 11:18 08/03/16 10:10 08/03/16 11:18 08/02/16 16:13 General appearance: no acute distress, well-nourished - EENT Eyes: PERRL, EOM intact ENT: hearing intact - Neck Neck: supple, normal ROM - Respiratory Respiratory: bilateral: CTA - Cardiovascular Rhythm: regular Heart Sounds: Present: S1 & S2 - Extremities Extremities: No edema - Gastrointestinal General gastrointestinal: Present: soft, tender, non-distended, normal bowel sounds Rectal Exam: other (normal for gestational age) - Integumentary Integumentary: Present: warm, dry - Neurologic Neurological: alert and oriented x3 - Psychiatric Psychiatric: appropriate mood/affect, cooperative - Labs CBC & Chem 7: 08/01/16 18:50 08/03/16 07:21 Labs: Laboratory Results - last 24 hr 08/02/16 08/03/16 18:09 07:21 Sodium 142 Potassium 3.2 L Chloride 109.4 H Carbon Dioxide 16 L Anion Gap 20 BUN 3 L Creatinine 0.4 L Estimated GFR > 60 BUN/Creatinine Ratio 7.50 Glucose 105 H Calcium 8.8 Total Bilirubin 0.70 AST 21 ALT 24 Alkaline Phosphatase 69 Total Protein 6.2 L Albumin 2.8 L Albumin/Globulin Ratio 0.8 Lipase 76 H Urine Total Volume 650 Ur Total Protein 24 Hr 338.00 H Urine Total Protein 52 H
--- NOTE | 2016-08-03 12:15 | Progress Note ---
Assessment and Plan 20 y/o female 29 wks gestation. c/o epig & RUQ abd pain. N&V "feeling better " PMH - HTN PSH - neg NKA No meds (not taking anything at home for HTN) FH - neg SH - neg Abd - soft, non tender at present GB US -reviewed with radiologist. sludge but no evidence of acute cholecystitis wbc 8.3, no fever healthy 20 y/o female. 29 wk gestation. r/o biliary colic can attempt low fat cl liq anti-emetics & antispasmodics ideally would be best to proceed with semi-elective lap GB post will follow thanks Selected Entries 08/03/16 08/03/16 08/03/16 08:14 10:10 11:18 Temperature 97.8 F Pulse Rate 82 Respiratory 20 Rate Blood Pressure 131/62 Laboratory Tests 08/01/16 08/02/16 08/03/16 18:50 07:41 07:21 WBC 8.3 Hgb 9.1 L Hct 28.7 L Sodium 142 Potassium 3.2 L Chloride 109.4 H Carbon Dioxide 16 L BUN 3 L Creatinine 0.4 L Total Bilirubin 0.70 AST 21 ALT 24 Alkaline Phosphatase 69 Lipase 77 H 76 H Objective Vital Signs - 12hr 08/03/16 08/03/16 08/03/16 05:00 08:14 10:10 Temperature 98.0 F 97.8 F Pulse Rate Pulse Rate [ 86 82 From Monitor] Respiratory 20 20 20 Rate Blood Pressure Blood Pressure 139/63 132/93 [Right Arm] 08/03/16 11:18 Temperature Pulse Rate 82 Pulse Rate [ From Monitor] Respiratory Rate Blood Pressure 131/62 Blood Pressure [Right Arm] - Labs 08/01/16 18:50 08/03/16 07:21 Diabetes panel 08/03/16 Range/Units 07:21 Sodium 142 (137-145) mmol/L Potassium 3.2 L (3.6-5.0) mmol/L Chloride 109.4 H (98-107) mmol/L Carbon Dioxide 16 L (22-30) mmol/L BUN 3 L (7-17) mg/dL Creatinine 0.4 L (0.7-1.2) mg/dL Glucose 105 H (65-100) mg/dL Calcium 8.8 (8.4-10.2) mg/dL AST 21 (5-40) units/L ALT 24 (7-56) units/L Alkaline Phosphatase 69 (35-129) units/L Total Protein 6.2 L (6.3-8.2) g/dL Albumin 2.8 L (3.9-5) g/dL Calcium panel 08/03/16 Range/Units 07:21 Calcium 8.8 (8.4-10.2) mg/dL Albumin 2.8 L (3.9-5) g/dL Pituitary panel 08/03/16 Range/Units 07:21 Sodium 142 (137-145) mmol/L Potassium 3.2 L (3.6-5.0) mmol/L Chloride 109.4 H (98-107) mmol/L Carbon Dioxide 16 L (22-30) mmol/L BUN 3 L (7-17) mg/dL Creatinine 0.4 L (0.7-1.2) mg/dL Glucose 105 H (65-100) mg/dL Calcium 8.8 (8.4-10.2) mg/dL Adrenal panel 08/03/16 Range/Units 07:21 Sodium 142 (137-145) mmol/L Potassium 3.2 L (3.6-5.0) mmol/L Chloride 109.4 H (98-107) mmol/L Carbon Dioxide 16 L (22-30) mmol/L BUN 3 L (7-17) mg/dL Creatinine 0.4 L (0.7-1.2) mg/dL Glucose 105 H (65-100) mg/dL Calcium 8.8 (8.4-10.2) mg/dL Total Bilirubin 0.70 (0.1-1.2) mg/dL AST 21 (5-40) units/L ALT 24 (7-56) units/L Alkaline Phosphatase 69 (35-129) units/L Total Protein 6.2 L (6.3-8.2) g/dL Albumin 2.8 L (3.9-5) g/dL
--- NOTE | 2016-08-03 13:06 | Event Note ---
Date: 08/03/16 patient has not had emesis since last night, surgery recommended trial of clear /low fat diet with anti emetics. clear liquids ordered, Dr. taylor updated.
--- NOTE | 2016-08-03 13:57 | Event Note ---
Date: 08/03/16 patient requests phoenix to be removed - I&O adequate. Will remove phoenix and patient may shower.
[2016-08-03] MEDS: ZOFRAN IV PRN ×2 (15:33→23:45)
[2016-08-03] MEDS: PRENATAL VITAMIN PO SCH ×2 (15:40→15:41)
[2016-08-03] MEDS ORDERED: REGLAN ONE (18:50)
[2016-08-03] MEDS: AMBIEN PO PRN (21:47)
[2016-08-03] MEDS: PEPCID IV SCH (21:47)
[2016-08-03] MEDS: ALUM-MAG HYDROX-SIMETH 200-200-20MG/5ML PO PRN (23:56)
[2016-08-04 05:57] LABS: Basophils % (Auto) 0.3 % (0.0-1.8); Hematocrit 24.6 % (30.3-42.9); Hemoglobin 7.8 gm/dl (10.1-14.3); Mean Corpuscular HGB Conc 32 % (30-34); Mean Corpuscular Volume 71 fl (79-97); Platelet Count 330 K/mm3 (140-440); Red Blood Count 3.48 M/mm3 (3.65-5.03); White Blood Count 10.2 K/mm3 (4.5-11.0)
[2016-08-04 06:01] LABS: Mean Corpuscular Hemoglobin 22 pg (28-32)
[2016-08-04] MEDS: MORPHINE IV PRN ×4 (06:08→21:11)
[2016-08-04] MEDS: PHENERGAN PR SCH ×4 (06:09→21:10)
[2016-08-04] MEDS: ALUM-MAG HYDROX-SIMETH 200-200-20MG/5ML PO PRN (06:15)
[2016-08-04 06:19] LABS: Alanine Aminotransferase 29 units/L (7-56); Albumin 2.7 g/dL (3.9-5); Alkaline Phosphatase 58 units/L (35-129); Anion Gap 17 mmol/L; Blood Urea Nitrogen 2 mg/dL (7-17); Calcium 8.3 mg/dL (8.4-10.2); Carbon Dioxide 19 mmol/L (22-30); Chloride 110.9 mmol/L (98-107); Glucose 108 mg/dL (65-100); Lipase 111 units/L (13-60); Potassium 3.1 mmol/L (3.6-5.0); Sodium 144 mmol/L (137-145); Total Protein 5.4 g/dL (6.3-8.2)
--- NOTE | 2016-08-04 06:51 | Progress Note ---
<ERIKA DONG - Last Filed: 08/04/16 07:01> Assessment and Plan r/o biliary colic as per surgery note low fat liquid diet antiemetic and antispasmodics ordered - Patient Problems (1) Hypokalemia Onset Date: ~08/04/16 Current Visit: Yes Status: Acute Plan to address problem: will continue IV potassium as ordered (2) 30 weeks gestation of Onset Date: ~08/04/16 Current Visit: Yes Status: Acute Plan to address problem: continue NST Qshift as ordererd (3) Anemia affecting in third trimester Onset Date: ~08/04/16 Current Visit: Yes Status: Chronic Plan to address problem: todays H&H 7.8/24.6 BP 109/55 P93 R 20 Breathing is not labored. Will consult with all findings and concerns. Subjective - Subjective Date of service: 08/04/16 (pt states she has not vomited overnite but does feel nauseated this AM) Principal diagnosis: abd pain, N/V IUP 30w0d Patient reports: movement normal, other ("I'm dehydrated." Continues to c /o upper abd pain, nausea), no loss of fluid, no vaginal bleeding, no contractions Objective - Vital Signs Vital Signs: Vital Signs - 12hr 08/03/16 08/03/16 08/03/16 19:01 19:02 19:06 Temperature Pulse Rate 71 66 123 H Pulse Rate [ From Monitor] Respiratory Rate Blood Pressure 137/75 Blood Pressure [Left Arm] Blood Pressure [Right Arm] O2 Sat by Pulse 99 98 Oximetry 08/03/16 08/03/16 08/03/16 19:47 20:03 20:04 Temperature 97.6 F Pulse Rate 77 84 Pulse Rate [ 77 From Monitor] Respiratory 20 Rate Blood Pressure 133/74 Blood Pressure [Left Arm] Blood Pressure 133/74 [Right Arm] O2 Sat by Pulse 99 Oximetry 08/03/16 08/03/16 08/03/16 23:57 23:58 23:59 Temperature Pulse Rate 73 79 74 Pulse Rate [ From Monitor] Respiratory Rate Blood Pressure 153/94 151/88 Blood Pressure [Left Arm] Blood Pressure [Right Arm] O2 Sat by Pulse 74 L 99 Oximetry 08/04/16 08/04/16 08/04/16 00:00 01:48 03:50 Temperature 98.0 F 97.8 F 97.7 F Pulse Rate Pulse Rate [ 74 74 93 H From Monitor] Respiratory 18 18 20 Rate Blood Pressure Blood Pressure 148/84 137/73 109/55 [Left Arm] Blood Pressure [Right Arm] O2 Sat by Pulse 99 98 Oximetry - Exam Breasts: normal Cardiovascular: Regular rate Lungs: Normal air movement Abdomen: Present: normal appearance, soft Uterus: Present: normal Uterine Contraction Pattern: Absent Extremities: edema (hands and LE) Deep Tendon Reflex Grade: Normal +2 - Labs Labs: Abnormal Labs 08/01/16 08/01/16 08/01/16 18:50 18:50 18:50 RBC Hgb 9.1 L Hct 28.7 L MCV 73 L MCH 23 L RDW 18.0 H [place] % (Auto) [place] # Monocytes % (Manual) 21.0 H Nucleated RBC % 1.0 H Monocytes # (Manual) 1.7 H Potassium Chloride Carbon Dioxide BUN Creatinine 0.5 L Glucose Calcium Lactate Dehydrogenase 185 H Total Protein Albumin Amylase Lipase Ur Specific [place] 1.034 H Urine WBC (Auto) 8.0 H U Epithel Cells (Auto) 42.0 H Ur Total Protein 24 Hr Urine Total Protein 08/01/16 08/02/16 08/02/16 18:50 07:41 18:09 RBC Hgb Hct MCV MCH RDW [place] % (Auto) [place] # Monocytes % (Manual) Nucleated RBC % Monocytes # (Manual) Potassium 3.2 L Chloride Carbon Dioxide 20 L BUN 5 L Creatinine 0.5 L Glucose Calcium Lactate Dehydrogenase 241 H Total Protein Albumin 3.0 L Amylase 195 H Lipase 77 H Ur Specific [place] Urine WBC (Auto) U Epithel Cells (Auto) Ur Total Protein 24 Hr 338.00 H Urine Total Protein 52 H 08/03/16 08/04/16 08/04/16 07:21 05:11 05:11 RBC 3.48 L Hgb 7.8 L Hct 24.6 L MCV 71 L MCH 22 L RDW 18.0 H [place] % (Auto) 13.4 H [place] # 1.4 H Monocytes % (Manual) Nucleated RBC % Monocytes # (Manual) Potassium 3.2 L 3.1 L Chloride 109.4 H 110.9 H Carbon Dioxide 16 L 19 L BUN 3 L 2 L Creatinine 0.4 L 0.4 L Glucose 105 H 108 H Calcium 8.3 L Lactate Dehydrogenase Total Protein 6.2 L 5.4 L Albumin 2.8 L 2.7 L Amylase Lipase 76 H 111 H Ur Specific [place] Urine WBC (Auto) U Epithel Cells (Auto) Ur Total Protein 24 Hr Urine Total Protein Laboratory Results - last 24 hr 08/03/16 08/04/16 08/04/16 07:21 05:11 05:11 WBC 10.2 RBC 3.48 L Hgb 7.8 L Hct 24.6 L MCV 71 L MCH 22 L MCHC 32 RDW 18.0 H Plt Count 330 Lymph % (Auto) 20.7 [place] % (Auto) 13.4 H Eos % (Auto) 0.0 Baso % (Auto) 0.3 Lymph # 2.1 [place] # 1.4 H Eos # 0.0 Baso # 0.0 Seg Neutrophils % 65.6 Seg Neutrophils # 6.7 Sodium 142 144 Potassium 3.2 L 3.1 L Chloride 109.4 H 110.9 H Carbon Dioxide 16 L 19 L Anion Gap 20 17 BUN 3 L 2 L Creatinine 0.4 L 0.4 L Estimated GFR > 60 > 60 BUN/Creatinine Ratio 7.50 5.00 Glucose 105 H 108 H Calcium 8.8 8.3 L Total Bilirubin 0.70 0.70 AST 21 25 ALT 24 29 Alkaline Phosphatase 69 58 Total Protein 6.2 L 5.4 L Albumin 2.8 L 2.7 L Albumin/Globulin Ratio 0.8 1.0 Lipase 76 H 111 H <DYLAN HARDY D - Last Filed: 08/04/16 08:48> Assessment and Plan - Patient Problems (1) 30 weeks gestation of Onset Date: ~08/04/16 Current Visit: Yes Status: Acute (2) Pre-eclampsia complicating hypertension Current Visit: Yes Status: Acute Plan to address problem: Mild, observe closely for severe disease (3) Gallbladder disease affecting in third trimester Current Visit: Yes Status: Acute (4) Nausea and vomiting of , antepartum Onset Date: Unknown Current Visit: Yes Status: Acute Plan to address problem: Will start Bentyl Continue Phenergan and zofran prn Patient agrees to proceed with MRCP. Continue current diet (5) Midepigastric pain Current Visit: No Status: Acute Plan to address problem: Controlled with Morphine (6) Hypokalemia Onset Date: ~08/04/16 Current Visit: Yes Status: Acute Plan to address problem: K+ run today (7) Anemia affecting in third trimester Onset Date: ~08/04/16 Current Visit: Yes Status: Chronic Plan to address problem: No s/s bleeding, decreased h/h 2ndary to hydration, will follow for now Subjective - Subjective Interval history: Patient feels better Objective - Vital Signs Vital Signs: Vital Signs - 12hr 08/03/16 08/03/16 08/03/16 23:57 23:58 23:59 Temperature Pulse Rate 73 79 74 Pulse Rate [ From Monitor] Respiratory Rate Blood Pressure 153/94 151/88 Blood Pressure [Left Arm] O2 Sat by Pulse 74 L 99 Oximetry 08/04/16 08/04/16 08/04/16 00:00 01:48 03:50 Temperature 98.0 F 97.8 F 97.7 F Pulse Rate Pulse Rate [ 74 74 93 H From Monitor] Respiratory 18 18 20 Rate Blood Pressure Blood Pressure 148/84 137/73 109/55 [Left Arm] O2 Sat by Pulse 99 98 Oximetry 08/04/16 08/04/16 08/04/16 07:45 07:50 08:17 Temperature Pulse Rate 78 84 77 Pulse Rate [ From Monitor] Respiratory Rate Blood Pressure 130/75 Blood Pressure [Left Arm] O2 Sat by Pulse 98 99 Oximetry 08/04/16 08/04/16 08:18 08:19 Temperature 98.3 F Pulse Rate 75 Pulse Rate [ 72 From Monitor] Respiratory 18 Rate Blood Pressure Blood Pressure 130/75 [Left Arm] O2 Sat by Pulse 99 98 Oximetry - Exam Cardiovascular: Regular rate, Other (O2 98%) Lungs: Normal air movement Abdomen: Present: normal appearance, soft, normal bowel sounds Uterus: Present: normal. Absent: tenderness FHR: auscultation normal (130's) Extremities: edema ((B) LE. trace edema) - Labs Labs: Abnormal Labs 08/01/16 08/01/16 08/01/16 18:50 18:50 18:50 RBC Hgb 9.1 L Hct 28.7 L MCV 73 L MCH 23 L RDW 18.0 H [place] % (Auto) [place] # Monocytes % (Manual) 21.0 H Nucleated RBC % 1.0 H Monocytes # (Manual) 1.7 H Potassium Chloride Carbon Dioxide BUN Creatinine 0.5 L Glucose Calcium Lactate Dehydrogenase 185 H Total Protein Albumin Amylase Lipase Ur Specific [place] 1.034 H Urine WBC (Auto) 8.0 H U Epithel Cells (Auto) 42.0 H Ur Total Protein 24 Hr Urine Total Protein 08/01/16 08/02/16 08/02/16 18:50 07:41 18:09 RBC Hgb Hct MCV MCH RDW [place] % (Auto) [place] # Monocytes % (Manual) Nucleated RBC % Monocytes # (Manual) Potassium 3.2 L Chloride Carbon Dioxide 20 L BUN 5 L Creatinine 0.5 L Glucose Calcium Lactate Dehydrogenase 241 H Total Protein Albumin 3.0 L Amylase 195 H Lipase 77 H Ur Specific [place] Urine WBC (Auto) U Epithel Cells (Auto) Ur Total Protein 24 Hr 338.00 H Urine Total Protein 52 H 08/03/16 08/04/16 08/04/16 07:21 05:11 05:11 RBC 3.48 L Hgb 7.8 L Hct 24.6 L MCV 71 L MCH 22 L RDW 18.0 H [place] % (Auto) 13.4 H [place] # 1.4 H Monocytes % (Manual) Nucleated RBC % Monocytes # (Manual) Potassium 3.2 L 3.1 L Chloride 109.4 H 110.9 H Carbon Dioxide 16 L 19 L BUN 3 L 2 L Creatinine 0.4 L 0.4 L Glucose 105 H 108 H Calcium 8.3 L Lactate Dehydrogenase Total Protein 6.2 L 5.4 L Albumin 2.8 L 2.7 L Amylase Lipase 76 H 111 H Ur Specific [place] Urine WBC (Auto) U Epithel Cells (Auto) Ur Total Protein 24 Hr Urine Total Protein Laboratory Results - last 24 hr 08/03/16 08/04/16 08/04/16 07:21 05:11 05:11 WBC 10.2 RBC 3.48 L Hgb 7.8 L Hct 24.6 L MCV 71 L MCH 22 L MCHC 32 RDW 18.0 H Plt Count 330 Lymph % (Auto) 20.7 [place] % (Auto) 13.4 H Eos % (Auto) 0.0 Baso % (Auto) 0.3 Lymph # 2.1 [place] # 1.4 H Eos # 0.0 Baso # 0.0 Seg Neutrophils % 65.6 Seg Neutrophils # 6.7 Sodium 144 Potassium 3.1 L Chloride 110.9 H Carbon Dioxide 19 L Anion Gap 17 BUN 2 L Creatinine 0.4 L Estimated GFR > 60 BUN/Creatinine Ratio 5.00 Glucose 108 H Calcium 8.3 L Total Bilirubin 0.70 AST 25 ALT 29 Alkaline Phosphatase 58 Total Protein 6.2 L 5.4 L Albumin 2.7 L Albumin/Globulin Ratio 0.8 1.0 Lipase 111 H
[2016-08-04] MEDS ORDERED: NACL 0.9% 1000 ML 1,000 ML IV ONE (08:30)
[2016-08-04] MEDS: PEPCID IV SCH ×2 (10:32→21:10)
[2016-08-04] MEDS: BENTYL PO SCH ×3 (11:25→21:18)
[2016-08-04] MEDS: KCL 10MEQ/100ML 10 MEQ/100 ML BAG IV SCH ×3 (11:27→14:25)
--- NOTE | 2016-08-04 12:36 | Progress Note ---
Assessment and Plan Pt states - "feeling better" Awaiting MRI Abd soft. low K. Lowering h/h correct K monitor h/h as per OB await MRI results Selected Entries 08/04/16 11:33 Temperature 98.4 F Pulse Rate [ 76 From Monitor] Respiratory 18 Rate Blood Pressure 112/56 [Left Arm] Laboratory Tests 08/04/16 08/04/16 05:11 05:11 WBC 10.2 Hgb 7.8 L Hct 24.6 L Sodium 144 Potassium 3.1 L Chloride 110.9 H Carbon Dioxide 19 L Objective Vital Signs - 12hr 08/04/16 08/04/16 08/04/16 01:48 03:50 07:45 Temperature 97.8 F 97.7 F Pulse Rate 78 Pulse Rate [ 74 93 H From Monitor] Respiratory 18 20 Rate Blood Pressure Blood Pressure 137/73 109/55 [Left Arm] O2 Sat by Pulse 98 98 Oximetry 08/04/16 08/04/16 08/04/16 07:50 08:17 08:18 Temperature Pulse Rate 84 77 75 Pulse Rate [ From Monitor] Respiratory Rate Blood Pressure 130/75 Blood Pressure [Left Arm] O2 Sat by Pulse 99 99 Oximetry 08/04/16 08/04/16 08/04/16 08:19 11:31 11:33 Temperature 98.3 F 98.4 F Pulse Rate 83 Pulse Rate [ 72 76 From Monitor] Respiratory 18 18 Rate Blood Pressure 112/56 Blood Pressure 130/75 112/56 [Left Arm] O2 Sat by Pulse 98 100 98 Oximetry - Labs 08/04/16 05:11 08/04/16 05:11 Diabetes panel 08/04/16 Range/Units 05:11 Sodium 144 (137-145) mmol/L Potassium 3.1 L (3.6-5.0) mmol/L Chloride 110.9 H (98-107) mmol/L Carbon Dioxide 19 L (22-30) mmol/L BUN 2 L (7-17) mg/dL Creatinine 0.4 L (0.7-1.2) mg/dL Glucose 108 H (65-100) mg/dL Calcium 8.3 L (8.4-10.2) mg/dL AST 25 (5-40) units/L ALT 29 (7-56) units/L Alkaline Phosphatase 58 (35-129) units/L Total Protein 5.4 L (6.3-8.2) g/dL Albumin 2.7 L (3.9-5) g/dL Calcium panel 08/04/16 Range/Units 05:11 Calcium 8.3 L (8.4-10.2) mg/dL Albumin 2.7 L (3.9-5) g/dL Pituitary panel 08/04/16 Range/Units 05:11 Sodium 144 (137-145) mmol/L Potassium 3.1 L (3.6-5.0) mmol/L Chloride 110.9 H (98-107) mmol/L Carbon Dioxide 19 L (22-30) mmol/L BUN 2 L (7-17) mg/dL Creatinine 0.4 L (0.7-1.2) mg/dL Glucose 108 H (65-100) mg/dL Calcium 8.3 L (8.4-10.2) mg/dL Adrenal panel 08/04/16 Range/Units 05:11 Sodium 144 (137-145) mmol/L Potassium 3.1 L (3.6-5.0) mmol/L Chloride 110.9 H (98-107) mmol/L Carbon Dioxide 19 L (22-30) mmol/L BUN 2 L (7-17) mg/dL Creatinine 0.4 L (0.7-1.2) mg/dL Glucose 108 H (65-100) mg/dL Calcium 8.3 L (8.4-10.2) mg/dL Total Bilirubin 0.70 (0.1-1.2) mg/dL AST 25 (5-40) units/L ALT 29 (7-56) units/L Alkaline Phosphatase 58 (35-129) units/L Total Protein 5.4 L (6.3-8.2) g/dL Albumin 2.7 L (3.9-5) g/dL
--- NOTE | 2016-08-04 17:52 | Magnetic Resonance Report ---
FINAL REPORT PROCEDURE: MR ABDOMEN MRCP TECHNIQUE: Magnetic resonance cholangiopancreatography of the biliary system was performed without paramagnetic contrast. The original data was reconstructed in 3-dimensions. HISTORY: dilated CBD COMPARISON: No prior studies are available for comparison. FINDINGS: There is a gravid uterus. Note this study is not tailored to evaluate intrauterine contents/ anatomy. There is patient motion artifact. Liver: Limited views are normal. Intrahepatic bile ducts: Normal. Extrahepatic bile ducts: Common bile duct measures up to 6 millimeters in caliber. No filling defects are identified. Gallbladder: Large amount of intermediate signal material is layering within the gallbladder, likely related to sludge. No focal filling defects are seen to suggest gallstones. Pancreatic ducts: Nondilated Bile duct filling defects: None. IMPRESSION: Common bile duct measures up to 6 millimeters in caliber. No filling defects are identified. Gallbladder sludge.
--- NOTE | 2016-08-04 19:11 | Progress Note ---
Assessment and Plan A: 1. IUP at 30 0/7 weeks gestation 2. Chronic HTN, superimposed pre-eclampsia based on 24 hour urine 338mg 3. Elevated amylase, lipase 4. Abdominal pain, GB sludge confirmed on RUQ US and MRI 5. Hypokalemia 6. anemia Recommendations 1. Continue to monitor for worsening HTN 2. Continue management per GI 3 Electrolyte repletion 4. scheduled for repeat labs tomorrow - per RN 5. Iron repletion 6. Monitor I&O, avoid fluid overload Subjective - Subjective Date of service: 08/04/16 Principal diagnosis: abd pain, N/V IUP 30w0d Interval history: She notes that her pain is improving has ranged from 0-6/10. No related complaints Denied GRANT, visual changes, CP Patient reports: movement normal, other ("I'm dehydrated." Continues to c /o upper abd pain, nausea), no loss of fluid, no vaginal bleeding, no contractions Objective - Vital Signs Vital Signs: Vital Signs - 12hr 08/04/16 08/04/16 08/04/16 07:45 07:50 08:17 Temperature Pulse Rate 78 84 77 Pulse Rate [ From Monitor] Respiratory Rate Blood Pressure 130/75 Blood Pressure [Left Arm] O2 Sat by Pulse 98 99 Oximetry 08/04/16 08/04/16 08/04/16 08:18 08:19 11:31 Temperature 98.3 F Pulse Rate 75 83 Pulse Rate [ 72 From Monitor] Respiratory 18 Rate Blood Pressure 112/56 Blood Pressure 130/75 [Left Arm] O2 Sat by Pulse 99 98 100 Oximetry 08/04/16 08/04/16 08/04/16 11:33 16:03 16:04 Temperature 98.4 F Pulse Rate 73 77 Pulse Rate [ 76 From Monitor] Respiratory 18 Rate Blood Pressure 144/86 Blood Pressure 112/56 [Left Arm] O2 Sat by Pulse 98 98 Oximetry 08/04/16 16:06 Temperature 98.4 F Pulse Rate Pulse Rate [ 79 From Monitor] Respiratory 18 Rate Blood Pressure Blood Pressure 144/86 [Left Arm] O2 Sat by Pulse 99 Oximetry - Exam Narrative Exam: laying in bed NAD appears comfortable Abdomen: Present: soft, normal bowel sounds ( point tenderness in Mid upper quadrant no guarding or rebound tenderness) Extremities: normal, edema (1+) - Labs Labs: Abnormal Labs 08/01/16 08/01/1608/01/17 18:50 18:50 18:50 RBC Hgb 9.1 L Hct 28.7 L MCV 73 L MCH 23 L RDW 18.0 H [place] % (Auto) [place] # Monocytes % (Manual) 21.0 H Nucleated RBC % 1.0 H Monocytes # (Manual) 1.7 H Potassium Chloride Carbon Dioxide BUN Creatinine 0.5 L Glucose Calcium Lactate Dehydrogenase 185 H Total Protein Albumin Amylase Lipase Ur Specific [place] 1.034 H Urine WBC (Auto) 8.0 H U Epithel Cells (Auto) 42.0 H Ur Total Protein 24 Hr Urine Total Protein 08/01/16 08/02/16 08/02/16 18:50 07:41 18:09 RBC Hgb Hct MCV MCH RDW [place] % (Auto) [place] # Monocytes % (Manual) Nucleated RBC % Monocytes # (Manual) Potassium 3.2 L Chloride Carbon Dioxide 20 L BUN 5 L Creatinine 0.5 L Glucose Calcium Lactate Dehydrogenase 241 H Total Protein Albumin 3.0 L Amylase 195 H Lipase 77 H Ur Specific [place] Urine WBC (Auto) U Epithel Cells (Auto) Ur Total Protein 24 Hr 338.00 H Urine Total Protein 52 H 08/03/16 08/04/16 08/04/16 07:21 05:11 05:11 RBC 3.48 L Hgb 7.8 L Hct 24.6 L MCV 71 L MCH 22 L RDW 18.0 H [place] % (Auto) 13.4 H [place] # 1.4 H Monocytes % (Manual) Nucleated RBC % Monocytes # (Manual) Potassium 3.2 L 3.1 L Chloride 109.4 H 110.9 H Carbon Dioxide 16 L 19 L BUN 3 L 2 L Creatinine 0.4 L 0.4 L Glucose 105 H 108 H Calcium 8.3 L Lactate Dehydrogenase Total Protein 6.2 L 5.4 L Albumin 2.8 L 2.7 L Amylase Lipase 76 H 111 H Ur Specific [place] Urine WBC (Auto) U Epithel Cells (Auto) Ur Total Protein 24 Hr Urine Total Protein Laboratory Results - last 24 hr 08/04/16 08/04/16 08/04/16 05:11 05:11 09:28 WBC 10.2 RBC 3.48 L Hgb 7.8 L Hct 24.6 L MCV 71 L MCH 22 L MCHC 32 RDW 18.0 H Plt Count 330 Lymph % (Auto) 20.7 [place] % (Auto) 13.4 H Eos % (Auto) 0.0 Baso % (Auto) 0.3 Lymph # 2.1 [place] # 1.4 H Eos # 0.0 Baso # 0.0 Seg Neutrophils % 65.6 Seg Neutrophils # 6.7 Sodium 144 Potassium 3.1 L Chloride 110.9 H Carbon Dioxide 19 L Anion Gap 17 BUN 2 L Creatinine 0.4 L Estimated GFR > 60 BUN/Creatinine Ratio 5.00 Glucose 108 H Calcium 8.3 L Total Bilirubin 0.70 AST 25 ALT 29 Alkaline Phosphatase 58 Total Protein 5.4 L Albumin 2.7 L Albumin/Globulin Ratio 1.0 Lipase 111 H Blood Type A POSITIVE Antibody Screen TNR JOHN Antibody Screen Negative
[2016-08-04] MEDS: ZOFRAN IV PRN (21:10)
[2016-08-05] MEDS: AMBIEN PO PRN (00:59)
[2016-08-05] MEDS: PHENERGAN PR SCH ×4 (02:37→23:00)
[2016-08-05 07:20] LABS: Hematocrit 27.1 % (30.3-42.9); Hemoglobin 8.6 gm/dl (10.1-14.3); Mean Corpuscular HGB Conc 32 % (30-34); Mean Corpuscular Volume 72 fl (79-97); Platelet Count 333 K/mm3 (140-440); Red Blood Count 3.79 M/mm3 (3.65-5.03); Red Cell Distribution Width 18.6 % (13.2-15.2)
--- NOTE | 2016-08-05 07:21 | Progress Note ---
Assessment and Plan patient states her abd pain is much improved, nausea also improved although did have vomiting this morning, she is tolerative clear liquid diet. She c/o constipation (no BM >1wk). denies GRANT, blurred vision or epigastric pain. 1. IUP at 30 1/7 weeks gestation 2. Chronic HTN, superimposed pre-eclampsia based on 24 hour urine 338mg 3. Elevated amylase, lipase 4. Abdominal pain, GB sludge confirmed on RUQ US and MRI 5. Hypokalemia 6. anemia Recommendations per [facility]: 1. Continue to monitor for worsening HTN 2. Continue management per GI 3 Electrolyte repletion 4. scheduled for repeat labs today; CBC and CMP 5. Iron repletion 6. Monitor I&O, avoid fluid overload ( IV now INT) - Patient Problems (1) Pre-eclampsia complicating hypertension Current Visit: Yes Status: Acute (2) Hypokalemia Onset Date: ~08/04/16 Current Visit: Yes Status: Acute (3) 30 weeks gestation of Onset Date: ~08/04/16 Current Visit: Yes Status: Acute (4) Anemia affecting in third trimester Onset Date: ~08/04/16 Current Visit: Yes Status: Chronic Subjective - Subjective Date of service: 08/05/16 ([employer] Technician note) Principal diagnosis: 30w1d, upper abd pain, pre-e Patient reports: movement normal, other (reports improved abd pain and nausea, c/o constipation; denies GRANT, visual changes or epigastric pain), no loss of fluid, no vaginal bleeding, no contractions Objective - Vital Signs Vital Signs: Vital Signs - 12hr 08/04/16 08/05/16 08/05/16 21:16 00:53 04:44 Temperature 97.8 F 97.7 F Pulse Rate 83 73 99 H Pulse Rate [ 83 73 From Monitor] Respiratory 16 20 Rate Blood Pressure 109/57 140/88 149/86 Blood Pressure 109/57 140/88 [Left Arm] 08/05/16 04:45 Temperature 98.2 F Pulse Rate Pulse Rate [ 99 H From Monitor] Respiratory 18 Rate Blood Pressure Blood Pressure 149/86 [Left Arm] - Exam Breasts: normal Cardiovascular: Regular rate Lungs: Clear to auscultation, Normal air movement Abdomen: Present: normal appearance, soft Uterus: Present: normal FHR: auscultation normal Uterine Tone Measurement Phase: Resting Extremities: normal Deep Tendon Reflex Grade: Normal +2 - Labs Labs: Abnormal Labs 08/01/16 08/01/16 08/01/16 18:50 18:50 18:50 RBC Hgb 9.1 L Hct 28.7 L MCV 73 L MCH 23 L RDW 18.0 H [place] % (Auto) [place] # Monocytes % (Manual) 21.0 H Nucleated RBC % 1.0 H Monocytes # (Manual) 1.7 H Potassium Chloride Carbon Dioxide BUN Creatinine 0.5 L Glucose Calcium Lactate Dehydrogenase 185 H Total Protein Albumin Amylase Lipase Ur Specific [place] 1.034 H Urine WBC (Auto) 8.0 H U Epithel Cells (Auto) 42.0 H Ur Total Protein 24 Hr Urine Total Protein 08/01/16 08/02/16 08/02/16 18:50 07:41 18:09 RBC Hgb Hct MCV MCH RDW [place] % (Auto) [place] # Monocytes % (Manual) Nucleated RBC % Monocytes # (Manual) Potassium 3.2 L Chloride Carbon Dioxide 20 L BUN 5 L Creatinine 0.5 L Glucose Calcium Lactate Dehydrogenase 241 H Total Protein Albumin 3.0 L Amylase 195 H Lipase 77 H Ur Specific [place] Urine WBC (Auto) U Epithel Cells (Auto) Ur Total Protein 24 Hr 338.00 H Urine Total Protein 52 H 08/03/16 08/04/16 08/04/16 07:21 05:11 05:11 RBC 3.48 L Hgb 7.8 L Hct 24.6 L MCV 71 L MCH 22 L RDW 18.0 H [place] % (Auto) 13.4 H [place] # 1.4 H Monocytes % (Manual) Nucleated RBC % Monocytes # (Manual) Potassium 3.2 L 3.1 L Chloride 109.4 H 110.9 H Carbon Dioxide 16 L 19 L BUN 3 L 2 L Creatinine 0.4 L 0.4 L Glucose 105 H 108 H Calcium 8.3 L Lactate Dehydrogenase Total Protein 6.2 L 5.4 L Albumin 2.8 L 2.7 L Amylase Lipase 76 H 111 H Ur Specific [place] Urine WBC (Auto) U Epithel Cells (Auto) Ur Total Protein 24 Hr Urine Total Protein Laboratory Results - last 24 hr 08/04/16 09:28 Blood Type A POSITIVE Antibody Screen TNR JOHN Antibody Screen Negative
[2016-08-05 07:30] LABS: Mean Corpuscular Hemoglobin 23 pg (28-32)
[2016-08-05 07:32] LABS: Anion Gap 14 mmol/L; Calcium 8.4 mg/dL (8.4-10.2); Carbon Dioxide 23 mmol/L (22-30); Chloride 108.3 mmol/L (98-107); Glucose 98 mg/dL (65-100); Sodium 142 mmol/L (137-145)
[2016-08-05 07:36] LABS: Eosinophils % (Auto) 0.1 % (0.0-4.3)
[2016-08-05 08:04] LABS: Blood Urea Nitrogen < 1 mg/dL (7-17)
[2016-08-05] MEDS: ZOFRAN IV PRN ×2 (08:52→17:32)
[2016-08-05] MEDS: MORPHINE IV PRN ×2 (08:57→18:54)
--- NOTE | 2016-08-05 09:02 | Gastroenterology Progress Note ---
Assessment and Plan 1. Nausea/vomiting with poor po intake - pt in 3rd trimester of with continued symptoms of poor po intake 2/2 nausea/vomiting. US shows GB sludge but difficult to say if her symptoms are related to this. Surgery is following , with plans to hold off on intervention until after delivery if able to. MRCP findings with sludge, otherwise unremarkable. -encourage to increase po intake as to avoid IV nutrition/TPN if possible. cont anti-emetics and supportive care -start bowel regimen daily (miralax BID) as constipation may be contributing to symptoms -replete electrolytes/potassium -encouraged ambulation with assistance Further management per primary/OB team. Will sign off, please call as needed or with questions Subjective Date of service: 08/05/16 Principal diagnosis: 30w1d, upper abd pain Interval history: pt continues to have symptoms of nausea/poor po intake. reports constipation. not ambulating much Objective - Exam Narrative Exam: Gen: NAD, c/o nausea CV: RRR Lungs: CTAB Abd: nt, + bs Ext: no edema - Constitutional Vitals: Temp Pulse Resp BP Pulse Ox 98.2 F 99 H 18 149/86 99 08/05/16 04:45 08/05/16 04:45 08/05/16 04:45 08/05/16 04:45 08/04/16 16:06 - Labs CBC & Chem 7: 08/05/16 07:04 08/05/16 07:04 Labs: Laboratory Results - last 24 hr 08/04/16 08/05/16 08/05/16 09:28 07:04 07:04 WBC 9.0 RBC 3.79 Hgb 8.6 L Hct 27.1 L MCV 72 L MCH 23 L MCHC 32 RDW 18.6 H Plt Count 333 [place] % (Auto) 12.3 H Eos % (Auto) 0.1 [place] # 1.1 H Eos # 0.0 Baso # 0.1 Seg Neutrophils % 55.7 Seg Neutrophils # 5.1 Sodium 142 Potassium 3.0 L Chloride 108.3 H Carbon Dioxide 23 Anion Gap 14 BUN < 1 L Creatinine 0.4 L Estimated GFR > 60 BUN/Creatinine Ratio 2.50 Glucose 98 Calcium 8.4 Blood Type A POSITIVE Antibody Screen TNR JOHN Antibody Screen Negative
--- NOTE | 2016-08-05 09:26 | Progress Note ---
Assessment and Plan - Patient Problems (1) 30 weeks gestation of Onset Date: ~08/04/16 Current Visit: Yes Status: Acute (2) Gallbladder disease affecting in third trimester Current Visit: Yes Status: Acute Plan to address problem: -await sx recommendations. GI has signed off at this time w/o futher recommendations. (3) Hypokalemia Onset Date: ~08/04/16 Current Visit: Yes Status: Acute Plan to address problem: -will replace with krun today. (4) Nausea and vomiting of , antepartum Onset Date: Unknown Current Visit: Yes Status: Acute (5) Pre-eclampsia complicating hypertension Current Visit: Yes Status: Acute Plan to address problem: cont expectant management for now. bps still in mild ranges. Labs are stable. (6) Anemia affecting in third trimester Onset Date: ~08/04/16 Current Visit: Yes Status: Chronic Plan to address problem: -will start oral iron Subjective - Subjective Date of service: 08/05/16 Principal diagnosis: 30w1d, upper abd pain, nausea and vomiting Interval history: MRI shows gall bladder sludge. Pt states she had less emesis yesterday. She was able to tolerate clear liquids for the most part. Pt also still c/o having epigastric pain. She c/o constipation. Will start miralax as indicated by GI who has signed off at this time. Will await further recommendations by surgery at this time. No headaches no blurry vision. Pt does still have labile bps but for the most part are not in the severe ranges. Pt still with low K+ this am. Patient reports: movement normal, other, no loss of fluid, no vaginal bleeding, no contractions Objective - Vital Signs Vital Signs: Vital Signs - 12hr 08/05/16 08/05/16 08/05/16 00:53 04:44 04:45 Temperature 97.7 F 98.2 F Pulse Rate 73 99 H Pulse Rate [ 73 99 H From Monitor] Respiratory 20 18 Rate Blood Pressure 140/88 149/86 Blood Pressure 140/88 149/86 [Left Arm] 08/05/16 08/05/16 08:57 09:06 Temperature Pulse Rate 85 Pulse Rate [ From Monitor] Respiratory 18 Rate Blood Pressure 132/90 Blood Pressure [Left Arm] - Exam Lungs: Normal air movement Abdomen: Present: normal appearance, soft. Absent: distention, tenderness FHR: category 1 - Labs Labs: Abnormal Labs 08/01/16 08/01/16 08/01/16 18:50 18:50 18:50 RBC Hgb 9.1 L Hct 28.7 L MCV 73 L MCH 23 L RDW 18.0 H [place] % (Auto) [place] # Monocytes % (Manual) 21.0 H Nucleated RBC % 1.0 H Monocytes # (Manual) 1.7 H Potassium Chloride Carbon Dioxide BUN Creatinine 0.5 L Glucose Calcium Lactate Dehydrogenase 185 H Total Protein Albumin Amylase Lipase Ur Specific [place] 1.034 H Urine WBC (Auto) 8.0 H U Epithel Cells (Auto) 42.0 H Ur Total Protein 24 Hr Urine Total Protein 08/01/16 08/02/16 08/02/16 18:50 07:41 18:09 RBC Hgb Hct MCV MCH RDW [place] % (Auto) [place] # Monocytes % (Manual) Nucleated RBC % Monocytes # (Manual) Potassium 3.2 L Chloride Carbon Dioxide 20 L BUN 5 L Creatinine 0.5 L Glucose Calcium Lactate Dehydrogenase 241 H Total Protein Albumin 3.0 L Amylase 195 H Lipase 77 H Ur Specific [place] Urine WBC (Auto) U Epithel Cells (Auto) Ur Total Protein 24 Hr 338.00 H Urine Total Protein 52 H 08/03/16 08/04/16 08/04/16 07:21 05:11 05:11 RBC 3.48 L Hgb 7.8 L Hct 24.6 L MCV 71 L MCH 22 L RDW 18.0 H [place] % (Auto) 13.4 H [place] # 1.4 H Monocytes % (Manual) Nucleated RBC % Monocytes # (Manual) Potassium 3.2 L 3.1 L Chloride 109.4 H 110.9 H Carbon Dioxide 16 L 19 L BUN 3 L 2 L Creatinine 0.4 L 0.4 L Glucose 105 H 108 H Calcium 8.3 L Lactate Dehydrogenase Total Protein 6.2 L 5.4 L Albumin 2.8 L 2.7 L Amylase Lipase 76 H 111 H Ur Specific [place] Urine WBC (Auto) U Epithel Cells (Auto) Ur Total Protein 24 Hr Urine Total Protein 08/05/16 08/05/16 07:04 07:04 RBC Hgb 8.6 L Hct 27.1 L MCV 72 L MCH 23 L RDW 18.6 H [place] % (Auto) 12.3 H [place] # 1.1 H Monocytes % (Manual) Nucleated RBC % Monocytes # (Manual) Potassium 3.0 L Chloride 108.3 H Carbon Dioxide BUN < 1 L Creatinine 0.4 L Glucose Calcium Lactate Dehydrogenase Total Protein Albumin Amylase Lipase Ur Specific [place] Urine WBC (Auto) U Epithel Cells (Auto) Ur Total Protein 24 Hr Urine Total Protein Laboratory Results - last 24 hr 08/04/16 08/05/16 08/05/16 09:28 07:04 07:04 WBC 9.0 RBC 3.79 Hgb 8.6 L Hct 27.1 L MCV 72 L MCH 23 L MCHC 32 RDW 18.6 H Plt Count 333 [place] % (Auto) 12.3 H Eos % (Auto) 0.1 [place] # 1.1 H Eos # 0.0 Baso # 0.1 Seg Neutrophils % 55.7 Seg Neutrophils # 5.1 Sodium 142 Potassium 3.0 L Chloride 108.3 H Carbon Dioxide 23 Anion Gap 14 BUN < 1 L Creatinine 0.4 L Estimated GFR > 60 BUN/Creatinine Ratio 2.50 Glucose 98 Calcium 8.4 Blood Type A POSITIVE Antibody Screen TNR JOHN Antibody Screen Negative
[2016-08-05] MEDS ORDERED: MIRALAX 3350 PO PRN (10:00)
[2016-08-05] MEDS ORDERED: FEOSOL PO ONE ×2 (10:00→13:00)
[2016-08-05] MEDS ORDERED: DULCOLAX PR PRN (10:00)
[2016-08-05] MEDS: PEPCID IV SCH ×2 (10:08→22:26)
[2016-08-05 10:10] LABS: Blastocytes % (Manual) 0 %; Diff Status Complete; Hypochromasia 1+; Polychromasia Few
[2016-08-05] MEDS: PRENATAL VITAMIN PO SCH ×2 (10:17)
--- NOTE | 2016-08-05 12:36 | Progress Note ---
Assessment and Plan Pt states feeling better but "not hungry" had episode of vomiting yest pm. States had not had BM in over 6 days Abd soft. no RUQ tenderness noted low h/h (improved) & K noted MRI - no evidence of CBD stones or obst. no evidence of acute cholecystitis elevated amylase & lipase noted - mild pancreatitis? symptoms secondary to constipation? rec po Fe (already ordered) K correction - being done consider po mineral oil 30 cc q 4 until +BM surgically stable Selected Entries 08/05/16 08/05/16 11:55 11:59 Temperature 98.0 F Pulse Rate 73 Blood Pressure 117/56 Laboratory Tests 08/03/16 08/04/16 08/04/16 07:21 05:11 05:11 WBC Hgb 7.8 L Hct 24.6 L Potassium 3.2 L 3.1 L 08/05/16 08/05/16 07:04 07:04 WBC 9.0 Hgb 8.6 L Hct 27.1 L Potassium 3.0 L Laboratory Tests 08/02/16 08/04/16 07:41 05:11 Amylase 195 H Lipase 111 H Objective Vital Signs - 12hr 08/05/16 08/05/16 08/05/16 00:53 04:44 04:45 Temperature 97.7 F 98.2 F Pulse Rate 73 99 H Pulse Rate [ 73 99 H From Monitor] Respiratory 20 18 Rate Blood Pressure 140/88 149/86 Blood Pressure 140/88 149/86 [Left Arm] O2 Sat by Pulse Oximetry 08/05/16 08/05/16 08/05/16 08:50 08:57 09:06 Temperature 97.7 F Pulse Rate 85 Pulse Rate [ 85 From Monitor] Respiratory 18 18 Rate Blood Pressure 132/90 Blood Pressure 132/90 [Left Arm] O2 Sat by Pulse Oximetry 08/05/16 08/05/16 11:55 11:59 Temperature 98.0 F Pulse Rate 73 Pulse Rate [ 73 From Monitor] Respiratory 18 Rate Blood Pressure 117/56 Blood Pressure 117/56 [Left Arm] O2 Sat by Pulse 97 Oximetry - Labs 08/05/16 07:04 08/05/16 07:04 Diabetes panel 08/05/16 Range/Units 07:04 Sodium 142 (137-145) mmol/L Potassium 3.0 L (3.6-5.0) mmol/L Chloride 108.3 H (98-107) mmol/L Carbon Dioxide 23 (22-30) mmol/L BUN < 1 L (7-17) mg/dL Creatinine 0.4 L (0.7-1.2) mg/dL Glucose 98 (65-100) mg/dL Calcium 8.4 (8.4-10.2) mg/dL Calcium panel 08/05/16 Range/Units 07:04 Calcium 8.4 (8.4-10.2) mg/dL Pituitary panel 08/05/16 Range/Units 07:04 Sodium 142 (137-145) mmol/L Potassium 3.0 L (3.6-5.0) mmol/L Chloride 108.3 H (98-107) mmol/L Carbon Dioxide 23 (22-30) mmol/L BUN < 1 L (7-17) mg/dL Creatinine 0.4 L (0.7-1.2) mg/dL Glucose 98 (65-100) mg/dL Calcium 8.4 (8.4-10.2) mg/dL Adrenal panel 08/05/16 Range/Units 07:04 Sodium 142 (137-145) mmol/L Potassium 3.0 L (3.6-5.0) mmol/L Chloride 108.3 H (98-107) mmol/L Carbon Dioxide 23 (22-30) mmol/L BUN < 1 L (7-17) mg/dL Creatinine 0.4 L (0.7-1.2) mg/dL Glucose 98 (65-100) mg/dL Calcium 8.4 (8.4-10.2) mg/dL
[2016-08-05] MEDS: BENTYL PO SCH ×4 (12:50→22:26)
[2016-08-05] MEDS: KCL 10MEQ/100ML 10 MEQ/100 ML BAG IV SCH ×4 (15:03→20:54)
[2016-08-05] MEDS: ALUM-MAG HYDROX-SIMETH 200-200-20MG/5ML PO PRN (18:58)
[2016-08-06] MEDS: MORPHINE IV PRN ×4 (00:51→20:24)
[2016-08-06] MEDS: ZOFRAN IV PRN (00:53)
[2016-08-06] MEDS: PHENERGAN PR SCH (02:15)
[2016-08-06] MEDS: PHENERGAN PO PRN ×3 (07:54→20:24)
[2016-08-06] MEDS ORDERED: K-DUR PO ONE (08:00)
[2016-08-06 09:01] LABS: Anion Gap 19 mmol/L; Blood Urea Nitrogen 2 mg/dL (7-17); Calcium 8.4 mg/dL (8.4-10.2); Carbon Dioxide 22 mmol/L (22-30); Chloride 104.5 mmol/L (98-107); Glucose 91 mg/dL (65-100); Potassium 3.2 mmol/L (3.6-5.0); Sodium 142 mmol/L (137-145)
--- NOTE | 2016-08-06 10:29 | Progress Note ---
Assessment and Plan Patient resting, states upper abd pain has returned. junk food noted on bedside table (chips, soft drinks etc); states she ate a hot dog prior to abd pain returning. Discussed low fat soft diet - she needs to only eat what the hospital provides at this time. She reports active movement, denies contractions, SROM, bleeding or leaking. Nutritional consult ordered and discussed need for more teaching during meals by RN. - Patient Problems (1) Pre-eclampsia complicating hypertension Current Visit: Yes Status: Acute Plan to address problem: continue monitoring b/p and for s/s worsening pre-e Currently asymptomatic. (2) Hypokalemia Onset Date: ~08/04/16 Current Visit: Yes Status: Acute Plan to address problem: K+ 3.2 after 4 runs of KCL PO Kdur if tolerates (3) 30 weeks gestation of Onset Date: ~08/04/16 Current Visit: Yes Status: Acute (4) Anemia affecting in third trimester Onset Date: ~08/04/16 Current Visit: Yes Status: Chronic Plan to address problem: FE supplementation (5) Constipation Current Visit: Yes Status: Acute Qualifiers: Constipation type: C Plan to address problem: Miralax BID Stool softeners Ducolax MS d/c morphine Subjective - Subjective Date of service: 08/06/16 Principal diagnosis: 30w2d, upper abd pain, pre-e Patient reports: movement normal, other (Upper abd pain after high fat meal last night, c/o constipation; denies GRANT, visual changes or epigastric pain) , no loss of fluid, no vaginal bleeding, no contractions Objective - Vital Signs Vital Signs: Vital Signs - 12hr 08/05/16 08/06/16 08/06/16 23:27 03:53 07:39 Temperature 98.1 F 97.5 F L Pulse Rate 83 Pulse Rate [ 93 H 80 From Monitor] Respiratory 18 18 Rate Blood Pressure 131/83 Blood Pressure 143/66 126/67 [Right Arm] 08/06/16 08/06/16 07:40 08:01 Temperature 97.6 F Pulse Rate Pulse Rate [ 83 From Monitor] Respiratory 16 16 Rate Blood Pressure Blood Pressure 131/83 [Right Arm] - Exam Breasts: normal Cardiovascular: Regular rate Lungs: Clear to auscultation, Normal air movement Abdomen: Present: normal appearance, soft, abnormal bowel sounds (hypo) Uterus: Present: normal FHR: auscultation normal Extremities: normal Deep Tendon Reflex Grade: Normal +2 - Labs Labs: Abnormal Labs 08/01/16 08/01/16 08/01/16 18:50 18:50 18:50 RBC Hgb 9.1 L Hct 28.7 L MCV 73 L MCH 23 L RDW 18.0 H [place] % (Auto) [place] # Monocytes % (Manual) 21.0 H Nucleated RBC % 1.0 H Monocytes # (Manual) 1.7 H Potassium Chloride Carbon Dioxide BUN Creatinine 0.5 L Glucose Calcium Lactate Dehydrogenase 185 H Total Protein Albumin Amylase Lipase Ur Specific [place] 1.034 H Urine WBC (Auto) 8.0 H U Epithel Cells (Auto) 42.0 H Ur Total Protein 24 Hr Urine Total Protein 08/01/16 08/02/16 08/02/16 18:50 07:41 18:09 RBC Hgb Hct MCV MCH RDW [place] % (Auto) [place] # Monocytes % (Manual) Nucleated RBC % Monocytes # (Manual) Potassium 3.2 L Chloride Carbon Dioxide 20 L BUN 5 L Creatinine 0.5 L Glucose Calcium Lactate Dehydrogenase 241 H Total Protein Albumin 3.0 L Amylase 195 H Lipase 77 H Ur Specific [place] Urine WBC (Auto) U Epithel Cells (Auto) Ur Total Protein 24 Hr 338.00 H Urine Total Protein 52 H 08/03/16 08/04/16 08/04/16 07:21 05:11 05:11 RBC 3.48 L Hgb 7.8 L Hct 24.6 L MCV 71 L MCH 22 L RDW 18.0 H [place] % (Auto) 13.4 H [place] # 1.4 H Monocytes % (Manual) Nucleated RBC % Monocytes # (Manual) Potassium 3.2 L 3.1 L Chloride 109.4 H 110.9 H Carbon Dioxide 16 L 19 L BUN 3 L 2 L Creatinine 0.4 L 0.4 L Glucose 105 H 108 H Calcium 8.3 L Lactate Dehydrogenase Total Protein 6.2 L 5.4 L Albumin 2.8 L 2.7 L Amylase Lipase 76 H 111 H Ur Specific [place] Urine WBC (Auto) U Epithel Cells (Auto) Ur Total Protein 24 Hr Urine Total Protein 08/05/16 08/05/16 08/06/16 07:04 07:04 08:03 RBC Hgb 8.6 L Hct 27.1 L MCV 72 L MCH 23 L RDW 18.6 H [place] % (Auto) 12.3 H [place] # 1.1 H Monocytes % (Manual) Nucleated RBC % Monocytes # (Manual) Potassium 3.0 L Chloride 108.3 H Carbon Dioxide BUN < 1 L Creatinine 0.4 L Glucose Calcium Lactate Dehydrogenase Total Protein Albumin Amylase Lipase 226 H Ur Specific [place] Urine WBC (Auto) U Epithel Cells (Auto) Ur Total Protein 24 Hr Urine Total Protein 08/06/16 08:03 RBC Hgb Hct MCV MCH RDW [place] % (Auto) [place] # Monocytes % (Manual) Nucleated RBC % Monocytes # (Manual) Potassium 3.2 L Chloride Carbon Dioxide BUN 2 L Creatinine 0.4 L Glucose Calcium Lactate Dehydrogenase Total Protein Albumin Amylase Lipase Ur Specific [place] Urine WBC (Auto) U Epithel Cells (Auto) Ur Total Protein 24 Hr Urine Total Protein Laboratory Results - last 24 hr 08/06/16 08/06/16 08:03 08:03 Sodium 142 Potassium 3.2 L Chloride 104.5 Carbon Dioxide 22 Anion Gap 19 BUN 2 L Creatinine 0.4 L Estimated GFR > 60 BUN/Creatinine Ratio 5.00 Glucose 91 Calcium 8.4 Lipase 226 H
[2016-08-06] MEDS: PEPCID IV SCH ×3 (10:41→22:59)
[2016-08-06 11:25] LABS: Albumin 2.9 g/dL (3.9-5); Albumin/Globulin Ratio 1.2 %; Bilirubin,Direct 0.7 mg/dL (0-0.2); Bilirubin,Indirect 0.9 mg/dL; Bilirubin,Total 1.6 mg/dL (0.1-1.2); Total Protein 5.4 g/dL (6.3-8.2)
--- NOTE | 2016-08-06 11:43 | Progress Note ---
Assessment and Plan Pt status quo. feeling well this am. But ate hot dog and other junk food yest p.m. and experienced some pain Abd soft, non tender at present elevated Lipase noted. Selected Entries surgically stable must eat properly 08/06/16 07:40 Temperature 97.6 F Pulse Rate [ 83 From Monitor] Blood Pressure 131/83 [Right Arm] Laboratory Tests 08/06/16 08/06/16 08/06/16 08:03 08:03 08:03 Sodium 142 Potassium 3.2 L Chloride 104.5 BUN 2 L Creatinine 0.4 L Glucose 91 Total Bilirubin 1.60 H Direct Bilirubin 0.7 H Indirect Bilirubin 0.9 AST 32 ALT 44 Alkaline Phosphatase 70 Lipase 226 H Objective Vital Signs - 12hr 08/06/16 08/06/16 08/06/16 03:53 07:39 07:40 Temperature 97.5 F L 97.6 F Pulse Rate 83 Pulse Rate [ 80 83 From Monitor] Respiratory 18 16 Rate Blood Pressure 131/83 Blood Pressure 126/67 131/83 [Right Arm] 08/06/16 08:01 Temperature Pulse Rate Pulse Rate [ From Monitor] Respiratory 16 Rate Blood Pressure Blood Pressure [Right Arm] - Labs 08/05/16 07:04 08/06/16 08:03 Diabetes panel 08/06/16 08/06/16 Range/Units 08:03 08:03 Sodium 142 (137-145) mmol/L Potassium 3.2 L (3.6-5.0) mmol/L Chloride 104.5 (98-107) mmol/L Carbon Dioxide 22 (22-30) mmol/L BUN 2 L (7-17) mg/dL Creatinine 0.4 L (0.7-1.2) mg/dL Glucose 91 (65-100) mg/dL Calcium 8.4 (8.4-10.2) mg/dL AST 32 (5-40) units/L ALT 44 (7-56) units/L Alkaline Phosphatase 70 (35-129) units/L Total Protein 5.4 L (6.3-8.2) g/dL Albumin 2.9 L (3.9-5) g/dL Calcium panel 08/06/16 08/06/16 Range/Units 08:03 08:03 Calcium 8.4 (8.4-10.2) mg/dL Albumin 2.9 L (3.9-5) g/dL Pituitary panel 08/06/16 Range/Units 08:03 Sodium 142 (137-145) mmol/L Potassium 3.2 L (3.6-5.0) mmol/L Chloride 104.5 (98-107) mmol/L Carbon Dioxide 22 (22-30) mmol/L BUN 2 L (7-17) mg/dL Creatinine 0.4 L (0.7-1.2) mg/dL Glucose 91 (65-100) mg/dL Calcium 8.4 (8.4-10.2) mg/dL Adrenal panel 08/06/16 08/06/16 Range/Units 08:03 08:03 Sodium 142 (137-145) mmol/L Potassium 3.2 L (3.6-5.0) mmol/L Chloride 104.5 (98-107) mmol/L Carbon Dioxide 22 (22-30) mmol/L BUN 2 L (7-17) mg/dL Creatinine 0.4 L (0.7-1.2) mg/dL Glucose 91 (65-100) mg/dL Calcium 8.4 (8.4-10.2) mg/dL Total Bilirubin 1.60 H (0.1-1.2) mg/dL AST 32 (5-40) units/L ALT 44 (7-56) units/L Alkaline Phosphatase 70 (35-129) units/L Total Protein 5.4 L (6.3-8.2) g/dL Albumin 2.9 L (3.9-5) g/dL
--- NOTE | 2016-08-06 11:48 | Progress Note ---
Assessment and Plan - Patient Problems (1) 30 weeks gestation of Onset Date: ~08/04/16 Current Visit: Yes Status: Acute (2) Pre-eclampsia complicating hypertension Current Visit: Yes Status: Acute Plan to address problem: Stable, no s/s severe disease at this time. Will perform serial PIH labs US for EFW q2-4weeks( last EFW 08/01/2016 bu AMFM= 13% vtx) (3) Gallbladder disease affecting in third trimester Current Visit: Yes Status: Acute Plan to address problem: Managed by Dr. Robertson (4) Nausea and vomiting of , antepartum Onset Date: Unknown Current Visit: Yes Status: Acute Plan to address problem: Exacerbated by noncompliant diet. Encouraged patient to eat only hospital food as ordered. Spoke with Dr. Agrawal re: elevated Lipase, he suggested check LFT's and if normal and patient stable continue observation. (5) Midepigastric pain Current Visit: No Status: Acute Plan to address problem: Better when she complies with regimen (6) Hypokalemia Onset Date: ~08/04/16 Current Visit: Yes Status: Acute Plan to address problem: Will proceed with another K+ run today (7) Anemia affecting in third trimester Onset Date: ~08/04/16 Current Visit: Yes Status: Chronic Plan to address problem: stable (8) Constipation Current Visit: Yes Status: Acute Qualifiers: Constipation type: C Plan to address problem: MOM Declines Dulcolax suppository Encourage ambulation Subjective - Subjective Date of service: 08/06/16 Principal diagnosis: 30w2d, upper abd pain, pre-e Interval history: Patient feels better Patient reports: movement normal, other (Upper abd pain after high fat meal last night, c/o constipation; denies GRANT, visual changes or epigastric pain) , no loss of fluid, no vaginal bleeding, no contractions Objective - Vital Signs Vital Signs: Vital Signs - 12hr 08/06/16 08/06/16 08/06/16 03:53 07:39 07:40 Temperature 97.5 F L 97.6 F Pulse Rate 83 Pulse Rate [ 80 83 From Monitor] Respiratory 18 16 Rate Blood Pressure 131/83 Blood Pressure 126/67 131/83 [Right Arm] 08/06/16 08:01 Temperature Pulse Rate Pulse Rate [ From Monitor] Respiratory 16 Rate Blood Pressure Blood Pressure [Right Arm] - Exam Breasts: deferred Lungs: Normal air movement (98%) Abdomen: Present: normal appearance, soft (examined by Dr. Robertson with me present) Uterus: Absent: tenderness FHR: other (120's-130's) Extremities: normal Deep Tendon Reflex Grade: Normal +2 - Labs Labs: Abnormal Labs 08/01/16 08/01/16 08/01/16 18:50 18:50 18:50 RBC Hgb 9.1 L Hct 28.7 L MCV 73 L MCH 23 L RDW 18.0 H [place] % (Auto) [place] # Monocytes % (Manual) 21.0 H Nucleated RBC % 1.0 H Monocytes # (Manual) 1.7 H Potassium Chloride Carbon Dioxide BUN Creatinine 0.5 L Glucose Calcium Total Bilirubin Direct Bilirubin Lactate Dehydrogenase 185 H Total Protein Albumin Amylase Lipase Ur Specific [place] 1.034 H Urine WBC (Auto) 8.0 H U Epithel Cells (Auto) 42.0 H Ur Total Protein 24 Hr Urine Total Protein 08/01/16 08/02/16 08/02/16 18:50 07:41 18:09 RBC Hgb Hct MCV MCH RDW [place] % (Auto) [place] # Monocytes % (Manual) Nucleated RBC % Monocytes # (Manual) Potassium 3.2 L Chloride Carbon Dioxide 20 L BUN 5 L Creatinine 0.5 L Glucose Calcium Total Bilirubin Direct Bilirubin Lactate Dehydrogenase 241 H Total Protein Albumin 3.0 L Amylase 195 H Lipase 77 H Ur Specific [place] Urine WBC (Auto) U Epithel Cells (Auto) Ur Total Protein 24 Hr 338.00 H Urine Total Protein 52 H 08/03/16 08/04/16 08/04/16 07:21 05:11 05:11 RBC 3.48 L Hgb 7.8 L Hct 24.6 L MCV 71 L MCH 22 L RDW 18.0 H [place] % (Auto) 13.4 H [place] # 1.4 H Monocytes % (Manual) Nucleated RBC % Monocytes # (Manual) Potassium 3.2 L 3.1 L Chloride 109.4 H 110.9 H Carbon Dioxide 16 L 19 L BUN 3 L 2 L Creatinine 0.4 L 0.4 L Glucose 105 H 108 H Calcium 8.3 L Total Bilirubin Direct Bilirubin Lactate Dehydrogenase Total Protein 6.2 L 5.4 L Albumin 2.8 L 2.7 L Amylase Lipase 76 H 111 H Ur Specific [place] Urine WBC (Auto) U Epithel Cells (Auto) Ur Total Protein 24 Hr Urine Total Protein 08/05/16 08/05/16 08/06/16 07:04 07:04 08:03 RBC Hgb 8.6 L Hct 27.1 L MCV 72 L MCH 23 L RDW 18.6 H [place] % (Auto) 12.3 H [place] # 1.1 H Monocytes % (Manual) Nucleated RBC % Monocytes # (Manual) Potassium 3.0 L Chloride 108.3 H Carbon Dioxide BUN < 1 L Creatinine 0.4 L Glucose Calcium Total Bilirubin Direct Bilirubin Lactate Dehydrogenase Total Protein Albumin Amylase Lipase 226 H Ur Specific [place] Urine WBC (Auto) U Epithel Cells (Auto) Ur Total Protein 24 Hr Urine Total Protein 08/06/16 08/06/16 08:03 08:03 RBC Hgb Hct MCV MCH RDW [place] % (Auto) [place] # Monocytes % (Manual) Nucleated RBC % Monocytes # (Manual) Potassium 3.2 L Chloride Carbon Dioxide BUN 2 L Creatinine 0.4 L Glucose Calcium Total Bilirubin 1.60 H Direct Bilirubin 0.7 H Lactate Dehydrogenase Total Protein 5.4 L Albumin 2.9 L Amylase Lipase Ur Specific [place] Urine WBC (Auto) U Epithel Cells (Auto) Ur Total Protein 24 Hr Urine Total Protein Laboratory Results - last 24 hr 08/06/16 08/06/16 08/06/16 08:03 08:03 08:03 Sodium 142 Potassium 3.2 L Chloride 104.5 Carbon Dioxide 22 Anion Gap 19 BUN 2 L Creatinine 0.4 L Estimated GFR > 60 BUN/Creatinine Ratio 5.00 Glucose 91 Calcium 8.4 Total Bilirubin 1.60 H Direct Bilirubin 0.7 H Indirect Bilirubin 0.9 AST 32 ALT 44 Alkaline Phosphatase 70 Total Protein 5.4 L Albumin 2.9 L Albumin/Globulin Ratio 1.2 Lipase 226 H
[2016-08-06] MEDS: MIRALAX 3350 PO SCH ×2 (11:58→22:46)
--- NOTE | 2016-08-06 13:05 | Progress Note ---
Assessment and Plan A: 1. IUP at 30 2/7 weeks gestation 2. Chronic HTN, superimposed pre-eclampsia based on 24 hour urine 338mg 3. Gallbladder disease 5. Hypokalemia 6. anemia Recommendations Continue to encourage compliance with her diet, discussed need for low fat diet ( avoid fatty, fried or spicy foods) to reduce the likelihood of a gallbladder attack Continue to monitor BP , no indication for antihypertensive treatment at this time Potassium and iron repletion Subjective - Subjective Principal diagnosis: 30w2d, upper abd pain, pre-e Interval history: She ate a hotdog and now has abdominal pain deneid n/v/ diarrhea No related complaints Patient reports: movement normal, other (Upper abd pain after high fat meal last night, c/o constipation; denies GRANT, visual changes or epigastric pain) , no loss of fluid, no vaginal bleeding, no contractions Objective - Vital Signs Vital Signs: Vital Signs - 12hr 08/06/16 08/06/16 08/06/16 03:53 07:39 07:40 Temperature 97.5 F L 97.6 F Pulse Rate 83 Pulse Rate [ 80 83 From Monitor] Respiratory 18 16 Rate Blood Pressure 131/83 Blood Pressure 126/67 131/83 [Right Arm] 08/06/16 08/06/16 08/06/16 08:01 12:06 12:25 Temperature Pulse Rate 81 Pulse Rate [ From Monitor] Respiratory 16 16 Rate Blood Pressure 137/90 Blood Pressure [Right Arm] - Exam Narrative Exam: laying in bed NAD Abdomen: Present: soft, normal bowel sounds (reports point tenderness to palpation of RUQ) Extremities: normal - Labs Labs: Abnormal Labs 08/01/16 08/01/16 08/01/16 18:50 18:50 18:50 RBC Hgb 9.1 L Hct 28.7 L MCV 73 L MCH 23 L RDW 18.0 H [place] % (Auto) [place] # Monocytes % (Manual) 21.0 H Nucleated RBC % 1.0 H Monocytes # (Manual) 1.7 H Potassium Chloride Carbon Dioxide BUN Creatinine 0.5 L Glucose Calcium Total Bilirubin Direct Bilirubin Lactate Dehydrogenase 185 H Total Protein Albumin Amylase Lipase Ur Specific [place] 1.034 H Urine WBC (Auto) 8.0 H U Epithel Cells (Auto) 42.0 H Ur Total Protein 24 Hr Urine Total Protein 08/01/16 08/02/16 08/02/16 18:50 07:41 18:09 RBC Hgb Hct MCV MCH RDW [place] % (Auto) [place] # Monocytes % (Manual) Nucleated RBC % Monocytes # (Manual) Potassium 3.2 L Chloride Carbon Dioxide 20 L BUN 5 L Creatinine 0.5 L Glucose Calcium Total Bilirubin Direct Bilirubin Lactate Dehydrogenase 241 H Total Protein Albumin 3.0 L Amylase 195 H Lipase 77 H Ur Specific [place] Urine WBC (Auto) U Epithel Cells (Auto) Ur Total Protein 24 Hr 338.00 H Urine Total Protein 52 H 08/03/16 08/04/16 08/04/16 07:21 05:11 05:11 RBC 3.48 L Hgb 7.8 L Hct 24.6 L MCV 71 L MCH 22 L RDW 18.0 H [place] % (Auto) 13.4 H [place] # 1.4 H Monocytes % (Manual) Nucleated RBC % Monocytes # (Manual) Potassium 3.2 L 3.1 L Chloride 109.4 H 110.9 H Carbon Dioxide 16 L 19 L BUN 3 L 2 L Creatinine 0.4 L 0.4 L Glucose 105 H 108 H Calcium 8.3 L Total Bilirubin Direct Bilirubin Lactate Dehydrogenase Total Protein 6.2 L 5.4 L Albumin 2.8 L 2.7 L Amylase Lipase 76 H 111 H Ur Specific [place] Urine WBC (Auto) U Epithel Cells (Auto) Ur Total Protein 24 Hr Urine Total Protein 08/05/16 08/05/16 08/06/16 07:04 07:04 08:03 RBC Hgb 8.6 L Hct 27.1 L MCV 72 L MCH 23 L RDW 18.6 H [place] % (Auto) 12.3 H [place] # 1.1 H Monocytes % (Manual) Nucleated RBC % Monocytes # (Manual) Potassium 3.0 L Chloride 108.3 H Carbon Dioxide BUN < 1 L Creatinine 0.4 L Glucose Calcium Total Bilirubin Direct Bilirubin Lactate Dehydrogenase Total Protein Albumin Amylase Lipase 226 H Ur Specific [place] Urine WBC (Auto) U Epithel Cells (Auto) Ur Total Protein 24 Hr Urine Total Protein 08/06/16 08/06/16 08:03 08:03 RBC Hgb Hct MCV MCH RDW [place] % (Auto) [place] # Monocytes % (Manual) Nucleated RBC % Monocytes # (Manual) Potassium 3.2 L Chloride Carbon Dioxide BUN 2 L Creatinine 0.4 L Glucose Calcium Total Bilirubin 1.60 H Direct Bilirubin 0.7 H Lactate Dehydrogenase Total Protein 5.4 L Albumin 2.9 L Amylase Lipase Ur Specific [place] Urine WBC (Auto) U Epithel Cells (Auto) Ur Total Protein 24 Hr Urine Total Protein Laboratory Results - last 24 hr 08/06/16 08/06/16 08/06/16 08:03 08:03 08:03 Sodium 142 Potassium 3.2 L Chloride 104.5 Carbon Dioxide 22 Anion Gap 19 BUN 2 L Creatinine 0.4 L Estimated GFR > 60 BUN/Creatinine Ratio 5.00 Glucose 91 Calcium 8.4 Total Bilirubin 1.60 H Direct Bilirubin 0.7 H Indirect Bilirubin 0.9 AST 32 ALT 44 Alkaline Phosphatase 70 Total Protein 5.4 L Albumin 2.9 L Albumin/Globulin Ratio 1.2 Lipase 226 H
[2016-08-06] MEDS: ALUM-MAG HYDROX-SIMETH 200-200-20MG/5ML PO PRN (14:42)
[2016-08-06] MEDS: PRENATAL VITAMIN PO SCH (14:57)
[2016-08-06] MEDS: KCL 10MEQ/100ML 10 MEQ/100 ML BAG IV SCH ×2 (20:24→22:46)
[2016-08-07] MEDS: PHENERGAN PR SCH ×2 (03:08→08:31)
--- NOTE | 2016-08-07 07:50 | Progress Note ---
Assessment and Plan pt appears in good spirits this AM. Encouraged OOB for AM care and ambulation in room. Stressed po hydration within limits of dietary regime. VSS afebrile. Pt reports good movement. POC as ordered P: aware of pt status and ongoing plan of care. - Patient Problems (1) Hypokalemia Onset Date: ~08/04/16 Current Visit: Yes Status: Acute Plan to address problem: potassium infusing as ordered delayed due to IV infiltrating and pt refusing restart until this AM (2) 30 weeks gestation of Onset Date: ~08/04/16 Current Visit: Yes Status: Acute Plan to address problem: pt reports good FM NST reactive Qshift (3) Anemia affecting in third trimester Onset Date: ~08/04/16 Current Visit: Yes Status: Chronic (4) Constipation Current Visit: Yes Status: Acute Qualifiers: Constipation type: C (5) Gallbladder disease affecting in third trimester Current Visit: Yes Status: Acute Plan to address problem: stressed to pt to be complaint with diet outside food should NOT be ingested - cause of N&V and pain managed by GI (6) Nausea and vomiting of , antepartum Onset Date: Unknown Current Visit: Yes Status: Acute Plan to address problem: has been relieved as long as pt is complaint with diet (7) Pre-eclampsia complicating hypertension Current Visit: Yes Status: Acute Plan to address problem: close observation of BPs pt w/o c/o GRANT, blurred vision, chest pain Subjective - Subjective Date of service: 08/07/16 (IV restarted @ 0600) Principal diagnosis: 30w2d, upper abd pain, pre-e Patient reports: movement normal, other (Upper abd pain after high fat meal last night, c/o constipation; denies GRANT, visual changes or epigastric pain) , no loss of fluid, no vaginal bleeding, no contractions Objective - Vital Signs Vital Signs: Vital Signs - 12hr 08/06/16 08/06/16 08/06/16 20:15 20:18 22:59 Temperature 98.3 F 98.5 F Pulse Rate 84 Pulse Rate [ 101 H 76 From Monitor] Respiratory 18 22 Rate Blood Pressure 137/92 Blood Pressure 137/92 120/60 [Right Arm] O2 Sat by Pulse 99 Oximetry 08/06/16 08/07/16 23:00 03:09 Temperature 98.1 F Pulse Rate 76 86 Pulse Rate [ 76 From Monitor] Respiratory 20 Rate Blood Pressure 120/60 124/86 Blood Pressure 124/86 [Right Arm] O2 Sat by Pulse Oximetry - Exam Breasts: deferred Cardiovascular: Regular rate Lungs: Normal air movement Abdomen: Present: normal appearance, soft. Absent: distention, tenderness Uterus: Present: normal FHR: auscultation normal, category 1 (NST reactive Qshift) Uterine Contraction Monitor Mode: External Uterine Contraction Pattern: Absent Uterine Tone Measurement Phase: Resting Extremities: edema Deep Tendon Reflex Grade: Normal +2 - Labs Labs: Abnormal Labs 08/01/16 08/01/16 08/01/16 18:50 18:50 18:50 RBC Hgb 9.1 L Hct 28.7 L MCV 73 L MCH 23 L RDW 18.0 H [place] % (Auto) [place] # Monocytes % (Manual) 21.0 H Nucleated RBC % 1.0 H Monocytes # (Manual) 1.7 H Potassium Chloride Carbon Dioxide BUN Creatinine 0.5 L Glucose Calcium Total Bilirubin Direct Bilirubin Lactate Dehydrogenase 185 H Total Protein Albumin Amylase Lipase Ur Specific [place] 1.034 H Urine WBC (Auto) 8.0 H U Epithel Cells (Auto) 42.0 H Ur Total Protein 24 Hr Urine Total Protein 08/01/16 08/02/16 08/02/16 18:50 07:41 18:09 RBC Hgb Hct MCV MCH RDW [place] % (Auto) [place] # Monocytes % (Manual) Nucleated RBC % Monocytes # (Manual) Potassium 3.2 L Chloride Carbon Dioxide 20 L BUN 5 L Creatinine 0.5 L Glucose Calcium Total Bilirubin Direct Bilirubin Lactate Dehydrogenase 241 H Total Protein Albumin 3.0 L Amylase 195 H Lipase 77 H Ur Specific [place] Urine WBC (Auto) U Epithel Cells (Auto) Ur Total Protein 24 Hr 338.00 H Urine Total Protein 52 H 08/03/16 08/04/16 08/04/16 07:21 05:11 05:11 RBC 3.48 L Hgb 7.8 L Hct 24.6 L MCV 71 L MCH 22 L RDW 18.0 H [place] % (Auto) 13.4 H [place] # 1.4 H Monocytes % (Manual) Nucleated RBC % Monocytes # (Manual) Potassium 3.2 L 3.1 L Chloride 109.4 H 110.9 H Carbon Dioxide 16 L 19 L BUN 3 L 2 L Creatinine 0.4 L 0.4 L Glucose 105 H 108 H Calcium 8.3 L Total Bilirubin Direct Bilirubin Lactate Dehydrogenase Total Protein 6.2 L 5.4 L Albumin 2.8 L 2.7 L Amylase Lipase 76 H 111 H Ur Specific [place] Urine WBC (Auto) U Epithel Cells (Auto) Ur Total Protein 24 Hr Urine Total Protein 08/05/16 08/05/16 08/06/16 07:04 07:04 08:03 RBC Hgb 8.6 L Hct 27.1 L MCV 72 L MCH 23 L RDW 18.6 H [place] % (Auto) 12.3 H [place] # 1.1 H Monocytes % (Manual) Nucleated RBC % Monocytes # (Manual) Potassium 3.0 L Chloride 108.3 H Carbon Dioxide BUN < 1 L Creatinine 0.4 L Glucose Calcium Total Bilirubin Direct Bilirubin Lactate Dehydrogenase Total Protein Albumin Amylase Lipase 226 H Ur Specific [place] Urine WBC (Auto) U Epithel Cells (Auto) Ur Total Protein 24 Hr Urine Total Protein 08/06/16 08/06/16 08:03 08:03 RBC Hgb Hct MCV MCH RDW [place] % (Auto) [place] # Monocytes % (Manual) Nucleated RBC % Monocytes # (Manual) Potassium 3.2 L Chloride Carbon Dioxide BUN 2 L Creatinine 0.4 L Glucose Calcium Total Bilirubin 1.60 H Direct Bilirubin 0.7 H Lactate Dehydrogenase Total Protein 5.4 L Albumin 2.9 L Amylase Lipase Ur Specific [place] Urine WBC (Auto) U Epithel Cells (Auto) Ur Total Protein 24 Hr Urine Total Protein Laboratory Results - last 24 hr 08/06/16 08/06/16 08/06/16 08:03 08:03 08:03 Sodium 142 Potassium 3.2 L Chloride 104.5 Carbon Dioxide 22 Anion Gap 19 BUN 2 L Creatinine 0.4 L Estimated GFR > 60 BUN/Creatinine Ratio 5.00 Glucose 91 Calcium 8.4 Total Bilirubin 1.60 H Direct Bilirubin 0.7 H Indirect Bilirubin 0.9 AST 32 ALT 44 Alkaline Phosphatase 70 Total Protein 5.4 L Albumin 2.9 L Albumin/Globulin Ratio 1.2 Lipase 226 H
--- NOTE | 2016-08-07 10:01 | Progress Note ---
Assessment and Plan - Patient Problems (1) 30 weeks gestation of Onset Date: ~08/04/16 Current Visit: Yes Status: Acute Plan to address problem: s/p Betamethasone 08/02/2016 EFW 13% on 08/01/2016 by [facility] FHT's have been reassuring (2) Pre-eclampsia complicating hypertension Current Visit: Yes Status: Acute Plan to address problem: BP's noted PIH lab in am (3) Gallbladder disease affecting in third trimester Current Visit: Yes Status: Acute Plan to address problem: Continue low fat diet [employer] consulted Attempting to change medications to po (4) Nausea and vomiting of , antepartum Onset Date: Unknown Current Visit: Yes Status: Acute Plan to address problem: Will change Pepcid to po. Continue Phenergan No s/s obstruction or ileus (5) Midepigastric pain Current Visit: No Status: Acute Plan to address problem: Now on MSO4 1mg q4h prn (6) Hypokalemia Onset Date: ~08/04/16 Current Visit: Yes Status: Acute Plan to address problem: check K+ tomorrow (7) Anemia affecting in third trimester Onset Date: ~08/04/16 Current Visit: Yes Status: Chronic Plan to address problem: stable Hold fe for now d/t constipation (8) Constipation Current Visit: Yes Status: Acute Qualifiers: Constipation type: drug induced constipation Qualified Code(s): K59.03 - Drug induced constipation Plan to address problem: Continue MOM and Miralax (9) Depression affecting in third trimester, antepartum Current Visit: Yes Status: Acute Plan to address problem: Pt gives a history controlled w/ medication when she was "a child". She declines medication at this time. Will consult psych for counseling Subjective - Subjective Date of service: 08/07/16 Principal diagnosis: 30w3d, CHTN w/ Pre-E, gallbladder disease Interval history: Patient feels better, vomited x2 yesterday, sitting [facility] lobby after ambulating with RN. Smiling, makes eye contact and appropriately responsive. No BM. still with upper abd pain. She denies GRANT, visual changes. Patient reports: movement normal, no new complaints, no loss of fluid, no vaginal bleeding, no contractions Objective - Vital Signs Vital Signs: Vital Signs - 12hr 07/02/2208/06/16 08/07/16 22:59 23:00 03:09 Temperature 98.5 F 98.1 F Pulse Rate 76 86 Pulse Rate [ 76 76 From Monitor] Respiratory 22 20 Rate Blood Pressure 120/60 124/86 Blood Pressure 120/60 124/86 [Right Arm] O2 Sat by Pulse Oximetry 08/07/16 08/07/16 08:35 08:36 Temperature Pulse Rate 89 81 Pulse Rate [ From Monitor] Respiratory Rate Blood Pressure 137/100 144/97 Blood Pressure [Right Arm] O2 Sat by Pulse 99 Oximetry - Exam Breasts: deferred Lungs: Clear to auscultation, Normal air movement Abdomen: Present: normal appearance, normal bowel sounds FHR: other (pending, NST last pm cat 1) Extremities: normal - Labs Labs: Abnormal Labs 08/01/16 08/01/16 08/01/16 18:50 18:50 18:50 RBC Hgb 9.1 L Hct 28.7 L MCV 73 L MCH 23 L RDW 18.0 H [place] % (Auto) [place] # Monocytes % (Manual) 21.0 H Nucleated RBC % 1.0 H Monocytes # (Manual) 1.7 H Potassium Chloride Carbon Dioxide BUN Creatinine 0.5 L Glucose Calcium Total Bilirubin Direct Bilirubin Lactate Dehydrogenase 185 H Total Protein Albumin Amylase Lipase Ur Specific [place] 1.034 H Urine WBC (Auto) 8.0 H U Epithel Cells (Auto) 42.0 H Ur Total Protein 24 Hr Urine Total Protein 08/01/16 08/02/16 08/02/16 18:50 07:41 18:09 RBC Hgb Hct MCV MCH RDW [place] % (Auto) [place] # Monocytes % (Manual) Nucleated RBC % Monocytes # (Manual) Potassium 3.2 L Chloride Carbon Dioxide 20 L BUN 5 L Creatinine 0.5 L Glucose Calcium Total Bilirubin Direct Bilirubin Lactate Dehydrogenase 241 H Total Protein Albumin 3.0 L Amylase 195 H Lipase 77 H Ur Specific [place] Urine WBC (Auto) U Epithel Cells (Auto) Ur Total Protein 24 Hr 338.00 H Urine Total Protein 52 H 08/03/16 08/04/16 08/04/16 07:21 05:11 05:11 RBC 3.48 L Hgb 7.8 L Hct 24.6 L MCV 71 L MCH 22 L RDW 18.0 H [place] % (Auto) 13.4 H [place] # 1.4 H Monocytes % (Manual) Nucleated RBC % Monocytes # (Manual) Potassium 3.2 L 3.1 L Chloride 109.4 H 110.9 H Carbon Dioxide 16 L 19 L BUN 3 L 2 L Creatinine 0.4 L 0.4 L Glucose 105 H 108 H Calcium 8.3 L Total Bilirubin Direct Bilirubin Lactate Dehydrogenase Total Protein 6.2 L 5.4 L Albumin 2.8 L 2.7 L Amylase Lipase 76 H 111 H Ur Specific [place] Urine WBC (Auto) U Epithel Cells (Auto) Ur Total Protein 24 Hr Urine Total Protein 08/05/16 08/05/16 08/06/16 07:04 07:04 08:03 RBC Hgb 8.6 L Hct 27.1 L MCV 72 L MCH 23 L RDW 18.6 H [place] % (Auto) 12.3 H [place] # 1.1 H Monocytes % (Manual) Nucleated RBC % Monocytes # (Manual) Potassium 3.0 L Chloride 108.3 H Carbon Dioxide BUN < 1 L Creatinine 0.4 L Glucose Calcium Total Bilirubin Direct Bilirubin Lactate Dehydrogenase Total Protein Albumin Amylase Lipase 226 H Ur Specific [place] Urine WBC (Auto) U Epithel Cells (Auto) Ur Total Protein 24 Hr Urine Total Protein 08/06/16 08/06/16 08:03 08:03 RBC Hgb Hct MCV MCH RDW [place] % (Auto) [place] # Monocytes % (Manual) Nucleated RBC % Monocytes # (Manual) Potassium 3.2 L Chloride Carbon Dioxide BUN 2 L Creatinine 0.4 L Glucose Calcium Total Bilirubin 1.60 H Direct Bilirubin 0.7 H Lactate Dehydrogenase Total Protein 5.4 L Albumin 2.9 L Amylase Lipase Ur Specific [place] Urine WBC (Auto) U Epithel Cells (Auto) Ur Total Protein 24 Hr Urine Total Protein Laboratory Results - last 24 hr 08/06/16 08:03 Total Bilirubin 1.60 H Direct Bilirubin 0.7 H Indirect Bilirubin 0.9 AST 32 ALT 44 Alkaline Phosphatase 70 Total Protein 5.4 L Albumin 2.9 L Albumin/Globulin Ratio 1.2
[2016-08-07] MEDS: MIRALAX 3350 PO SCH ×2 (10:02→22:25)
[2016-08-07] MEDS: PEPCID IV SCH (10:02)
[2016-08-07] MEDS: PRENATAL VITAMIN PO SCH (10:02)
[2016-08-07] MEDS: MORPHINE IV PRN ×3 (10:10→20:14)
--- NOTE | 2016-08-07 17:38 | Progress Note ---
Assessment and Plan Pt status quo. sitting in chair. no abd pain at this time. but did have some nausea earlier today Abd soft, non tender. inspected pts tray -- given fatty solid diet including meatballs with gravy. should be on a cl liq low fat diet and then advance slowly as giovanna surgically stable will follow prn rto post for semi-elective lap GB Selected Entries 08/07/16 15:02 Temperature 98.4 F Pulse Rate [ 92 H From Monitor] Respiratory 18 Rate Blood Pressure 116/59 [Right Arm] Objective Vital Signs - 12hr 08/07/16 08/07/16 08/07/16 07:30 08:35 08:36 Temperature 97.9 F Pulse Rate 89 81 Pulse Rate [ 81 From Monitor] Respiratory 18 Rate Blood Pressure 137/100 144/97 Blood Pressure 144/97 [Right Arm] O2 Sat by Pulse 99 Oximetry 08/07/16 08/07/16 08/07/16 11:30 11:31 11:35 Temperature Pulse Rate 86 87 80 Pulse Rate [ From Monitor] Respiratory Rate Blood Pressure 140/84 Blood Pressure [Right Arm] O2 Sat by Pulse 98 98 Oximetry 08/07/16 08/07/16 08/07/16 11:40 11:45 11:50 Temperature 97.6 F Pulse Rate 81 88 Pulse Rate [ 87 From Monitor] Respiratory 18 Rate Blood Pressure Blood Pressure 140/84 [Right Arm] O2 Sat by Pulse 99 98 Oximetry 08/07/16 08/07/16 08/07/16 12:08 14:59 15:00 Temperature Pulse Rate 78 92 H 92 H Pulse Rate [ From Monitor] Respiratory Rate Blood Pressure 116/59 Blood Pressure [Right Arm] O2 Sat by Pulse 98 98 Oximetry 08/07/16 15:02 Temperature 98.4 F Pulse Rate Pulse Rate [ 92 H From Monitor] Respiratory 18 Rate Blood Pressure Blood Pressure 116/59 [Right Arm] O2 Sat by Pulse Oximetry - Labs 08/05/16 07:04 08/06/16 08:03
[2016-08-07] MEDS: PEPCID PO SCH (22:24)
[2016-08-07] MEDS: ALUM-MAG HYDROX-SIMETH 200-200-20MG/5ML PO PRN (22:37)
[2016-08-07] MEDS: AMBIEN PO PRN (22:39)
[2016-08-08 08:04] LABS: Hematocrit 26.7 % (30.3-42.9); Hemoglobin 8.4 gm/dl (10.1-14.3); Mean Corpuscular HGB Conc 32 % (30-34); Mean Corpuscular Volume 72 fl (79-97); Platelet Count 306 K/mm3 (140-440); Red Cell Distribution Width 19.2 % (13.2-15.2); White Blood Count 8.2 K/mm3 (4.5-11.0)
[2016-08-08 08:06] LABS: Mean Corpuscular Hemoglobin 23 pg (28-32)
[2016-08-08 08:21] LABS: Alanine Aminotransferase 60 units/L (7-56); Albumin 2.8 g/dL (3.9-5); Alkaline Phosphatase 72 units/L (35-129); Anion Gap 18 mmol/L; Blood Urea Nitrogen 2 mg/dL (7-17); Calcium 8.5 mg/dL (8.4-10.2); Carbon Dioxide 21 mmol/L (22-30); Chloride 102.4 mmol/L (98-107); Glucose 86 mg/dL (65-100); Sodium 138 mmol/L (137-145); Total Protein 5.7 g/dL (6.3-8.2); Uric Acid 6.3 mg/dL (3.5-7.6)
[2016-08-08] MEDS: PHENERGAN PR SCH ×2 (08:30→14:06)
[2016-08-08] MEDS: MORPHINE IV PRN ×2 (10:15→15:16)
[2016-08-08] MEDS: PEPCID PO SCH ×2 (12:53→21:01)
[2016-08-08] MEDS: BENTYL PO SCH ×4 (12:53→21:01)
[2016-08-08] MEDS: MIRALAX 3350 PO SCH (12:57)
--- NOTE | 2016-08-08 13:39 | Progress Note ---
Assessment and Plan - Patient Problems (1) Gallbladder disease affecting in third trimester Current Visit: Yes Status: Acute Plan to address problem: continue low fat diet--I talked to her at length about this but she keeps getting or eating high fat items--today only eating cheerios with milk then later has pain. She would like to go home. (2) 30 weeks gestation of Onset Date: ~08/04/16 Current Visit: Yes Status: Acute (3) Pre-eclampsia complicating hypertension Current Visit: Yes Status: Acute (4) Nausea and vomiting of , antepartum Onset Date: Unknown Current Visit: Yes Status: Acute (5) Constipation Current Visit: Yes Status: Acute Qualifiers: Constipation type: drug induced constipation Qualified Code(s): K59.03 - Drug induced constipation (6) Depression affecting in third trimester, antepartum Current Visit: Yes Status: Acute (7) Hypokalemia Onset Date: ~08/04/16 Current Visit: Yes Status: Acute (8) Anemia affecting in third trimester Onset Date: ~08/04/16 Current Visit: Yes Status: Chronic (9) Midepigastric pain Current Visit: No Status: Acute Subjective - Subjective Date of service: 08/08/16 Principal diagnosis: 30w3d, CHTN w/ Pre-E, gallbladder disease Interval history: She looks good 30 w and 4 d today but now LFT sl elevated and known 24 hr prot of 338 Has received steroids We continue to have problems with managing what we believe to be a GB problem but Pre E is on the radar and her pressures are somehwat elevated I have reordered a low fat diet Potassium still low--will try po Did have a BM and feels better. Patient reports: movement normal, no new complaints, no loss of fluid, no vaginal bleeding, no contractions Objective - Vital Signs Vital Signs: Vital Signs - 12hr 08/08/16 08/08/16 08/08/16 08:17 08:18 08:19 Temperature 98.9 F Pulse Rate 82 81 Pulse Rate [ 81 From Monitor] Respiratory 18 Rate Blood Pressure 127/68 Blood Pressure 127/68 [Right Arm] O2 Sat by Pulse 99 99 Oximetry 08/08/16 08/08/16 08/08/16 10:15 12:50 12:58 Temperature 97.5 F L Pulse Rate 87 Pulse Rate [ 87 From Monitor] Respiratory 18 18 Rate Blood Pressure 142/89 Blood Pressure 142/89 [Right Arm] O2 Sat by Pulse Oximetry - Exam Abdomen: Present: normal appearance, soft (no recent N&V today) FHR: category 1 - Labs Labs: Abnormal Labs 08/01/16 08/01/16 08/01/16 18:50 18:50 18:50 RBC Hgb 9.1 L Hct 28.7 L MCV 73 L MCH 23 L RDW 18.0 H [place] % (Auto) [place] # Monocytes % (Manual) 21.0 H Nucleated RBC % 1.0 H Monocytes # (Manual) 1.7 H Potassium Chloride Carbon Dioxide BUN Creatinine 0.5 L Glucose Calcium Total Bilirubin Direct Bilirubin AST ALT Lactate Dehydrogenase 185 H Total Protein Albumin Amylase Lipase Ur Specific [place] 1.034 H Urine WBC (Auto) 8.0 H U Epithel Cells (Auto) 42.0 H Ur Total Protein 24 Hr Urine Total Protein 08/01/16 08/02/16 08/02/16 18:50 07:41 18:09 RBC Hgb Hct MCV MCH RDW [place] % (Auto) [place] # Monocytes % (Manual) Nucleated RBC % Monocytes # (Manual) Potassium 3.2 L Chloride Carbon Dioxide 20 L BUN 5 L Creatinine 0.5 L Glucose Calcium Total Bilirubin Direct Bilirubin AST ALT Lactate Dehydrogenase 241 H Total Protein Albumin 3.0 L Amylase 195 H Lipase 77 H Ur Specific [place] Urine WBC (Auto) U Epithel Cells (Auto) Ur Total Protein 24 Hr 338.00 H Urine Total Protein 52 H 08/03/16 08/04/16 08/04/16 07:21 05:11 05:11 RBC 3.48 L Hgb 7.8 L Hct 24.6 L MCV 71 L MCH 22 L RDW 18.0 H [place] % (Auto) 13.4 H [place] # 1.4 H Monocytes % (Manual) Nucleated RBC % Monocytes # (Manual) Potassium 3.2 L 3.1 L Chloride 109.4 H 110.9 H Carbon Dioxide 16 L 19 L BUN 3 L 2 L Creatinine 0.4 L 0.4 L Glucose 105 H 108 H Calcium 8.3 L Total Bilirubin Direct Bilirubin AST ALT Lactate Dehydrogenase Total Protein 6.2 L 5.4 L Albumin 2.8 L 2.7 L Amylase Lipase 76 H 111 H Ur Specific [place] Urine WBC (Auto) U Epithel Cells (Auto) Ur Total Protein 24 Hr Urine Total Protein 08/05/16 08/05/16 08/06/16 07:04 07:04 08:03 RBC Hgb 8.6 L Hct 27.1 L MCV 72 L MCH 23 L RDW 18.6 H [place] % (Auto) 12.3 H [place] # 1.1 H Monocytes % (Manual) Nucleated RBC % Monocytes # (Manual) Potassium 3.0 L Chloride 108.3 H Carbon Dioxide BUN < 1 L Creatinine 0.4 L Glucose Calcium Total Bilirubin Direct Bilirubin AST ALT Lactate Dehydrogenase Total Protein Albumin Amylase Lipase 226 H Ur Specific [place] Urine WBC (Auto) U Epithel Cells (Auto) Ur Total Protein 24 Hr Urine Total Protein 08/06/16 08/06/16 08/08/16 08:03 08:03 07:43 RBC Hgb 8.4 L Hct 26.7 L MCV 72 L MCH 23 L RDW 19.2 H [place] % (Auto) [place] # Monocytes % (Manual) Nucleated RBC % Monocytes # (Manual) Potassium 3.2 L Chloride Carbon Dioxide BUN 2 L Creatinine 0.4 L Glucose Calcium Total Bilirubin 1.60 H Direct Bilirubin 0.7 H AST ALT Lactate Dehydrogenase Total Protein 5.4 L Albumin 2.9 L Amylase Lipase Ur Specific [place] Urine WBC (Auto) U Epithel Cells (Auto) Ur Total Protein 24 Hr Urine Total Protein 08/08/16 07:43 RBC Hgb Hct MCV MCH RDW [place] % (Auto) [place] # Monocytes % (Manual) Nucleated RBC % Monocytes # (Manual) Potassium 3.0 L Chloride Carbon Dioxide 21 L BUN 2 L Creatinine 0.4 L Glucose Calcium Total Bilirubin Direct Bilirubin AST 48 H ALT 60 H Lactate Dehydrogenase Total Protein 5.7 L Albumin 2.8 L Amylase Lipase Ur Specific [place] Urine WBC (Auto) U Epithel Cells (Auto) Ur Total Protein 24 Hr Urine Total Protein Laboratory Results - last 24 hr 08/08/16 08/08/16 07:43 07:43 WBC 8.2 RBC 3.70 Hgb 8.4 L Hct 26.7 L MCV 72 L MCH 23 L MCHC 32 RDW 19.2 H Plt Count 306 Sodium 138 Potassium 3.0 L Chloride 102.4 Carbon Dioxide 21 L Anion Gap 18 BUN 2 L Creatinine 0.4 L Estimated GFR > 60 BUN/Creatinine Ratio 5.00 Glucose 86 Uric Acid 6.3 Calcium 8.5 Total Bilirubin 1.10 AST 48 H ALT 60 H Alkaline Phosphatase 72 Total Protein 5.7 L Albumin 2.8 L Albumin/Globulin Ratio 1.0
[2016-08-08] MEDS: KCL 10MEQ/100ML 10 MEQ/100 ML BAG IV SCH ×2 (15:31→18:26)
[2016-08-08] MEDS: PRENATAL VITAMIN PO SCH (15:31)
--- NOTE | 2016-08-08 18:25 | Progress Note ---
Assessment and Plan Superimposed Preeclampsia Gallbladder sludge, symptomatic Continue observation, serial labs, twice weekly BPP as inpatient EFW in 1 week Home when stable; patient may be better able to tolerate food at home GI follow-up as indicated Subjective - Subjective Date of service: 08/08/16 (Feeling well, fetus active; reports still only able to keep down liquids) Principal diagnosis: 30w3d, CHTN w/ Pre-E, gallbladder disease Patient reports: movement normal, no new complaints, no loss of fluid, no vaginal bleeding, no contractions Objective - Vital Signs Vital Signs: Vital Signs - 12hr 08/08/16 08/08/16 08/08/16 08:17 08:18 08:19 Temperature 98.9 F Pulse Rate 82 81 Pulse Rate [ 81 From Monitor] Respiratory 18 Rate Blood Pressure 127/68 Blood Pressure 127/68 [Right Arm] O2 Sat by Pulse 99 99 Oximetry 08/08/16 08/08/16 08/08/16 10:15 12:50 12:58 Temperature 97.5 F L Pulse Rate 87 Pulse Rate [ 87 From Monitor] Respiratory 18 18 Rate Blood Pressure 142/89 Blood Pressure 142/89 [Right Arm] O2 Sat by Pulse Oximetry 08/08/16 08/08/16 08/08/16 15:16 16:10 16:15 Temperature 97.5 F L Pulse Rate 69 Pulse Rate [ 69 From Monitor] Respiratory 18 18 Rate Blood Pressure 118/57 Blood Pressure 118/57 [Right Arm] O2 Sat by Pulse Oximetry - Exam Narrative Exam: Abd soft, nontender; FHT's not currently monitored; DTR 1-2+ - Labs Labs: Abnormal Labs 08/01/16 08/01/16 08/01/16 18:50 18:50 18:50 RBC Hgb 9.1 L Hct 28.7 L MCV 73 L MCH 23 L RDW 18.0 H [place] % (Auto) [place] # Monocytes % (Manual) 21.0 H Nucleated RBC % 1.0 H Monocytes # (Manual) 1.7 H Potassium Chloride Carbon Dioxide BUN Creatinine 0.5 L Glucose Calcium Total Bilirubin Direct Bilirubin AST ALT Lactate Dehydrogenase 185 H Total Protein Albumin Amylase Lipase Ur Specific [place] 1.034 H Urine WBC (Auto) 8.0 H U Epithel Cells (Auto) 42.0 H Ur Total Protein 24 Hr Urine Total Protein 08/01/16 08/02/16 08/02/16 18:50 07:41 18:09 RBC Hgb Hct MCV MCH RDW [place] % (Auto) [place] # Monocytes % (Manual) Nucleated RBC % Monocytes # (Manual) Potassium 3.2 L Chloride Carbon Dioxide 20 L BUN 5 L Creatinine 0.5 L Glucose Calcium Total Bilirubin Direct Bilirubin AST ALT Lactate Dehydrogenase 241 H Total Protein Albumin 3.0 L Amylase 195 H Lipase 77 H Ur Specific [place] Urine WBC (Auto) U Epithel Cells (Auto) Ur Total Protein 24 Hr 338.00 H Urine Total Protein 52 H 08/03/16 08/04/16 08/04/16 07:21 05:11 05:11 RBC 3.48 L Hgb 7.8 L Hct 24.6 L MCV 71 L MCH 22 L RDW 18.0 H [place] % (Auto) 13.4 H [place] # 1.4 H Monocytes % (Manual) Nucleated RBC % Monocytes # (Manual) Potassium 3.2 L 3.1 L Chloride 109.4 H 110.9 H Carbon Dioxide 16 L 19 L BUN 3 L 2 L Creatinine 0.4 L 0.4 L Glucose 105 H 108 H Calcium 8.3 L Total Bilirubin Direct Bilirubin AST ALT Lactate Dehydrogenase Total Protein 6.2 L 5.4 L Albumin 2.8 L 2.7 L Amylase Lipase 76 H 111 H Ur Specific [place] Urine WBC (Auto) U Epithel Cells (Auto) Ur Total Protein 24 Hr Urine Total Protein 08/05/16 08/05/16 08/06/16 07:04 07:04 08:03 RBC Hgb 8.6 L Hct 27.1 L MCV 72 L MCH 23 L RDW 18.6 H [place] % (Auto) 12.3 H [place] # 1.1 H Monocytes % (Manual) Nucleated RBC % Monocytes # (Manual) Potassium 3.0 L Chloride 108.3 H Carbon Dioxide BUN < 1 L Creatinine 0.4 L Glucose Calcium Total Bilirubin Direct Bilirubin AST ALT Lactate Dehydrogenase Total Protein Albumin Amylase Lipase 226 H Ur Specific [place] Urine WBC (Auto) U Epithel Cells (Auto) Ur Total Protein 24 Hr Urine Total Protein 08/06/16 08/06/16 08/08/16 08:03 08:03 07:43 RBC Hgb 8.4 L Hct 26.7 L MCV 72 L MCH 23 L RDW 19.2 H [place] % (Auto) [place] # Monocytes % (Manual) Nucleated RBC % Monocytes # (Manual) Potassium 3.2 L Chloride Carbon Dioxide BUN 2 L Creatinine 0.4 L Glucose Calcium Total Bilirubin 1.60 H Direct Bilirubin 0.7 H AST ALT Lactate Dehydrogenase Total Protein 5.4 L Albumin 2.9 L Amylase Lipase Ur Specific [place] Urine WBC (Auto) U Epithel Cells (Auto) Ur Total Protein 24 Hr Urine Total Protein 08/08/16 07:43 RBC Hgb Hct MCV MCH RDW [place] % (Auto) [place] # Monocytes % (Manual) Nucleated RBC % Monocytes # (Manual) Potassium 3.0 L Chloride Carbon Dioxide 21 L BUN 2 L Creatinine 0.4 L Glucose Calcium Total Bilirubin Direct Bilirubin AST 48 H ALT 60 H Lactate Dehydrogenase Total Protein 5.7 L Albumin 2.8 L Amylase Lipase Ur Specific [place] Urine WBC (Auto) U Epithel Cells (Auto) Ur Total Protein 24 Hr Urine Total Protein Laboratory Results - last 24 hr 08/08/16 08/08/16 07:43 07:43 WBC 8.2 RBC 3.70 Hgb 8.4 L Hct 26.7 L MCV 72 L MCH 23 L MCHC 32 RDW 19.2 H Plt Count 306 Sodium 138 Potassium 3.0 L Chloride 102.4 Carbon Dioxide 21 L Anion Gap 18 BUN 2 L Creatinine 0.4 L Estimated GFR > 60 BUN/Creatinine Ratio 5.00 Glucose 86 Uric Acid 6.3 Calcium 8.5 Total Bilirubin 1.10 AST 48 H ALT 60 H Alkaline Phosphatase 72 Total Protein 5.7 L Albumin 2.8 L Albumin/Globulin Ratio 1.0
[2016-08-08] MEDS: ALUM-MAG HYDROX-SIMETH 200-200-20MG/5ML PO PRN (20:56)
[2016-08-08] MEDS: AMBIEN PO PRN (20:57)
[2016-08-08] MEDS ORDERED: MILK OF MAGNESIA PO SCH (22:00)
--- NOTE | 2016-08-09 00:51 | Event Note ---
Date: 08/09/16 spoke to pt at about 7:30PM on 08/08/16 and she is now asking to be induced "because she can't stand the pain". She seems very depressed also. Perhaps a CT of abdomen and pelvis and possibly the head is indicated r/o other causes of N&V and continued abdominal pain and intolerance of diet. Attmpted symptom management is not working very well for her.
[2016-08-09] MEDS: PHENERGAN PR SCH ×4 (07:02→15:57)
[2016-08-09] MEDS: MIRALAX 3350 PO SCH ×2 (07:03→15:57)
--- NOTE | 2016-08-09 07:46 | Progress Note ---
Assessment and Plan patient resting in bed, c/o upper abd pain. Patient reports tolerating clear liquids but not solid food. She reports feeling depressed and desires IOL "I just want this over." VSSAF, mostly normal b/ps, slighly elevated this morning 138/93. No [place] or visual changes. AST/ALT also now slightly elevated 48/60. BM . Per [facility] recommendations twice weekly BPP, ordered today. Dr. Madera consulted, she will see patient today. - Patient Problems (1) Pre-eclampsia complicating hypertension Current Visit: Yes Status: Acute (2) Hypokalemia Onset Date: ~08/04/16 Current Visit: Yes Status: Acute (3) 30 weeks gestation of Onset Date: ~08/04/16 Current Visit: Yes Status: Acute (4) Anemia affecting in third trimester Onset Date: ~08/04/16 Current Visit: Yes Status: Chronic (5) Constipation Current Visit: Yes Status: Acute Qualifiers: Constipation type: drug induced constipation Qualified Code(s): K59.03 - Drug induced constipation Subjective - Subjective Date of service: 08/09/16 Principal diagnosis: 30w4d, CHTN w/ Pre-E, gallbladder disease Patient reports: movement normal, other (upper abd pain, depression ), no new complaints, no loss of fluid, no vaginal bleeding, no contractions Objective - Vital Signs Vital Signs: Vital Signs - 12hr 08/08/16 08/09/16 08/09/16 21:00 00:38 06:07 Temperature 97.7 F 99.2 F 98.8 F Pulse Rate 88 77 Pulse Rate [ 78 88 77 From Monitor] Respiratory 18 18 18 Rate Blood Pressure 115/66 138/93 Blood Pressure 118/57 115/66 138/93 [Left Arm] O2 Sat by Pulse 100 100 100 Oximetry 08/09/16 06:08 Temperature Pulse Rate 94 H Pulse Rate [ From Monitor] Respiratory Rate Blood Pressure Blood Pressure [Left Arm] O2 Sat by Pulse 100 Oximetry - Exam Breasts: normal Cardiovascular: Regular rate Lungs: Clear to auscultation, Normal air movement Abdomen: Present: normal appearance, soft Uterus: Present: normal FHR: category 1 (@ 0100 during last NST) Extremities: normal Deep Tendon Reflex Grade: Normal +2 - Labs Labs: Abnormal Labs 08/01/16 08/01/16 08/01/16 18:50 18:50 18:50 RBC Hgb 9.1 L Hct 28.7 L MCV 73 L MCH 23 L RDW 18.0 H [place] % (Auto) [place] # Monocytes % (Manual) 21.0 H Nucleated RBC % 1.0 H Monocytes # (Manual) 1.7 H Potassium Chloride Carbon Dioxide BUN Creatinine 0.5 L Glucose Calcium Total Bilirubin Direct Bilirubin AST ALT Lactate Dehydrogenase 185 H Total Protein Albumin Amylase Lipase Ur Specific [place] 1.034 H Urine WBC (Auto) 8.0 H U Epithel Cells (Auto) 42.0 H Ur Total Protein 24 Hr Urine Total Protein 08/01/16 08/02/16 08/02/16 18:50 07:41 18:09 RBC Hgb Hct MCV MCH RDW [place] % (Auto) [place] # Monocytes % (Manual) Nucleated RBC % Monocytes # (Manual) Potassium 3.2 L Chloride Carbon Dioxide 20 L BUN 5 L Creatinine 0.5 L Glucose Calcium Total Bilirubin Direct Bilirubin AST ALT Lactate Dehydrogenase 241 H Total Protein Albumin 3.0 L Amylase 195 H Lipase 77 H Ur Specific [place] Urine WBC (Auto) U Epithel Cells (Auto) Ur Total Protein 24 Hr 338.00 H Urine Total Protein 52 H 08/03/16 08/04/16 08/04/16 07:21 05:11 05:11 RBC 3.48 L Hgb 7.8 L Hct 24.6 L MCV 71 L MCH 22 L RDW 18.0 H [place] % (Auto) 13.4 H [place] # 1.4 H Monocytes % (Manual) Nucleated RBC % Monocytes # (Manual) Potassium 3.2 L 3.1 L Chloride 109.4 H 110.9 H Carbon Dioxide 16 L 19 L BUN 3 L 2 L Creatinine 0.4 L 0.4 L Glucose 105 H 108 H Calcium 8.3 L Total Bilirubin Direct Bilirubin AST ALT Lactate Dehydrogenase Total Protein 6.2 L 5.4 L Albumin 2.8 L 2.7 L Amylase Lipase 76 H 111 H Ur Specific [place] Urine WBC (Auto) U Epithel Cells (Auto) Ur Total Protein 24 Hr Urine Total Protein 08/05/16 08/05/16 08/06/16 07:04 07:04 08:03 RBC Hgb 8.6 L Hct 27.1 L MCV 72 L MCH 23 L RDW 18.6 H [place] % (Auto) 12.3 H [place] # 1.1 H Monocytes % (Manual) Nucleated RBC % Monocytes # (Manual) Potassium 3.0 L Chloride 108.3 H Carbon Dioxide BUN < 1 L Creatinine 0.4 L Glucose Calcium Total Bilirubin Direct Bilirubin AST ALT Lactate Dehydrogenase Total Protein Albumin Amylase Lipase 226 H Ur Specific [place] Urine WBC (Auto) U Epithel Cells (Auto) Ur Total Protein 24 Hr Urine Total Protein 08/06/16 08/06/16 08/08/16 08:03 08:03 07:43 RBC Hgb 8.4 L Hct 26.7 L MCV 72 L MCH 23 L RDW 19.2 H [place] % (Auto) [place] # Monocytes % (Manual) Nucleated RBC % Monocytes # (Manual) Potassium 3.2 L Chloride Carbon Dioxide BUN 2 L Creatinine 0.4 L Glucose Calcium Total Bilirubin 1.60 H Direct Bilirubin 0.7 H AST ALT Lactate Dehydrogenase Total Protein 5.4 L Albumin 2.9 L Amylase Lipase Ur Specific [place] Urine WBC (Auto) U Epithel Cells (Auto) Ur Total Protein 24 Hr Urine Total Protein 08/08/16 07:43 RBC Hgb Hct MCV MCH RDW [place] % (Auto) [place] # Monocytes % (Manual) Nucleated RBC % Monocytes # (Manual) Potassium 3.0 L Chloride Carbon Dioxide 21 L BUN 2 L Creatinine 0.4 L Glucose Calcium Total Bilirubin Direct Bilirubin AST 48 H ALT 60 H Lactate Dehydrogenase Total Protein 5.7 L Albumin 2.8 L Amylase Lipase Ur Specific [place] Urine WBC (Auto) U Epithel Cells (Auto) Ur Total Protein 24 Hr Urine Total Protein Laboratory Results - last 24 hr 08/08/16 08/08/16 07:43 07:43 WBC 8.2 RBC 3.70 Hgb 8.4 L Hct 26.7 L MCV 72 L MCH 23 L MCHC 32 RDW 19.2 H Plt Count 306 Sodium 138 Potassium 3.0 L Chloride 102.4 Carbon Dioxide 21 L Anion Gap 18 BUN 2 L Creatinine 0.4 L Estimated GFR > 60 BUN/Creatinine Ratio 5.00 Glucose 86 Uric Acid 6.3 Calcium 8.5 Total Bilirubin 1.10 AST 48 H ALT 60 H Alkaline Phosphatase 72 Total Protein 5.7 L Albumin 2.8 L Albumin/Globulin Ratio 1.0
[2016-08-09 08:23] VITALS: BP 137/97
--- NOTE | 2016-08-09 09:07 | Ultrasound Report ---
ULTRASOUND BIOPHYSICAL PROFILE: History: well being Technique: Transabdominal ultrasound with Doppler interrogation. 2 - breathing movements 2 - movements 2 - posture and tone 2 - Qualitative amniotic fluid volume 8 - TOTAL SCORE OF POSSIBLE 8 Heart Rate (bpm) 134
[2016-08-09] MEDS ORDERED: KLOR-CON PO SCH ×2 (10:00→22:00)
--- NOTE | 2016-08-09 10:30 | Progress Note ---
Assessment and Plan - Patient Problems (1) 30 weeks gestation of Onset Date: ~08/04/16 Current Visit: Yes Status: Acute Plan to address problem: NICU consult (2) Pre-eclampsia complicating hypertension Current Visit: Yes Status: Acute Plan to address problem: Elevated Lft's noted, possible gallbladder disease vs worsening Preeclampsia. Will wait for perinatology recommendations. (3) Gallbladder disease affecting in third trimester Current Visit: Yes Status: Acute Plan to address problem: S/w Dr. Robertson, surgeon, re: elevated LFT's, he still does not recommend surgery at this time. Will rechk LFT's in am and consider reconsult if worsening and no other evidence for worsening Pre-eclampsia (4) Nausea and vomiting of , antepartum Onset Date: Unknown Current Visit: Yes Status: Acute Plan to address problem: No s/s obstruction or ileus 2# average gain weight since admission (5) Midepigastric pain Current Visit: No Status: Acute Plan to address problem: stable (6) Hypokalemia Onset Date: ~08/04/16 Current Visit: Yes Status: Acute Plan to address problem: Currently taking po K+ (7) Anemia affecting in third trimester Onset Date: ~08/04/16 Current Visit: Yes Status: Chronic (8) Constipation Current Visit: Yes Status: Resolved Qualifiers: Constipation type: drug induced constipation Qualified Code(s): K59.03 - Drug induced constipation (9) Depression affecting in third trimester, antepartum Current Visit: Yes Status: Acute Plan to address problem: animal geneticist here to see her Subjective - Subjective Date of service: 08/09/16 Principal diagnosis: 30w5d, CHTN w/ Pre-E, gallbladder disease, depression Interval history: Patient feels better, just out of shower. Smiling, makes eye contact mostly and appropriately responsive. still with upper abd pain. She denies GRANT, visual changes. Patient reports: movement normal, other (upper abd pain, depression ), no new complaints, no loss of fluid, no vaginal bleeding, no contractions Objective - Vital Signs Vital Signs: Vital Signs - 12hr 08/09/16 08/09/16 08/09/16 00:38 06:07 06:08 Temperature 99.2 F 98.8 F Pulse Rate 88 77 94 H Pulse Rate [ 88 77 From Monitor] Respiratory 18 18 Rate Blood Pressure 115/66 138/93 Blood Pressure 115/66 138/93 [Left Arm] O2 Sat by Pulse 100 100 100 Oximetry 08/09/16 08/09/16 08/09/16 07:51 07:52 07:53 Temperature Pulse Rate 92 H 86 85 Pulse Rate [ From Monitor] Respiratory Rate Blood Pressure 137/96 138/97 Blood Pressure [Left Arm] O2 Sat by Pulse 99 Oximetry 08/09/16 08:22 Temperature 97.8 F Pulse Rate Pulse Rate [ 86 From Monitor] Respiratory 18 Rate Blood Pressure Blood Pressure 137/97 [Left Arm] O2 Sat by Pulse Oximetry - Exam Breasts: deferred Cardiovascular: Regular rate Lungs: Clear to auscultation, Normal air movement Abdomen: Present: normal appearance, soft, normal bowel sounds Uterus: Present: normal. Absent: tenderness FHR: category 1 Uterine Contraction Monitor Mode: External Extremities: edema (1+) Deep Tendon Reflex Grade: Normal +2 - Labs Labs: Abnormal Labs 08/01/16 08/01/16 08/01/16 18:50 18:50 18:50 RBC Hgb 9.1 L Hct 28.7 L MCV 73 L MCH 23 L RDW 18.0 H [place] % (Auto) [place] # Monocytes % (Manual) 21.0 H Nucleated RBC % 1.0 H Monocytes # (Manual) 1.7 H Potassium Chloride Carbon Dioxide BUN Creatinine 0.5 L Glucose Calcium Total Bilirubin Direct Bilirubin AST ALT Lactate Dehydrogenase 185 H Total Protein Albumin Amylase Lipase Ur Specific [place] 1.034 H Urine WBC (Auto) 8.0 H U Epithel Cells (Auto) 42.0 H Ur Total Protein 24 Hr Urine Total Protein 08/01/16 08/02/16 08/02/16 18:50 07:41 18:09 RBC Hgb Hct MCV MCH RDW [place] % (Auto) [place] # Monocytes % (Manual) Nucleated RBC % Monocytes # (Manual) Potassium 3.2 L Chloride Carbon Dioxide 20 L BUN 5 L Creatinine 0.5 L Glucose Calcium Total Bilirubin Direct Bilirubin AST ALT Lactate Dehydrogenase 241 H Total Protein Albumin 3.0 L Amylase 195 H Lipase 77 H Ur Specific [place] Urine WBC (Auto) U Epithel Cells (Auto) Ur Total Protein 24 Hr 338.00 H Urine Total Protein 52 H 08/03/16 08/04/16 08/04/16 07:21 05:11 05:11 RBC 3.48 L Hgb 7.8 L Hct 24.6 L MCV 71 L MCH 22 L RDW 18.0 H [place] % (Auto) 13.4 H [place] # 1.4 H Monocytes % (Manual) Nucleated RBC % Monocytes # (Manual) Potassium 3.2 L 3.1 L Chloride 109.4 H 110.9 H Carbon Dioxide 16 L 19 L BUN 3 L 2 L Creatinine 0.4 L 0.4 L Glucose 105 H 108 H Calcium 8.3 L Total Bilirubin Direct Bilirubin AST ALT Lactate Dehydrogenase Total Protein 6.2 L 5.4 L Albumin 2.8 L 2.7 L Amylase Lipase 76 H 111 H Ur Specific [place] Urine WBC (Auto) U Epithel Cells (Auto) Ur Total Protein 24 Hr Urine Total Protein 08/05/16 08/05/16 08/06/16 07:04 07:04 08:03 RBC Hgb 8.6 L Hct 27.1 L MCV 72 L MCH 23 L RDW 18.6 H [place] % (Auto) 12.3 H [place] # 1.1 H Monocytes % (Manual) Nucleated RBC % Monocytes # (Manual) Potassium 3.0 L Chloride 108.3 H Carbon Dioxide BUN < 1 L Creatinine 0.4 L Glucose Calcium Total Bilirubin Direct Bilirubin AST ALT Lactate Dehydrogenase Total Protein Albumin Amylase Lipase 226 H Ur Specific [place] Urine WBC (Auto) U Epithel Cells (Auto) Ur Total Protein 24 Hr Urine Total Protein 08/06/16 08/06/16 08/08/16 08:03 08:03 07:43 RBC Hgb 8.4 L Hct 26.7 L MCV 72 L MCH 23 L RDW 19.2 H [place] % (Auto) [place] # Monocytes % (Manual) Nucleated RBC % Monocytes # (Manual) Potassium 3.2 L Chloride Carbon Dioxide BUN 2 L Creatinine 0.4 L Glucose Calcium Total Bilirubin 1.60 H Direct Bilirubin 0.7 H AST ALT Lactate Dehydrogenase Total Protein 5.4 L Albumin 2.9 L Amylase Lipase Ur Specific [place] Urine WBC (Auto) U Epithel Cells (Auto) Ur Total Protein 24 Hr Urine Total Protein 08/08/16 07:43 RBC Hgb Hct MCV MCH RDW [place] % (Auto) [place] # Monocytes % (Manual) Nucleated RBC % Monocytes # (Manual) Potassium 3.0 L Chloride Carbon Dioxide 21 L BUN 2 L Creatinine 0.4 L Glucose Calcium Total Bilirubin Direct Bilirubin AST 48 H ALT 60 H Lactate Dehydrogenase Total Protein 5.7 L Albumin 2.8 L Amylase Lipase Ur Specific [place] Urine WBC (Auto) U Epithel Cells (Auto) Ur Total Protein 24 Hr Urine Total Protein - Results US- obstetric: report reviewed ([facility] 11/15)
[2016-08-09] MEDS: PHENERGAN PO PRN (10:35)
[2016-08-09] MEDS: PRENATAL VITAMIN PO SCH (10:36)
[2016-08-09] MEDS: BENTYL PO SCH ×2 (10:36→14:00)
[2016-08-09] MEDS: PEPCID PO SCH (10:36)
[2016-08-09] MEDS: MORPHINE IV PRN (10:43)
--- NOTE | 2016-08-09 11:57 | Progress Note ---
Assessment and Plan A: 1. IUP at 30 5/7 weeks gestation 2. Chronic HTN, superimposed pre-eclampsia ,stable BP , no indication for antihypertensive therapy at this time 3. Gallbladder disease - followed by GI 5. mild transaminitis likely related to GI disease versus preeclampsia 6. anemia Recommendations Antiemetic therapy Advance low fat diet as tolerated Continue potassium repletion , check magnesium level to screen for Mag deficiency Serial LFT /K Continue to monitor BP , no indication for antihypertensive treatment at this time Home if stable d/w Dr [place] Subjective - Subjective Date of service: 08/09/16 Principal diagnosis: 30w5d, CHTN w/ Pre-E, gallbladder disease, depression Interval history: She threw up after eating a banana Notes that her epigastric pain has returned 07/16 denied n/v Patient reports: movement normal, other (upper abd pain, depression ), no new complaints, no loss of fluid, no vaginal bleeding, no contractions Objective - Vital Signs Vital Signs: Vital Signs - 12hr 08/09/16 08/09/16 08/09/16 00:38 06:07 06:08 Temperature 99.2 F 98.8 F Pulse Rate 88 77 94 H Pulse Rate [ 88 77 From Monitor] Respiratory 18 18 Rate Blood Pressure 115/66 138/93 Blood Pressure 115/66 138/93 [Left Arm] O2 Sat by Pulse 100 100 100 Oximetry 08/09/16 08/09/16 08/09/16 07:51 07:52 07:53 Temperature Pulse Rate 92 H 86 85 Pulse Rate [ From Monitor] Respiratory Rate Blood Pressure 137/96 138/97 Blood Pressure [Left Arm] O2 Sat by Pulse 99 Oximetry 08/09/16 08:22 Temperature 97.8 F Pulse Rate Pulse Rate [ 86 From Monitor] Respiratory 18 Rate Blood Pressure Blood Pressure 137/97 [Left Arm] O2 Sat by Pulse Oximetry - Exam Narrative Exam: laying in bed appears uncomfortable - Labs Labs: Abnormal Labs 08/01/16 08/01/16 08/01/16 18:50 18:50 18:50 RBC Hgb 9.1 L Hct 28.7 L MCV 73 L MCH 23 L RDW 18.0 H [place] % (Auto) [place] # Monocytes % (Manual) 21.0 H Nucleated RBC % 1.0 H Monocytes # (Manual) 1.7 H Potassium Chloride Carbon Dioxide BUN Creatinine 0.5 L Glucose Calcium Total Bilirubin Direct Bilirubin AST ALT Lactate Dehydrogenase 185 H Total Protein Albumin Amylase Lipase Ur Specific [place] 1.034 H Urine WBC (Auto) 8.0 H U Epithel Cells (Auto) 42.0 H Ur Total Protein 24 Hr Urine Total Protein 08/01/16 08/02/16 08/02/16 18:50 07:41 18:09 RBC Hgb Hct MCV MCH RDW [place] % (Auto) [place] # Monocytes % (Manual) Nucleated RBC % Monocytes # (Manual) Potassium 3.2 L Chloride Carbon Dioxide 20 L BUN 5 L Creatinine 0.5 L Glucose Calcium Total Bilirubin Direct Bilirubin AST ALT Lactate Dehydrogenase 241 H Total Protein Albumin 3.0 L Amylase 195 H Lipase 77 H Ur Specific [place] Urine WBC (Auto) U Epithel Cells (Auto) Ur Total Protein 24 Hr 338.00 H Urine Total Protein 52 H 08/03/16 08/04/16 08/04/16 07:21 05:11 05:11 RBC 3.48 L Hgb 7.8 L Hct 24.6 L MCV 71 L MCH 22 L RDW 18.0 H [place] % (Auto) 13.4 H [place] # 1.4 H Monocytes % (Manual) Nucleated RBC % Monocytes # (Manual) Potassium 3.2 L 3.1 L Chloride 109.4 H 110.9 H Carbon Dioxide 16 L 19 L BUN 3 L 2 L Creatinine 0.4 L 0.4 L Glucose 105 H 108 H Calcium 8.3 L Total Bilirubin Direct Bilirubin AST ALT Lactate Dehydrogenase Total Protein 6.2 L 5.4 L Albumin 2.8 L 2.7 L Amylase Lipase 76 H 111 H Ur Specific [place] Urine WBC (Auto) U Epithel Cells (Auto) Ur Total Protein 24 Hr Urine Total Protein 08/05/16 08/05/16 08/06/16 07:04 07:04 08:03 RBC Hgb 8.6 L Hct 27.1 L MCV 72 L MCH 23 L RDW 18.6 H [place] % (Auto) 12.3 H [place] # 1.1 H Monocytes % (Manual) Nucleated RBC % Monocytes # (Manual) Potassium 3.0 L Chloride 108.3 H Carbon Dioxide BUN < 1 L Creatinine 0.4 L Glucose Calcium Total Bilirubin Direct Bilirubin AST ALT Lactate Dehydrogenase Total Protein Albumin Amylase Lipase 226 H Ur Specific [place] Urine WBC (Auto) U Epithel Cells (Auto) Ur Total Protein 24 Hr Urine Total Protein 08/06/16 08/06/16 08/08/16 08:03 08:03 07:43 RBC Hgb 8.4 L Hct 26.7 L MCV 72 L MCH 23 L RDW 19.2 H [place] % (Auto) [place] # Monocytes % (Manual) Nucleated RBC % Monocytes # (Manual) Potassium 3.2 L Chloride Carbon Dioxide BUN 2 L Creatinine 0.4 L Glucose Calcium Total Bilirubin 1.60 H Direct Bilirubin 0.7 H AST ALT Lactate Dehydrogenase Total Protein 5.4 L Albumin 2.9 L Amylase Lipase Ur Specific [place] Urine WBC (Auto) U Epithel Cells (Auto) Ur Total Protein 24 Hr Urine Total Protein 08/08/16 07:43 RBC Hgb Hct MCV MCH RDW [place] % (Auto) [place] # Monocytes % (Manual) Nucleated RBC % Monocytes # (Manual) Potassium 3.0 L Chloride Carbon Dioxide 21 L BUN 2 L Creatinine 0.4 L Glucose Calcium Total Bilirubin Direct Bilirubin AST 48 H ALT 60 H Lactate Dehydrogenase Total Protein 5.7 L Albumin 2.8 L Amylase Lipase Ur Specific [place] Urine WBC (Auto) U Epithel Cells (Auto) Ur Total Protein 24 Hr Urine Total Protein
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
== END 2016-08-09 19:11 | disposition left against medical advice (07) | DRG 781 ==
LOC: TRG 17:47 → LD 19:03 → TRG 19:38 → LD 19:39 → OBSVTOIN 08-02 08:05
PROVIDERS: ADMIT Obstetrics & Gynecology; ATTEND Obstetrics & Gynecology
DX: O99.613 Diseases of the digestive system complicating pregnancy, third trimester (principal); O21.9 Vomiting of pregnancy, unspecified; O11.3 Pre-existing hypertension with pre-eclampsia, third trimester; O99.343 Other mental disorders complicating pregnancy, third trimester; O99.013 Anemia complicating pregnancy, third trimester; O26.893 Other specified pregnancy related conditions, third trimester; K80.20 Calculus of gallbladder without cholecystitis without obstruction; F43.20 Adjustment disorder, unspecified; E87.6 Hypokalemia; K59.00 Constipation, unspecified; F32.9 Major depressive disorder, single episode, unspecified; R74.0 Nonspecific elevation of levels of transaminase and lactic acid dehydrogenase [LDH]; Z3A.29 29 weeks gestation of pregnancy
CPT/HCPCS: 36415; 74181; 76705; 76819; 80048; 80053; 80074; 81001; 82150; 82565; 83615; 83690; 84156; 84443; 84450; 84460; 84550; 85007; 85025; 85027; 86850; 86900; 86901; G0378; J0702; J2270; J2405; J2765; J3480; J7030; J7120; J7121; Q0169

== ENCOUNTER 2016-09-07 04:26 | Outpatient (CLI) | payer OTHER, MEDICAID ==
[2016-09-07 04:47] VITALS: BP 133/77
[2016-09-07] MEDS ORDERED: LACTATED RINGERS 500 ML IV ONE (04:47)
[2016-09-07] MEDS ORDERED: LACTATED RINGERS 1,000 ML ONE (05:00)
[2016-09-07 05:50] LABS: Bacteria,Urine 1+ /HPF (Negative); Bilirubin,Urine NEG (Negative); Blood,Urine NEG (Negative); Ketones,Urine NEG (Negative); Leukocyte Esterase,Urine MOD (Negative); Mucus,Urine FEW /HPF; Nitrite,Urine NEG (Negative); Protein,Urine <15 mg/dL mg/dL (Negative); Urobilinogen,Urine < 2.0 mg/dL (<2.0)
== END 2016-09-07 06:12 | disposition home or self-care (01) ==
LOC: TRG 04:26
PROVIDERS: ATTEND Obstetrics & Gynecology
DX: O47.03 False labor before 37 completed weeks of gestation, third trimester (principal); Z3A.34 34 weeks gestation of pregnancy
CPT/HCPCS: 36415; 81001; 82731; 96360; J7120

== ENCOUNTER 2016-09-11 14:25 | Outpatient (CLI) | payer OTHER, MEDICAID ==
[2016-09-11] MEDS ORDERED: LACTATED RINGERS 500 ML IV ONE (14:45)
[2016-09-11 15:53] VITALS: BP 122/76
== END 2016-09-11 16:00 | disposition home or self-care (01) ==
LOC: TRG 14:25
PROVIDERS: ATTEND Obstetrics & Gynecology
DX: Z34.93 Encounter for supervision of normal pregnancy, unspecified, third trimester (principal); Z3A.35 35 weeks gestation of pregnancy
CPT/HCPCS: 59025

== ENCOUNTER 2016-09-18 04:17 | Outpatient (CLI) | payer OTHER, MEDICAID ==
[2016-09-18] MEDS ORDERED: LACTATED RINGERS 500 ML IV ONE (04:57)
[2016-09-18 05:15] VITALS: BP 136/75
[2016-09-18 06:04] LABS: Bilirubin,Urine NEG (Negative); Blood,Urine NEG (Negative); Ketones,Urine NEG (Negative); Leukocyte Esterase,Urine SM (Negative); Mucus,Urine FEW /HPF; Nitrite,Urine NEG (Negative); Protein,Urine <15 mg/dL mg/dL (Negative); Urobilinogen,Urine < 2.0 mg/dL (<2.0)
[2016-09-18 06:21] LABS: Hematocrit 26.7 % (30.3-42.9); Hemoglobin 8.2 gm/dl (10.1-14.3); Mean Corpuscular HGB Conc 31 % (30-34); Platelet Count 448 K/mm3 (140-440); Red Blood Count 4.07 M/mm3 (3.65-5.03); White Blood Count 9.9 K/mm3 (4.5-11.0)
[2016-09-18 06:30] LABS: Mean Corpuscular Hemoglobin 20 pg (28-32); Mean Corpuscular Volume 66 fl (79-97); Red Cell Distribution Width 21.3 % (13.2-15.2)
[2016-09-18 06:35] LABS: Albumin 3.1 g/dL (3.9-5); Albumin/Globulin Ratio 0.9 %; Alkaline Phosphatase 103 units/L (35-129); Blood Urea Nitrogen 4 mg/dL (7-17); Calcium 8.5 mg/dL (8.4-10.2); Carbon Dioxide 20 mmol/L (22-30); Glucose 93 mg/dL (65-100); Total Protein 6.5 g/dL (6.3-8.2)
[2016-09-18 06:36] LABS: Anion Gap 17 mmol/L; Chloride 104.1 mmol/L (98-107); Potassium 3.7 mmol/L (3.6-5.0); Sodium 137 mmol/L (137-145)
[2016-09-18 06:48] LABS: Alanine Aminotransferase < 5 units/L (7-56)
[2016-09-18 07:15] LABS: Lactate Dehydrogenase 150 units/L (91-180); Uric Acid 4.3 mg/dL (3.5-7.6)
[2016-09-18 07:24] LABS: Alanine Aminotransferase < 5 units/L (7-56)
== END 2016-09-18 07:28 | disposition home or self-care (01) ==
LOC: TRG 04:17
PROVIDERS: ATTEND Obstetrics & Gynecology
DX: O26.893 Other specified pregnancy related conditions, third trimester (principal); R10.9 Unspecified abdominal pain; Z3A.36 36 weeks gestation of pregnancy
CPT/HCPCS: 36415; 80053; 81001; 82565; 83615; 84450; 84460; 84550; 85027; J7120

== ENCOUNTER 2016-09-25 21:15 | Inpatient (IN) | payer OTHER, MEDICAID ==
[2016-09-25] MEDS ORDERED: PHENERGAN PO PRN (21:39)
[2016-09-25] MEDS ORDERED: BRETHINE SUB-Q PRN (21:39)
[2016-09-25] MEDS ORDERED: MINERAL OIL PO PRN (21:39)
[2016-09-25] MEDS ORDERED: ePHEDrine SULFATE IV PRN (21:39)
[2016-09-25] MEDS ORDERED: XYLOCAINE 2% INFILTRATI ONE (21:39)
[2016-09-25] MEDS ORDERED: APRESOLINE IV PRN (21:39)
[2016-09-25] MEDS ORDERED: ZOFRAN IV PRN (21:39)
--- NOTE | 2016-09-25 21:55 | History and Physical Report ---
History of Present Illness Date of examination: 09/25/16 Date of admission: 09/25/16 21:15 Chief complaint: IOL for htn w/ superimposed pre-e History of present illness: EDC Calculations LMP: 10/13/2016 Past History : 5 Term Births: 0 Premature Births: 3 Living Children: 2 Para: 2 Mult. Births: 0 Prev : 0 Aborta: 0 Elect. Ab: 0 Spont. Ab: 1 Ectopics: 0 # 1 Delivery date: 02/25/2012 Weeks Gestation: 36+4 Delivery type: Vaginal Anesthesia type: epidural Delivery location: [facility] Sex: male weight: 6.19 Comments: pre-eclampsia/eclampsia, bradycardia # 2 Delivery date: 01/2013 labor: yes Delivery type: Anesthesia type: none Delivery location: [facility] Sex: Female weight: 5-0 Comments: PreE # 3 Delivery date: 2013 Weeks Gestation: 28 Delivery type: Delivery location: [place] Comments: IUFD severe PreE # 4 Delivery date: 2014 Weeks Gestation: 12 Delivery type: SAB Comments: high BP; heavy bleeding SAB Risk Factors: Smoked Tobacco Use: Never smoker Smokeless Tobacco Use: Never Passive smoke exposure: no Drug use: no Caffeine use: 0 drinks per day Alcohol use: no 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 Infection History Hx of STD: none Varicella/Chicken Pox Status: Previous Disease Genetic History Congenital Heart Defect: Mom: no Dad: no Suni Disease: Mom: no Dad: no Thalassemia Mom: no Dad: no Neural Tube Defect Mom: no Dad: no Down's Syndrome Mom: no Dad: no Jevon-Sachs Mom: no Dad: no Sickle Cell Disease/Trait Mom: no Dad: no Hemophilia Mom: no Dad: no Muscular Dystrophy Mom: no Dad: no Cystic Fibrosis Mom: no Dad: no Mclean Chorea Mom: no Dad: no Mental Retardation Mom: no Dad: no Fragile X Mom: no Dad: no Other Genetic/Chromosomal Disorder Mom: no Dad: no Child w/other defect Mom: no Dad: no Enviromental Exposures Xray Exposure: no Medication, drug, or alcohol use since LMP: no Chemical/Other Exposure: no Exposure to Cat Liter: no Hx of Parvovirus (Fifth Disease): no Occupational Exposure to Children: none Current Allergies: No known allergies Past History - Obstetrical History Expected Date of Delivery: 10/13/16 Actual Gestation: 37 Week(s) 4 Day(s) : 5 Para: 3 Hx # Term Pregnancies: 0 Number of Pregnancies: 3 Spontaneous Abortions: 1 Induced : 0 Number of Living Children: 2 Medications and Allergies Allergies Allergy/AdvReac Type Severity Reaction Status Date / Time codeine Allergy Severe Hives Verified 09/25/16 21:39 Penicillins Allergy Severe Hives Verified 09/25/16 21:39 Home Medications Medication Instructions Recorded Confirmed Last Taken Type No Known Home Medications [No 09/11/16 09/26/16 Unknown History Reported Home Medications] Active Meds: Active Medications Butorphanol Tartrate (Stadol) 2 mg IV Q2H PRN PRN Reason: Pain , Severe (7-10) Fentanyl (Sublimaze) 100 mcg IV Q2H PRN PRN Reason: Labor Pain Hydralazine HCl (Apresoline) 10 mg IV Q30MIN PRN PRN Reason: Hypertension Lactated Ringer's (Lactated Ringers) 1,000 mls @ 125 mls/hr IV DIRECT JOYCE Oxytocin/Sodium Chloride (Pitocin/Ns 20 Unit/1000ml Drip) 20 units in 1,000 mls @ 125 mls/hr IV DIRECT JOYCE Oxytocin/Sodium Chloride (Pitocin/Ns 30 Unit/500ml) 30 units in 500 mls @ 1 mls /hr IV TITR JOYCE; 1 MILLIUNITS/MIN PRN Reason: Protocol Mineral Oil (Mineral Oil) 30 ml PO QHS PRN PRN Reason: Constipation Ondansetron HCl (Zofran) 4 mg IV Q8H PRN PRN Reason: Nausea And Vomiting Promethazine HCl (Phenergan) 25 mg PO Q6H PRN PRN Reason: Nausea And Vomiting Review of Systems All systems: negative - Vital Signs Vital signs: Vital Signs Pulse BP Pulse Ox 122 H 164/96 100 09/25/16 21:27 09/25/16 21:27 09/25/16 21:27 Temp Pulse Resp BP Pulse Ox 108 H 167/97 100 09/25/16 21:47 09/25/16 21:44 09/25/16 21:47 - Physical Exam Breasts: Positive: normal Lungs: Positive: Normal air movement Abdomen: Positive: normal appearance Genitourinary (Female): Positive: normal external genitalia Uterus: Positive: normal size Extremities: Positive: normal Deep Tendon Reflex Grade: Normal +2 - Obstetrical Cervical Dilatation: 2 (per rn) Uterine Contraction Pattern: Irregular Uterine Tone Measurement Phase: Contraction Results Result Diagrams: 09/25/16 21:55 09/25/16 21:55 All other labs normal. Assessment and Plan 21y/o admitted for IOL; HTN with superimposed pre-e @ 37+3 weeks. plan for serial IOL with cervidil .orders in EMR. - Patient Problems (1) 37 weeks gestation of Current Visit: Yes Status: Acute (2) Positive GBS test Current Visit: Yes Status: Acute Plan to address problem: Allergy to PCN, Cleocin when in labor (3) Pre-eclampsia complicating hypertension Current Visit: Yes Status: Acute Plan to address problem: Mag sulfate when in labor pre-e labs with admission orders monitor b/p and for s/s worsening pre-e (4) Rubella non-immune status, antepartum Current Visit: Yes Status: Acute Plan to address problem: vaccine
[2016-09-25] MEDS ORDERED: PITOCin/NS 30 UNIT/500ML 30 UNITS/500 ML BAG IV SCH (22:00)
[2016-09-25] MEDS ORDERED: PITOCin/NS 20 UNIT/1000ML DRIP 20 UNITS/1,000 ML BAG IV SCH (22:00)
[2016-09-25] MEDS ORDERED: CERVIDIL VG ONE (22:33)
[2016-09-25] MEDS ORDERED: AMBIEN PO PRN (22:33)
[2016-09-25 23:32] LABS: Mean Corpuscular HGB Conc 30 % (30-34); Platelet Count 452 K/mm3 (140-440); Red Blood Count 4.35 M/mm3 (3.65-5.03)
[2016-09-25 23:35] LABS: Hematocrit 28.5 % (30.3-42.9); Hemoglobin 8.5 gm/dl (10.1-14.3); Mean Corpuscular Hemoglobin 20 pg (28-32); Mean Corpuscular Volume 66 fl (79-97); Red Cell Distribution Width 21.4 % (13.2-15.2)
[2016-09-26 01:47] LABS: Alanine Aminotransferase 5 units/L (7-56); Lactate Dehydrogenase 241 units/L (91-180); Uric Acid 4.3 mg/dL (3.5-7.6)
[2016-09-26] MEDS: SUBLIMAZE IV PRN ×3 (02:47→22:35)
[2016-09-26] MEDS: LACTATED RINGERS 1,000 ML IV SCH ×2 (04:21→12:02)
[2016-09-26] MEDS: STADOL IV PRN ×2 (04:55→07:42)
--- NOTE | 2016-09-26 08:46 | Event Note ---
Date: 09/26/16 Pt states that she is feeling well. I did d/w serial IOL and also changing the scheduling of pain meds to make it less often. Pt expressed understanding. Overall cat I tracing except when pain meds are given.
[2016-09-26] MEDS ORDERED: CLEOCIN 900 MG/50 mL 900 MG/50 ML BAG IV SCH (09:00)
[2016-09-26] MEDS: PITOCin/NS 30 UNIT/500ML 30 UNITS/500 ML BAG IV SCH (12:02)
--- NOTE | 2016-09-26 16:56 | Event Note ---
Date: 09/26/16 (late entry) Pt was asking RN not to increase pitocin. I took several minutes at the bedside explain to pt and s/o the process of iol. I also reminded pt of previous process during last gestation. pt expressed understanding. I advised again the the pain medication needs to be spaced appropriated for well being and that she is not in active labor at this time nor has SROM so epidural placement would not be recommended at this time. Pt expressed understanding and does agree with plan of care. Pain at time at bedside was not that severe and she was tolerating the irregular contractions.
--- NOTE | 2016-09-26 19:41 | Progress Note ---
Assessment and Plan - Patient Problems (1) 37 weeks gestation of Current Visit: Yes Status: Acute (2) Positive GBS test Current Visit: Yes Status: Acute Plan to address problem: -start meds when in active labor (3) Pre-eclampsia complicating hypertension Current Visit: Yes Status: Acute Plan to address problem: -cont serial IOL -questions were addressed and answered (4) Depression affecting in third trimester, antepartum Current Visit: No Status: Chronic Plan to address problem: -stable at this time on no meds (5) Gallbladder disease affecting in third trimester Current Visit: No Status: Chronic Plan to address problem: -stable at this time no issues Subjective - Subjective Date of service: 09/26/16 Principal diagnosis: IUP @ 37 06/12 IOL D#1 d/t htn with superimposed pre E Interval history: Tracing reviewed. Noted to be cat I except when pain meds are given. Pt again reminded of the scheduling for pain meds and serial induction process. All questions were addressed and answered. Patient reports: new complaints, movement normal, no loss of fluid, no vaginal bleeding Objective - Vital Signs Vital Signs: Vital Signs - 12hr 09/26/16 09/26/16 09/26/16 07:44 08:30 09:00 Temperature Pulse Rate 96 H 101 H 102 H Respiratory Rate Blood Pressure 132/69 135/78 125/66 O2 Sat by Pulse Oximetry 09/26/16 09/26/16 09/26/16 09:31 10:00 10:31 Temperature Pulse Rate 100 H 105 H 139 H Respiratory Rate Blood Pressure 125/68 138/78 153/79 O2 Sat by Pulse Oximetry 09/26/16 09/26/16 09/26/16 11:32 11:33 12:01 Temperature Pulse Rate 99 H 104 H Respiratory 16 Rate Blood Pressure 132/75 163/80 O2 Sat by Pulse Oximetry 09/26/16 09/26/16 09/26/16 12:03 12:08 12:13 Temperature 98.3 F Pulse Rate 104 H 116 H 143 H Respiratory 14 Rate Blood Pressure 163/80 O2 Sat by Pulse 99 99 100 Oximetry 09/26/16 09/26/16 09/26/16 12:18 12:23 12:28 Temperature Pulse Rate 126 H 125 H 119 H Respiratory Rate Blood Pressure O2 Sat by Pulse 97 99 99 Oximetry 0809/26/16 09/26/16 12:31 12:33 12:38 Temperature Pulse Rate 117 H 105 H 109 H Respiratory Rate Blood Pressure 157/94 O2 Sat by Pulse 99 99 Oximetry 09/26/16 09/26/16 09/26/16 12:43 12:48 12:53 Temperature Pulse Rate 110 H 113 H 105 H Respiratory Rate Blood Pressure O2 Sat by Pulse 98 99 99 Oximetry 09/26/16 09/26/16 09/26/16 12:58 13:00 13:03 Temperature Pulse Rate 104 H 102 H 119 H Respiratory Rate Blood Pressure 143/81 O2 Sat by Pulse 99 99 Oximetry 09/26/16 09/26/16 09/26/16 13:08 13:13 13:18 Temperature Pulse Rate 112 H 99 H 102 H Respiratory Rate Blood Pressure O2 Sat by Pulse 100 100 100 Oximetry 09/26/16 09/26/16 09/26/16 13:23 13:28 13:30 Temperature Pulse Rate 111 H 98 H 98 H Respiratory Rate Blood Pressure 137/83 O2 Sat by Pulse 100 98 Oximetry 09/26/16 09/26/16 09/26/16 13:33 13:38 13:43 Temperature Pulse Rate 102 H 98 H 103 H Respiratory Rate Blood Pressure O2 Sat by Pulse 98 98 98 Oximetry 09/26/16 09/26/16 09/26/16 13:48 13:53 13:58 Temperature Pulse Rate 113 H 111 H 106 H Respiratory Rate Blood Pressure O2 Sat by Pulse 99 98 99 Oximetry 09/26/16 09/26/16 09/26/16 14:00 14:03 14:08 Temperature Pulse Rate 109 H 113 H 100 H Respiratory Rate Blood Pressure 141/85 O2 Sat by Pulse 94 99 99 Oximetry 09/26/16 09/26/16 09/26/16 14:13 14:18 14:23 Temperature Pulse Rate 101 H 111 H 107 H Respiratory Rate Blood Pressure O2 Sat by Pulse 99 99 99 Oximetry 09/26/16 09/26/16 09/26/16 14:28 14:30 14:33 Temperature Pulse Rate 99 H 108 H 103 H Respiratory Rate Blood Pressure 143/91 O2 Sat by Pulse 100 99 Oximetry 09/26/16 09/26/16 09/26/16 14:38 14:43 14:48 Temperature Pulse Rate 128 H 115 H 105 H Respiratory Rate Blood Pressure O2 Sat by Pulse 98 99 99 Oximetry 09/26/16 09/26/16 09/26/16 14:53 14:58 15:00 Temperature Pulse Rate 101 H 103 H 100 H Respiratory Rate Blood Pressure 141/82 O2 Sat by Pulse 99 98 Oximetry 09/26/16 09/26/16 09/26/16 15:03 15:08 15:13 Temperature Pulse Rate 104 H 102 H 104 H Respiratory Rate Blood Pressure O2 Sat by Pulse 99 98 98 Oximetry 09/26/16 09/26/16 09/26/16 15:18 15:23 15:28 Temperature Pulse Rate 102 H 107 H 103 H Respiratory Rate Blood Pressure O2 Sat by Pulse 99 99 99 Oximetry 09/26/16 09/26/16 09/26/16 15:30 15:33 15:38 Temperature Pulse Rate 98 H 98 H 102 H Respiratory Rate Blood Pressure 136/90 O2 Sat by Pulse 99 99 Oximetry 09/26/16 09/26/16 09/26/16 15:43 15:48 15:53 Temperature Pulse Rate 102 H 101 H 98 H Respiratory Rate Blood Pressure O2 Sat by Pulse 99 99 99 Oximetry 09/26/16 09/26/16 09/26/16 15:58 16:02 16:03 Temperature Pulse Rate 96 H 106 H 99 H Respiratory Rate Blood Pressure 156/86 O2 Sat by Pulse 99 94 99 Oximetry 09/26/16 09/26/16 09/26/16 16:08 16:13 16:18 Temperature Pulse Rate 119 H 100 H 102 H Respiratory Rate Blood Pressure O2 Sat by Pulse 99 98 100 Oximetry 09/26/16 09/26/16 09/26/16 16:23 16:28 16:30 Temperature Pulse Rate 101 H 101 H 96 H Respiratory Rate Blood Pressure 137/77 O2 Sat by Pulse 98 99 93 Oximetry 09/26/16 09/26/16 09/26/16 16:33 16:38 16:43 Temperature Pulse Rate 97 H 109 H 106 H Respiratory Rate Blood Pressure O2 Sat by Pulse 99 98 98 Oximetry 09/26/16 09/26/16 09/26/16 16:48 16:53 16:58 Temperature Pulse Rate 113 H 126 H 118 H Respiratory Rate Blood Pressure O2 Sat by Pulse 98 98 99 Oximetry 09/26/16 09/26/16 09/26/16 17:01 17:03 17:08 Temperature Pulse Rate 102 H 102 H 102 H Respiratory Rate Blood Pressure 145/84 O2 Sat by Pulse 98 98 Oximetry 09/26/16 09/26/16 09/26/16 17:13 17:18 17:23 Temperature Pulse Rate 110 H 106 H 106 H Respiratory Rate Blood Pressure O2 Sat by Pulse 99 99 100 Oximetry 09/26/16 09/26/16 09/26/16 17:35 18:01 18:15 Temperature Pulse Rate 98 H 108 H 97 H Respiratory Rate Blood Pressure 167/91 153/85 148/85 O2 Sat by Pulse Oximetry 09/26/16 18:30 Temperature Pulse Rate 88 Respiratory Rate Blood Pressure 152/85 O2 Sat by Pulse Oximetry - Exam FHR: category 2 Uterine Contraction Pattern: Irregular - Labs Labs: Abnormal Labs 09/25/16 09/25/16 21:55 21:55 WBC 12.0 H Hgb 8.5 L Hct 28.5 L MCV 66 L MCH 20 L RDW 21.4 H Plt Count 452 H Creatinine 0.6 L ALT 5 L Lactate Dehydrogenase 241 H Laboratory Results - last 24 hr 09/25/16 09/25/16 09/25/16 21:55 21:55 21:55 WBC 12.0 H RBC 4.35 Hgb 8.5 L Hct 28.5 L MCV 66 L MCH 20 L MCHC 30 RDW 21.4 H Plt Count 452 H Creatinine Estimated GFR Uric Acid AST ALT Lactate Dehydrogenase RPR Nonreactive Blood Type A POSITIVE Antibody Screen Negative 09/25/16 21:55 WBC RBC Hgb Hct MCV MCH MCHC RDW Plt Count Creatinine 0.6 L Estimated GFR > 60 Uric Acid 4.3 AST 11 ALT 5 L Lactate Dehydrogenase 241 H RPR Blood Type Antibody Screen
[2016-09-26] MEDS ORDERED: CERVIDIL VG ONE (20:15)
--- NOTE | 2016-09-26 20:49 | Progress Note ---
Assessment and Plan - Patient Problems (1) 37 weeks gestation of Current Visit: Yes Status: Acute (2) Positive GBS test Current Visit: Yes Status: Acute (3) Pre-eclampsia complicating hypertension Current Visit: Yes Status: Acute Plan to address problem: -bp stable on no meds -con't serial IOL (4) Depression affecting in third trimester, antepartum Current Visit: No Status: Chronic (5) Gallbladder disease affecting in third trimester Current Visit: No Status: Chronic Subjective - Subjective Date of service: 09/26/16 Principal diagnosis: IUP @ 37 5/7 IOL D#1 d/t htn with superimposed pre E Interval history: cervidl placed w/o difficulty. Pt tolerated the exam well. Pt cx /-2 /post/ soft Patient reports: new complaints, movement normal, no loss of fluid, no vaginal bleeding Objective - Vital Signs Vital Signs: Vital Signs - 12hr 09/26/16 09/26/16 09/26/16 09:00 09:31 10:00 Temperature Pulse Rate 102 H 100 H 105 H Respiratory Rate Blood Pressure 125/66 125/68 138/78 O2 Sat by Pulse Oximetry 09/26/16 09/26/16 09/26/16 10:31 11:32 11:33 Temperature Pulse Rate 139 H 99 H Respiratory 16 Rate Blood Pressure 153/79 132/75 O2 Sat by Pulse Oximetry 09/26/16 09/26/16 09/26/16 12:01 12:03 12:08 Temperature 98.3 F Pulse Rate 104 H 104 H 116 H Respiratory 14 Rate Blood Pressure 163/80 163/80 O2 Sat by Pulse 99 99 Oximetry 09/26/16 09/26/16 09/26/16 12:13 12:18 12:23 Temperature Pulse Rate 143 H 126 H 125 H Respiratory Rate Blood Pressure O2 Sat by Pulse 100 97 99 Oximetry 09/26/16 09/26/16 09/26/16 12:28 12:31 12:33 Temperature Pulse Rate 119 H 117 H 105 H Respiratory Rate Blood Pressure 157/94 O2 Sat by Pulse 99 99 Oximetry 09/26/16 09/26/16 09/26/16 12:38 12:43 12:48 Temperature Pulse Rate 109 H 110 H 113 H Respiratory Rate Blood Pressure O2 Sat by Pulse 99 98 99 Oximetry 09/26/16 09/26/16 09/26/16 12:53 12:58 13:00 Temperature Pulse Rate 105 H 104 H 102 H Respiratory Rate Blood Pressure 143/81 O2 Sat by Pulse 99 99 Oximetry 09/26/16 09/26/16 09/26/16 13:03 13:08 13:13 Temperature Pulse Rate 119 H 112 H 99 H Respiratory Rate Blood Pressure O2 Sat by Pulse 99 100 100 Oximetry 09/26/16 09/26/16 09/26/16 13:18 13:23 13:28 Temperature Pulse Rate 102 H 111 H 98 H Respiratory Rate Blood Pressure O2 Sat by Pulse 100 100 98 Oximetry 09/26/16 09/26/16 09/26/16 13:30 13:33 13:38 Temperature Pulse Rate 98 H 102 H 98 H Respiratory Rate Blood Pressure 137/83 O2 Sat by Pulse 98 98 Oximetry 09/26/16 09/26/16 09/26/16 13:43 13:48 13:53 Temperature Pulse Rate 103 H 113 H 111 H Respiratory Rate Blood Pressure O2 Sat by Pulse 98 99 98 Oximetry 09/26/16 09/26/16 09/26/16 13:58 14:00 14:03 Temperature Pulse Rate 106 H 109 H 113 H Respiratory Rate Blood Pressure 141/85 O2 Sat by Pulse 99 94 99 Oximetry 09/26/16 09/26/16 09/26/16 14:08 14:13 14:18 Temperature Pulse Rate 100 H 101 H 111 H Respiratory Rate Blood Pressure O2 Sat by Pulse 99 99 99 Oximetry 09/26/16 09/26/16 09/26/16 14:23 14:28 14:30 Temperature Pulse Rate 107 H 99 H 108 H Respiratory Rate Blood Pressure 143/91 O2 Sat by Pulse 99 100 Oximetry 09/26/16 09/26/16 09/26/16 14:33 14:38 14:43 Temperature Pulse Rate 103 H 128 H 115 H Respiratory Rate Blood Pressure O2 Sat by Pulse 99 98 99 Oximetry 09/26/16 09/26/16 09/26/16 14:48 14:53 14:58 Temperature Pulse Rate 105 H 101 H 103 H Respiratory Rate Blood Pressure O2 Sat by Pulse 99 99 98 Oximetry 09/26/16 09/26/16 09/26/16 15:00 15:03 15:08 Temperature Pulse Rate 100 H 104 H 102 H Respiratory Rate Blood Pressure 141/82 O2 Sat by Pulse 99 98 Oximetry 09/26/16 09/26/16 09/26/16 15:13 15:18 15:23 Temperature Pulse Rate 104 H 102 H 107 H Respiratory Rate Blood Pressure O2 Sat by Pulse 98 99 99 Oximetry 09/26/16 09/26/16 09/26/16 15:28 15:30 15:33 Temperature Pulse Rate 103 H 98 H 98 H Respiratory Rate Blood Pressure 136/90 O2 Sat by Pulse 99 99 Oximetry 09/26/16 09/26/16 09/26/16 15:38 15:43 15:48 Temperature Pulse Rate 102 H 102 H 101 H Respiratory Rate Blood Pressure O2 Sat by Pulse 99 99 99 Oximetry 09/26/16 09/26/16 09/26/16 15:53 15:58 16:02 Temperature Pulse Rate 98 H 96 H 106 H Respiratory Rate Blood Pressure 156/86 O2 Sat by Pulse 99 99 94 Oximetry 09/26/16 09/26/16 09/26/16 16:03 16:08 16:13 Temperature Pulse Rate 99 H 119 H 100 H Respiratory Rate Blood Pressure O2 Sat by Pulse 99 99 98 Oximetry 09/26/16 09/26/16 09/26/16 16:18 16:23 16:28 Temperature Pulse Rate 102 H 101 H 101 H Respiratory Rate Blood Pressure O2 Sat by Pulse 100 98 99 Oximetry 09/26/16 09/26/16 09/26/16 16:30 16:33 16:38 Temperature Pulse Rate 96 H 97 H 109 H Respiratory Rate Blood Pressure 137/77 O2 Sat by Pulse 93 99 98 Oximetry 09/26/16 09/26/16 09/26/16 16:43 16:48 16:53 Temperature Pulse Rate 106 H 113 H 126 H Respiratory Rate Blood Pressure O2 Sat by Pulse 98 98 98 Oximetry 09/26/16 09/26/16 09/26/16 16:58 17:01 17:03 Temperature Pulse Rate 118 H 102 H 102 H Respiratory Rate Blood Pressure 145/84 O2 Sat by Pulse 99 98 Oximetry 09/26/16 09/26/16 09/26/16 17:08 17:13 17:18 Temperature Pulse Rate 102 H 110 H 106 H Respiratory Rate Blood Pressure O2 Sat by Pulse 98 99 99 Oximetry 09/26/16 09/26/16 09/26/16 17:23 17:35 18:01 Temperature Pulse Rate 106 H 98 H 108 H Respiratory Rate Blood Pressure 167/91 153/85 O2 Sat by Pulse 100 Oximetry 09/26/16 09/26/16 09/26/16 18:15 18:30 20:43 Temperature Pulse Rate 97 H 88 110 H Respiratory Rate Blood Pressure 148/85 152/85 136/77 O2 Sat by Pulse 99 Oximetry 09/26/16 20:46 Temperature 98.5 F Pulse Rate 116 H Respiratory 18 Rate Blood Pressure 136/77 O2 Sat by Pulse 98 Oximetry - Exam Cervical Dilatation: 3 Cervical Effacement Percentage: 50 station: -2 - Labs Labs: Abnormal Labs 09/25/16 09/25/16 21:55 21:55 WBC 12.0 H Hgb 8.5 L Hct 28.5 L MCV 66 L MCH 20 L RDW 21.4 H Plt Count 452 H Creatinine 0.6 L ALT 5 L Lactate Dehydrogenase 241 H Laboratory Results - last 24 hr 09/25/16 09/25/16 09/25/16 21:55 21:55 21:55 WBC 12.0 H RBC 4.35 Hgb 8.5 L Hct 28.5 L MCV 66 L MCH 20 L MCHC 30 RDW 21.4 H Plt Count 452 H Creatinine Estimated GFR Uric Acid AST ALT Lactate Dehydrogenase RPR Nonreactive Blood Type A POSITIVE Antibody Screen Negative 09/25/16 21:55 WBC RBC Hgb Hct MCV MCH MCHC RDW Plt Count Creatinine 0.6 L Estimated GFR > 60 Uric Acid 4.3 AST 11 ALT 5 L Lactate Dehydrogenase 241 H RPR Blood Type Antibody Screen
[2016-09-27] MEDS: SUBLIMAZE IV PRN (01:55)
--- NOTE | 2016-09-27 02:02 | Progress Note ---
Assessment and Plan - Patient Problems (1) 37 weeks gestation of Current Visit: Yes Status: Acute (2) Positive GBS test Current Visit: Yes Status: Acute Plan to address problem: -start antibx at this time as pt is moving into active phase of labor (3) Pre-eclampsia complicating hypertension Current Visit: Yes Status: Acute Plan to address problem: -making cervical changes -cont with serial IOL -will place epidural at this time as pt not tolerating exams or contractions with cervidil -AROM if needed once antibx have been given and when epidural is placed -anticipate (4) Depression affecting in third trimester, antepartum Current Visit: No Status: Chronic (5) Gallbladder disease affecting in third trimester Current Visit: No Status: Chronic Subjective - Subjective Date of service: 09/27/16 Principal diagnosis: IUP @ 37 06/12 IOL D#2 d/t htn with superimposed pre E Interval history: Called by nursing due to pt having continued pain. Pt examined and noted to have some cervical change. I d/w placing epidural at this time as she is requesting pain meds nearly every hour or with each contraction. Pt will get IV pain meds at this time and will then get epidural placement. Will also start antibx for gbs at this time as pt making some cervical change. Patient reports: new complaints, movement normal, no loss of fluid, no vaginal bleeding Objective - Vital Signs Vital Signs: Vital Signs - 12hr 09/26/16 09/26/16 09/26/16 13:58 14:00 14:03 Temperature Pulse Rate 106 H 109 H 113 H Respiratory Rate Blood Pressure 141/85 O2 Sat by Pulse 99 94 99 Oximetry 09/26/16 09/26/16 09/26/16 14:08 14:13 14:18 Temperature Pulse Rate 100 H 101 H 111 H Respiratory Rate Blood Pressure O2 Sat by Pulse 99 99 99 Oximetry 09/26/16 09/26/16 09/26/16 14:23 14:28 14:30 Temperature Pulse Rate 107 H 99 H 108 H Respiratory Rate Blood Pressure 143/91 O2 Sat by Pulse 99 100 Oximetry 09/26/16 09/26/16 09/26/16 14:33 14:38 14:43 Temperature Pulse Rate 103 H 128 H 115 H Respiratory Rate Blood Pressure O2 Sat by Pulse 99 98 99 Oximetry 09/26/16 09/26/16 09/26/16 14:48 14:53 14:58 Temperature Pulse Rate 105 H 101 H 103 H Respiratory Rate Blood Pressure O2 Sat by Pulse 99 99 98 Oximetry 09/26/16 09/26/16 09/26/16 15:00 15:03 15:08 Temperature Pulse Rate 100 H 104 H 102 H Respiratory Rate Blood Pressure 141/82 O2 Sat by Pulse 99 98 Oximetry 09/26/16 09/26/16 09/26/16 15:13 15:18 15:23 Temperature Pulse Rate 104 H 102 H 107 H Respiratory Rate Blood Pressure O2 Sat by Pulse 98 99 99 Oximetry 09/26/16 09/26/16 09/26/16 15:28 15:30 15:33 Temperature Pulse Rate 103 H 98 H 98 H Respiratory Rate Blood Pressure 136/90 O2 Sat by Pulse 99 99 Oximetry 09/26/16 09/26/16 09/26/16 15:38 15:43 15:48 Temperature Pulse Rate 102 H 102 H 101 H Respiratory Rate Blood Pressure O2 Sat by Pulse 99 99 99 Oximetry 09/26/16 09/26/16 09/26/16 15:53 15:58 16:02 Temperature Pulse Rate 98 H 96 H 106 H Respiratory Rate Blood Pressure 156/86 O2 Sat by Pulse 99 99 94 Oximetry 09/26/16 09/26/16 09/26/16 16:03 16:08 16:13 Temperature Pulse Rate 99 H 119 H 100 H Respiratory Rate Blood Pressure O2 Sat by Pulse 99 99 98 Oximetry 09/26/16 09/26/16 09/26/16 16:18 16:23 16:28 Temperature Pulse Rate 102 H 101 H 101 H Respiratory Rate Blood Pressure O2 Sat by Pulse 100 98 99 Oximetry 09/26/16 09/26/16 09/26/16 16:30 16:33 16:38 Temperature Pulse Rate 96 H 97 H 109 H Respiratory Rate Blood Pressure 137/77 O2 Sat by Pulse 93 99 98 Oximetry 09/26/16 09/26/16 09/26/16 16:43 16:48 16:53 Temperature Pulse Rate 106 H 113 H 126 H Respiratory Rate Blood Pressure O2 Sat by Pulse 98 98 98 Oximetry 09/26/16 09/26/16 09/26/16 16:58 17:01 17:03 Temperature Pulse Rate 118 H 102 H 102 H Respiratory Rate Blood Pressure 145/84 O2 Sat by Pulse 99 98 Oximetry 09/26/16 09/26/16 09/26/16 17:08 17:13 17:18 Temperature Pulse Rate 102 H 110 H 106 H Respiratory Rate Blood Pressure O2 Sat by Pulse 98 99 99 Oximetry 09/26/16 09/26/16 09/26/16 17:23 17:35 18:01 Temperature Pulse Rate 106 H 98 H 108 H Respiratory Rate Blood Pressure 167/91 153/85 O2 Sat by Pulse 100 Oximetry 09/26/16 09/26/16 09/26/16 18:15 18:30 20:43 Temperature Pulse Rate 97 H 88 110 H Respiratory Rate Blood Pressure 148/85 152/85 136/77 O2 Sat by Pulse 99 Oximetry 09/26/16 09/26/16 09/26/16 20:46 20:48 20:53 Temperature 98.5 F Pulse Rate 116 H 106 H 106 H Respiratory 18 Rate Blood Pressure 136/77 O2 Sat by Pulse 98 99 99 Oximetry 09/26/16 09/26/16 09/26/16 20:58 21:00 21:03 Temperature Pulse Rate 104 H 106 H 112 H Respiratory Rate Blood Pressure 143/94 O2 Sat by Pulse 100 99 Oximetry 09/26/16 09/26/16 09/26/16 21:08 21:13 21:18 Temperature Pulse Rate 104 H 112 H 107 H Respiratory Rate Blood Pressure O2 Sat by Pulse 99 99 100 Oximetry 09/26/16 09/26/16 09/26/16 21:23 21:28 21:31 Temperature Pulse Rate 105 H 110 H 102 H Respiratory Rate Blood Pressure 163/85 O2 Sat by Pulse 99 99 Oximetry 09/26/16 09/26/16 09/26/16 21:33 21:38 21:43 Temperature Pulse Rate 110 H 105 H 107 H Respiratory Rate Blood Pressure O2 Sat by Pulse 99 99 99 Oximetry 09/26/16 09/26/16 09/26/16 21:48 21:53 21:58 Temperature Pulse Rate 137 H 105 H 113 H Respiratory Rate Blood Pressure O2 Sat by Pulse 99 98 99 Oximetry 09/26/16 09/26/16 09/26/16 22:02 22:03 22:08 Temperature Pulse Rate 112 H 112 H 108 H Respiratory Rate Blood Pressure 161/94 O2 Sat by Pulse 98 99 Oximetry 09/26/16 09/26/1609/26/17 22:13 22:18 22:23 Temperature Pulse Rate 115 H 109 H 107 H Respiratory Rate Blood Pressure O2 Sat by Pulse 99 98 99 Oximetry 09/26/16 09/26/16 09/26/16 22:28 22:30 22:33 Temperature Pulse Rate 122 H 112 H 120 H Respiratory Rate Blood Pressure 137/72 O2 Sat by Pulse 100 99 Oximetry 09/26/16 09/26/16 09/26/16 22:35 22:38 22:43 Temperature Pulse Rate 102 H 106 H Respiratory 19 Rate Blood Pressure O2 Sat by Pulse 98 98 Oximetry 09/26/16 09/26/16 09/26/16 22:48 22:53 22:58 Temperature Pulse Rate 99 H 101 H 97 H Respiratory Rate Blood Pressure O2 Sat by Pulse 97 98 98 Oximetry 09/26/16 09/26/16 09/26/16 23:00 23:03 23:08 Temperature Pulse Rate 96 H 99 H 98 H Respiratory Rate Blood Pressure 127/66 O2 Sat by Pulse 99 98 Oximetry 09/26/16 09/26/16 09/26/16 23:13 23:18 23:23 Temperature Pulse Rate 99 H 104 H 97 H Respiratory Rate Blood Pressure O2 Sat by Pulse 98 99 99 Oximetry 09/26/16 09/26/16 09/26/16 23:28 23:30 23:33 Temperature Pulse Rate 107 H 97 H 99 H Respiratory Rate Blood Pressure 137/69 O2 Sat by Pulse 99 98 Oximetry 09/26/16 09/26/16 09/26/16 23:38 23:43 23:48 Temperature Pulse Rate 100 H 101 H 99 H Respiratory Rate Blood Pressure O2 Sat by Pulse 98 99 99 Oximetry 09/26/16 09/26/16 09/27/16 23:53 23:58 00:00 Temperature Pulse Rate 106 H 122 H 113 H Respiratory Rate Blood Pressure 145/88 O2 Sat by Pulse 98 98 Oximetry 09/27/16 09/27/16 09/27/16 00:03 00:08 00:13 Temperature Pulse Rate 103 H 99 H 115 H Respiratory Rate Blood Pressure O2 Sat by Pulse 99 98 98 Oximetry 09/27/16 09/27/16 09/27/16 00:31 00:36 00:41 Temperature Pulse Rate 118 H 110 H 109 H Respiratory Rate Blood Pressure O2 Sat by Pulse 99 98 99 Oximetry 09/27/16 09/27/16 09/27/16 00:46 00:51 00:56 Temperature Pulse Rate 114 H 103 H 115 H Respiratory Rate Blood Pressure O2 Sat by Pulse 98 98 98 Oximetry 09/27/16 09/27/16 09/27/16 01:01 01:06 01:11 Temperature Pulse Rate 115 H 110 H 109 H Respiratory Rate Blood Pressure 187/103 O2 Sat by Pulse 95 99 99 Oximetry 09/27/16 09/27/16 09/27/16 01:16 01:21 01:26 Temperature Pulse Rate 117 H 114 H 106 H Respiratory Rate Blood Pressure O2 Sat by Pulse 99 99 99 Oximetry 09/27/16 09/27/16 09/27/16 01:29 01:31 01:32 Temperature Pulse Rate 117 H 112 H 118 H Respiratory Rate Blood Pressure 142/95 O2 Sat by Pulse 63 L 98 Oximetry 09/27/16 09/27/16 09/27/16 01:36 01:41 01:46 Temperature Pulse Rate 122 H 108 H 109 H Respiratory Rate Blood Pressure O2 Sat by Pulse 98 99 99 Oximetry 09/27/16 09/27/16 01:51 01:55 Temperature Pulse Rate 136 H Respiratory 20 Rate Blood Pressure O2 Sat by Pulse 94 Oximetry - Exam FHR: other (difficult to trace baby as pt will not lie down in bed due to pain when tracing cat I or II) Uterine Contraction Monitor Mode: External Cervical Dilatation: 4 (exam difficult due to patient not tolerating the exam) Cervical Effacement Percentage: 70 station: -2 - Labs Labs: Abnormal Labs 09/25/16 09/25/16 21:55 21:55 WBC 12.0 H Hgb 8.5 L Hct 28.5 L MCV 66 L MCH 20 L RDW 21.4 H Plt Count 452 H Creatinine 0.6 L ALT 5 L Lactate Dehydrogenase 241 H Laboratory Results - last 24 hr 09/25/16 21:55 RPR Nonreactive
--- NOTE | 2016-09-27 03:14 | Anesthesia Consultation ---
Anesthesia Consult and Med Hx Date of service: 09/27/16 - Airway Anesthetic Teeth Evaluation: Good ROM Head & Neck: Adequate Mental/Hyoid Distance: Adequate Intubation Access Assessment: Probably Good - Pre-Operative Health Status ASA Pre-Surgery Classification: ASA3, Emergency Proposed Anesthetic Plan: Epidural, Spinal - Pulmonary Hx Asthma: Yes (as child, tx with breathing tx) COPD: No Hx Pneumonia: No - Cardiovascular System Hx Hypertension: Yes (CHTN, tx with meds) - Central Nervous System Hx Seizures: No Hx Psychiatric Problems: No - Endocrine Hx Renal Disease: No Hx End Stage Renal Disease: No Hx Hypothyroidism: No Hx Hyperthyroidism: No - Hematic Hx Anemia: Yes (hgb 8.5) Hx Sickle Cell Disease: No - Other Systems Hx Alcohol Use: No
[2016-09-27] MEDS ORDERED: ePHEDrine SULFATE IV PRN (03:15)
[2016-09-27] MEDS ORDERED: NARCAN 2 MG/2 ML IV PRN (03:15)
[2016-09-27] MEDS: LACTATED RINGERS 1,000 ML IV SCH ×2 (03:50→10:20)
[2016-09-27] MEDS: fentaNYL-BUPIV 2 MCG/ML-0.125% 200 MCG/100 ML BAG EPIDURAL SCH ×2 (03:51→11:40)
--- NOTE | 2016-09-27 06:41 | Progress Note ---
Assessment and Plan - Patient Problems (1) 37 weeks gestation of Current Visit: Yes Status: Acute (2) Positive GBS test Current Visit: Yes Status: Acute Plan to address problem: -start antibx at this time as pt is moving into active phase of labor (3) Pre-eclampsia complicating hypertension Current Visit: Yes Status: Acute Plan to address problem: -active labor -start pitocin, cervidil removed (4) Depression affecting in third trimester, antepartum Current Visit: No Status: Chronic Plan to address problem: -stable at this time on no meds (5) Gallbladder disease affecting in third trimester Current Visit: No Status: Chronic Plan to address problem: -stable at this time no issues Subjective - Subjective Date of service: 09/27/16 Principal diagnosis: IUP @ 37 6/7 IOL D#2 d/t htn with superimposed pre E Interval history: pt comfortable with epidural in place. Pt s/p one does of antibx next does due at 10 am. Patient reports: new complaints, movement normal, no loss of fluid, no vaginal bleeding Objective - Vital Signs Vital Signs: Vital Signs - 12hr 09/26/16 09/26/16 09/26/16 20:43 20:46 20:48 Temperature 98.5 F Pulse Rate 110 H 116 H 106 H Respiratory 18 Rate Blood Pressure 136/77 136/77 O2 Sat by Pulse 99 98 99 Oximetry 09/26/16 09/26/16 09/26/16 20:53 20:58 21:00 Temperature Pulse Rate 106 H 104 H 106 H Respiratory Rate Blood Pressure 143/94 O2 Sat by Pulse 99 100 Oximetry 09/26/16 09/26/16 09/26/16 21:03 21:08 21:13 Temperature Pulse Rate 112 H 104 H 112 H Respiratory Rate Blood Pressure O2 Sat by Pulse 99 99 99 Oximetry 09/26/16 09/26/16 09/26/16 21:18 21:23 21:28 Temperature Pulse Rate 107 H 105 H 110 H Respiratory Rate Blood Pressure O2 Sat by Pulse 100 99 99 Oximetry 09/26/16 09/26/16 09/26/16 21:31 21:33 21:38 Temperature Pulse Rate 102 H 110 H 105 H Respiratory Rate Blood Pressure 163/85 O2 Sat by Pulse 99 99 Oximetry 09/26/16 09/26/16 09/26/16 21:43 21:48 21:53 Temperature Pulse Rate 107 H 137 H 105 H Respiratory Rate Blood Pressure O2 Sat by Pulse 99 99 98 Oximetry 09/26/16 09/26/16 09/26/16 21:58 22:02 22:03 Temperature Pulse Rate 113 H 112 H 112 H Respiratory Rate Blood Pressure 161/94 O2 Sat by Pulse 99 98 Oximetry 09/26/16 09/26/16 09/26/16 22:08 22:13 22:18 Temperature Pulse Rate 108 H 115 H 109 H Respiratory Rate Blood Pressure O2 Sat by Pulse 99 99 98 Oximetry 09/26/16 09/26/16 09/26/16 22:23 22:28 22:30 Temperature Pulse Rate 107 H 122 H 112 H Respiratory Rate Blood Pressure 137/72 O2 Sat by Pulse 99 100 Oximetry 09/26/16 09/26/16 09/26/16 22:33 22:35 22:38 Temperature Pulse Rate 120 H 102 H Respiratory 19 Rate Blood Pressure O2 Sat by Pulse 99 98 Oximetry 09/26/16 09/26/16 09/26/16 22:43 22:48 22:53 Temperature Pulse Rate 106 H 99 H 101 H Respiratory Rate Blood Pressure O2 Sat by Pulse 98 97 98 Oximetry 09/26/16 09/26/16 09/26/16 22:58 23:00 23:03 Temperature Pulse Rate 97 H 96 H 99 H Respiratory Rate Blood Pressure 127/66 O2 Sat by Pulse 98 99 Oximetry 09/26/16 09/26/16 09/26/16 23:08 23:13 23:18 Temperature Pulse Rate 98 H 99 H 104 H Respiratory Rate Blood Pressure O2 Sat by Pulse 98 98 99 Oximetry 09/26/16 09/26/16 09/26/16 23:23 23:28 23:30 Temperature Pulse Rate 97 H 107 H 97 H Respiratory Rate Blood Pressure 137/69 O2 Sat by Pulse 99 99 Oximetry 09/26/16 09/26/16 09/26/16 23:33 23:38 23:43 Temperature Pulse Rate 99 H 100 H 101 H Respiratory Rate Blood Pressure O2 Sat by Pulse 98 98 99 Oximetry 09/26/16 09/26/16 09/26/16 23:48 23:53 23:58 Temperature Pulse Rate 99 H 106 H 122 H Respiratory Rate Blood Pressure O2 Sat by Pulse 99 98 98 Oximetry 08/09/27/16 09/27/16 00:00 00:03 00:08 Temperature Pulse Rate 113 H 103 H 99 H Respiratory Rate Blood Pressure 145/88 O2 Sat by Pulse 99 98 Oximetry 09/27/16 09/27/16 09/27/16 00:13 00:31 00:36 Temperature Pulse Rate 115 H 118 H 110 H Respiratory Rate Blood Pressure O2 Sat by Pulse 98 99 98 Oximetry 09/27/16 09/27/16 09/27/16 00:41 00:46 00:51 Temperature Pulse Rate 109 H 114 H 103 H Respiratory Rate Blood Pressure O2 Sat by Pulse 99 98 98 Oximetry 09/27/16 09/27/16 09/27/16 00:56 01:01 01:06 Temperature Pulse Rate 115 H 115 H 110 H Respiratory Rate Blood Pressure 187/103 O2 Sat by Pulse 98 95 99 Oximetry 09/27/16 09/27/16 09/27/16 01:11 01:16 01:21 Temperature Pulse Rate 109 H 117 H 114 H Respiratory Rate Blood Pressure O2 Sat by Pulse 99 99 99 Oximetry 09/27/16 09/27/16 09/27/16 01:26 01:29 01:31 Temperature Pulse Rate 106 H 117 H 112 H Respiratory Rate Blood Pressure O2 Sat by Pulse 99 63 L 98 Oximetry 09/27/16 09/27/16 09/27/16 01:32 01:36 01:41 Temperature Pulse Rate 118 H 122 H 108 H Respiratory Rate Blood Pressure 142/95 O2 Sat by Pulse 98 99 Oximetry 09/27/16 09/27/16 09/27/16 01:46 01:51 01:55 Temperature Pulse Rate 109 H 136 H Respiratory 20 Rate Blood Pressure O2 Sat by Pulse 99 94 Oximetry 09/27/16 09/27/16 09/27/16 01:56 02:00 02:01 Temperature Pulse Rate 107 H 96 H 99 H Respiratory Rate Blood Pressure 143/82 O2 Sat by Pulse 98 90 98 Oximetry 09/27/16 09/27/16 09/27/16 02:06 02:11 02:16 Temperature Pulse Rate 103 H 102 H 104 H Respiratory Rate Blood Pressure O2 Sat by Pulse 98 98 98 Oximetry 09/27/16 09/27/16 09/27/16 02:21 02:26 02:31 Temperature Pulse Rate 100 H 96 H 98 H Respiratory Rate Blood Pressure 159/80 O2 Sat by Pulse 98 98 98 Oximetry 09/27/16 09/27/16 09/27/16 02:36 02:41 02:46 Temperature Pulse Rate 97 H 98 H 99 H Respiratory Rate Blood Pressure O2 Sat by Pulse 98 98 98 Oximetry 09/27/16 09/27/16 09/27/16 02:51 02:56 03:00 Temperature Pulse Rate 113 H 116 H 105 H Respiratory Rate Blood Pressure 147/85 O2 Sat by Pulse 98 98 Oximetry 09/27/16 09/27/16 09/27/16 03:01 03:06 03:11 Temperature Pulse Rate 100 H 121 H 122 H Respiratory Rate Blood Pressure O2 Sat by Pulse 99 98 99 Oximetry 09/27/16 09/27/16 09/27/16 03:18 03:25 03:26 Temperature Pulse Rate 123 H 125 H 115 H Respiratory Rate Blood Pressure 150/92 149/88 O2 Sat by Pulse 99 Oximetry 09/27/16 09/27/16 09/27/16 03:29 03:31 03:33 Temperature Pulse Rate 116 H 112 H 110 H Respiratory Rate Blood Pressure 151/92 141/74 128/67 O2 Sat by Pulse 95 Oximetry 09/27/16 09/27/16 09/27/16 03:35 03:36 03:37 Temperature Pulse Rate 107 H 101 H 104 H Respiratory Rate Blood Pressure 133/68 127/71 O2 Sat by Pulse 98 Oximetry 09/27/16 09/27/16 09/27/16 03:39 03:41 03:46 Temperature Pulse Rate 102 H 102 H 102 H Respiratory Rate Blood Pressure 123/67 O2 Sat by Pulse 98 98 Oximetry 09/27/16 09/27/16 09/27/16 03:51 03:56 04:01 Temperature Pulse Rate 105 H 118 H 120 H Respiratory Rate Blood Pressure O2 Sat by Pulse 99 99 100 Oximetry 09/27/16 09/27/16 09/27/16 04:06 04:11 04:16 Temperature Pulse Rate 115 H 102 H 103 H Respiratory Rate Blood Pressure O2 Sat by Pulse 100 100 100 Oximetry 09/27/16 09/27/16 09/27/16 04:20 04:21 04:26 Temperature Pulse Rate 102 H 104 H 99 H Respiratory Rate Blood Pressure 133/81 O2 Sat by Pulse 100 100 Oximetry 09/27/16 09/27/1609/27/17 04:31 04:36 04:41 Temperature Pulse Rate 104 H 101 H 98 H Respiratory Rate Blood Pressure O2 Sat by Pulse 100 100 100 Oximetry 09/27/16 09/27/16 09/27/16 04:46 04:49 04:51 Temperature Pulse Rate 102 H 101 H 106 H Respiratory Rate Blood Pressure 130/68 O2 Sat by Pulse 100 100 Oximetry 09/27/16 09/27/16 09/27/16 04:56 05:01 05:06 Temperature Pulse Rate 99 H 100 H 98 H Respiratory Rate Blood Pressure O2 Sat by Pulse 100 100 100 Oximetry 09/27/16 09/27/16 09/27/16 05:11 05:16 05:19 Temperature Pulse Rate 100 H 106 H 97 H Respiratory Rate Blood Pressure 129/69 O2 Sat by Pulse 100 100 Oximetry 09/27/16 09/27/16 09/27/16 05:21 05:32 05:37 Temperature Pulse Rate 101 H 103 H 109 H Respiratory Rate Blood Pressure O2 Sat by Pulse 100 100 100 Oximetry 09/27/16 09/27/16 09/27/16 05:42 05:47 05:49 Temperature Pulse Rate 109 H 104 H 111 H Respiratory Rate Blood Pressure 132/79 O2 Sat by Pulse 99 99 Oximetry 09/27/16 09/27/16 09/27/16 05:52 05:57 06:02 Temperature Pulse Rate 108 H 104 H 102 H Respiratory Rate Blood Pressure O2 Sat by Pulse 100 100 100 Oximetry 09/27/16 09/27/16 09/27/16 06:07 06:12 06:17 Temperature Pulse Rate 102 H 104 H 100 H Respiratory Rate Blood Pressure O2 Sat by Pulse 100 100 99 Oximetry 09/27/16 09/27/16 09/27/16 06:18 06:22 06:27 Temperature Pulse Rate 113 H 103 H 110 H Respiratory Rate Blood Pressure 126/82 O2 Sat by Pulse 100 99 Oximetry 09/27/16 06:32 Temperature Pulse Rate 120 H Respiratory Rate Blood Pressure O2 Sat by Pulse 100 Oximetry - Exam Abdomen: Present: normal appearance, soft. Absent: distention, tenderness, guarding Vulva: both: normal (cervidil removed) FHR: category 2 (occassional spontaneous decels when lying on back) Cervical Dilatation: 4.5 Cervical Effacement Percentage: 70 station: -2 Uterine Contraction Pattern: Irregular - Labs Labs: Abnormal Labs 09/25/16 09/25/16 21:55 21:55 WBC 12.0 H Hgb 8.5 L Hct 28.5 L MCV 66 L MCH 20 L RDW 21.4 H Plt Count 452 H Creatinine 0.6 L ALT 5 L Lactate Dehydrogenase 241 H Laboratory Results - last 24 hr 09/25/16 21:55 RPR Nonreactive
--- NOTE | 2016-09-27 07:29 | Event Note ---
Date: 09/27/16 patient resting, no complaints. epidural working well. cervidil removed. plan to start pitocin. Second dose of cleocin due @ 1000. Plan discussed with patient , all questions addressed.
[2016-09-27] MEDS: PITOCin/NS 30 UNIT/500ML 30 UNITS/500 ML BAG IV SCH ×5 (08:00→11:15)
--- NOTE | 2016-09-27 12:17 | Progress Note ---
Assessment and Plan anticipate delivery Subjective - Subjective Date of service: 09/27/16 (pt c/o pain in her butt) Principal diagnosis: IUP @ 37 6/7 IOL D#2 d/t htn with superimposed pre E Patient reports: new complaints, movement normal, no loss of fluid, no vaginal bleeding Objective - Vital Signs Vital Signs: Vital Signs - 12hr 09/27/16 09/27/16 09/27/16 00:31 00:36 00:41 Pulse Rate 118 H 110 H 109 H Respiratory Rate Blood Pressure O2 Sat by Pulse 99 98 99 Oximetry 09/27/16 09/27/16 09/27/16 00:46 00:51 00:56 Pulse Rate 114 H 103 H 115 H Respiratory Rate Blood Pressure O2 Sat by Pulse 98 98 98 Oximetry 09/27/16 09/27/16 09/27/16 01:01 01:06 01:11 Pulse Rate 115 H 110 H 109 H Respiratory Rate Blood Pressure 187/103 O2 Sat by Pulse 95 99 99 Oximetry 09/27/16 09/27/16 09/27/16 01:16 01:21 01:26 Pulse Rate 117 H 114 H 106 H Respiratory Rate Blood Pressure O2 Sat by Pulse 99 99 99 Oximetry 09/27/16 09/27/16 09/27/16 01:29 01:31 01:32 Pulse Rate 117 H 112 H 118 H Respiratory Rate Blood Pressure 142/95 O2 Sat by Pulse 63 L 98 Oximetry 09/27/16 09/27/16 09/27/16 01:36 01:41 01:46 Pulse Rate 122 H 108 H 109 H Respiratory Rate Blood Pressure O2 Sat by Pulse 98 99 99 Oximetry 09/27/16 09/27/16 09/27/16 01:51 01:55 01:56 Pulse Rate 136 H 107 H Respiratory 20 Rate Blood Pressure O2 Sat by Pulse 94 98 Oximetry 09/27/16 09/27/16 09/27/16 02:00 02:01 02:06 Pulse Rate 96 H 99 H 103 H Respiratory Rate Blood Pressure 143/82 O2 Sat by Pulse 90 98 98 Oximetry 09/27/16 09/27/16 09/27/16 02:11 02:16 02:21 Pulse Rate 102 H 104 H 100 H Respiratory Rate Blood Pressure O2 Sat by Pulse 98 98 98 Oximetry 09/27/16 09/27/16 09/27/16 02:26 02:31 02:36 Pulse Rate 96 H 98 H 97 H Respiratory Rate Blood Pressure 159/80 O2 Sat by Pulse 98 98 98 Oximetry 09/27/16 09/27/16 09/27/16 02:41 02:46 02:51 Pulse Rate 98 H 99 H 113 H Respiratory Rate Blood Pressure O2 Sat by Pulse 98 98 98 Oximetry 09/27/16 09/27/16 09/27/16 02:56 03:00 03:01 Pulse Rate 116 H 105 H 100 H Respiratory Rate Blood Pressure 147/85 O2 Sat by Pulse 98 99 Oximetry 09/27/16 09/27/16 09/27/16 03:06 03:11 03:18 Pulse Rate 121 H 122 H 123 H Respiratory Rate Blood Pressure O2 Sat by Pulse 98 99 99 Oximetry 09/27/16 09/27/16 09/27/16 03:25 03:26 03:29 Pulse Rate 125 H 115 H 116 H Respiratory Rate Blood Pressure 150/92 149/88 151/92 O2 Sat by Pulse Oximetry 09/27/16 09/27/16 09/27/16 03:31 03:33 03:35 Pulse Rate 112 H 110 H 107 H Respiratory Rate Blood Pressure 141/74 128/67 133/68 O2 Sat by Pulse 95 Oximetry 09/27/16 09/27/16 09/27/16 03:36 03:37 03:39 Pulse Rate 101 H 104 H 102 H Respiratory Rate Blood Pressure 127/71 123/67 O2 Sat by Pulse 98 Oximetry 09/27/16 09/27/16 09/27/16 03:41 03:46 03:51 Pulse Rate 102 H 102 H 105 H Respiratory Rate Blood Pressure O2 Sat by Pulse 98 98 99 Oximetry 09/27/16 09/27/16 09/27/16 03:56 04:01 04:06 Pulse Rate 118 H 120 H 115 H Respiratory Rate Blood Pressure O2 Sat by Pulse 99 100 100 Oximetry 09/27/16 09/27/16 09/27/16 04:11 04:16 04:20 Pulse Rate 102 H 103 H 102 H Respiratory Rate Blood Pressure 133/81 O2 Sat by Pulse 100 100 Oximetry 09/27/16 09/27/16 09/27/16 04:21 04:26 04:31 Pulse Rate 104 H 99 H 104 H Respiratory Rate Blood Pressure O2 Sat by Pulse 100 100 100 Oximetry 09/27/16 09/27/16 09/27/16 04:36 04:41 04:46 Pulse Rate 101 H 98 H 102 H Respiratory Rate Blood Pressure O2 Sat by Pulse 100 100 100 Oximetry 09/27/16 09/27/16 09/27/16 04:49 04:51 04:56 Pulse Rate 101 H 106 H 99 H Respiratory Rate Blood Pressure 130/68 O2 Sat by Pulse 100 100 Oximetry 09/27/16 09/27/16 09/27/16 05:01 05:06 05:11 Pulse Rate 100 H 98 H 100 H Respiratory Rate Blood Pressure O2 Sat by Pulse 100 100 100 Oximetry 09/27/16 09/27/16 09/27/16 05:16 05:19 05:21 Pulse Rate 106 H 97 H 101 H Respiratory Rate Blood Pressure 129/69 O2 Sat by Pulse 100 100 Oximetry 09/27/16 09/27/16 09/27/16 05:32 05:37 05:42 Pulse Rate 103 H 109 H 109 H Respiratory Rate Blood Pressure O2 Sat by Pulse 100 100 99 Oximetry 09/27/16 09/27/16 09/27/16 05:47 05:49 05:52 Pulse Rate 104 H 111 H 108 H Respiratory Rate Blood Pressure 132/79 O2 Sat by Pulse 99 100 Oximetry 09/27/16 09/27/16 09/27/16 05:57 06:02 06:07 Pulse Rate 104 H 102 H 102 H Respiratory Rate Blood Pressure O2 Sat by Pulse 100 100 100 Oximetry 09/27/16 09/27/16 09/27/16 06:12 06:17 06:18 Pulse Rate 104 H 100 H 113 H Respiratory Rate Blood Pressure 126/82 O2 Sat by Pulse 100 99 Oximetry 09/27/16 09/27/16 09/27/16 06:22 06:27 06:32 Pulse Rate 103 H 110 H 120 H Respiratory Rate Blood Pressure O2 Sat by Pulse 100 99 100 Oximetry 09/27/16 09/27/16 09/27/16 06:37 06:42 06:47 Pulse Rate 115 H 105 H 103 H Respiratory Rate Blood Pressure O2 Sat by Pulse 99 100 100 Oximetry 09/27/16 09/27/16 09/27/16 06:50 06:52 06:57 Pulse Rate 102 H 99 H 103 H Respiratory Rate Blood Pressure 134/76 O2 Sat by Pulse 100 100 Oximetry 09/27/16 09/27/16 09/27/16 07:02 07:07 07:12 Pulse Rate 104 H 125 H 98 H Respiratory Rate Blood Pressure O2 Sat by Pulse 100 98 99 Oximetry 09/27/16 09/27/16 09/27/16 07:17 07:19 07:22 Pulse Rate 107 H 99 H 109 H Respiratory Rate Blood Pressure 146/81 O2 Sat by Pulse 99 99 Oximetry 09/27/16 09/27/16 09/27/16 07:27 07:32 07:37 Pulse Rate 95 H 109 H 103 H Respiratory Rate Blood Pressure O2 Sat by Pulse 99 100 99 Oximetry 09/27/16 09/27/16 09/27/16 07:42 07:47 07:52 Pulse Rate 116 H 122 H 108 H Respiratory Rate Blood Pressure O2 Sat by Pulse 100 100 99 Oximetry 09/27/16 09/27/16 09/27/16 07:57 08:00 08:02 Pulse Rate 100 H 110 H 102 H Respiratory Rate Blood Pressure 139/85 O2 Sat by Pulse 99 99 Oximetry 09/27/16 09/27/16 09/27/16 08:07 08:12 08:17 Pulse Rate 100 H 101 H 99 H Respiratory Rate Blood Pressure O2 Sat by Pulse 99 98 98 Oximetry 09/27/16 09/27/16 09/27/16 08:18 08:21 08:22 Pulse Rate 99 H 100 H 105 H Respiratory Rate Blood Pressure 137/74 O2 Sat by Pulse 94 98 Oximetry 09/27/16 09/27/16 09/27/16 08:27 08:32 08:37 Pulse Rate 96 H 111 H 95 H Respiratory Rate Blood Pressure O2 Sat by Pulse 98 98 100 Oximetry 09/27/16 09/27/16 09/27/16 08:42 08:47 08:48 Pulse Rate 94 H 95 H 95 H Respiratory Rate Blood Pressure 140/77 O2 Sat by Pulse 100 100 Oximetry 09/27/16 09/27/16 09/27/16 08:52 08:57 09:02 Pulse Rate 96 H 98 H 112 H Respiratory Rate Blood Pressure O2 Sat by Pulse 100 100 100 Oximetry 09/27/16 09/27/16 09/27/16 09:07 09:12 09:17 Pulse Rate 130 H 99 H 99 H Respiratory Rate Blood Pressure O2 Sat by Pulse 100 100 100 Oximetry 09/27/16 09/27/16 09/27/16 09:18 09:22 09:27 Pulse Rate 100 H 102 H 109 H Respiratory Rate Blood Pressure 144/80 O2 Sat by Pulse 100 100 Oximetry 09/27/16 09/27/16 09/27/16 09:32 09:37 09:42 Pulse Rate 96 H 107 H 97 H Respiratory Rate Blood Pressure O2 Sat by Pulse 100 100 100 Oximetry 09/27/16 09/27/16 09/27/16 09:47 09:50 09:52 Pulse Rate 113 H 107 H 109 H Respiratory Rate Blood Pressure 151/79 O2 Sat by Pulse 100 100 Oximetry 09/27/16 09/27/16 09/27/16 09:57 10:02 10:07 Pulse Rate 113 H 100 H 141 H Respiratory Rate Blood Pressure O2 Sat by Pulse 100 100 100 Oximetry 09/27/16 09/27/16 09/27/16 10:12 10:17 10:20 Pulse Rate 114 H 104 H 103 H Respiratory Rate Blood Pressure 111/56 O2 Sat by Pulse 100 100 Oximetry 09/27/16 09/27/16 09/27/16 10:22 10:27 10:32 Pulse Rate 130 H 113 H 103 H Respiratory Rate Blood Pressure 130/67 O2 Sat by Pulse 100 99 100 Oximetry 09/27/16 09/27/16 09/27/16 10:37 10:42 10:47 Pulse Rate 101 H 106 H 103 H Respiratory Rate Blood Pressure O2 Sat by Pulse 100 99 100 Oximetry 09/27/16 09/27/16 09/27/16 10:50 10:52 10:57 Pulse Rate 103 H 105 H 104 H Respiratory Rate Blood Pressure 123/58 O2 Sat by Pulse 100 99 Oximetry 09/27/16 09/27/16 09/27/16 11:02 11:07 11:12 Pulse Rate 103 H 112 H 103 H Respiratory Rate Blood Pressure O2 Sat by Pulse 100 99 100 Oximetry 09/27/16 09/27/16 09/27/16 11:17 11:19 11:22 Pulse Rate 107 H 110 H 109 H Respiratory Rate Blood Pressure 117/73 O2 Sat by Pulse 100 100 Oximetry 09/27/16 09/27/16 09/27/16 11:27 11:32 11:46 Pulse Rate 152 H 153 H 143 H Respiratory Rate Blood Pressure O2 Sat by Pulse 100 100 100 Oximetry 09/27/16 11:51 Pulse Rate 137 H Respiratory Rate Blood Pressure 127/77 O2 Sat by Pulse Oximetry - Exam Breasts: deferred Cardiovascular: Normal S1 Lungs: Normal air movement Abdomen: Present: normal appearance, soft. Absent: distention, tenderness Uterus: Present: normal FHR: auscultation normal, category 2 (decreased variablity) Uterine Contraction Monitor Mode: Internal Cervical Dilatation: 9.5 (ISE applied) Cervical Effacement Percentage: 100 station: 0 Uterine Contraction Pattern: Regular Uterine Contraction Intensity: Moderate Extremities: edema Deep Tendon Reflex Grade: Normal +2 - Labs Labs: Abnormal Labs 09/25/16 09/25/16 21:55 21:55 WBC 12.0 H Hgb 8.5 L Hct 28.5 L MCV 66 L MCH 20 L RDW 21.4 H Plt Count 452 H Creatinine 0.6 L ALT 5 L Lactate Dehydrogenase 241 H
[2016-09-27] MEDS ORDERED: BENADRYL PO PRN (12:51)
[2016-09-27] MEDS ORDERED: TYLENOL PO PRN (12:51)
[2016-09-27] MEDS ORDERED: TUCKS PAD TP PRN (12:51)
[2016-09-27] MEDS ORDERED: LANSINOH TP PRN (12:51)
[2016-09-27] MEDS ORDERED: DULCOLAX PR PRN (12:51)
[2016-09-27] MEDS ORDERED: MILK OF MAGNESIA PO PRN (12:51)
[2016-09-27] MEDS ORDERED: SODIUM CHLORIDE FLUSH SYRINGE 10 ML IV SCH (13:00)
--- NOTE | 2016-09-27 13:00 | Procedure Note ---
OB Delivery Note - Delivery Date of Delivery: 09/27/16 [employer]: ERIKA DONG Estimated blood loss: 500cc - Vaginal Delivery presentation: vertex Delivery position: OP Intrapartum events: preeclampsia, mult.variable deceleratio Delivery induction: cervidil Delivery augmentation: pitocin Delivery monitor: external uterine, internal FHT Route of delivery: Delivery placenta: spontaneous Delivery cord: nuchal cord, 3 umbilical vessels (cord gas drawn) Episiotomy: none Delivery laceration: none Anesthesia: epidural Delivery comments: NICU called to room bradycardia with pushing. notified female over intact perineum OP CAN X 1 reduced Baby passed to waiting NICU team floppy. Cord gas done. Placenta and membrane delivered complete and intact , 3 vessel cord. To pathology 7/8, EBL 300, Wgt 6-8. Pitocin IVFs. Mom and baby remain LDR stable. - Infant A at 1 minute: 7 at 5 minutes: 8 Infant Gender: Female (wgt 6-8)
[2016-09-27] MEDS: MOTRIN PO SCH ×2 (13:57→23:02)
[2016-09-27] MEDS: NORCO 5/325 PO PRN ×2 (16:40→23:02)
[2016-09-28 00:52] LABS: Hematocrit 26.9 % (30.3-42.9)
[2016-09-28] MEDS: NORCO 5/325 PO PRN (05:19)
[2016-09-28] MEDS: MOTRIN PO SCH ×3 (05:19→18:33)
[2016-09-28] MEDS ORDERED: BOOSTRIX IM ONE (06:00)
--- NOTE | 2016-09-28 06:32 | Progress Note ---
Assessment and Plan pt w/o complaint Asking "When can I have my tubal ligation?" VSS BP 140/70s afebrile FF below umb Lochia small Perineum intact H&H 10/01, chronic anemia, will order po iron. Pt is asymptomatic Doing well s/p vag del BP remain in stable range. P: will continue pathway and monitor for another 24 hours Will notify appropriate person to schedule pt's BTL @ 6 weeks PP @ our office. Pt will contact surgeon @ gallbladder surgery. D/C tomorrow if stable. Subjective - Subjective Date of service: 09/28/16 (pt w/o complaint) Principal diagnosis: Day # 1 s/p vaginal delivery/ htn with superimposed pre E Patient reports: appetite normal, voiding normally, pain well controlled, ambulating normally : doing well Objective - Vital Signs Latest vital signs: Vital Signs Temp Pulse Resp BP Pulse Ox 09/28/16 00:00 97.4 F L 90 20 142/78 09/27/16 21:42 97.8 F 100 H 20 149/95 09/27/16 15:50 98.4 F 109 H 20 138/72 09/27/16 15:29 127 H 137/77 09/27/16 14:19 122 H 158/100 09/27/16 13:49 113 H 155/91 09/27/16 13:47 122 H 99 09/27/16 13:37 133 H 98 09/27/16 13:32 116 H 99 09/27/16 13:27 115 H 99 09/27/16 13:22 116 H 100 09/27/16 11:51 137 H 127/77 09/27/16 11:46 143 H 100 09/27/16 11:32 153 H 100 09/27/16 11:27 152 H 100 09/27/16 11:22 109 H 100 09/27/16 11:19 110 H 117/73 09/27/16 11:17 107 H 100 09/27/16 11:12 103 H 100 09/27/16 11:07 112 H 99 09/27/16 11:02 103 H 100 09/27/16 10:57 104 H 99 09/27/16 10:52 105 H 100 09/27/16 10:50 103 H 123/58 09/27/16 10:47 103 H 100 09/27/16 10:42 106 H 99 09/27/16 10:37 101 H 100 09/27/16 10:32 103 H 100 09/27/16 10:27 113 H 99 09/27/16 10:22 130 H 130/67 100 09/27/16 10:20 103 H 111/56 09/27/16 10:17 104 H 100 09/27/16 10:12 114 H 100 09/27/16 10:07 141 H 100 09/27/16 10:02 100 H 100 09/27/16 09:57 113 H 100 09/27/16 09:52 109 H 100 09/27/16 09:50 107 H 151/79 09/27/16 09:47 113 H 100 09/27/16 09:42 97 H 100 09/27/16 09:37 107 H 100 09/27/16 09:32 96 H 100 09/27/16 09:27 109 H 100 09/27/16 09:22 102 H 100 09/27/16 09:18 100 H 144/80 09/27/16 09:17 99 H 100 09/27/16 09:12 99 H 100 09/27/16 09:07 130 H 100 09/27/16 09:02 112 H 100 09/27/16 08:57 98 H 100 09/27/16 08:52 96 H 100 09/27/16 08:48 95 H 140/77 09/27/16 08:47 95 H 100 09/27/16 08:42 94 H 100 09/27/16 08:37 95 H 100 09/27/16 08:32 111 H 98 09/27/16 08:27 96 H 98 09/27/16 08:22 105 H 98 09/27/16 08:21 100 H 94 09/27/16 08:18 99 H 137/74 09/27/16 08:17 99 H 98 09/27/16 08:12 101 H 98 09/27/16 08:07 100 H 99 09/27/16 08:02 102 H 99 09/27/16 08:00 110 H 139/85 09/27/16 07:57 100 H 99 09/27/16 07:52 108 H 99 09/27/16 07:47 122 H 100 09/27/16 07:42 116 H 100 09/27/16 07:37 103 H 99 09/27/16 07:32 109 H 100 09/27/16 07:27 95 H 99 09/27/16 07:22 109 H 99 09/27/16 07:19 99 H 146/81 09/27/16 07:17 107 H 99 09/27/16 07:12 98 H 99 09/27/16 07:07 125 H 98 09/27/16 07:02 104 H 100 09/27/16 06:57 103 H 100 09/27/16 06:52 99 H 100 09/27/16 06:50 102 H 134/76 09/27/16 06:47 103 H 100 09/27/16 06:42 105 H 100 09/27/16 06:37 115 H 99 09/27/16 06:32 120 H 100 Intake and Output 09/27/16 09/27/16 09/28/16 14:59 22:59 06:59 Intake Total 1000 240 480 Output Total 200 Balance 800 240 480 Intake: IV 1000 Lactated Ringers 1,000 ml 1000 @ 125 mls/hr IV DIRECT JOYCE Rx#:[id number] Oral 240 480 Output: Urine 200 Void 200 Other: Total, Intake Amount 240 240 Total, Output Amount 200 # Voids Void 1 1 1 Estimated Blood Loss 300 - Exam Breasts: Present: normal, Cardiovascular: Present: Regular rate Lungs: Present: Clear to auscultation, Normal air movement Abdomen: Present: normal appearance, soft, normal bowel sounds Uterus: Present: normal, firm, fundal height below umbilicus Extremities: Present: edema Deep Tendon Reflex Grade: Normal +2 Incision: Present: normal - Labs Labs: Abnormal lab results 09/28/16 Range/Units 00:30 Hgb 8.0 L (10.1-14.3) gm/dl Hct 26.9 L (30.3-42.9) %
--- NOTE | 2016-09-28 10:47 | Progress Note ---
Subjective Date of service: 09/28/16 Principal diagnosis: Day # 1 s/p vaginal delivery/ htn with superimposed pre E Interval history: 1st day after normal vaginal delivery Patient is in the bed, comfortable. pain is well controlled with pain meds. Ambulated well. No residual neurological deficit. No anesthesia complications Objective - Constitutional Vitals: Vital Signs - 12hr 09/28/16 09/28/16 09/28/16 00:00 06:15 08:04 Temperature 97.4 F L 98.4 F Pulse Rate 90 91 H 90 Respiratory 20 20 18 Rate Blood Pressure 142/78 150/81 128/71 - Labs CBC & Chem 7: 09/28/16 00:30 09/25/16 21:55 Labs: Abnormal lab results 09/28/16 Range/Units 00:30 Hgb 8.0 L (10.1-14.3) gm/dl Hct 26.9 L (30.3-42.9) %
[2016-09-28] MEDS ORDERED: M-M-R II VACCINE SUB-Q ONE (12:51)
[2016-09-29] MEDS: MOTRIN PO SCH ×5 (00:06→23:22)
[2016-09-29] MEDS: NORCO 5/325 PO PRN (02:27)
--- NOTE | 2016-09-29 09:49 | Progress Note ---
Assessment and Plan - Patient Problems (1) Pre-eclampsia complicating hypertension Onset Date: Unknown Current Visit: Yes Status: Acute Plan to address problem: BPs elevated this morning Pt w/o complaint of GRANT, blurred vision, chest pain. Consulted with Will start MGSO4, Labetalol po, and have prn order for Apresoline for BPs >160/100. Pt made aware of chg, she had asked to d/c today. Pt voiced understanding and agrees with POC Subjective - Subjective Date of service: 09/29/16 (pt with BP >200/100) Principal diagnosis: Day # 2 s/p vaginal delivery/ htn with superimposed pre E Patient reports: appetite normal, voiding normally, pain well controlled, ambulating normally : doing well Objective - Vital Signs Latest vital signs: Vital Signs Temp Pulse Resp BP 09/29/16 08:30 98.1 F 88 18 171/98 09/29/16 07:40 98.2 F 90 19 172/98 09/29/16 05:22 18 09/29/16 02:27 16 09/29/16 00:06 16 09/28/16 23:30 99.0 F 96 H 20 156/84 09/28/16 16:07 98.2 F 82 20 136/80 Intake and Output 09/28/16 09/29/16 09/29/16 22:59 06:59 14:59 Intake Total 720 240 120 Balance 720 240 120 Intake: Oral 720 240 120 Other: Total, Intake Amount 240 240 120 # Voids Void 1 1 - Exam Breasts: Present: normal, Cardiovascular: Present: Regular rate Lungs: Present: Normal air movement Abdomen: Present: normal appearance, soft, normal bowel sounds Vulva: both: normal Uterus: Present: normal, firm, fundal height below umbilicus Extremities: Present: edema Deep Tendon Reflex Grade: Normal +2
[2016-09-29] MEDS: NORMODYNE PO SCH ×2 (10:15→21:54)
[2016-09-29] MEDS ORDERED: LACTATED RINGERS 1,000 ML ONE (10:17)
[2016-09-29] MEDS: APRESOLINE IV PRN ×2 (10:30→15:00)
[2016-09-29] MEDS: MAGNESIUM SULFATE 40GM/1000ML 40 GM/1,000 ML BAG IV SCH (10:30)
--- NOTE | 2016-09-29 15:21 | Event Note ---
Date: 09/29/16 PPD #2 s/p IOL with d/t CHTN with superimposed pre E. pt now with elevated blood pressures. Magnesium started as well as po labetalol. Will con't to monitor at this time and reevaluate for d/c on tomorrow pending good response to bp med. No GRANT or blurry vision at this time.
[2016-09-29] MEDS ORDERED: LACTATED RINGERS 1,000 ML IV SCH (23:45)
[2016-09-30] MEDS: MAGNESIUM SULFATE 40GM/1000ML 40 GM/1,000 ML BAG IV SCH (05:08)
[2016-09-30] MEDS: MOTRIN PO SCH ×2 (05:14→12:01)
--- NOTE | 2016-09-30 08:19 | Progress Note ---
Assessment and Plan patient without complaints, desires d/c home. denies GRANT/ blurred vision or epigastric pain. mag to be d/c'd @ 10am. will continue with labetalol and watch B/P, if stable will consider d/c home this evening. b/p's 130-150/70-90, last mag level @ 4.8. continue current management. - Patient Problems (1) Pre-eclampsia complicating hypertension Onset Date: Unknown Current Visit: Yes Status: Acute (2) Rubella non-immune status, antepartum Current Visit: Yes Status: Acute Plan to address problem: MMR prior to d/c home (3) Spontaneous vaginal delivery Current Visit: Yes Status: Acute Subjective - Subjective Date of service: 09/30/16 Principal diagnosis: Day # 3 s/p vaginal delivery/ htn with superimposed pre E Interval history: EDC Calculations LMP: 10/13/2016 Past History : 5 Term Births: 0 Premature Births: 3 Living Children: 2 Para: 2 Mult. Births: 0 Prev : 0 Aborta: 0 Elect. Ab: 0 Spont. Ab: 1 Ectopics: 0 # 1 Delivery date: 02/25/2012 Weeks Gestation: 36+4 Delivery type: Vaginal Anesthesia type: epidural Delivery location: [facility] Infant Sex: male weight: 6.19 Comments: pre-eclampsia/eclampsia, bradycardia # 2 Delivery date: 01/2013 labor: yes Delivery type: Anesthesia type: none Delivery location: [facility] Sex: Female weight: 5-0 Comments: PreE # 3 Delivery date: 2013 Weeks Gestation: 28 Delivery type: Delivery location: [place] Comments: IUFD severe PreE # 4 Delivery date: 2014 Weeks Gestation: 12 Delivery type: SAB Comments: high BP; heavy bleeding SAB Risk Factors: Smoked Tobacco Use: Never smoker Smokeless Tobacco Use: Never Passive smoke exposure: no Drug use: no Caffeine use: 0 drinks per day Alcohol use: no Seatbelt use: preg-drapery counselor % Dietary Counseling: pn yes Past Medical History: Reviewed history from 10/17/2011 and no changes required: Negative Past Medical History ?chronic htn? 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 Infection History Hx of STD: none Varicella/Chicken Pox Status: Previous Disease Genetic History Congenital Heart Defect: Mom: no Dad: no Suni Disease: Mom: no Dad: no Thalassemia Mom: no Dad: no Neural Tube Defect Mom: no Dad: no Down's Syndrome Mom: no Dad: no Jevon-Sachs Mom: no Dad: no Sickle Cell Disease/Trait Mom: no Dad: no Hemophilia Mom: no Dad: no Muscular Dystrophy Mom: no Dad: no Cystic Fibrosis Mom: no Dad: no [place] Chorea Mom: no Dad: no Mental Retardation Mom: no Dad: no Fragile X Mom: no Dad: no Other Genetic/Chromosomal Disorder Mom: no Dad: no Child w/other defect Mom: no Dad: no Enviromental Exposures Xray Exposure: no Medication, drug, or alcohol use since LMP: no Chemical/Other Exposure: no Exposure to Cat Liter: no Hx of Parvovirus (Fifth Disease): no Occupational Exposure to Children: none Current Allergies: No known allergies Patient reports: appetite normal, pain well controlled, ambulating normally, no dizzy ambulation, no nauseated [place]: doing well, bottle feeding Objective - Vital Signs Latest vital signs: Vital Signs Temp Pulse Resp BP 09/30/16 05:50 88 20 140/90 09/30/16 05:14 16 09/30/16 04:30 97.8 F 82 18 150/88 09/30/16 02:30 86 20 136/78 09/30/16 00:30 98 F 86 20 140/80 09/29/16 23:22 18 09/29/16 22:05 98.0 F 86 18 142/72 09/29/16 21:54 86 140/90 09/29/16 20:00 98.2 F 90 18 156/90 09/29/16 18:00 97.7 F 85 18 148/90 09/29/16 16:00 98 F 88 18 160/89 09/29/16 15:15 99 H 20 162/100 09/29/16 15:05 98.3 F 95 H 20 165/89 09/29/16 15:00 179/100 09/29/16 14:20 98.6 F 95 H 19 179/100 09/29/16 13:30 98.6 F 90 18 149/81 09/29/16 12:00 98.6 F 90 18 142/81 09/29/16 10:45 95 H 20 131/71 09/29/16 10:40 91 H 20 112/71 09/29/16 10:35 98.2 F 94 H 20 140/73 09/29/16 10:30 98.3 F 90 20 168/100 09/29/16 10:00 98.1 F 90 19 168/100 09/29/16 08:30 98.1 F 88 18 171/98 Intake and Output 09/29/16 09/30/16 09/30/16 22:59 06:59 14:59 Intake Total 480 Balance 480 Intake: Intake, Free Water 480 Other: # Voids Void 1 - Exam Breasts: Present: normal Cardiovascular: Present: Regular rate Lungs: Present: Clear to auscultation, Normal air movement Abdomen: Present: normal appearance, soft, normal bowel sounds Vulva: both: normal Uterus: Present: normal, firm, fundal height at umbilicus Extremities: Present: normal Deep Tendon Reflex Grade: Normal +2 - Labs Labs: Abnormal lab results 09/29/16 09/29/16 09/30/16 Range/Units 14:11 18:01 01:13 Magnesium 3.10 H 3.90 H 4.70 H (1.7-2.3) mg/dL 09/30/16 Range/Units 06:12 Magnesium 4.80 H (1.7-2.3) mg/dL
[2016-09-30] MEDS: NORMODYNE PO SCH (10:34)
--- NOTE | 2016-09-30 15:12 | Discharge Summary ---
Providers - Providers Date of Admission: 09/25/16 21:15 Date of discharge: 09/30/16 (desires d/c home) Attending physician: JEFFERY BA Primary care physician: DYLAN HARDY Hospitalization Reason for admission: induction of labor Delivery: Episiotomy: none Laceration: none Other procedures: none complications: none Discharge diagnosis: IUP at term delivered [place] baby: female Hospital course: uncomplicated vaginal Condition at discharge: Good Disposition: DC-01 TO HOME OR SELFCARE - Discharge Diagnoses (1) Pre-eclampsia complicating hypertension Status: Acute (2) Rubella non-immune status, antepartum Status: Acute (3) Spontaneous vaginal delivery Status: Acute Plan - Discharge Medications Prescriptions: Docusate Sodium [Colace] 100 mg PO BID PRN #60 capsule PRN Reason: Constipation Ferrous Sulfate [Feosol 325 MG tab] 325 mg PO BID #60 tablet Ibuprofen [Motrin 800 MG tab] 800 mg PO TID PRN #30 tablet PRN Reason: Pain Labetalol [Normodyne TAB] 200 mg PO BID #60 tablet - Provider Discharge Summary Activity: routine, no sex for 6 weeks, no heavy lifting 4 weeks, no strenuous exercise Diet: routine Instructions: routine Additional instructions: [] Smoking cessation referral if applicable(refer to patient education folder for contact #) [] Refer to [facility] Booklet Call your doctor immediately for: * Fever > 100.5 * Heavy vaginal bleeding ( >1 pad per hour) * Severe persistent headache * Shortness of breath * Reddened, hot, painful area to leg or breast * Drainage or odor from incision. * Keep incision clean and dry at all times and follow doctor's instructions regarding bathing/showering - Follow up plan Follow up: DYLAN HARDY MD [Primary Care Provider] - 10/05/16 9:15 am ( Congratulations! An appointment has been scheducled for you Monday @ 9:15 in the [place] office for a blood pressure check. please continue to take your medication as ordered and call the office for any questions or concerns. )
[2016-09-30 16:26] VITALS: BP 150/100
== END 2016-09-30 18:30 | disposition left against medical advice (07) | DRG 774 ==
LOC: LD 21:15 → OB 09-27 16:15
PROVIDERS: ADMIT Obstetrics & Gynecology; ATTEND Obstetrics & Gynecology
PROC: 10E0XZZ Delivery of Products of Conception, External Approach (ICD-10-PCS; principal; 2016-09-27)
PROC: 00HU33Z Insertion of Infusion Device into Spinal Canal, Percutaneous Approach (ICD-10-PCS; principal; 2016-09-27)
PROC: 00HU33Z Insertion of Infusion Device into Spinal Canal, Percutaneous Approach (ICD-10-PCS; 2016-09-27)
PROC: 3E033VJ Introduction of Other Hormone into Peripheral Vein, Percutaneous Approach (ICD-10-PCS; 2016-09-27)
PROC: 3E0234Z Introduction of Serum, Toxoid and Vaccine into Muscle, Percutaneous Approach (ICD-10-PCS; 2016-09-28)
DX: O11.4 Pre-existing hypertension with pre-eclampsia, complicating childbirth (principal); O98.52 Other viral diseases complicating childbirth; O76 Abnormality in fetal heart rate and rhythm complicating labor and delivery; O99.824 Streptococcus B carrier state complicating childbirth; O99.02 Anemia complicating childbirth; O99.344 Other mental disorders complicating childbirth; F32.9 Major depressive disorder, single episode, unspecified; O99.62 Diseases of the digestive system complicating childbirth; K92.89 Other specified diseases of the digestive system; D64.9 Anemia, unspecified; O69.81X0 Labor and delivery complicated by cord around neck, without compression, not applicable or unspecified; O99.52 Diseases of the respiratory system complicating childbirth; J45.909 Unspecified asthma, uncomplicated; Z88.5 Allergy status to narcotic agent; Z88.0 Allergy status to penicillin; Z37.0 Single live birth; Z3A.37 37 weeks gestation of pregnancy; Z23 Encounter for immunization
CPT/HCPCS: 36415; 59200; 82565; 83615; 83735; 84450; 84460; 84550; 85014; 85018; 85027; 86592; 86850; 86900; 86901; 88307; 90715; J0360; J0595; J2590; J3010; J3475; J7120

== ENCOUNTER 2020-11-16 07:13 | Emergency (ER) | payer MEDICAID, OTHER ==
[2020-11-16] MEDS ORDERED: ONDANSETRON 4 MG/2 ML INJ IV ONE (07:46)
[2020-11-16] MEDS ORDERED: SODIUM CHLORIDE 0.9% 1000 ML 1,000 ML IV ONE (07:46)
--- NOTE | 2020-11-16 07:56 | Emergency Department Report ---
ED Abdominal Pain HPI - General Chief Complaint: Abdominal Pain Stated Complaint: GALL BLADDER PUI?: No Time Seen by Provider: 11/16/20 07:35 Source: patient Mode of arrival: Ambulatory Limitations: No Limitations - History of Present Illness Initial Comments: The patient was evaluated in the emergency department for symptoms described in the history of present illness. He/she was evaluated in the context of the global COVID-19 pandemic, which necessitated consideration that the patient might be at risk for infection with the virus that causes COVID-19. Institutional protocols and algorithms that pertain to the evaluation of patients at risk for COVID-19 are in a state of rapid change based on information released by regulatory bodies including the CDC and federal and state organizations. These policies and algorithms were followed during the patient's care in the emergency department. Please note that these policies, procedures and recommendations changed on a rapid basis. 25-year-old morbid obese -[place] female presents to the emergency room complaining of sharp pain that started during the night in her right side. States that it is right upper quadrant and radiates to the right lower quadrant. Movement and palpation makes the pain worse. Pain is still helps a little does admit to nausea and vomiting denies any fever chills. Last menstrual period was 11/05/2020. She is 5 para to 3. She denies any surgery but does admit to a history of hypertension irregular heartbeat and gallbladder stones. Patient is currently on no medications. She reported to me she has an allergy to penicillin. Patient reports she does have a primary care provider Dr. Tana Castillo MD Complaint: abdominal pain -: During the night Location: RUQ Radiation: RLQ Severity scale (0 -10): 7 Quality: sharp Consistency: intermittent Improves With: nothing Worsens With: movement Associated Symptoms: nausea, vomiting. denies: constipation, dysuria, hematuria - Related Data LMP Date: 11/05/20 Previous Rx's Medication Instructions Recorded Last Taken Type labetaloL [Labetalol 200mg TAB] 200 mg PO BID #60 tablet 09/30/16 Unknown Rx Naproxen 500 mg PO Q12H PRN #20 tablet 11/16/20 Unknown Rx Allergies Allergy/AdvReac Type Severity Reaction Status Date / Time codeine Allergy Severe Hives Verified 09/25/16 21:39 Penicillins Allergy Severe Hives Verified 08/20/17 21:39 ED Review of Systems ROS: Stated complaint: GALL BLADDER Other details as noted in HPI Comment: All other systems reviewed and negative ED Past Medical Hx - Past Medical History Hx Hypertension: Yes (X 6 YRS) Hx Congestive Heart Failure: No Hx Diabetes: No Hx Deep Vein Thrombosis: No Hx Renal Disease: No Hx Sickle Cell Disease: No Hx Seizures: No Hx Asthma: Yes ( CHILD ONLY) Hx COPD: No Hx HIV: No Additional medical history: HIGH CHOLESTEROL. irregular heart beat - Surgical History Past Surgical History?: No - Social History Smoking Status: Never Smoker Substance Use Type: None - Medications Home Medications: Home Medications Medication Instructions Recorded Confirmed Last Taken Type labetaloL [Labetalol 200mg TAB] 200 mg PO BID #60 tablet 09/30/16 11/18/16 Unknown Rx Naproxen 500 mg PO Q12H PRN #20 tablet 11/16/20 Unknown Rx ED Physical Exam - General Limitations: No Limitations General appearance: alert, in no apparent distress, obese - Head Head exam: Present: atraumatic, normocephalic - Eye Eye exam: Present: normal appearance - ENT ENT exam: Present: normal orophraynx, mucous membranes moist, normal external ear exam - Neck Neck exam: Present: normal inspection, full ROM - Respiratory Respiratory exam: Present: normal lung sounds bilaterally. Absent: respiratory distress, chest wall tenderness, accessory muscle use - Cardiovascular Cardiovascular Exam: Present: regular rate - GI/Abdominal GI/Abdominal exam: Present: soft, tenderness, guarding, normal bowel sounds. Absent: distended - Back Exam Back exam: Present: normal inspection, full ROM - Neurological Exam Neurological exam: Present: alert, oriented X3, normal gait - Psychiatric Psychiatric exam: Present: normal affect, normal mood - Skin Skin exam: Present: warm, dry, intact, normal color. Absent: rash ED Course Vital Signs 11/16/20 07:32 Temperature 98.3 F Pulse Rate 94 H Respiratory 16 Rate Blood Pressure 149/99 [Right] O2 Sat by Pulse 100 Oximetry ED Medical Decision Making - Lab Data Result diagrams: 11/16/20 07:50 11/16/20 07:50 - Radiology Data Radiology results: report reviewed [facility] [address] [place] [address] Cat Scan Report Signed Patient: UCHE MCBRIDE MR#: [id number] : 1995 Acct:[id number] Age/Sex: 25 / F ADM Date: 11/16/20 Loc: ED Attending Dr: Ordering Physician: PHUONG MAHMOOD Date of Service: 11/16/20 Procedure(s): CT abdomen pelvis w con Accession Number(s): [id number] cc: PHUONG MAHMOOD CT ABDOMEN AND PELVIS WITH CONTRAST INDICATION / CLINICAL INFORMATION: Left lower quadrant abdominal pain. TECHNIQUE: Axial CT images were obtained through the abdomen and pelvis after 100 cc Omnipaque 300 IV contrast. Sagittal and coronal reformatted images. All CT scans at this location are performed using CT dose reduction for ALARA by means of automated exposure control. COMPARISON: None available. FINDINGS: LOWER CHEST: No significant abnormality. LIVER: No significant abnormality. GALLBLADDER: No significant abnormality. BILE DUCTS: No significant abnormality. PANCREAS: No significant abnormality. SPLEEN: No significant abnormality. ADRENALS: No significant abnormality. RIGHT KIDNEY and URETER: No significant abnormality. LEFT KIDNEY and URETER: No significant abnormality. STOMACH and SMALL BOWEL: No significant abnormality. COLON: No significant abnormality. APPENDIX: No significant abnormality. PERITONEUM: No free fluid. No free air. No fluid collection. LYMPH NODES: No significant adenopathy. AORTA and ARTERIES: No significant abnormality. IVC and VEINS: No significant abnormality. URINARY BLADDER: No significant abnormality. REPRODUCTIVE ORGANS: A 1.9 cm right ovarian cyst is identified. The uterus and left adnexa are unremarkable. ADDITIONAL FINDINGS: None. SKELETAL SYSTEM: No significant abnormality. IMPRESSION: 1.9 cm right ovarian cyst, otherwise, unremarkable exam. Signer Name: Go Hope Jr, MD Signed: 11/16/2020 9:26 AM Workstation Name: [id number] Transcribed By: TTR Dictated By: GO HOPE JR, MD Electronically Authenticated By: GO HOPE JR, MD Signed Date/Time: 11/16/20925 DD/ 3 TD/TT: Print Cancel - Medical Decision Making 25-year-old morbid obese -[place] female presents to the emergency room complaining of sharp pain that started during the night in her right side. States that it is right upper quadrant and radiates to the right lower quadrant. Movement and palpation makes the pain worse. Pain is still helps a little does admit to nausea and vomiting denies any fever chills. Last menstrual period was 11/05/2020. She is 5 para to 3. She denies any surgery but does admit to a history of hypertension irregular heartbeat and gallbladder stones. Patient is currently on no medications. She reported to me she has an allergy to penicillin. Patient reports she does have a primary care provider Dr. Tana Schmid. Abdominal protocol has been ordered with CBC CMP lipase hCG urinalysis INT Zofran normal saline CT abdomen with contrast secondary to tenderness guarding Critical care attestation.: If time is entered above; I have spent that time in minutes in the direct care of this critically ill patient, excluding procedure time. ED Disposition Clinical Impression: Right ovarian cyst Disposition: HOME / SELF CARE / HOMELESS Is pt being admited?: No Does the pt Need Aspirin: No Condition: Stable Instructions: Abdominal Pain (ED), Ovarian Cyst, [id number] Additional Instructions: CAT scan shows you have a right ovary cyst. Negative for appendicitis or gallbladder disease. Follow-up with your primary care provider or NEONATAL CRITICAL CARE NURSE provider. Tylenol ibuprofen or naproxen for pain management. Prescriptions: Naproxen 500 mg PO Q12H PRN #20 tablet PRN Reason: Pain , Severe (7-10) Referrals: PRIMARY CAREMD [Primary Care Provider] - 3-5 Days Tana Trinidad [Other] - 3-5 Days Forms: Work/School Release Form(ED)
[2020-11-16 08:09] LABS: Basophils # (Auto) 0.1 K/mm3 (0.0-0.1); Basophils % (Auto) 0.6 % (0.0-1.8); Eosinophils # (Auto) 0.1 K/mm3 (0.0-0.4); Eosinophils % (Auto) 0.7 % (0.0-4.3); Hematocrit 35.3 % (30.3-42.9); Hemoglobin 11.4 gm/dl (10.1-14.3); Lymphocytes # (Auto) 2.1 K/mm3 (1.2-5.4); Mean Corpuscular HGB Conc 32 % (30-34); Mean Corpuscular Volume 74 fl (79-97); Monocytes # (Auto) 0.6 K/mm3 (0.0-0.8); Monocytes % (Auto) 6.6 % (0.0-7.3); Platelet Count 358 K/mm3 (140-440); Red Blood Count 4.76 M/mm3 (3.65-5.03); Red Cell Distribution Width 17.5 % (13.2-15.2)
[2020-11-16 08:26] LABS: Alanine Aminotransferase 12 units/L (7-56); Albumin 3.9 g/dL (3.9-5); Blood Urea Nitrogen 13 mg/dL (7-17); Calcium 9.3 mg/dL (8.4-10.2); Hemolysis Index 10
[2020-11-16 08:32] LABS: BUN/Creatinine Ratio 22
--- NOTE | 2020-11-16 09:30 | Cat Scan Report ---
CT ABDOMEN AND PELVIS WITH CONTRAST INDICATION / CLINICAL INFORMATION: Left lower quadrant abdominal pain. TECHNIQUE: Axial CT images were obtained through the abdomen and pelvis after 100 cc Omnipaque 300 IV contrast. Sagittal and coronal reformatted images. All CT scans at this location are performed using CT dose re duction for ALARA by means of automated exposure control. COMPARISON: None available. FINDINGS: LOWER CHEST: No significant abnormality. LIVER: No significant abnormality. GALLBLADDER: No significant abnormality. BILE DUCTS: No significant abnormality. PANCREAS: No significant abnormality. SPLEEN: No significant abnormality. ADRENALS: No significant abnormality. RIGHT KIDNEY and URETER: No significant abnormality. LEFT KIDNEY and URETER: No significant abnormality. STOMACH and SMALL BOWEL: No significant abnormality. COLON: No significant abnormality. APPENDIX: No significant abnormality. PERITONEUM: No free fluid. No free air. No fluid collection. LYMPH NODES: No significant adenopathy. AORTA and ARTERIES: No significant abnormality. IVC and VEINS: No significant abnormality. URINARY BLADDER: No significant abnormality. REPRODUCTIVE ORGANS: A 1.9 cm right ovarian cyst is identified. The uterus and left adnexa are unrema rkable. ADDITIONAL FINDINGS: None. SKELETAL SYSTEM: No significant abnormality. IMPRESSION: 1.9 cm right ovarian cyst, otherwise, unremarkable exam. Signer Name: Go Hope Jr, MD Signed: 11/16/2020 9:26 AM Workstation Name: [id number]
[2020-11-16 10:03] LABS: Bilirubin,Urine NEG (Negative); Blood,Urine NEG (Negative); Color,Urine Yellow (Yellow); Mucus,Urine FEW /HPF; Protein,Urine <15 mg/dL mg/dL (Negative); WBC,Urine < 1.0 /HPF (0.0-6.0)
[2020-11-16 10:52] VITALS: BP 135/80
== END 2020-11-16 10:51 | disposition home or self-care (01) ==
LOC: ED 07:13
DX: N83.201 Unspecified ovarian cyst, right side (principal); I10 Essential (primary) hypertension; J45.909 Unspecified asthma, uncomplicated; E78.00 Pure hypercholesterolemia, unspecified; Z88.5 Allergy status to narcotic agent; Z88.0 Allergy status to penicillin; Z79.899 Other long term (current) drug therapy
CPT/HCPCS: 36415; 74177; 80053; 81001; 83690; 84702; 85025; 96361; 96374; 99284; J2405; J7030; Q9967